=== PATIENT | female | born 1955 | race Caucasian/White ===

== ENCOUNTER → 2016-07-04 | Outpatient (CLI) | payer OTHER, MEDICARE ==
--- NOTE | 2016-07-04 09:47 | XR ---
EXAM TYPE: LUMBAR SPINE X RAY SERIES COMPARISON: NONE HISTORY: Back pain TECHNIQUE: 4 views are submitted. FINDINGS: Alignment is anatomic. The pedicles are intact. The transverse processes are intact. There is no s pondylolysis or spondylolisthesis. Postsurgical change on the right. There is a calcification overlying the right transverse process of L3 measuring 6 mm. Facet arthropathy is seen bilaterally L4-5 and L5-S1 severe degenerative disc disease at levels L2-S1 . Atherosclerotic change of the aorta noted. IMPRESSION: 1. Multilevel severe degenerative disc disease. 2. Possible right ureteral calculus correlate clinically..
== END | disposition home or self-care (01) ==
LOC: RADXRMAIN 09:10
PROVIDERS: ATTEND Family Medicine
DX: M51.36 Other intervertebral disc degeneration, lumbar region (principal); M51.37 Other intervertebral disc degeneration, lumbosacral region
CPT/HCPCS: 72110

== ENCOUNTER → 2016-10-16 | Outpatient (CLI) | payer MEDICARE, OTHER ==
--- NOTE | 2016-10-17 10:46 | MM ---
Reason for exam: screening (asymptomatic). Last mammogram was performed 4 years and 4 months ago. History: Patient is postmenopausal. Family history of breast cancer in sister at age 62. Physical Findings: A clinical breast exam by your physician is recommended on an annual basis and results should be correlated with mammographic findings. MG 3D Screening Mammo W/Cad Bilateral CC and MLO view(s) were taken. Prior study comparison: June 04, 2012, bilateral digital screening mammo w/CAD. February 19, 2011, bilateral digital screening mammo w/CAD. The breast tissue is heterogeneously dense. This may lower the sensitivity of mammography. Finding: There are typically benign calcifications in both breasts. No significant changes in finding since June 04, 2012 and February 19, 2011. ASSESSMENT: Benign, BI-RAD 2 RECOMMENDATION: Routine screening mammogram of both breasts in 1 year.
== END | disposition home or self-care (01) ==
LOC: RADMAMWWP 08:03
PROVIDERS: ATTEND Family Medicine
DX: Z12.31 Encounter for screening mammogram for malignant neoplasm of breast (principal); Z80.3 Family history of malignant neoplasm of breast
CPT/HCPCS: 77063; G0202

== ENCOUNTER 2016-12-02 15:36 | Inpatient (IN) | payer MEDICARE, OTHER ==
[2016-12-02] MEDS ORDERED: IPRATROPIUM-ALBUTEROL 3 ML NEB INHALATION STA (15:55)
[2016-12-02] MEDS ORDERED: methylPREDNISolone SOD SUCCI 125 MG/2 ML VIAL IV STA (15:55)
--- NOTE | 2016-12-02 15:59 | ED ---
General Adult HPI - General Chief complaint: Shortness of Breath Stated complaint: shortness of breat Time Seen by Provider: 12/02/16 15:38 Source: patient, EMS, RN notes reviewed Mode of arrival: EMS Limitations: no limitations - History of Present Illness Initial comments: Patient is a pleasant 61-year-old female presenting to the emergency department with difficulty in breathing. Onset of symptoms was a couple of days ago. Symptoms worsened today. Patient does have cough with occasional opaque sputum. No chest pain. Patient feels fatigued. No leg pain or leg swelling. Patient does have history of similar symptoms previously associated with COPD and pneumonia. No fevers. - Related Data Home Medications Medication Instructions Recorded Confirmed Aclidinium [place] [Tudorza 1 puff INHALATION RT-BID 08/06/14 12/02/16 Pressair] Albuterol Inhaler [Ventolin Hfa 1 - 2 puff INHALATION RT-Q6H PRN 08/06/14 Inhaler] Dextroamphetamine/Amphetamine 20 mg PO TID 08/06/14 12/02/16 [Adderall] Fesoterodine Fumarate [Toviaz] 8 mg PO DAILY 08/06/14 12/02/16 Gabapentin [Neurontin] 600 mg PO TID 08/06/14 12/02/16 Albuterol Nebulized [Ventolin 2.5 mg INHALATION RT-BID PRN 10/01/14 12/02/16 Nebulized] Budesonide [Pulmicort] 0.5 mg INHALATION RT-BID 12/02/16 12/02/16 Diazepam 1 mg PO DAILY PRN 12/02/16 12/02/16 Guaifenesin/Dextromethorphan 1 tab PO BID PRN 12/02/16 12/02/16 [Mucinex Dm ER 1,200-60 mg Tab] Lurasidone [Latuda] 40 mg PO DAILY 12/02/16 12/02/16 Montelukast [Singulair] 10 mg PO DAILY 12/02/16 12/02/16 Varenicline [Chantix] 0.5 mg PO BID 12/02/16 12/02/16 Varenicline [Chantix] 0.5 mg PO DAILY 12/02/16 12/02/16 Varenicline [Chantix] 1 mg PO BID 12/02/16 12/02/16 Allergies Allergy/AdvReac Type Severity Reaction Status Date / Time Penicillins Allergy Anaphylaxis Verified 12/02/16 15:44 Review of Systems ROS Statement: Those systems with pertinent positive or pertinent negative responses have been documented in the HPI. ROS Other: All systems not noted in ROS Statement are negative. Constitutional: Denies: fever Eyes: Denies: eye pain ENT: Denies: ear pain Respiratory: Reports: cough, dyspnea Cardiovascular: Denies: chest pain Endocrine: Reports: fatigue Gastrointestinal: Denies: abdominal pain Genitourinary: Denies: dysuria Musculoskeletal: Denies: back pain Skin: Denies: rash Neurological: Denies: weakness Past Medical History Past Medical History: COPD, Hyperlipidemia, Pneumonia Additional Past Medical History / Comment(s): Other HX: cervical arthiritis, 2 bulging discs in neck, emphysema, pneumonia 5 yrs ago History of Any Multi-Drug Resistant Organisms: None Reported Past Surgical History: Adenoidectomy, Appendectomy, Cholecystectomy, Hysterectomy, Orthopedic Surgery, Tonsillectomy, Tubal Ligation Additional Past Surgical History / Comment(s): vaginal hysterectomy 2009, lap mal 2009, colonoscopy-nromal 2010R rotator cuff repair 2008 Past Anesthesia/Blood Transfusion Reactions: No Reported Reaction Additional Past Anesthesia/Blood Transfusion Reaction / Comment(s): Pt has never had blood transfusion. Past Psychological History: Anxiety, Depression Smoking Status: Current every day smoker Past Alcohol Use History: None Reported, Occasional Past Drug Use History: Marijuana - Past Family History Father Family Medical History: Congestive Heart Failure (CHF) Additional Family Medical History / Comment(s): Father of CHF at age 42 yrs. Mother Family Medical History: No Reported History Additional Family Medical History / Comment(s): Mother is 81 yrs old and healthy General Exam Limitations: no limitations General appearance: alert Head exam: Present: atraumatic Eye exam: Present: normal appearance, PERRL ENT exam: Present: normal oropharynx Neck exam: Present: normal inspection Respiratory exam: Present: wheezes, decreased breath sounds Cardiovascular Exam: Present: regular rate, normal rhythm GI/Abdominal exam: Present: soft. Absent: tenderness Extremities exam: Present: normal inspection. Absent: pedal edema, calf tenderness Neurological exam: Present: alert Psychiatric exam: Present: normal affect, normal mood Skin exam: Present: normal color Course Vital Signs 12/02/16 12/02/16 15:38 16:00 Temperature 96.8 F L Pulse Rate 101 H Respiratory 20 26 H Rate Blood Pressure 143/80 O2 Sat by Pulse 97 Oximetry EKG Findings - EKG Comments: EKG Findings:: Normal sinus rhythm 91. LA 1:30. QRS 76. QT 372. QTC 457. Normal axis. Biatrial enlargement. Normal QRS. No acute ST change. Medical Decision Making - Medical Decision Making Patient reevaluated and somewhat improved. Patient and family updated on results and plan. Case discussed in detail with Dr. Knox, who will admit his patient. Patient states she sees Dr. Kilpatrick with pulmonary. - Lab Data Result diagrams: 12/02/16 15:45 Lab Results 12/02/16 Range/Units 15:45 WBC 10.3 (3.8-10.6) k/uL RBC 4.37 (3.80-5.40) m/uL Hgb 13.6 (11.4-16.0) gm/dL Hct 43.3 (34.0-46.0) % MCV 99.2 (80.0-100.0) fL MCH 31.2 (25.0-35.0) pg MCHC 31.5 (31.0-37.0) g/dL RDW 13.8 (11.5-15.5) % Plt Count 263 (150-450) k/uL Neutrophils % 75 % Lymphocytes % 17 % Monocytes % 3 % Eosinophils % 3 % Basophils % 1 % Neutrophils # 7.7 (1.3-7.7) k/uL Lymphocytes # 1.7 (1.0-4.8) k/uL Monocytes # 0.4 (0-1.0) k/uL Eosinophils # 0.3 (0-0.7) k/uL Basophils # 0.1 (0-0.2) k/uL - Radiology Data Radiology results: image reviewed (Chest x-ray shows hyperinflation without acute infiltrate) Disposition Clinical Impression: Acute exacerbation of chronic obstructive airways disease Disposition: ADMITTED IP TO THIS HOSP Referrals: Allen Knox MD [Primary Care Provider] - 1-2 days Decision Time: 16:55
--- NOTE | 2016-12-02 16:45 | XR ---
EXAMINATION TYPE: XR chest 2V DATE OF EXAM: 12/02/2016 COMPARISON: 10/01/2014 HISTORY: Cough TECHNIQUE: Frontal and lateral views of the chest are obtained. FINDINGS: There is pulmonary hyperinflation and flattening of the diaphragm. Heart size is normal. T here are emphysematous changes at the lung apices. Bony thorax is intact. IMPRESSION: Emphysema. No acute lung disease. No change.
[2016-12-02 16:52] LABS: Basophils # (A) 0.1 k/uL (0-0.2); Basophils % (A) 1 %; CH 31.8; CHCM 32.2; Eosinophils # (A) 0.3 k/uL (0-0.7); Eosinophils % (A) 3 %; HCT 43.3 % (34.0-46.0); HDW 2.18; HGB 13.6 gm/dL (11.4-16.0); Luc # (Auto) 0.12; Luc % (Auto) 1; Lymphocytes # (A) 1.7 k/uL (1.0-4.8); Lymphocytes % (A) 17 %; MCH 31.2 pg (25.0-35.0); MCHC 31.5 g/dL (31.0-37.0); MCV 99.2 fL (80.0-100.0); Mean Platelet Volume 7.8; Monocytes # (A) 0.4 k/uL (0-1.0); Monocytes % (A) 3 %; Neutrophils # (A) 7.7 k/uL (1.3-7.7); Neutrophils % (A) 75 %; RBC 4.37 m/uL (3.80-5.40); RDW 13.8 % (11.5-15.5); WBC 10.3 k/uL (3.8-10.6); WBC (Perox) 10.87
[2016-12-02] MEDS ORDERED: IPRATROPIUM-ALBUTEROL 3 ML NEB INHALATION PRN (16:52)
[2016-12-02 17:02] LABS: ALT 103 U/L (9-52); AST 135 U/L (14-36); Alkaline Phosphatase 111 U/L (38-126); Anion Gap 7 mmol/L; Blood Urea Nitrogen 8 mg/dL (7-17); Calcium 9.9 mg/dL (8.4-10.2); Carbon Dioxide 27 mmol/L (22-30); Chloride 100 mmol/L (98-107); Glucose 253 mg/dL (74-99); Non-African American GFR(MDRD) >60 (>60 ml/min/1.73 sqM); Sodium 134 mmol/L (137-145); Total Bilirubin 1.2 mg/dL (0.2-1.3); Total Protein 7.2 g/dL (6.3-8.2)
[2016-12-02 17:05] LABS: Partial Thromboplastin Time 23.7 sec (22.0-30.0); Prothrombin Time 10.6 sec (9.0-12.0)
[2016-12-02 17:13] LABS: Potassium 5.1 mmol/L (3.5-5.1)
[2016-12-02 17:28] LABS: Creatine Kinase MB 4.9 ng/mL (0.0-2.4); Troponin I 0.131 ng/mL (0.000-0.034)
[2016-12-02] MEDS ORDERED: HEPARIN SODIUM,PORCINE 5,000 UNIT/ML 1 ML VIAL IV PRN (17:37)
[2016-12-02] MEDS ORDERED: HEPARIN SODIUM,PORCINE 5,000 UNIT/ML 1 ML VIAL IV ONE (17:37)
[2016-12-02] MEDS ORDERED: ASPIRIN 81 MG PO STA (17:38)
[2016-12-02] MEDS ORDERED: NITROGLYCERIN SL TABS 0.4 MG TAB SUBLINGUAL PRN (17:38)
[2016-12-02] MEDS: HEPARIN SODIUM,PORCINE/D5W PMX 25,000 UNIT in DEXTROSE/WATER 1 500ML.BAG IV SCH (17:59)
[2016-12-02] MEDS: LEVOFLOXACIN 500 MG TAB PO SCH (18:02)
[2016-12-02] MEDS: NITROGLYCERIN OINT 1 INCH/GM PACKET TOPICAL SCH (18:48)
[2016-12-02] MEDS: IPRATROPIUM-ALBUTEROL 3 ML NEB INHALATION SCH (19:36)
[2016-12-02 22:56] VITALS: BMI 17.4
[2016-12-02 23:13] LABS: Creatine Kinase MB 6.3 ng/mL (0.0-2.4); Troponin I 0.248 ng/mL (0.000-0.034)
[2016-12-02] MEDS ORDERED: DIAZEPAM 2 MG TAB PO PRN (23:15)
[2016-12-02] MEDS ORDERED: guaiFENesin-DM 600/30MG 1 EACH TAB.ER.12H PO PRN (23:15)
[2016-12-02] MEDS ORDERED: NON-FORMULARY DRUG (Dextroamphetamine/Amphetamine [Adderall] 20 MG) PO SCH (23:15)
[2016-12-03] MEDS: NITROGLYCERIN OINT 1 INCH/GM PACKET TOPICAL SCH ×5 (00:24→23:07)
[2016-12-03] MEDS: methylPREDNISolone SOD SUCCI 125 MG/2 ML VIAL IV SCH ×5 (00:24→23:07)
[2016-12-03] MEDS: LURASIDONE 40 MG TAB PO SCH ×2 (00:24→20:58)
[2016-12-03] MEDS: MONTELUKAST 10 MG TAB PO SCH ×2 (00:24→20:58)
[2016-12-03] MEDS: GABAPENTIN 300 MG CAP PO SCH ×4 (00:24→20:58)
[2016-12-03 03:49] LABS: Basophils % (A) 0 %; CHCM 33.5; Eosinophils % (A) 1 %; HCT 42.5 % (34.0-46.0); HGB 13.7 gm/dL (11.4-16.0); Luc # (Auto) 0.03; Luc % (Auto) 1; Lymphocytes # (A) 0.5 k/uL (1.0-4.8); Lymphocytes % (A) 9 %; MCH 31.1 pg (25.0-35.0); MCHC 32.4 g/dL (31.0-37.0); Mean Platelet Volume 7.4; Monocytes # (A) 0.1 k/uL (0-1.0); Monocytes % (A) 2 %; Neutrophils # (A) 5.2 k/uL (1.3-7.7); Neutrophils % (A) 88 %; RBC 4.42 m/uL (3.80-5.40); RDW 13.8 % (11.5-15.5); WBC (Perox) 6.35
[2016-12-03 04:41] LABS: Cholesterol 223 mg/dL (<200)
[2016-12-03 04:51] LABS: Creatine Kinase MB 6.9 ng/mL (0.0-2.4)
[2016-12-03 04:52] LABS: Troponin I 0.211 ng/mL (0.000-0.034)
[2016-12-03 05:27] LABS: HDL Cholesterol 130 mg/dL (40-60)
[2016-12-03] MEDS: IPRATROPIUM-ALBUTEROL 3 ML NEB INHALATION SCH ×4 (07:05→20:20)
[2016-12-03] MEDS: BUDESONIDE 0.5 MG/2 ML NEBU INHALATION SCH ×2 (07:38→20:20)
--- NOTE | 2016-12-03 10:46 | P.CNPUL ---
History of Present Illness Consult date: 12/03/16 Requesting physician: Allen Knox Reason for consult: dyspnea Chief complaint: shortness of breath History of present illness: This is a 61-year-old female patient being evaluated seen and examined today on rounds. This patient came into the emergency room yesterday with shortness of breath with exertion that had been progressing over the last few days. She does have a congested cough with opaque white sputum. She denies any chest pain or leg pain or leg swelling she has had symptoms like this in the past that were associated with COPD exacerbation and pneumonia. She is afebrile. Of note the patient did quit smoking for approximately 3 years and then started smoking again approximately 3 weeks ago. Upon examination the patient's resting up in bed on 3 L of supplemental oxygen via nasal cannula. She does utilize home oxygen at night only. Chest x-ray does show emphysema, no acute lung disease, no changes. All labs and reports have been reviewed. Review of Systems 14 point review of systems was completed and is negative unless noted above in the HPI. Past Medical History Past Medical History: Asthma, COPD, Hyperlipidemia, Pneumonia Additional Past Medical History / Comment(s): Other HX: cervical arthiritis, 2 bulging discs in neck, emphysema, pneumonia 5 yrs ago History of Any Multi-Drug Resistant Organisms: None Reported Past Surgical History: Adenoidectomy, Appendectomy, Cholecystectomy, Hysterectomy, Orthopedic Surgery, Tonsillectomy, Tubal Ligation Additional Past Surgical History / Comment(s): vaginal hysterectomy 2009, lap mal 2009, colonoscopy-nromal 2009R rotator cuff repair 2008 Past Anesthesia/Blood Transfusion Reactions: No Reported Reaction Additional Past Anesthesia/Blood Transfusion Reaction / Comment(s): Pt has never had blood transfusion. Past Psychological History: Anxiety, Depression Additional Psychological History / Comment(s): Pt states she is on RX's for anxiety and depression and that they work well for her. Pt resides with her spouse. She is independent. She uses no assistive devices or home care agency. She drives a car. Smoking Status: Current every day smoker Past Alcohol Use History: None Reported, Occasional Additional Past Alcohol Use History / Comment(s): Pt states she started smoking at age 14 yrs and quit smoking in 2012 at age 56 yrs. Pt states she quit 4 years ago and started smoking again 1 month ago. Pt trying to quit with Chantix Past Drug Use History: Marijuana Additional Drug Use History / Comment(s): Pt states she occasionally smokes marijuana. - Past Family History Father Family Medical History: Congestive Heart Failure (CHF) Additional Family Medical History / Comment(s): Father of a heart attack at age 42 yrs. Mother Family Medical History: Rheumatoid Arthritis (RA), Thyroid Disorder Additional Family Medical History / Comment(s): . Medications and Allergies Home Medications Medication Instructions Recorded Confirmed Type Aclidinium [place] [Tudorza 1 puff INHALATION RT-BID 08/06/14 12/02/16 History Pressair] Albuterol Inhaler [Ventolin Hfa 1 - 2 puff INHALATION RT-Q6H PRN 08/06/14 History Inhaler] Dextroamphetamine/Amphetamine 20 mg PO TID 08/06/14 12/02/16 History [Adderall] Fesoterodine Fumarate [Toviaz] 8 mg PO DAILY 08/06/14 12/02/16 History Gabapentin [Neurontin] 600 mg PO TID 08/06/14 12/02/16 History Albuterol Nebulized [Ventolin 2.5 mg INHALATION RT-BID PRN 10/01/14 12/02/16 History Nebulized] Budesonide [Pulmicort] 0.5 mg INHALATION RT-BID 12/02/16 12/02/16 History Diazepam 1 mg PO DAILY PRN 12/02/16 12/02/16 History Guaifenesin/Dextromethorphan 1 tab PO BID PRN 12/02/16 12/02/16 History [Mucinex Dm ER 1,200-60 mg Tab] Lurasidone [Latuda] 40 mg PO DAILY 12/02/16 12/02/16 History Montelukast [Singulair] 10 mg PO DAILY 12/02/16 12/02/16 History Varenicline [Chantix] 0.5 mg PO BID 12/02/16 12/02/16 History Varenicline [Chantix] 0.5 mg PO DAILY 12/02/16 12/02/16 History Varenicline [Chantix] 1 mg PO BID 12/02/16 12/02/16 History Allergies Allergy/AdvReac Type Severity Reaction Status Date / Time Penicillins Allergy Anaphylaxis Verified 12/02/16 15:44 Physical Exam Vitals: Vital Signs Temp Pulse Pulse Resp BP BP Pulse Ox 12/03/16 08:00 96.8 F L 85 125/69 96 12/03/16 07:48 80 12/03/16 07:39 84 12/03/16 07:17 88 12/03/16 07:07 94 94 L 12/03/16 04:00 97.9 F 97 18 134/80 98 12/03/16 00:00 93 22 142/89 98 12/02/16 23:19 96 12/02/16 23:07 94 12/02/16 21:36 97.9 F 22 12/02/16 20:45 97.6 F 94 18 136/64 95 12/02/16 20:07 92 12/02/16 19:36 91 12/02/16 19:17 93 94 L 12/02/16 18:50 92 18 125/78 96 12/02/16 18:01 98.3 F 96 20 159/90 93 L 12/02/16 17:30 82 16 136/87 98 12/02/16 17:13 86 12/02/16 17:05 87 L 12/02/16 17:03 94 12/02/16 16:30 86 18 128/82 96 12/02/16 16:00 26 H 12/02/16 15:38 96.8 F L 101 H 20 143/80 97 Intake and Output 12/02/16 12/03/16 12/03/16 22:59 06:59 14:59 Intake Total 148.896 Output Total 400 Balance -400 148.896 Intake: Intake, IV Titration 148.896 Amount Heparin Sodium,Porcine/ 148.896 D5w Pmx 25,000 unit In Dextrose/Water 1 500ml. bag @ 12 UNITS/KG/HR 10. 34 mls/hr IV .Q24H [facility] Rx #:[id number] Output: Urine 400 Other: Voiding Method Bedside Commode # Voids 1 Weight 43.1 kg 43.1 kg GENERAL EXAM: Alert, active, comfortable in no apparent distress. HEAD: Normocephalic. EYES: Normal reaction of pupils, equal size. NOSE: Clear with pink turbinates. THROAT: No erythema or exudates. NECK: No masses, no JVD. CHEST: No chest wall deformity. LUNGS: Lung sounds noted to be coarse throughout and congested. She does have some expiratory wheezes scattered throughout. Bases diminished. CVS: S1 and S2 normal with no audible mumurs, regular rhythm. ABDOMEN: No hepatosplenomegaly, normal bowel sounds, no guarding or rigidity. EXTREMITIES: No edema noted, pedal pulses palpable. SKIN: No rashes CENTRAL NERVOUS SYSTEM: No focal deficits, tone is normal in all 4 extremities. Results - Laboratory Findings CBC and BMP: 12/03/16 03:36 12/02/16 15:45 PT/INR, D-dimer PT 10.6 sec (9.0-12.0) 12/02/16 15:45 INR 1.0 (<1.2) 12/02/16 15:45 Abnormal lab findings: Abnormal Labs 12/02/16 12/02/16 12/02/16 15:45 15:45 22:05 Lymphocytes # APTT Sodium 134 L Glucose 253 H AST 135 H ALT 103 H CK-MB (CK-2) 4.9 H* 6.3 H* Troponin I 0.131 H* 0.248 H* Cholesterol HDL Cholesterol 12/03/16 12/03/16 12/03/16 03:36 03:36 03:36 Lymphocytes # 0.5 L APTT Sodium Glucose AST ALT CK-MB (CK-2) 6.9 H* Troponin I 0.211 H* Cholesterol 223 H HDL Cholesterol 130 H 12/03/16 06:38 Lymphocytes # APTT 35.4 H Sodium Glucose AST ALT CK-MB (CK-2) Troponin I Cholesterol HDL Cholesterol - Diagnostic Findings Chest x-ray: report reviewed, image reviewed Assessment and Plan Plan: Assessment Acute exacerbation of COPD Tracheobronchitis Acute hypoxic respiratory failure History of asthma Nicotine dependence Elevated troponins, cardiology consult Plan Medications have been reviewed and will be continued as ordered. Continue with IV antibiotics and steroids. Continue with pulmonary hygiene, coughing and deep breathing exercises, and supportive care. Supplemental oxygen to maintain oxygen saturations of 92% or better. Continue nebulizer treatments. Echocardiogram pending. Cardiology on consult. Patient on heparin drip for elevated troponins. GI and DVT prophylaxis. We will continue to monitor labs/ results and adjust treatment as necessary. Further recommendations pending. I performed an examination of the patient and discussed their management with the nurse practitioner. I have reviewed the nurse practitioner's note and agree with the documented findings and plan of care.
[2016-12-03] MEDS: ASPIRIN 325 MG TAB PO SCH (11:52)
[2016-12-03] MEDS: ATORVASTATIN 40 MG TAB PO SCH (11:53)
[2016-12-03] MEDS: VARENICLINE 0.5 MG TAB PO SCH ×2 (11:53→20:58)
[2016-12-03] MEDS: OXYBUTYNIN XL 5 MG TAB.ER.24 PO SCH (11:53)
--- NOTE | 2016-12-03 12:47 | P.CRDCN ---
History of Present Illness Consult date: 12/03/16 Chief complaint: Shortness of breath History of present illness: This is a pleasant 61-year-old female patient with no prior cardiac history but history of chronic respiratory failure on 3 L oxygen at night at home and known COPD presented to the hospital complaining of shortness of breath. The patient was in her usual state of health when she has chronic exertional dyspnea until about 3 days ago when she started experiencing worsening in her dyspnea with associated cough productive of sputum. No fever and no chills. No chest pain or discomfort. The patient was admitted to the hospital with COPD exacerbation and was started on steroids and antibiotic. We get involved in the care of the patient for abnormal cardiac enzymes. Troponin is mildly elevated. The EKG showed sinus rhythm without any significant ST or T-wave abnormalities. The patient continues to be pain-free. Please note that the patient has very significant family history of coronary artery disease with her father. Past Medical History Past Medical History: Asthma, COPD, Hyperlipidemia, Pneumonia Additional Past Medical History / Comment(s): Other HX: cervical arthiritis, 2 bulging discs in neck, emphysema, pneumonia 5 yrs ago History of Any Multi-Drug Resistant Organisms: None Reported Past Surgical History: Adenoidectomy, Appendectomy, Cholecystectomy, Hysterectomy, Orthopedic Surgery, Tonsillectomy, Tubal Ligation Additional Past Surgical History / Comment(s): vaginal hysterectomy 2009, lap mal 2009, colonoscopy-nromal 2010R rotator cuff repair 2008 Past Anesthesia/Blood Transfusion Reactions: No Reported Reaction Additional Past Anesthesia/Blood Transfusion Reaction / Comment(s): Pt has never had blood transfusion. Past Psychological History: Anxiety, Depression Additional Psychological History / Comment(s): Pt states she is on RX's for anxiety and depression and that they work well for her. Pt resides with her spouse. She is independent. She uses no assistive devices or home care agency. She drives a car. Smoking Status: Current every day smoker Past Alcohol Use History: None Reported, Occasional Additional Past Alcohol Use History / Comment(s): Pt states she started smoking at age 14 yrs and quit smoking in 2013 at age 56 yrs. Pt states she quit 4 years ago and started smoking again 1 month ago. Pt trying to quit with Chantix Past Drug Use History: Marijuana Additional Drug Use History / Comment(s): Pt states she occasionally smokes marijuana. - Past Family History Father Family Medical History: Congestive Heart Failure (CHF) Additional Family Medical History / Comment(s): Father of a heart attack at age 42 yrs. Mother Family Medical History: Rheumatoid Arthritis (RA), Thyroid Disorder Additional Family Medical History / Comment(s): . Medications and Allergies Home Medications Medication Instructions Recorded Confirmed Type Aclidinium Independence [Tudorza 1 puff INHALATION RT-BID 08/06/14 12/02/16 History Pressair] Albuterol Inhaler [Ventolin Hfa 1 - 2 puff INHALATION RT-Q6H PRN 08/06/14 History Inhaler] Dextroamphetamine/Amphetamine 20 mg PO TID 08/06/14 12/02/16 History [Adderall] Fesoterodine Fumarate [Toviaz] 8 mg PO DAILY 08/06/14 12/02/16 History Gabapentin [Neurontin] 600 mg PO TID 08/06/14 12/02/16 History Albuterol Nebulized [Ventolin 2.5 mg INHALATION RT-BID PRN 10/01/14 12/02/16 History Nebulized] Budesonide [Pulmicort] 0.5 mg INHALATION RT-BID 12/02/16 12/02/16 History Diazepam 1 mg PO DAILY PRN 12/02/16 12/02/16 History Guaifenesin/Dextromethorphan 1 tab PO BID PRN 12/02/16 12/02/16 History [Mucinex Dm ER 1,200-60 mg Tab] Lurasidone [Latuda] 40 mg PO DAILY 12/02/16 12/02/16 History Montelukast [Singulair] 10 mg PO DAILY 12/02/16 12/02/16 History Varenicline [Chantix] 0.5 mg PO BID 12/02/16 12/02/16 History Varenicline [Chantix] 0.5 mg PO DAILY 12/02/16 12/02/16 History Varenicline [Chantix] 1 mg PO BID 12/02/16 12/02/16 History Allergies Allergy/AdvReac Type Severity Reaction Status Date / Time Penicillins Allergy Anaphylaxis Verified 12/02/16 15:44 Physical Exam Vitals: Vital Signs Temp Pulse Pulse Resp BP BP Pulse Ox 12/03/16 11:14 88 12/03/16 11:04 86 12/03/16 08:00 96.8 F L 85 125/69 96 12/03/16 07:48 80 12/03/16 07:39 84 12/03/16 07:17 88 12/03/16 07:07 94 94 L 12/03/16 04:00 97.9 F 97 18 134/80 98 12/03/16 00:00 93 22 142/89 98 12/02/16 23:19 96 12/02/16 23:07 94 12/02/16 21:36 97.9 F 22 12/02/16 20:45 97.6 F 94 18 136/64 95 12/02/16 20:07 92 12/02/16 19:36 91 12/02/16 19:17 93 94 L 12/02/16 18:50 92 18 125/78 96 12/02/16 18:01 98.3 F 96 20 159/90 93 L 12/02/16 17:30 82 16 136/87 98 12/02/16 17:13 86 12/02/16 17:05 87 L 12/02/16 17:03 94 12/02/16 16:30 86 18 128/82 96 12/02/16 16:00 26 H 12/02/16 15:38 96.8 F L 101 H 20 143/80 97 Intake and Output 12/02/16 12/03/16 12/03/16 22:59 06:59 14:59 Intake Total 148.896 Output Total 400 Balance -400 148.896 Intake: Intake, IV Titration 148.896 Amount Heparin Sodium,Porcine/ 148.896 D5w Pmx 25,000 unit In Dextrose/Water 1 500ml. bag @ 12 UNITS/KG/HR 10. 34 mls/hr IV .Q24H [facility] Rx #:[id number] Output: Urine 400 Other: Voiding Method Bedside Commode # Voids 1 Weight 43.1 kg 43.1 kg 43.1 kg Patient Weight 12/04/16 06:59 Weight 43.1 kg - Constitutional General appearance: no acute distress - Respiratory Respiratory: bilateral: CTA - Cardiovascular Rhythm: regular Heart sounds: normal: S1, S2 Results 12/03/16 03:36 12/02/16 15:45 Cardiac Enzymes 12/02/16 12/02/16 12/02/16 Range/Units 15:45 15:45 22:05 AST 135 H (14-36) U/L CK-MB (CK-2) 4.9 H* 6.3 H* (0.0-2.4) ng/mL Troponin I 0.131 H* 0.248 H* (0.000-0.034) ng/mL 12/03/16 Range/Units 03:36 AST (14-36) U/L CK-MB (CK-2) 6.9 H* (0.0-2.4) ng/mL Troponin I 0.211 H* (0.000-0.034) ng/mL Coagulation 12/02/16 12/02/16 12/03/16 Range/Units 15:45 23:54 06:38 PT 10.6 (9.0-12.0) sec APTT 23.7 24.6 35.4 H (22.0-30.0) sec Lipids 12/03/16 Range/Units 03:36 Triglycerides 69 (<150) mg/dL Cholesterol 223 H (<200) mg/dL HDL Cholesterol 130 H (40-60) mg/dL CBC 12/02/16 12/03/16 Range/Units 15:45 03:36 WBC 10.3 6.0 (3.8-10.6) k/uL RBC 4.37 4.42 (3.80-5.40) m/uL Hgb 13.6 13.7 (11.4-16.0) gm/dL Hct 43.3 42.5 (34.0-46.0) % Plt Count 263 251 (150-450) k/uL Comprehensive Metabolic Panel 12/02/16 Range/Units 15:45 Sodium 134 L (137-145) mmol/L Potassium 5.1 (3.5-5.1) mmol/L Chloride 100 (98-107) mmol/L Carbon Dioxide 27 (22-30) mmol/L BUN 8 (7-17) mg/dL Creatinine 0.70 (0.52-1.04) mg/dL Glucose 253 H (74-99) mg/dL Calcium 9.9 (8.4-10.2) mg/dL AST 135 H (14-36) U/L ALT 103 H (9-52) U/L Alkaline Phosphatase 111 (38-126) U/L Total Protein 7.2 (6.3-8.2) g/dL Albumin 4.4 (3.5-5.0) g/dL Current Medications Generic Name Dose Route Start Last Admin Trade Name Freq PRN Reason Stop Dose Admin Albuterol/Ipratropium 3 ml 12/02/16 20:00 12/03/16 11:01 Duoneb 0.5 Mg-3 Mg/3 Ml Soln INHALATION 3 ml RT-QID [facility] Administration Albuterol/Ipratropium 3 ml 12/02/16 16:52 12/02/16 23:07 Duoneb 0.5 Mg-3 Mg/3 Ml Soln INHALATION 3 ml RT-Q4H PRN Administration Shortness Of Breath Or Wheezing Aspirin 325 mg 12/03/16 09:00 12/03/16 11:52 Aspirin PO 325 mg DAILY [facility] Administration Atorvastatin Calcium 40 mg 12/03/16 09:00 12/03/16 11:53 Lipitor PO 40 mg DAILY [facility] Administration Budesonide 0.5 mg 12/03/16 08:00 12/03/16 07:38 Pulmicort INHALATION 0.5 mg RT-BID [facility] Administration Diazepam 1 mg 12/02/16 23:15 Valium PO DAILY PRN Anxiety Gabapentin 600 mg 12/02/16 23:15 12/03/16 11:52 Neurontin PO 600 mg TID [facility] Administration Guaifenesin/Dextromethorphan 1 each 12/02/16 23:15 Mucinex Dm PO BID PRN Congestion/Dyspnea Heparin Sodium (Porcine) 0 unit 12/02/16 17:37 12/03/16 00:56 Heparin IV 2,150 unit PER PROTOCOL PRN Administration Low PTT Protocol Heparin Sodium/Dextrose 25,000 500 mls @ 10.34 mls/hr 12/02/16 17:45 08:23 unit/ IV Solution IV 18 units/kg/hr .Q24H [facility] 15.51 mls/hr Protocol Titration 12 UNITS/KG/HR Levofloxacin 500 mg 12/02/16 19:00 12/02/16 18:02 Levaquin PO 12/09/16 19:01 500 mg 1900 [facility] Administration Lurasidone HCl 40 mg 12/02/16 23:15 12/03/16 00:24 Latuda PO 40 mg HS [facility] Administration Methylprednisolone Sodium Succinate 60 mg 12/03/16 00:00 12/03/16 11:53 Solu-Medrol IV 60 mg Q6HR [facility] Administration Montelukast Sodium 10 mg 12/02/16 23:15 12/03/16 00:24 Singulair PO 10 mg HS [facility] Administration Nitroglycerin 0.5 inch 12/02/16 18:00 12/03/16 11:54 Nitro-Bid Oint TOPICAL 0.5 inch Q6HR [facility] Administration Nitroglycerin 0.4 mg 12/02/16 17:38 Nitrostat SUBLINGUAL Q5M PRN Chest Pain Oxybutynin Chloride 10 mg 12/03/16 09:00 12/03/16 11:53 Ditropan Xl PO 10 mg DAILY [facility] Administration Sodium Chloride 10 ml 12/02/16 21:00 12/03/16 08:23 Saline Flush IV 10 ml BID [facility] Administration Varenicline 0.5 mg 12/03/16 09:00 12/03/16 11:53 Chantix PO 0.5 mg BID [facility] Administration Intake and Output 12/02/16 12/03/16 12/03/16 22:59 06:59 14:59 Intake Total 148.896 Output Total 400 Balance -400 148.896 Intake: Intake, IV Titration 148.896 Amount Heparin Sodium,Porcine/ 148.896 D5w Pmx 25,000 unit In Dextrose/Water 1 500ml. bag @ 12 UNITS/KG/HR 10. 34 mls/hr IV .Q24H [facility] Rx #:[id number] Output: Urine 400 Other: Voiding Method Bedside Commode # Voids 1 Weight 43.1 kg 43.1 kg 43.1 kg Patient Weight 12/04/16 06:59 Weight 43.1 kg 12/03/16 03:36 12/02/16 15:45 Assessment and Plan Plan: This is a pleasant 61-year-old female patient with known COPD and chronic respiratory failure who was admitted to the hospital was worsening dyspnea and COPD exacerbation. We get involved in her care because mildly abnormal cardiac enzymes. No ST or T -wave abnormalities. No chest pain. She has very significant family history of coronary artery disease. Severe underlying CAD need to be ruled out. The patient does not have any other etiology for increased troponin. Her oxygen saturation was within normal limits. Her kidney function is within normal limits. At this point I would continue treating the patient for COPD. I would continue the aspirin for now. Follow-up with the patient. I do feel that the patient need to have a heart catheterization in the next few days after she is feeling better indeterminable COPD.
[2016-12-03] MEDS: ADDERALL 20 MG PO SCH (18:24)
[2016-12-03] MEDS: HEPARIN SODIUM,PORCINE/D5W PMX 25,000 UNIT in DEXTROSE/WATER 1 500ML.BAG IV SCH (18:25)
[2016-12-03] MEDS: LEVOFLOXACIN 500 MG TAB PO SCH (18:25)
--- NOTE | 2016-12-03 19:04 | ECHOF ---
Referral Reason:elevated trop MEASUREMENTS -------- HEIGHT: 157.5 cm WEIGHT: 43.1 kg BP: 134/80 IVSd: 1.2 cm (0.6 - 1.1) LVIDd: 2.5 cm (3.9 - 5.3) LVPWd: 1.5 cm (0.6 - 1.1) IVSs: 1.4 cm LVIDs: 1.1 cm LVPWs: 1.6 cm Ao Diam: 3.0 cm (2.0 - 3.7) AV Cusp: 1.6 cm (1.5 - 2.6) LA Diam: 2.4 cm (2.7 - 3.8) MV EXCURSION: 13.254 mm (> 18.000) MV EF SLOPE: 90 mm/s (70 - 150) EPSS: 1.0 cm MV E Nolan: 0.69 m/s MV DecT: 190 ms MV A Nolan: 0.83 m/s MV E/A Ratio: 0.83 RAP: 5.00 mmHg RVSP: 29.49 mmHg FINDINGS -------- Sinus rhythm. This was a technically adequate study. Pt has severe COPD. Images taken from subcoastals. The left ventricular size is normal. There is mild concentric left ventricular hypertrophy. Overall left ventricular systolic function is normal with, an EF between 55 - 60 %. The right ventricle is normal in size and function. The left atrium is normal in size. The right atrium is normal in size. Aortic valve is trileaflet and is mildly thickened. The mitral valve leaflets are mildly thickened. Mild mitral annular calcification present. Mild mitral regurgitation is present. Mild tricuspid regurgitation present. The right ventricular systolic pressure, as measured by Doppler, is 29.49mmHg. Pulmonic valve appears structurally normal. The aortic root size is normal. Normal inferior vena cava with normal inspiratory collapse consistent with estimated right atrial pressure of 5 mmHg. The pericardium is normal. CONCLUSIONS -------- 1. Sinus rhythm. 2. Aortic valve is trileaflet and is mildly thickened. 3. The mitral valve leaflets are mildly thickened. 4. Mild mitral annular calcification present. 5. Mild mitral regurgitation is present. 6. Mild tricuspid regurgitation present. 7. The right ventricular systolic pressure, as measured by Doppler, is 29.49mmHg. 8. Pulmonic valve appears structurally normal. 9. The aortic root size is normal. 10. Normal inferior vena cava with normal inspiratory collapse consistent with estimated right atrial pressure of 5 mmHg. 11. The pericardium is normal. 12. This was a technically adequate study. 13. Pt has severe COPD. Images taken from subcoastals. 14. The left ventricular size is normal. 15. There is mild concentric left ventricular hypertrophy. 16. Overall left ventricular systolic function is normal with, an EF between 55 - 60 %. 17. The right ventricle is normal in size and function. 18. The left atrium is normal in size. 19. The right atrium is normal in size. CORROSION CONTROL ENGINEER: Tresa Suero RDCS
[2016-12-04] MEDS: HEPARIN SODIUM,PORCINE/D5W PMX 25,000 UNIT in DEXTROSE/WATER 1 500ML.BAG IV SCH (00:41)
[2016-12-04 04:41] LABS: Basophils % (A) 0 %; CH 31.7; Eosinophils # (A) 0.1 k/uL (0-0.7); Eosinophils % (A) 0 %; HCT 39.5 % (34.0-46.0); HDW 2.09; HGB 12.8 gm/dL (11.4-16.0); Luc # (Auto) 0.03; Luc % (Auto) 0; Lymphocytes # (A) 0.8 k/uL (1.0-4.8); Lymphocytes % (A) 6 %; MCH 31.3 pg (25.0-35.0); MCHC 32.5 g/dL (31.0-37.0); MCV 96.5 fL (80.0-100.0); Mean Platelet Volume 7.4; Monocytes # (A) 0.3 k/uL (0-1.0); Monocytes % (A) 2 %; Neutrophils # (A) 11.6 k/uL (1.3-7.7); Neutrophils % (A) 91 %; RDW 13.4 % (11.5-15.5); WBC 12.8 k/uL (3.8-10.6); WBC (Perox) 14.46
[2016-12-04] MEDS: NITROGLYCERIN OINT 1 INCH/GM PACKET TOPICAL SCH ×3 (06:17→18:39)
[2016-12-04] MEDS: methylPREDNISolone SOD SUCCI 125 MG/2 ML VIAL IV SCH ×4 (06:18→23:43)
[2016-12-04] MEDS: IPRATROPIUM-ALBUTEROL 3 ML NEB INHALATION SCH ×4 (08:21→21:24)
[2016-12-04] MEDS: BUDESONIDE 0.5 MG/2 ML NEBU INHALATION SCH ×2 (08:21→21:24)
[2016-12-04] MEDS: OXYBUTYNIN XL 5 MG TAB.ER.24 PO SCH (08:55)
[2016-12-04] MEDS: GABAPENTIN 300 MG CAP PO SCH ×3 (08:55→21:17)
[2016-12-04] MEDS: ADDERALL 20 MG PO SCH ×3 (08:55→18:38)
[2016-12-04] MEDS: ASPIRIN 325 MG TAB PO SCH (08:56)
[2016-12-04] MEDS: ATORVASTATIN 40 MG TAB PO SCH (08:56)
[2016-12-04] MEDS: VARENICLINE 0.5 MG TAB PO SCH ×2 (08:56→21:17)
--- NOTE | 2016-12-04 10:16 | HP ---
HISTORY AND PHYSICAL CHIEF COMPLAINT: This is a 61-year-old with chest pressure and shortness of breath. HISTORY OF PRESENT ILLNESS: This is a 61-year-old, white female admitted to the hospital with severe shortness of breath, cough, congestion and COPD exacerbation after failing outpatient treatment with oral steroids and antibiotics. She was found to have elevated troponin of mild nature on admission, at which time, Cardiology was then consulted to rule out myocardial infarction. She has no history of heart disease. She does have a history of nicotine addiction in the past, bipolar disorder, anxiety medications on this patient. ALLERGIES: PENICILLIN. REVIEW OF SYSTEMS: PSYCH: Negative. NEURO: Negative. VASCULAR: Negative. HEMATOLOGY: Negative. IMMUNE: Negative. INTEGUMENT: Negative. PULMONARY: As mentioned. CARDIAC: As mentioned above. PHYSICAL EXAM: Vital signs stable. Afebrile. Lungs show scattered wheeze x4, rhonchi x4. CARDIOVASCULAR: S1, S2 without any murmurs, rubs or gallops. GI: Soft, nontender. HEMATOLOGIC: Negative Homans'. VASCULAR: Normal dorsalis pedis, posterior tibial, radial pulse. OPHTHALMOLOGIC: Pupils equal, round, react to light and accommodation. NEUROLOGIC: Alert and oriented x3. ASSESSMENT: 1. Possible non non-ST elevated myocardial infarction, elevated troponins. 2. Chronic obstructive pulmonary disease exacerbation. 3. Nicotine addiction. 4. Dyslipidemia. Started the patient on high-dose atorvastatin. Await for Cardiology and Pulmonary consults. 5. D-dimer to rule out pulmonary embolism was ordered. Prognosis guarded. MMODL / IJN: [id number] /
--- NOTE | 2016-12-04 10:22 | PN ---
PROGRESS NOTE This is a white female who was admitted with a positive STEMI. Await cardiology recommendations. Started on a high-dose cholesterol pill, atorvastatin 40 mg a day. She is doing better today. CARDIOVASCULAR: S1, S2. Lungs still have wheeze x4. HEMATOLOGIC: Negative Homans' ASSESSMENT: 1. Acute non-ST elevated myocardial infarction. 2. Chronic obstructive pulmonary disease. 3. Nicotine addiction. 4. Dyslipidemia. Started on atorvastatin 40 mg a day. Await Cardiology recommendations. MMSHERIL / IJN: [id number] /
--- NOTE | 2016-12-04 11:01 | P.PN ---
Subjective 12/04/16- patient is being seen in evaluated and examined today on rounds. Patient did have an echocardiogram yesterday which did show an EF of 55-60% cardiology is on consult and is considering doing a heart catheterization once patient's COPD is more stabilized. Patient continues to have occasional shortness of breath with exertion and a congested cough with clear sputum. Patient currently resting up in bed on 2 L of supplemental oxygen via nasal cannula she does utilize 2 L of oxygen at home only during nighttime hours. Afebrile no further complaints. 12/03/16- This is a 61-year-old female patient being evaluated seen and examined today on rounds. This patient came into the emergency room yesterday with shortness of breath with exertion that had been progressing over the last few days. She does have a congested cough with opaque white sputum. She denies any chest pain or leg pain or leg swelling she has had symptoms like this in the past that were associated with COPD exacerbation and pneumonia. She is afebrile. Of note the patient did quit smoking for approximately 3 years and then started smoking again approximately 3 weeks ago. Upon examination the patient's resting up in bed on 3 L of supplemental oxygen via nasal cannula. She does utilize home oxygen at night only. Chest x-ray does show emphysema, no acute lung disease, no changes. All labs and reports have been reviewed. Objective - Vital Signs Vital signs: Vital Signs Temp 98.6 F 12/04/16 04:00 Pulse 80 12/04/16 08:40 Resp 18 12/04/16 04:00 BP 104/63 12/04/16 04:00 Pulse Ox 97 12/04/16 04:00 Intake & Output 12/03/16 12/04/16 12/04/16 18:59 06:59 18:59 Intake Total 734.105 505.619 240 Output Total 30 Balance 704.105 505.619 240 Weight 43.1 kg 41.9 kg Intake: IV 240 Heparin Sodium,Porcine/ 240 D5w Pmx 25,000 unit In Dextrose/Water 1 500ml. bag @ 12 UNITS/KG/HR 10. 34 mls/hr IV .Q24H [facility] Rx #:[id number] Intake, IV Titration 254.105 265.619 Amount Heparin Sodium,Porcine/ 254.105 265.619 D5w Pmx 25,000 unit In Dextrose/Water 1 500ml. bag @ 12 UNITS/KG/HR 10. 34 mls/hr IV .Q24H [facility] Rx #:[id number] Oral 480 240 Output: Urine 30 Other: Voiding Method Bedside Commode Bedside Commode # Voids 1 - Exam GENERAL EXAM: Alert, active, comfortable in no apparent distress. HEAD: Normocephalic. EYES: Normal reaction of pupils, equal size. NOSE: Clear with pink turbinates. THROAT: No erythema or exudates. NECK: No masses, no JVD. CHEST: No chest wall deformity. LUNGS: Lung sounds noted to be coarse throughout and congested. She does have some expiratory wheezes scattered throughout. Bases diminished. CVS: S1 and S2 normal with no audible mumurs, regular rhythm. ABDOMEN: No hepatosplenomegaly, normal bowel sounds, no guarding or rigidity. EXTREMITIES: No edema noted, pedal pulses palpable. SKIN: No rashes CENTRAL NERVOUS SYSTEM: No focal deficits, tone is normal in all 4 extremities. - Labs CBC & Chem 7: 12/04/16 04:25 12/02/16 15:45 Labs: Abnormal Lab Results - Last 24 Hours (Table) 12/03/16 12/03/16 12/04/16 Range/Units 14:30 21:51 04:25 WBC 12.8 H (3.8-10.6) k/uL Neutrophils # 11.6 H (1.3-7.7) k/uL Lymphocytes # 0.8 L (1.0-4.8) k/uL APTT 34.2 H 43.2 H (22.0-30.0) sec 12/04/16 Range/Units 04:25 WBC (3.8-10.6) k/uL Neutrophils # (1.3-7.7) k/uL Lymphocytes # (1.0-4.8) k/uL APTT 52.5 H (22.0-30.0) sec Microbiology - Last 24 Hours (Table) 12/02/16 15:45 Blood Culture - Preliminary Blood No Growth after 24 hours Assessment and Plan Plan: Assessment Acute exacerbation of COPD Tracheobronchitis Acute hypoxic respiratory failure History of asthma Nicotine dependence Elevated troponins, cardiology consult Plan Medications have been reviewed and will be continued as ordered. Continue with IV antibiotics and steroids. Continue with pulmonary hygiene, coughing and deep breathing exercises, and supportive care. Supplemental oxygen to maintain oxygen saturations of 92% or better. Continue nebulizer treatments. Echocardiogram pending. Cardiology on consult. Patient on heparin drip for elevated troponins. Initiate and encourage incentive spirometer. Increase activity as tolerated. GI and DVT prophylaxis. We will continue to monitor labs /results and adjust treatment as necessary. Further recommendations pending. I performed an examination of the patient and discussed their management with the nurse practitioner. I have reviewed the nurse practitioner's note and agree with the documented findings and plan of care.
--- NOTE | 2016-12-04 11:06 | P.PN ---
Subjective Principal diagnosis: Abnormal cardiac enzymes This is a pleasant 61-year-old female patient with no prior cardiac history but history of chronic respiratory failure on 3 L oxygen at night at home and known COPD presented to the hospital complaining of shortness of breath. The patient was in her usual state of health when she has chronic exertional dyspnea until about 3 days ago when she started experiencing worsening in her dyspnea with associated cough productive of sputum. No fever and no chills. No chest pain or discomfort. The patient was admitted to the hospital with COPD exacerbation and was started on steroids and antibiotic. We get involved in the care of the patient for abnormal cardiac enzymes. Troponin is mildly elevated. The EKG showed sinus rhythm without any significant ST or T-wave abnormalities. The patient continues to be pain-free. Please note that the patient has very significant family history of coronary artery disease with her father. The patient underwent an echocardiogram which showed normal LV function without any evidence of wall motion abnormalities consistent with ischemia. On follow-up with the patient today, she seems to be doing good and feeling better and she continues to be chest pain-free during her hospitalization. Objective - Vital Signs Vital signs: Vital Signs Temp 98.6 F 12/04/16 04:00 Pulse 80 12/04/16 08:40 Resp 18 12/04/16 04:00 BP 104/63 12/04/16 04:00 Pulse Ox 97 12/04/16 04:00 Intake & Output 12/03/16 12/04/16 12/04/16 18:59 06:59 18:59 Intake Total 734.105 505.619 240 Output Total 30 Balance 704.105 505.619 240 Weight 43.1 kg 41.9 kg Intake: IV 240 Heparin Sodium,Porcine/ 240 D5w Pmx 25,000 unit In Dextrose/Water 1 500ml. bag @ 12 UNITS/KG/HR 10. 34 mls/hr IV .Q24H [facility] Rx #:[id number] Intake, IV Titration 254.105 265.619 Amount Heparin Sodium,Porcine/ 254.105 265.619 D5w Pmx 25,000 unit In Dextrose/Water 1 500ml. bag @ 12 UNITS/KG/HR 10. 34 mls/hr IV .Q24H [facility] Rx #:[id number] Oral 480 240 Output: Urine 30 Other: Voiding Method Bedside Commode Bedside Commode # Voids 1 - Constitutional General appearance: Present: no acute distress - Labs CBC & Chem 7: 12/04/16 04:25 12/02/16 15:45 Labs: Abnormal Lab Results - Last 24 Hours (Table) 12/03/16 12/03/16 12/04/16 Range/Units 14:30 21:51 04:25 WBC 12.8 H (3.8-10.6) k/uL Neutrophils # 11.6 H (1.3-7.7) k/uL Lymphocytes # 0.8 L (1.0-4.8) k/uL APTT 34.2 H 43.2 H (22.0-30.0) sec 12/04/16 Range/Units 04:25 WBC (3.8-10.6) k/uL Neutrophils # (1.3-7.7) k/uL Lymphocytes # (1.0-4.8) k/uL APTT 52.5 H (22.0-30.0) sec Microbiology - Last 24 Hours (Table) 12/02/16 15:45 Blood Culture - Preliminary Blood No Growth after 24 hours Assessment and Plan Plan: This is a pleasant 61-year-old female patient with known COPD and chronic respiratory failure who was admitted to the hospital was worsening dyspnea and COPD exacerbation. We get involved in her care because mildly abnormal cardiac enzymes. No ST or T -wave abnormalities. No chest pain. She has very significant family history of coronary artery disease. Severe underlying CAD need to be ruled out. The patient does not have any other etiology for increased troponin. Her oxygen saturation was within normal limits. Her kidney function is within normal limits. At this point I would continue treating the patient for COPD. I would continue the aspirin for now. Continue statin. The echocardiogram was reviewed and showed normal LV function.
--- NOTE | 2016-12-04 18:00 | PN ---
PROGRESS NOTE SUBJECTIVE: A 61-year-old female, chronic respiratory failure on 3L oxygen at night with COPD presented with shortness of breath. She is slowly improving with her breathing. Echo shows normal LV function with no evidence of ischemia. CARDIOVASCULAR: S1, S2. LUNGS: Transmitted upper sounds. Decreased breath sounds. Wheezes x4. O2 97% on 2L. Blood pressure 104/63, respirations 18 to 25, pulse 80 to 85, temp 98.6. Sodium 134, potassium 5.1. White count of 12.8, hemoglobin 12.8. ASSESSMENT: 1. Chronic obstructive pulmonary disease. 2. Chronic respiratory failure. 3. Mildly abnormal cardiac enzymes of unclear etiology. Possible outpatient stress test will be needed. She will be sent home next 24 to 48 hours for treatment of her COPD. MMSHERIL / REGGIEN: [id number] /
[2016-12-04] MEDS: LEVOFLOXACIN 500 MG TAB PO SCH (19:35)
[2016-12-04] MEDS: MONTELUKAST 10 MG TAB PO SCH (20:37)
[2016-12-04] MEDS: LURASIDONE 40 MG TAB PO SCH (20:37)
[2016-12-05] MEDS: NITROGLYCERIN OINT 1 INCH/GM PACKET TOPICAL SCH ×2 (01:01→06:04)
[2016-12-05 04:31] VITALS: RESP 19
[2016-12-05] MEDS: methylPREDNISolone SOD SUCCI 125 MG/2 ML VIAL IV SCH (06:03)
[2016-12-05] MEDS: ADDERALL 20 MG PO SCH ×2 (06:47→12:29)
[2016-12-05 07:18] LABS: Basophils % (A) 0 %; CH 30.9; CHCM 31.5; Eosinophils % (A) 0 %; HCT 40.8 % (34.0-46.0); HDW 2.07; HGB 12.6 gm/dL (11.4-16.0); Luc # (Auto) 0.07; Luc % (Auto) 1; Lymphocytes # (A) 0.9 k/uL (1.0-4.8); Lymphocytes % (A) 7 %; MCH 30.5 pg (25.0-35.0); MCV 98.6 fL (80.0-100.0); Monocytes # (A) 0.2 k/uL (0-1.0); Monocytes % (A) 2 %; Neutrophils # (A) 11.1 k/uL (1.3-7.7); Neutrophils % (A) 90 %; RBC 4.14 m/uL (3.80-5.40); RDW 13.1 % (11.5-15.5); WBC 12.3 k/uL (3.8-10.6); WBC (Perox) 13.52
[2016-12-05] MEDS: BUDESONIDE 0.5 MG/2 ML NEBU INHALATION SCH (08:04)
[2016-12-05] MEDS: IPRATROPIUM-ALBUTEROL 3 ML NEB INHALATION SCH ×3 (08:05→16:30)
[2016-12-05] MEDS: VARENICLINE 0.5 MG TAB PO SCH (09:00)
[2016-12-05] MEDS: OXYBUTYNIN XL 5 MG TAB.ER.24 PO SCH (09:00)
[2016-12-05] MEDS: ASPIRIN 325 MG TAB PO SCH (09:01)
[2016-12-05] MEDS: ATORVASTATIN 40 MG TAB PO SCH (09:01)
[2016-12-05] MEDS: GABAPENTIN 300 MG CAP PO SCH (09:01)
[2016-12-05 09:05] VITALS: TEMP 98.2
--- NOTE | 2016-12-05 10:42 | P.PN ---
Subjective 12/05/16- patient has been seen examined and evaluated today. She continues to utilize 3 L of supplemental oxygen. Continues with shortness of breath with exertion on and off. Her cough and sputum production have decreased. She has increased her ambulation. She is afebrile, no overnight events. No further complaints. All labs and reports have been reviewed. 12/04/16- patient is being seen in evaluated and examined today on rounds. Patient did have an echocardiogram yesterday which did show an EF of 55-60% cardiology is on consult and is considering doing a heart catheterization once patient's COPD is more stabilized. Patient continues to have occasional shortness of breath with exertion and a congested cough with clear sputum. Patient currently resting up in bed on 2 L of supplemental oxygen via nasal cannula she does utilize 2 L of oxygen at home only during nighttime hours. Afebrile no further complaints. 12/03/16- This is a 61-year-old female patient being evaluated seen and examined today on rounds. This patient came into the emergency room yesterday with shortness of breath with exertion that had been progressing over the last few days. She does have a congested cough with opaque white sputum. She denies any chest pain or leg pain or leg swelling she has had symptoms like this in the past that were associated with COPD exacerbation and pneumonia. She is afebrile. Of note the patient did quit smoking for approximately 3 years and then started smoking again approximately 3 weeks ago. Upon examination the patient's resting up in bed on 3 L of supplemental oxygen via nasal cannula. She does utilize home oxygen at night only. Chest x-ray does show emphysema, no acute lung disease, no changes. All labs and reports have been reviewed. Objective - Vital Signs Vital signs: Vital Signs Temp 98.2 F 12/05/16 08:00 Pulse 104 H 12/05/16 08:25 Resp 19 12/05/16 04:00 BP 110/67 12/05/16 08:00 Pulse Ox 91 L 12/05/16 09:17 Intake & Output 12/04/16 12/05/16 12/05/16 18:59 06:59 18:59 Intake Total 580 600 Output Total 1250 Balance 580 -650 Weight 42.6 kg Intake: IV 100 Heparin Sodium,Porcine/ 100 D5w Pmx 25,000 unit In Dextrose/Water 1 500ml. bag @ 12 UNITS/KG/HR 10. 34 mls/hr IV .Q24H [facility] Rx #:[id number] Oral 480 600 Output: Urine 1250 Other: Voiding Method Toilet # Voids 1 - Exam GENERAL EXAM: Alert, active, comfortable in no apparent distress. HEAD: Normocephalic. EYES: Normal reaction of pupils, equal size. NOSE: Clear with pink turbinates. THROAT: No erythema or exudates. NECK: No masses, no JVD. CHEST: No chest wall deformity. LUNGS: Lung sounds noted to be slightly coarse throughout. She does have some faint expiratory wheezes. Bases diminished. CVS: S1 and S2 normal with no audible mumurs, regular rhythm. ABDOMEN: No hepatosplenomegaly, normal bowel sounds, no guarding or rigidity. EXTREMITIES: No edema noted, pedal pulses palpable. SKIN: No rashes CENTRAL NERVOUS SYSTEM: No focal deficits, tone is normal in all 4 extremities. - Labs CBC & Chem 7: 12/05/16 05:43 12/02/16 15:45 Labs: Abnormal Lab Results - Last 24 Hours (Table) 12/05/16 Range/Units 05:43 WBC 12.3 H (3.8-10.6) k/uL Neutrophils # 11.1 H (1.3-7.7) k/uL Lymphocytes # 0.9 L (1.0-4.8) k/uL Microbiology - Last 24 Hours (Table) 12/02/16 15:45 Blood Culture - Preliminary Blood No Growth after 48 hours 12/04/16 08:20 Gram Stain - Final Sputum Sputum Culture - Final Assessment and Plan Plan: Assessment Acute exacerbation of COPD Tracheobronchitis Acute hypoxic respiratory failure History of asthma Nicotine dependence Elevated troponins, cardiology consult Plan Medications have been reviewed and will be continued as ordered. Continue with antibiotics and taper down steroids. Continue with pulmonary hygiene, coughing and deep breathing exercises, and supportive care. Supplemental oxygen to maintain oxygen saturations of 92% or better. Continue nebulizer treatments. Echocardiogram pending. Cardiology on consult. Patient on heparin drip for elevated troponins. Initiate and encourage incentive spirometer. Increase activity as tolerated. GI and DVT prophylaxis. We will continue to monitor labs /results and adjust treatment as necessary. Further recommendations pending. I performed an examination of the patient and discussed their management with the nurse practitioner. I have reviewed the nurse practitioner's note and agree with the documented findings and plan of care.
--- NOTE | 2016-12-05 10:47 | P.PN ---
Subjective Principal diagnosis: Abnormal cardiac enzymes This is a pleasant 61-year-old female patient with no prior cardiac history but history of chronic respiratory failure on 3 L oxygen at night at home and known COPD presented to the hospital complaining of shortness of breath. The patient was in her usual state of health when she has chronic exertional dyspnea until about 3 days ago when she started experiencing worsening in her dyspnea with associated cough productive of sputum. No fever and no chills. No chest pain or discomfort. The patient was admitted to the hospital with COPD exacerbation and was started on steroids and antibiotic. We get involved in the care of the patient for abnormal cardiac enzymes. Troponin is mildly elevated. The EKG showed sinus rhythm without any significant ST or T-wave abnormalities. The patient continues to be pain-free. Please note that the patient has very significant family history of coronary artery disease with her father. The patient underwent an echocardiogram which showed normal LV function without any evidence of wall motion abnormalities consistent with ischemia. On follow-up with the patient today, she seems to be doing good and feeling better and she continues to be chest pain-free during her hospitalization. Objective - Vital Signs Vital signs: Vital Signs Temp 98.2 F 12/05/16 08:00 Pulse 104 H 12/05/16 08:25 Resp 19 12/05/16 04:00 BP 110/67 12/05/16 08:00 Pulse Ox 91 L 12/05/16 09:17 Intake & Output 12/04/16 12/05/16 12/05/16 18:59 06:59 18:59 Intake Total 580 600 Output Total 1250 Balance 580 -650 Weight 42.6 kg Intake: IV 100 Heparin Sodium,Porcine/ 100 D5w Pmx 25,000 unit In Dextrose/Water 1 500ml. bag @ 12 UNITS/KG/HR 10. 34 mls/hr IV .Q24H [facility] Rx #:[id number] Oral 480 600 Output: Urine 1250 Other: Voiding Method Toilet # Voids 1 - Constitutional General appearance: Present: no acute distress - Respiratory Respiratory: bilateral: CTA - Cardiovascular Rhythm: regular Heart sounds: normal: S1, S2 - Labs CBC & Chem 7: 12/05/16 05:43 12/02/16 15:45 Labs: Abnormal Lab Results - Last 24 Hours (Table) 12/05/16 Range/Units 05:43 WBC 12.3 H (3.8-10.6) k/uL Neutrophils # 11.1 H (1.3-7.7) k/uL Lymphocytes # 0.9 L (1.0-4.8) k/uL Microbiology - Last 24 Hours (Table) 12/02/16 15:45 Blood Culture - Preliminary Blood No Growth after 48 hours 12/04/16 08:20 Gram Stain - Final Sputum Sputum Culture - Final Assessment and Plan Plan: This is a pleasant 61-year-old female patient with known COPD and chronic respiratory failure who was admitted to the hospital was worsening dyspnea and COPD exacerbation. We get involved in her care because mildly abnormal cardiac enzymes. No ST or T -wave abnormalities. No chest pain. She has very significant family history of coronary artery disease. Severe underlying CAD need to be ruled out. The patient does not have any other etiology for increased troponin. Her oxygen saturation was within normal limits. Her kidney function is within normal limits. At this point I would continue treating the patient for COPD. I would continue the aspirin for now. Continue statin. The echocardiogram was reviewed and showed normal LV function. From the cardiac standpoint of view, the patient can be discharged home.
[2016-12-05 14:38] VITALS: BP 120/68
[2016-12-05 16:33] VITALS: PULSE 100
[2016-12-05] MEDS ORDERED: methylPREDNISolone SOD SUCCI 40 MG/ML 1 ML VIAL IV SCH (21:00)
== END 2016-12-05 17:14 | disposition home or self-care (01) | DRG 190 ==
LOC: EC 15:36 → 6SEL 16:52
PROVIDERS: ADMIT Family Medicine; ATTEND Family Medicine
DX: J44.1 Chronic obstructive pulmonary disease with (acute) exacerbation (principal); J96.21 Acute and chronic respiratory failure with hypoxia; E78.5 Hyperlipidemia, unspecified; F12.90 Cannabis use, unspecified, uncomplicated; F17.200 Nicotine dependence, unspecified, uncomplicated; F32.9 Major depressive disorder, single episode, unspecified; F41.9 Anxiety disorder, unspecified; I25.10 Atherosclerotic heart disease of native coronary artery without angina pectoris; R74.8 Abnormal levels of other serum enzymes; M47.9 Spondylosis, unspecified; M50.20 Other cervical disc displacement, unspecified cervical region; Z79.899 Other long term (current) drug therapy; Z88.0 Allergy status to penicillin; Z82.49 Family history of ischemic heart disease and other diseases of the circulatory system
CPT/HCPCS: 36415; 71020; 80053; 80061; 82550; 82553; 84484; 85025; 85610; 85730; 87040; 87070; 87205; 93005; 93306; 94640; 94760; 96365; 96366; 96374; 96376; 99285

== ENCOUNTER 2017-06-25 09:27 | Day surgery (SDC) | payer MEDICARE, OTHER ==
[2017-06-21 10:41] VITALS: BMI 20.1
[2017-06-25 09:53] VITALS: RESP 16; TEMP 98
[2017-06-25] MEDS: LACTATED RINGERS 1,000 ML IV SCH ×2 (10:06→10:10)
[2017-06-25] MEDS ORDERED: MIDAZOLAM 2 MG/2 ML VIAL ONE (10:17)
[2017-06-25] MEDS ORDERED: PROPOFOL 10 MG/ML 20 ML VIAL IV ONE (10:17)
[2017-06-25] MEDS ORDERED: LIDOCAINE 1% INJ 10MG/ML (20 ML MDV) ONE (10:17)
--- NOTE | 2017-06-25 10:21 | P.GSHP ---
History of Present Illness H&P Date: 06/25/17 Chief Complaint: Screening colonoscopy This is a 61-year-old female for from Dr. Allen Duval. Patient presents today for screening colonoscopy. Her last colonoscopy was over 9 years ago. Past Medical History Past Medical History: Asthma, COPD, Osteoarthritis (OA) Additional Past Medical History / Comment(s): Other HX: cervical arthiritis, 2 bulging discs in neck, emphysema, HX OF SHINGLES, TAKES NEURONTIN FOR SHINGLES PAIN, BLADDER INCONTINENCE, History of Any Multi-Drug Resistant Organisms: None Reported Past Surgical History: Adenoidectomy, Appendectomy, Cholecystectomy, Hysterectomy, Orthopedic Surgery, Tonsillectomy, Tubal Ligation Additional Past Surgical History / Comment(s): RT rotator cuff repair 2008 Past Anesthesia/Blood Transfusion Reactions: No Reported Reaction Additional Past Anesthesia/Blood Transfusion Reaction / Comment(s): Pt has never had blood transfusion. Smoking Status: Former smoker - Past Family History Father Family Medical History: Congestive Heart Failure (CHF) Additional Family Medical History / Comment(s): Father of a heart attack at age 42 yrs. Mother Family Medical History: Rheumatoid Arthritis (RA), Thyroid Disorder Additional Family Medical History / Comment(s): . Medications and Allergies Home Medications Medication Instructions Recorded Confirmed Type Aclidinium Daphne [Tudorza 1 puff INHALATION RT-BID 08/06/14 06/25/17 History Pressair] Albuterol Inhaler [Ventolin Hfa 1 - 2 puff INHALATION RT-Q6H PRN 08/06/14 History Inhaler] Dextroamphetamine/Amphetamine 20 mg PO TID 08/06/14 06/25/17 History [Adderall] Fesoterodine Fumarate [Toviaz] 8 mg PO DAILY 08/06/14 06/25/17 History Gabapentin [Neurontin] 600 mg PO TID 08/06/14 06/25/17 History Albuterol Nebulized [Ventolin 2.5 mg INHALATION RT-BID PRN 10/01/14 06/25/17 History Nebulized] Budesonide [Pulmicort] 0.5 mg INHALATION RT-BID 12/02/16 06/25/17 History Diazepam 1 mg PO DAILY PRN 12/02/16 06/25/17 History Guaifenesin/Dextromethorphan 1 tab PO BID PRN 12/02/16 06/25/17 History [Mucinex Dm ER 1,200-60 mg Tab] Lurasidone [Latuda] 40 mg PO HS 12/02/16 06/25/17 History Montelukast [Singulair] 10 mg PO DAILY 12/02/16 06/25/17 History Allergies Allergy/AdvReac Type Severity Reaction Status Date / Time Penicillins Allergy Anaphylaxis Verified 06/25/17 09:41 Surgical - Exam Vital Signs Temp Pulse Resp BP Pulse Ox 98.0 F 86 16 113/66 94 L 06/25/17 09:51 06/25/17 09:51 06/25/17 09:51 06/25/17 09:51 06/25/17 09:51 - General well developed, no distress - Eyes PERRL - ENT normal pinna - Neck no masses - Respiratory normal expansion - Cardiovascular Rhythm: regular - Abdomen Abdomen: soft, non tender Assessment and Plan Assessment: We'll perform screening colonoscopy.
--- NOTE | 2017-06-25 10:48 | P.OP ---
Date of Procedure: 06/25/17 Preoperative Diagnosis: Screening colonoscopy Postoperative Diagnosis: Mild diverticulosis Transverse colon polyp Procedure(s) Performed: Colonoscopy Anesthesia: MAC Surgeon: Vinicio Arzola Pathology: other (Transverse colon polyp) Condition: stable Disposition: PACU Description of Procedure: The patient's placed on the endoscopy table in the lateral position. She received IV sedation. Digital rectal exam was performed which revealed no abnormalities. The flexible colonoscope was then placed patient anus passed throughout the entire colon. The ileocecal valve was visualized. The cecum and ascending colon appeared normal. The transverse colon there was a small sessile polyp and this was removed the forcep. The scope was then brought back in the descending and sigmoid colon is mild diverticular changes. Scope was then brought back the rectum this appeared normal. Scope was withdrawn for patient.
[2017-06-25 11:10] VITALS: BP 149/83; PULSE 53
== END 2017-06-25 12:12 | disposition home or self-care (01) ==
LOC: ORWHC2ENDO 09:27
PROVIDERS: ATTEND Surgery
DX: Z12.11 Encounter for screening for malignant neoplasm of colon (principal); D12.3 Benign neoplasm of transverse colon; K57.30 Diverticulosis of large intestine without perforation or abscess without bleeding; E78.5 Hyperlipidemia, unspecified; M19.90 Unspecified osteoarthritis, unspecified site; J43.9 Emphysema, unspecified; Z90.49 Acquired absence of other specified parts of digestive tract; Z90.710 Acquired absence of both cervix and uterus; Z98.51 Tubal ligation status; Z87.891 Personal history of nicotine dependence; Z79.899 Other long term (current) drug therapy; Z88.0 Allergy status to penicillin; Z86.19 Personal history of other infectious and parasitic diseases
CPT/HCPCS: 88305; 45380; J2250; J2001; J2704

== ENCOUNTER → 2018-06-17 | Outpatient (CLI) | payer MEDICARE, OTHER ==
--- NOTE | 2018-06-17 08:52 | CT ---
EXAMINATION TYPE: CT cervical spine w con DATE OF EXAM: 06/17/2018 COMPARISON: None HISTORY: Pain down both arms and CHAMBERS CT DLP: 329.6 mGycm Automated exposure control for dose reduction was used. TECHNIQUE/CONTRAST: Performed with IV Contrast, patient injected with 100 mL of Isovue 300. Standard unenhanced CT of the cervical spine was performed per departmental protocol. FINDINGS: There is grade 1 anterolisthesis of C4 on C5, C6 on C7 and slight retrolisthesis of C5 on C6. Vertebr al body heights of the cervical spine are maintained. Multilevel facet arthropathy and uncovertebral hypertrophy are seen. Small posterior disc osteophyte complexes are present at C4-C5 and C5-C6. Inter vertebral disc space narrowing is present at C5-C6. There is degenerative narrowing of the atlantoden nemesio interval. Prevertebral soft tissues remain unremarkable. Bullous emphysematous changes are seen of the lung apices. No acute fracture or dislocation of the ce rvical spine. C2-C3: Uncovertebral hypertrophy and facet arthropathy creates mild right neural foraminal narrowing. No spinal canal stenosis. No significant disc disease. C3-C4: Facet arthropathy and uncovertebral hypertrophy creates mild bilateral neural foraminal narrow ing. There is a small central disc herniation without spinal canal stenosis. C4-C5: There is disc uncovering from the anterolisthesis, facet arthropathy and uncovertebral hypertr ophy creating mild bilateral neural foraminal narrowing without spinal canal stenosis. C5-C6: There is a broad-based disc bulge and retrolisthesis as well as uncovertebral hypertrophy and facet arthropathy creating moderate right and mild left neural foraminal narrowing and mild spinal ca nal stenosis. C6-C7: There is a very small central disc herniation superimposed upon a broad-based disc bulge with grade 1 anterolisthesis and disc uncovering also appreciated at this level. No significant neural for aminal narrowing nor spinal canal stenosis. C7-T1: No significant disc disease, spinal canal stenosis nor neural foraminal narrowing. No abnormal postcontrast enhancement in the cervical spine. IMPRESSION: 1. SMALL CENTRAL DISC HERNIATIONS AT C3-C4 AND C6-C7 WITHOUT SPINAL CANAL STENOSIS. 2. 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 3. MULTILEVEL MALALIGNMENT WITH GRADE 1 ANTEROLISTHESIS OF C4 ON C5, C6 ON C7, AND SLIGHT RETROLISTHE SIS OF C5 ON C6. FINDINGS ARE LIKELY ON A DEGENERATIVE BASIS. 4. SEVERE BULLOUS EMPHYSEMATOUS CHANGES OF THE LUNG APICES.
== END | disposition home or self-care (01) ==
LOC: RADCTMAIN 07:05
PROVIDERS: ATTEND Family Medicine
DX: M48.02 Spinal stenosis, cervical region (principal); M50.21 Other cervical disc displacement, high cervical region; M50.322 Other cervical disc degeneration at C5-C6 level; M43.12 Spondylolisthesis, cervical region
CPT/HCPCS: 72126; Q9967

== ENCOUNTER 2018-08-20 08:54 | Inpatient (IN) | payer MEDICARE, OTHER ==
[2018-08-20] MEDS ORDERED: methylPREDNISolone SOD SUCCI 125 MG/2 ML VIAL IV STA (09:19)
[2018-08-20] MEDS ORDERED: SODIUM CHLORIDE 0.9% 1,000 ML IV STA (09:19)
[2018-08-20] MEDS ORDERED: IPRATROPIUM-ALBUTEROL 3 ML NEB INHALATION STA ×3 (09:19→13:02)
[2018-08-20 09:50] LABS: Basophils # (A) 0.1 k/uL (0-0.2); Basophils % (A) 1 %; Eosinophils # (A) 0.3 k/uL (0-0.7); Eosinophils % (A) 4 %; HCT 42.4 % (34.0-46.0); HGB 13.7 gm/dL (11.4-16.0); Lymphocytes # (A) 2.6 k/uL (1.0-4.8); Lymphocytes % (A) 38 %; MCH 29.4 pg (25.0-35.0); MCHC 32.3 g/dL (31.0-37.0); Mean Platelet Volume 6.4; Monocytes # (A) 0.2 k/uL (0-1.0); Monocytes % (A) 3 %; Neutrophils # (A) 3.6 k/uL (1.3-7.7); Neutrophils % (A) 53 %; Platelet Count 325 k/uL (150-450); RBC 4.66 m/uL (3.80-5.40); RDW 12.9 % (11.5-15.5); WBC 6.9 k/uL (3.8-10.6)
--- NOTE | 2018-08-20 09:56 | ED ---
SOB HPI <Sterling Tesfaye - Last Filed: 08/20/18 10:37> - General Source: patient, EMS, RN notes reviewed, old records reviewed Mode of arrival: EMS Limitations: no limitations <Yin Lemonsily - Last Filed: 08/20/18 10:52> - General Chief Complaint: Shortness of Breath Stated Complaint: KENNEDY Time Seen by Provider: 08/20/18 08:57 - History of Present Illness Initial Comments: Patient is a 62-year-old female presents emergency department today for evaluation complaints of difficulty in breathing and cough for the past 3 days. Patient believes she is having a COPD exacerbation and was calling her primary care doctor today for oral steroid prescription. She presented difficulty breathing became more severe. She called EMS this morning was given breathing treatments and states her symptoms have improved after this breathing treatment. She is maintained on nebulizers at home.. Patient states that she's had a slightly productive cough. Denies any specific fevers or chills. She denies any stationary chest pain at this time. (Alva Lemons) - Related Data Home Medications Medication Instructions Recorded Confirmed Aclidinium Dodge [Tudorza 1 puff INHALATION RT-BID 08/06/14 08/20/18 Pressair] Albuterol Inhaler [Ventolin Hfa 1 - 2 puff INHALATION RT-Q6H PRN 08/06/14 08/20/18 Inhaler] Dextroamphetamine/Amphetamine 20 mg PO TID 08/06/14 08/20/18 [Adderall] Fesoterodine Fumarate [Toviaz] 8 mg PO DAILY 08/06/14 08/20/18 Gabapentin [Neurontin] 600 mg PO TID 08/06/14 08/20/18 Albuterol Nebulized [Ventolin 2.5 mg INHALATION RT-BID PRN 10/01/14 08/20/18 Nebulized] Budesonide [Pulmicort] 0.5 mg INHALATION RT-BID 12/02/16 08/20/18 Diazepam 1 mg PO DAILY PRN 12/02/16 08/20/18 Guaifenesin/Dextromethorphan 1 tab PO BID PRN 12/02/16 08/20/18 [Mucinex Dm ER 1,200-60 mg Tab] Lurasidone [Latuda] 40 mg PO HS 12/02/16 08/20/18 Montelukast [Singulair] 10 mg PO HS 12/02/16 08/20/18 Previous Rx's Medication Instructions Recorded Ipratropium-Albuterol Nebulize 3 ml INHALATION QID #30 neb 08/20/18 [Duoneb 0.5 mg-3 mg/3 ml Soln] Levofloxacin [Levaquin] 750 mg PO DAILY #5 tab 08/20/18 predniSONE 50 mg PO DAILY #5 tablet 08/20/18 Allergies Allergy/AdvReac Type Severity Reaction Status Date / Time Penicillins Allergy Anaphylaxis Verified 08/20/18 09:36 Review of Systems ROS Other: All systems not noted in ROS Statement are negative. <Sterling Tesfaye - Last Filed: 08/20/18 10:37> ROS Other: All systems not noted in ROS Statement are negative. <Alva Lemons - Last Filed: 08/20/18 10:52> ROS Statement: Those systems with pertinent positive or pertinent negative responses have been documented in the HPI. Past Medical History Past Medical History: Asthma, COPD, Osteoarthritis (OA) Additional Past Medical History / Comment(s): Other HX: cervical arthiritis, 2 bulging discs in neck, emphysema, HX OF SHINGLES, TAKES NEURONTIN FOR SHINGLES PAIN, BLADDER INCONTINENCE, History of Any Multi-Drug Resistant Organisms: None Reported Past Surgical History: Adenoidectomy, Appendectomy, Cholecystectomy, Hysterectomy, Orthopedic Surgery, Tonsillectomy, Tubal Ligation Additional Past Surgical History / Comment(s): RT rotator cuff repair 2009 Past Anesthesia/Blood Transfusion Reactions: No Reported Reaction Additional Past Anesthesia/Blood Transfusion Reaction / Comment(s): Pt has never had blood transfusion. Past Psychological History: ADD/ADHD, Anxiety, Depression Smoking Status: Former smoker Past Alcohol Use History: Occasional Past Drug Use History: Marijuana - Past Family History Father Family Medical History: Congestive Heart Failure (CHF) Additional Family Medical History / Comment(s): Father of a heart attack at age 42 yrs. Mother Family Medical History: Rheumatoid Arthritis (RA), Thyroid Disorder Additional Family Medical History / Comment(s): . <Alva Lemons - Last Filed: 08/20/18 10:52> General Exam Limitations: no limitations <Alva Lemons - Last Filed: 08/20/18 10:52> - General Exam Comments Initial Comments: Pleasant 62-year-old female. Alert and oriented 3. No distress. General: Well appearing, well nourished, in no distress. Oriented x 3, normal mood and affect . Ambulating without difficulty. Skin: Good turgor, no rash, unusual bruising or prominent lesions Hair: Normal texture and distribution. HEENT: Head: Normocephalic, atraumatic, no visible or palpable masses, depressions, or scaring. Eyes: Visual acuity intact, conjunctiva clear, sclera non-icteric, EOM intact, PERRL. Ears: EACs clear, TMs translucent & cone of light visualized. hearing intact. Nose: No external lesions, mucosa non-inflamed, septum and turbinates normal Mouth: Mucous membranes moist, no mucosal lesions. Teeth/Gums: No obvious caries or periodontal disease. No gingival inflammation or significant resorption. Pharynx: Mucosa non-inflamed, no tonsillar hypertrophy or exudate Neck: Supple, without lesions, bruits, or adenopathy, thyroid non-enlarged and non-tender Heart: No cardiomegaly or thrills; regular rate and rhythm, no murmur or gallop Lungs: Slight wheezing bilaterally. Moving air through all lung [place]. Abdomen: Bowel sounds normal, no tenderness, organomegaly, masses, or hernia Back: Spine normal without deformity or tenderness, no CVA tenderness Extremities: No amputations or deformities, cyanosis, edema or varicosities, peripheral pulses intact Musculoskeletal: Normal gait and station. No misalignment, asymmetry, crepitation, defects, tenderness, masses, effusions, decreased range of motion, instability, atrophy or abnormal strength or tone in the head, neck, spine, ribs, pelvis or extremities. Neurologic: CN 2-12 normal. Sensation to pain, touch, and proprioception normal. DTRs normal in upper and lower extremities. No pathologic reflexes. Psychiatric: Oriented X3, intact recent and remote memory, judgment and insight, normal mood and affect. (Alva Lemons) Course Vital Signs 08/20/18 08/20/18 08/20/18 09:06 09:36 09:47 Temperature 97.9 F Pulse Rate 86 80 80 Respiratory 20 Rate Blood Pressure 109/82 O2 Sat by Pulse 98 Oximetry Medical Decision Making - Lab Data Result diagrams: 08/20/18 09:37 08/20/18 09:37 <Sterling Tesfaye - Last Filed: 08/20/18 10:37> - Lab Data Result diagrams: 08/20/18 09:37 08/20/18 09:37 - Radiology Data Radiology results: report reviewed <Alva Lemons - Last Filed: 08/20/18 10:52> - Medical Decision Making Patient reevaluated and reexamined by myself, Dr. Tesfaye. Patient resting comf ortably in bed. I do agree with PA findings. This includes diagnostic interpretation and treatment plan. Patient and family are updated. Patient is advised to consider admission for further treatments as well as treatment for pneumonia. Patient refuses this. Patient does demonstrate medical decision making. Patient is agreeable to close follow-up and to return if symptoms worsen. Patient states she does have nebulizers and oxygen at home. is present. (Sterling Tesfaye) Patient 8-year-old female. She presents returns today with difficulty breathing and increased cough for the past few days. Patient's chest x-ray shows evidence of COPD changes with a right-sided pneumonia. Patient's labwork was reviewed. White blood cell count is normal. She does have elevated transaminases which are increased from past labs. Troponin was 0.034. EKG shows no significant changes. Patient at this time will be started on Levaquin for possible pneumonia she does have an ALLERGY to penicillins. Patient will be discharged at this time with steroids, clinic and refills of her nebulizer treatments at home. Discussed that she does have very close follow-up with her primary care doctor. She was offered admission and stated she refused this. (Alva Lemons) - Lab Data Lab Results 08/20/18 08/20/18 08/20/18 Range/Units 09:37 09:37 09:37 WBC 6.9 (3.8-10.6) k/uL RBC 4.66 (3.80-5.40) m/uL Hgb 13.7 (11.4-16.0) gm/dL Hct 42.4 (34.0-46.0) % MCV 91.0 (80.0-100.0) fL MCH 29.4 (25.0-35.0) pg MCHC 32.3 (31.0-37.0) g/dL RDW 12.9 (11.5-15.5) % Plt Count 325 (150-450) k/uL Neutrophils % 53 % Lymphocytes % 38 % Monocytes % 3 % Eosinophils % 4 % Basophils % 1 % Neutrophils # 3.6 (1.3-7.7) k/uL Lymphocytes # 2.6 (1.0-4.8) k/uL Monocytes # 0.2 (0-1.0) k/uL Eosinophils # 0.3 (0-0.7) k/uL Basophils # 0.1 (0-0.2) k/uL PT 10.8 (9.0-12.0) sec INR 1.0 (<1.2) APTT 25.0 (22.0-30.0) sec Sodium 139 (137-145) mmol/L Potassium 4.3 (3.5-5.1) mmol/L Chloride 108 H (98-107) mmol/L Carbon Dioxide 25 (22-30) mmol/L Anion Gap 6 mmol/L BUN 13 (7-17) mg/dL Creatinine 0.86 (0.52-1.04) mg/dL Est GFR (CKD-EPI)AfAm 86 (>60 ml/min/1.73 sqM) Est GFR (CKD-EPI)NonAf 74 (>60 ml/min/1.73 sqM) Glucose 184 H (74-99) mg/dL Calcium 10.0 (8.4-10.2) mg/dL Total Bilirubin 0.6 (0.2-1.3) mg/dL AST 210 H (14-36) U/L ALT 185 H (9-52) U/L Alkaline Phosphatase 91 (38-126) U/L Troponin I (0.000-0.034) ng/mL Total Protein 6.7 (6.3-8.2) g/dL Albumin 4.2 (3.5-5.0) g/dL 08/20/18 Range/Units 09:37 WBC (3.8-10.6) k/uL RBC (3.80-5.40) m/uL Hgb (11.4-16.0) gm/dL Hct (34.0-46.0) % MCV (80.0-100.0) fL MCH (25.0-35.0) pg MCHC (31.0-37.0) g/dL RDW (11.5-15.5) % Plt Count (150-450) k/uL Neutrophils % % Lymphocytes % % Monocytes % % Eosinophils % % Basophils % % Neutrophils # (1.3-7.7) k/uL Lymphocytes # (1.0-4.8) k/uL Monocytes # (0-1.0) k/uL Eosinophils # (0-0.7) k/uL Basophils # (0-0.2) k/uL PT (9.0-12.0) sec INR (<1.2) APTT (22.0-30.0) sec Sodium (137-145) mmol/L Potassium (3.5-5.1) mmol/L Chloride (98-107) mmol/L Carbon Dioxide (22-30) mmol/L Anion Gap mmol/L BUN (7-17) mg/dL Creatinine (0.52-1.04) mg/dL Est GFR (CKD-EPI)AfAm (>60 ml/min/1.73 sqM) Est GFR (CKD-EPI)NonAf (>60 ml/min/1.73 sqM) Glucose (74-99) mg/dL Calcium (8.4-10.2) mg/dL Total Bilirubin (0.2-1.3) mg/dL AST (14-36) U/L ALT (9-52) U/L Alkaline Phosphatase (38-126) U/L Troponin I 0.033 (0.000-0.034) ng/mL Total Protein (6.3-8.2) g/dL Albumin (3.5-5.0) g/dL 08/20/18 09:55 EKG performed at 932 shows sinus rhythm interpreted infarct determined. Abnormal EKG. Ventricularly of 80 beats were minute. Was 140 ms per dressed ration 82 ms. QT QTc is 392/452 ms. No evidence of ST elevation. (Alva Lemons) - Radiology Data Chest x-ray shows diffuse COPD with right lower lobe infiltrate. Read by Dr. Hancock. (Alva Lemons) Disposition <Sterling Tesfaye - Last Filed: 08/20/18 10:37> Is patient prescribed a controlled substance at d/c from ED?: No Time of Disposition: 10:49 <Alva Lemons - Last Filed: 08/20/18 10:52> Clinical Impression: Pneumonia, COPD exacerbation, Elevated transaminase level Disposition: HOME SELF-CARE Condition: Good Instructions (If sedation given, give patient instructions): Community Acquired Pneumonia (ED) Additional Instructions: Patient advised of close follow-up with primary care doctor. Patient should take medications as prescribed. If the difficulty breathing cough anything worsens please return for evaluation and possible admission. Patient should use your inhalers and breathing treatments as prescribed. Prescriptions: Ipratropium-Albuterol Nebulize [Duoneb 0.5 mg-3 mg/3 ml Soln] 3 ml INHALATION QID #30 neb Levofloxacin [Levaquin] 750 mg PO DAILY #5 tab predniSONE 50 mg PO DAILY #5 tablet Referrals: Allen Knox MD [Primary Care Provider] - 1-2 days Saleem Lynn MD [STAFF PHYSICIAN] - 1-2 days
[2018-08-20 09:58] LABS: Albumin 4.2 g/dL (3.5-5.0); Potassium 4.3 mmol/L (3.5-5.1); Total Bilirubin 0.6 mg/dL (0.2-1.3); Total Protein 6.7 g/dL (6.3-8.2)
[2018-08-20 10:05] LABS: Prothrombin Time 10.8 sec (9.0-12.0)
--- NOTE | 2018-08-20 10:20 | XR ---
EXAMINATION TYPE: XR chest 2V DATE OF EXAM: 08/20/2018 COMPARISON: 03/27/2016 TECHNIQUE: PA and lateral views submitted. HISTORY: Difficulty breathing FINDINGS: Diffuse emphysematous changes are seen with right-sided consolidation. No pneumothorax. Heart size st able. Atherosclerotic change aorta. Diffuse osteopenia. IMPRESSION: 1. Diffuse COPD with right lower lobe infiltrate.
[2018-08-20] MEDS ORDERED: LEVOFLOXACIN 750MG-D5W PMX 750 MG in DEXTROSE/WATER 1 150ML.BAG IVPB STA ×2 (10:33→13:02)
[2018-08-20] MEDS ORDERED: PNEUMONIA PROTOCOL UTILIZED 1 EACH MISC PO PRN (13:02)
--- NOTE | 2018-08-20 13:02 | ED ---
Medical Decision Making - Lab Data Result diagrams: 08/20/18 09:37 08/20/18 09:37 <Alva Lemons - Last Filed: 08/20/18 13:00> - Lab Data Result diagrams: 08/20/18 09:37 08/20/18 09:37 <Sterling Tesfaye - Last Filed: 08/20/18 13:03> - Medical Decision Making Patient was reevaluated this time, after walking to the bathroom she does have significant dyspnea, wheezing noted, using accessory muscles for breathing. I did discuss the Patient that I would like to admit her for increased work of breathing, CVAs exacerbation pneumonia. Patient states that this time she is agreeable to admission due to declining present for status post stated in the ED. She did receive IV Levaquin at this time, we'll admit the Patient to Dr. Selby. Discussed case with Dr. Tesfaye. (Alva Lemons) Patient was earlier seen by myself, Dr. Tesfaye. Patient was recommended admission however refuses. Patient is now agreeable for admission. Case was discussed in detail with Dr. Knox, who will admit his patient and does request consult with Dr. Kilpatrick. (Sterling Tesfaye) - Lab Data Lab Results 08/20/18 08/20/18 08/20/18 Range/Units 09:37 09:37 09:37 WBC 6.9 (3.8-10.6) k/uL RBC 4.66 (3.80-5.40) m/uL Hgb 13.7 (11.4-16.0) gm/dL Hct 42.4 (34.0-46.0) % MCV 91.0 (80.0-100.0) fL MCH 29.4 (25.0-35.0) pg MCHC 32.3 (31.0-37.0) g/dL RDW 12.9 (11.5-15.5) % Plt Count 325 (150-450) k/uL Neutrophils % 53 % Lymphocytes % 38 % Monocytes % 3 % Eosinophils % 4 % Basophils % 1 % Neutrophils # 3.6 (1.3-7.7) k/uL Lymphocytes # 2.6 (1.0-4.8) k/uL Monocytes # 0.2 (0-1.0) k/uL Eosinophils # 0.3 (0-0.7) k/uL Basophils # 0.1 (0-0.2) k/uL PT 10.8 (9.0-12.0) sec INR 1.0 (<1.2) APTT 25.0 (22.0-30.0) sec Sodium 139 (137-145) mmol/L Potassium 4.3 (3.5-5.1) mmol/L Chloride 108 H (98-107) mmol/L Carbon Dioxide 25 (22-30) mmol/L Anion Gap 6 mmol/L BUN 13 (7-17) mg/dL Creatinine 0.86 (0.52-1.04) mg/dL Est GFR (CKD-EPI)AfAm 86 (>60 ml/min/1.73 sqM) Est GFR (CKD-EPI)NonAf 74 (>60 ml/min/1.73 sqM) Glucose 184 H (74-99) mg/dL Calcium 10.0 (8.4-10.2) mg/dL Total Bilirubin 0.6 (0.2-1.3) mg/dL AST 210 H (14-36) U/L ALT 185 H (9-52) U/L Alkaline Phosphatase 91 (38-126) U/L Troponin I (0.000-0.034) ng/mL Total Protein 6.7 (6.3-8.2) g/dL Albumin 4.2 (3.5-5.0) g/dL 08/20/18 Range/Units 09:37 WBC (3.8-10.6) k/uL RBC (3.80-5.40) m/uL Hgb (11.4-16.0) gm/dL Hct (34.0-46.0) % MCV (80.0-100.0) fL MCH (25.0-35.0) pg MCHC (31.0-37.0) g/dL RDW (11.5-15.5) % Plt Count (150-450) k/uL Neutrophils % % Lymphocytes % % Monocytes % % Eosinophils % % Basophils % % Neutrophils # (1.3-7.7) k/uL Lymphocytes # (1.0-4.8) k/uL Monocytes # (0-1.0) k/uL Eosinophils # (0-0.7) k/uL Basophils # (0-0.2) k/uL PT (9.0-12.0) sec INR (<1.2) APTT (22.0-30.0) sec Sodium (137-145) mmol/L Potassium (3.5-5.1) mmol/L Chloride (98-107) mmol/L Carbon Dioxide (22-30) mmol/L Anion Gap mmol/L BUN (7-17) mg/dL Creatinine (0.52-1.04) mg/dL Est GFR (CKD-EPI)AfAm (>60 ml/min/1.73 sqM) Est GFR (CKD-EPI)NonAf (>60 ml/min/1.73 sqM) Glucose (74-99) mg/dL Calcium (8.4-10.2) mg/dL Total Bilirubin (0.2-1.3) mg/dL AST (14-36) U/L ALT (9-52) U/L Alkaline Phosphatase (38-126) U/L Troponin I 0.033 (0.000-0.034) ng/mL Total Protein (6.3-8.2) g/dL Albumin (3.5-5.0) g/dL Disposition Time of Disposition: 13:01 <Alva Lemons - Last Filed: 08/20/18 13:00> <Sterling Tesfaye - Last Filed: 08/20/18 13:03> Clinical Impression: Pneumonia, COPD exacerbation, Elevated transaminase level Disposition: ADMITTED IP TO THIS [facility] Condition: Good Instructions (If sedation given, give patient instructions): Community Acquired Pneumonia (ED) Additional Instructions: Patient advised of close follow-up with primary care doctor. Patient should take medications as prescribed. If the difficulty breathing cough anything worsens please return for evaluation and possible admission. Patient should use your inhalers and breathing treatments as prescribed. Prescriptions: Ipratropium-Albuterol Nebulize [Duoneb 0.5 mg-3 mg/3 ml Soln] 3 ml INHALATION QID #30 neb Levofloxacin [Levaquin] 750 mg PO DAILY #5 tab predniSONE 50 mg PO DAILY #5 tablet Referrals: Allen Knox MD [Primary Care Provider] - 1-2 days Saleem Lynn MD [STAFF PHYSICIAN] - 1-2 days
[2018-08-20] MEDS ORDERED: LORazepam 2 MG/ML INJ IV STA (14:49)
[2018-08-20] MEDS: IPRATROPIUM-ALBUTEROL 3 ML NEB INHALATION PRN ×4 (14:55→23:38)
[2018-08-20] MEDS ORDERED: DIAZEPAM 2 MG TAB PO PRN (16:03)
[2018-08-20] MEDS ORDERED: guaiFENesin-DM 600/30MG 1 EACH TAB.ER.12H PO PRN (16:03)
[2018-08-20] MEDS ORDERED: ALBUTEROL NEBULIZED 2.5 MG/3 ML INHALATION PRN (16:03)
[2018-08-20] MEDS: SODIUM CHLORIDE 0.9% 1,000 ML IV SCH (16:54)
[2018-08-20] MEDS: NON-FORMULARY DRUG (Dextroamphetamine/Amphetamine [Adderall] 20 MG) PO SCH (16:54)
[2018-08-20] MEDS: methylPREDNISolone SOD SUCCI 125 MG/2 ML VIAL IV SCH (17:00)
[2018-08-20 18:25] LABS: Glucose,Whole Blood 217 mg/dL (75-99)
[2018-08-20] MEDS: LORazepam 2 MG/ML INJ IV PRN (18:37)
[2018-08-20 19:27] LABS: Glucose,Whole Blood 232 mg/dL (75-99)
[2018-08-20] MEDS: PROPOFOL 1,000 MG in EMPTY BAG 1 BAG IV SCH (19:30)
[2018-08-20 19:54] LABS: ABG Base Excess -10.4 mmol/L; ABG HCO3 19 mmol/L (21-25); ABG Oxygen Saturation 98.8 % (94-97); ABG PCO2 54 mmHg (35-45); ABG PO2 >400 mmHg (83-108); ABG TCO2 20 mmol/L (19-24); Allen Test Performed? Yes
[2018-08-20 19:57] LABS: ABG PH 7.15 (7.35-7.45)
[2018-08-20] MEDS ORDERED: NALOXONE 0.4 MG/ML 1 ML VIAL IV PRN (20:35)
--- NOTE | 2018-08-20 20:47 | XR ---
EXAMINATION: XR chest 1V portable DATE AND TIME: 08/20/2018 8:31 PM CLINICAL INDICATION: PHH; Tube placement TECHNIQUE: Departmental protocol COMPARISON: 08/20/2018 at 10:16 AM FINDINGS: Since prior study the patient has been intubated, with the ET tube tip superimposed over the mid trac hea at the caudal level of the clavicular heads. NG tube is in place, with NG tube port superimposed over the distal most thoracic esophagus, and the NG tube may be better placed if advanced 7 cm distally. The overall lung inflation pattern is similar to the study earlier today, with evidence of interstiti al phase pulmonary edema. IMPRESSION: Post ET tube and NG tube placement
[2018-08-20] MEDS: IPRATROPIUM 0.5 MG/2.5 ML NEBU INHALATION SCH (21:00)
[2018-08-20] MEDS: BUDESONIDE 0.5 MG/2 ML NEBU INHALATION SCH (21:01)
[2018-08-20] MEDS: INSULIN ASPART (NovoLOG) 100 UNIT/ML VIAL SQ SCH (22:09)
[2018-08-20] MEDS: MONTELUKAST 10 MG TAB PO SCH (22:11)
[2018-08-20] MEDS: CHLORHEXIDINE GLUCONATE 15 ML CUP MUCOUS MEM SCH (22:11)
[2018-08-20] MEDS: HEPARIN SODIUM,PORCINE 5,000 UNIT/ML 1 ML VIAL SQ SCH (22:11)
[2018-08-20] MEDS: GABAPENTIN 300 MG CAP PO SCH (22:11)
[2018-08-20 22:18] LABS: Glucose,Whole Blood 256 mg/dL (75-99)
[2018-08-20] MEDS: LURASIDONE 40 MG TAB PO SCH (22:49)
[2018-08-20 23:01] LABS: Appearance,Urine Cloudy (Clear); Bacteria,Urine Occasional /hpf; Bilirubin,Urine Negative (Negative); Blood,Urine Moderate (Negative); Color,Urine Yellow; Glucose,Urine (UA) 1+ (Negative); Hyaline Casts,Urine 162 /lpf (0-2); Ketones,Urine Negative (Negative); Leukocyte Esterase,Urine Trace (Negative); Mucus,Urine Moderate /hpf; Nitrite,Urine Negative (Negative); PH, Urine 5.5 (5.0-8.0); Protein,Urine 2+ (Negative); RBC,Urine 162 /hpf (0-5); Specific Gravity,Urine 1.023 (1.001-1.035); Squamous Epithelial Cell,Urine 7 /hpf (0-4); Urobilinogen,Urine <2.0 mg/dL (<2.0)
[2018-08-20 23:56] LABS: Glucose,Whole Blood 169 mg/dL (75-99)
[2018-08-21] MEDS: PROPOFOL 1,000 MG in EMPTY BAG 1 BAG IV SCH ×4 (00:35→23:50)
[2018-08-21] MEDS: SODIUM CHLORIDE 0.9% 1,000 ML IV SCH ×3 (00:40→20:44)
[2018-08-21] MEDS: methylPREDNISolone SOD SUCCI 125 MG/2 ML VIAL IV SCH ×4 (00:45→18:07)
[2018-08-21] MEDS: INSULIN ASPART (NovoLOG) 100 UNIT/ML VIAL SQ SCH ×5 (00:52→23:38)
[2018-08-21 01:19] LABS: Glucose,Whole Blood 150 mg/dL (75-99)
[2018-08-21] MEDS: NON-FORMULARY DRUG (Dextroamphetamine/Amphetamine [Adderall] 20 MG) PO SCH ×3 (03:36→16:04)
[2018-08-21 05:05] LABS: Basophils % (A) 0 %; Eosinophils # (A) 0.1 k/uL (0-0.7); Eosinophils % (A) 1 %; HCT 44.2 % (34.0-46.0); HGB 13.7 gm/dL (11.4-16.0); Lymphocytes # (A) 1.2 k/uL (1.0-4.8); Lymphocytes % (A) 10 %; MCV 93.7 fL (80.0-100.0); Mean Platelet Volume 7.2; Monocytes # (A) 0.5 k/uL (0-1.0); Monocytes % (A) 4 %; Neutrophils # (A) 10.7 k/uL (1.3-7.7); Neutrophils % (A) 85 %; Platelet Count 337 k/uL (150-450); RBC 4.72 m/uL (3.80-5.40); WBC 12.6 k/uL (3.8-10.6)
[2018-08-21 05:13] LABS: ABG Base Excess -5.2 mmol/L; ABG HCO3 21 mmol/L (21-25); ABG Oxygen Saturation 95.1 % (94-97); ABG PCO2 39 mmHg (35-45); ABG PH 7.34 (7.35-7.45); ABG PO2 82 mmHg (83-108); ABG TCO2 22 mmol/L (19-24); Allen Test Performed? Yes
[2018-08-21 05:43] LABS: African American GFR (CKD) >90 (>60 ml/min/1.73 sqM); Anion Gap 7 mmol/L; Blood Urea Nitrogen 20 mg/dL (7-17); Calcium 9.8 mg/dL (8.4-10.2); Carbon Dioxide 19 mmol/L (22-30); Chloride 113 mmol/L (98-107); Glucose 114 mg/dL (74-99); Magnesium 1.9 mg/dL (1.6-2.3); Phosphorus 3.6 mg/dL (2.5-4.5); Potassium 5.2 mmol/L (3.5-5.1); Sodium 139 mmol/L (137-145)
[2018-08-21] MEDS: MAGNESIUM SULFATE-D5W PMX 1 GM in DEXTROSE/WATER 1 100ML.BAG IVPB SCH ×2 (06:09→08:10)
[2018-08-21] MEDS: IPRATROPIUM 0.5 MG/2.5 ML NEBU INHALATION SCH ×4 (06:59→19:14)
[2018-08-21] MEDS: IPRATROPIUM-ALBUTEROL 3 ML NEB INHALATION PRN ×4 (06:59→19:14)
[2018-08-21] MEDS: BUDESONIDE 0.5 MG/2 ML NEBU INHALATION SCH ×2 (06:59→19:14)
[2018-08-21] MEDS: PANTOPRAZOLE 40 MG/10 ML VIAL IV SCH (08:10)
[2018-08-21] MEDS: GABAPENTIN 300 MG CAP PO SCH ×3 (08:13→20:44)
[2018-08-21] MEDS: TROSPIUM CHLORIDE 20 MG TABLET PO SCH ×2 (08:14→20:43)
[2018-08-21] MEDS: HEPARIN SODIUM,PORCINE 5,000 UNIT/ML 1 ML VIAL SQ SCH ×2 (08:14→20:43)
[2018-08-21 08:26] LABS: Glucose,Whole Blood 134 mg/dL (75-99)
[2018-08-21] MEDS: CHLORHEXIDINE GLUCONATE 15 ML CUP MUCOUS MEM SCH ×2 (08:30→20:43)
--- NOTE | 2018-08-21 08:51 | XR ---
EXAMINATION TYPE: XR chest 1V portable DATE OF EXAM: 08/21/2018 COMPARISON: Prior chest x-ray 08/20/2018 HISTORY: Intubated TECHNIQUE: Single frontal view of the chest is obtained. FINDINGS: Endotracheal tube, orogastric tube are overlying appropriate positions, distal tip of the gastric tube is not included on the exam. Prominent lung lines are compatible with COPD. There are ov erlying cardiac leads and artifacts. No evident pneumothorax or pleural effusion. Heart size is stabl e. Aorta is dense. Blunting the costophrenic angles is likely due to hyperinflation. There is patchy basilar density similar to prior exam, patient is rotated. Interstitium remains mildly prominent. IMPRESSION: Findings are similar to prior. Correlate for basilar pneumonia versus atelectasis or cherry ma.
[2018-08-21 12:19] LABS: Glucose,Whole Blood 143 mg/dL (75-99)
--- NOTE | 2018-08-21 14:55 | P.CRDCN ---
History of Present Illness Consult date: 08/21/18 History of present illness: This is a 62-year-old female with history of chronic COPD was in this hospital in November 2016 with exacerbation of COPD. At the time, Her cardiac enzymes were abnormal. Her echocardiogram however showed normal LV function. She was treated with medical therapy at the time. She is readmitted now to the hospital with increasing shortness of breath which did not improve with outpatient therapy. Patient was in respiratory failure on admission and intubated at this time. We're asked to see the patient because of abnormal troponin values consistent with non-ST elevation PR. Her EKG showed nonspecific T-wave changes. At this point patient is being treated for exacerbation of COPD and bronchitis. Her abnormal enzymes could be secondary to oxygen supply and demand mismatch. Underlying ischemic heart disease cannot be excluded. We will get an echocardiogram to assess LV function. Patient may need a cardiac catheterization for definitive diagnosis, especially if the echo Cardigan shows any segmental wall motion defects. Meanwhile, I'll continue current medical therapy. Review of Systems Not obtained Past Medical History Past Medical History: Asthma, COPD, Osteoarthritis (OA) Additional Past Medical History / Comment(s): Other HX: cervical arthiritis, 2 bulging discs in neck, emphysema, HX OF SHINGLES, TAKES NEURONTIN FOR SHINGLES PAIN, BLADDER INCONTINENCE, History of Any Multi-Drug Resistant Organisms: None Reported Past Surgical History: Adenoidectomy, Appendectomy, Cholecystectomy, Hysterectomy, Orthopedic Surgery, Tonsillectomy, Tubal Ligation Additional Past Surgical History / Comment(s): RT rotator cuff repair 2008 Past Anesthesia/Blood Transfusion Reactions: No Reported Reaction Additional Past Anesthesia/Blood Transfusion Reaction / Comment(s): Pt has never had blood transfusion. Past Psychological History: ADD/ADHD, Anxiety, Depression Additional Psychological History / Comment(s): Pt states she is on RX's for anxiety and depression and that they work well for her. Pt resides with her spouse. She is independent. She uses no assistive devices or home care agency. She drives a car. Smoking Status: Former smoker Past Alcohol Use History: Occasional Additional Past Alcohol Use History / Comment(s): Pt states she started smoking at age 14 yrs and quit smoking in 2012 at age 56 yrs. STARTED AGAIN 2017 FOR ONE MONTH, 1PPD, NONE SINCE 01/2018 Past Drug Use History: Marijuana Additional Drug Use History / Comment(s): INSTRUCTED TO HOLD 24HRS PRIOR TO PROCEDURE - Past Family History Father Family Medical History: Congestive Heart Failure (CHF) Additional Family Medical History / Comment(s): Father of a heart attack at age 42 yrs. Mother Family Medical History: Rheumatoid Arthritis (RA), Thyroid Disorder Additional Family Medical History / Comment(s): . Medications and Allergies Home Medications Medication Instructions Recorded Confirmed Type Aclidinium [place] [Tudorza 1 puff INHALATION RT-BID 08/06/14 08/20/18 History Pressair] Albuterol Inhaler [Ventolin Hfa 1 - 2 puff INHALATION RT-Q6H PRN 08/06/14 08/20/18 History Inhaler] Dextroamphetamine/Amphetamine 20 mg PO TID 08/06/14 08/20/18 History [Adderall] Fesoterodine Fumarate [Toviaz] 8 mg PO DAILY 08/06/14 08/20/18 History Gabapentin [Neurontin] 600 mg PO TID 08/06/14 08/20/18 History Albuterol Nebulized [Ventolin 2.5 mg INHALATION RT-BID PRN 10/01/14 08/20/18 History Nebulized] Budesonide [Pulmicort] 0.5 mg INHALATION RT-BID 12/02/16 08/20/18 History Diazepam 1 mg PO DAILY PRN 12/02/16 08/20/18 History Guaifenesin/Dextromethorphan 1 tab PO BID PRN 12/02/16 08/20/18 History [Mucinex Dm ER 1,200-60 mg Tab] Lurasidone [Latuda] 40 mg PO HS 12/02/16 08/20/18 History Montelukast [Singulair] 10 mg PO HS 12/02/16 08/20/18 History Ipratropium-Albuterol Nebulize 3 ml INHALATION QID #30 neb 08/20/18 Rx [Duoneb 0.5 mg-3 mg/3 ml Soln] Levofloxacin [Levaquin] 750 mg PO DAILY #5 tab 08/20/18 Rx predniSONE 50 mg PO DAILY #5 tablet 08/20/18 Rx Allergies Allergy/AdvReac Type Severity Reaction Status Date / Time Penicillins Allergy Anaphylaxis Verified 08/20/18 09:36 Physical Exam Vitals: Vital Signs Temp Pulse Pulse Resp BP BP Pulse Ox 08/21/18 14:00 92 26 H 93/76 94 L 08/21/18 13:30 93 30 H 105/85 93 L 08/21/18 13:00 92 30 H 105/79 94 L 08/21/18 12:30 91 29 H 99/76 95 08/21/18 12:00 98.5 F 90 17 101/82 99 08/21/18 11:30 88 16 90/69 99 08/21/18 11:20 89 08/21/18 11:00 90 26 H 90/69 96 08/21/18 10:30 91 25 H 96/78 95 08/21/18 10:00 88 27 H 93/77 96 08/21/18 09:30 85 32 H 94/79 94 L 08/21/18 09:00 87 29 H 101/79 94 L 08/21/18 08:30 89 29 H 91/73 94 L 08/21/18 08:00 98.3 F 86 16 92/72 99 08/21/18 07:30 86 16 99/82 98 08/21/18 07:20 87 08/21/18 07:03 88 08/21/18 07:00 89 26 H 105/83 95 08/21/18 06:30 87 21 104/85 95 08/21/18 06:00 90 22 106/85 97 08/21/18 05:30 89 23 104/82 96 08/21/18 05:00 90 25 H 102/85 96 08/21/18 04:30 89 20 109/85 96 08/21/18 04:00 97.5 F L 90 22 98/77 96 08/21/18 03:49 20 08/21/18 03:30 90 20 98/79 97 08/21/18 03:00 90 23 100/78 97 08/21/18 02:30 90 22 102/81 97 08/21/18 02:00 91 24 99/81 97 08/21/18 01:30 91 22 100/80 96 08/21/18 01:00 92 20 90/69 96 08/21/18 00:30 94 19 99/78 95 08/21/18 00:21 95 22 99/78 95 08/21/18 00:00 98.3 F 93 16 98/75 99 08/20/18 23:55 96 08/20/18 23:45 94 08/20/18 23:30 95 22 104/84 97 08/20/18 23:00 95 24 122/94 98 08/20/18 22:30 99 21 108/87 99 08/20/18 22:00 98 23 97 08/20/18 21:30 101 H 22 120/97 96 08/20/18 21:02 109 H 08/20/18 21:00 110 H 21 111/96 96 08/20/18 20:30 107 H 20 125/104 93 L 08/20/18 20:00 104 H 18 124/94 98 08/20/18 19:30 98.4 F 105 H 14 99 08/20/18 18:38 134 H 08/20/18 18:31 134 H 08/20/18 17:07 96 18 103/69 95 08/20/18 16:32 98.9 F 127 H 19 146/90 97 08/20/18 15:30 20 99/68 100 08/20/18 15:09 94 08/20/18 15:00 21 98/82 100 08/20/18 14:55 90 Intake and Output 08/20/18 08/21/18 08/21/18 22:59 06:59 14:59 Intake Total 205.443 962.37 950 Output Total 105 320 710 Balance 100.443 642.37 240 Intake: IV 200 900 700 Sodium Chloride 0.9% 1, 200 900 700 000 ml @ 100 mls/hr IV . Q10H OSBALDO Rx#:[id number] Intake, IV Titration 5.443 62.37 200 Amount Magnesium Sulfate-D5w Pmx 100 1 gm In Dextrose/Water 1 100ml.bag @ 100 mls/hr IVPB Q1H OSBALDO Rx#: [id number] Propofol 1,000 mg In 5.443 62.37 100 Empty Bag 1 bag @ Titrate IV .Q0M OSBALDO Rx#: [id number] Other 50 Output: Gastric Drainage 400 Urine 105 320 310 Other: Voiding Method Indwelling Catheter Indwelling Catheter Indwelling Catheter Weight 51.1 kg GENERAL EXAM: Patient is intubated HEENT: Normocephalic. Normal reaction of pupils, equal size, normal range of extraocular motion. No erythema or exudates in the throat. NECK: No masses, no nuchal rigidity. CHEST: No chest wall deformity. LUNGS: Diminished air exchange HEART: S1 and S2 normal. Distant heart sounds ABDOMEN: No hepatosplenomegaly, normal bowel sounds, no guarding or rigidity. SKIN: No rashes CENTRAL NERVOUS SYSTEM: No focal deficits. EXTREMITIES: No cyanosis, clubbing or edema. Results 08/21/18 04:25 08/21/18 04:25 Cardiac Enzymes 08/20/18 08/21/18 Range/Units 18:40 04:25 Troponin I 0.463 H* 0.832 H* (0.000-0.034) ng/mL CBC 08/21/18 Range/Units 04:25 WBC 12.6 H (3.8-10.6) k/uL RBC 4.72 (3.80-5.40) m/uL Hgb 13.7 (11.4-16.0) gm/dL Hct 44.2 (34.0-46.0) % Plt Count 337 (150-450) k/uL Comprehensive Metabolic Panel 08/21/18 Range/Units 04:25 Sodium 139 (137-145) mmol/L Potassium 5.2 H (3.5-5.1) mmol/L Chloride 113 H (98-107) mmol/L Carbon Dioxide 19 L (22-30) mmol/L BUN 20 H (7-17) mg/dL Creatinine 0.76 (0.52-1.04) mg/dL Glucose 114 H (74-99) mg/dL Calcium 9.8 (8.4-10.2) mg/dL Current Medications Generic Name Dose Route Start Last Admin Trade Name Freq PRN Reason Stop Dose Admin Albuterol Sulfate 2.5 mg 08/20/18 16:03 Ventolin Nebulized INHALATION RT-BID PRN Dyspnea Albuterol/Ipratropium 3 ml 08/20/18 13:02 08/21/18 11:18 Duoneb 0.5 Mg-3 Mg/3 Ml Soln INHALATION 3 ml RT-Q4H PRN Administration shortness of breath Budesonide 0.5 mg 08/20/18 20:00 08/21/18 06:59 Pulmicort INHALATION 0.5 mg RT-BID OSBALDO Administration Chlorhexidine Gluconate 15 ml 08/20/18 21:00 08/21/18 08:30 Peridex MUCOUS MEM 15 ml BID OSBALDO Administration Diazepam 1 mg 08/20/18 16:03 08/20/18 17:00 Valium PO 1 mg DAILY PRN Administration Anxiety Gabapentin 600 mg 08/20/18 22:00 08/21/18 08:13 Neurontin PO 600 mg TID OSBALDO Administration Guaifenesin/Dextromethorphan 1 each 08/20/18 16:03 Mucinex Dm PO BID PRN Congestion/Dyspnea Heparin Sodium (Porcine) 3,000 unit 08/20/18 21:00 08/21/18 08:14 Heparin SQ 3,000 unit Q12HR OSBALDO Administration Sodium Chloride 1,000 mls @ 100 mls/hr 08/20/18 13:15 08/21/18 10:07 Saline 0.9% IV 100 mls/hr .Q10H OSBALDO Administration Propofol 1,000 mg/ IV Solution 100 mls @ 0 mls/hr 08/20/18 20:15 08/21/18 08:09 IV 50 mcg/kg/min .Q0M OSBALDO 13.608 mls/hr Administration Protocol Titrate Insulin Aspart 0 unit 08/20/18 21:00 08/21/18 12:36 Novolog SQ 1 unit Q6HR OSBALDO Administration Protocol Ipratropium [place] 0.5 mg 08/20/18 20:00 08/21/18 11:19 Atrovent Nebulized INHALATION Not Given RT-QID OSBALDO Lorazepam 1 mg 08/20/18 16:03 08/20/18 18:37 Ativan IV 1 mg Q6HR PRN Administration Anxiety Lurasidone HCl 40 mg 08/20/18 21:00 08/20/18 22:49 Latuda PO 40 mg HS OSBALDO Administration Methylprednisolone Sodium Succinate 60 mg 08/20/18 18:00 08/21/18 12:37 Solu-Medrol IV 60 mg Q6HR OSBALDO Administration Miscellaneous Information 1 each 08/20/18 13:02 Pneumonia Protocol Utilized PO ONCE PRN Per Protocol Montelukast Sodium 10 mg 08/20/18 21:00 08/20/18 22:11 Singulair PO 10 mg HS OSBALDO Administration Naloxone HCl 0.2 mg 08/20/18 20:35 Narcan IV Q2M PRN Opioid Reversal Non-Formulary Medication 20 mg 08/20/18 17:30 08/21/18 12:38 Dextroamphetamine/Amphetamine [Adderall] PO Not Given AC-TID OSBALDO Pantoprazole Sodium 40 mg 08/21/18 09:00 08/21/18 08:10 Protonix IV 40 mg DAILY OSBALDO Administration Trospium 20 mg 08/21/18 09:00 08/21/18 08:14 [place] PO 20 mg BID OSBALDO Administration Intake and Output 08/20/18 08/21/18 08/21/18 22:59 06:59 14:59 Intake Total 205.443 962.37 950 Output Total 105 320 710 Balance 100.443 642.37 240 Intake: IV 200 900 700 Sodium Chloride 0.9% 1, 200 900 700 000 ml @ 100 mls/hr IV . Q10H OSBALDO Rx#:[id number] Intake, IV Titration 5.443 62.37 200 Amount Magnesium Sulfate-D5w Pmx 100 1 gm In Dextrose/Water 1 100ml.bag @ 100 mls/hr IVPB Q1H OSBALDO Rx#: [id number] Propofol 1,000 mg In 5.443 62.37 100 Empty Bag 1 bag @ Titrate IV .Q0M OSBALDO Rx#: [id number] Other 50 Output: Gastric Drainage 400 Urine 105 320 310 Other: Voiding Method Indwelling Catheter Indwelling Catheter Indwelling Catheter Weight 51.1 kg 08/21/18 04:25 08/21/18 04:25 EKG Interpretations (text) Showed a sinus rhythm with poor R-wave progression of the anterior leads Assessment and Plan (1) Elevated troponin Current Visit: Yes Status: Acute Code(s): R74.8 - ABNORMAL LEVELS OF OTHER SERUM ENZYMES SNOMED Code(s): 172744185 (2) COPD exacerbation Current Visit: Yes Status: Acute Code(s): J44.1 - CHRONIC OBSTRUCTIVE PULMONARY DISEASE W (ACUTE) EXACERBATION SNOMED Code(s): 619154717 (3) Pneumonia Current Visit: Yes Status: Acute Code(s): J18.9 - PNEUMONIA, UNSPECIFIED ORGANISM SNOMED Code(s): 905459952 (4) Respiratory failure Current Visit: No Status: Acute Code(s): J96.90 - RESPIRATORY FAILURE, UNSP, UNSP W HYPOXIA OR HYPERCAPNIA SNOMED Code(s): 140541640 Plan: Patient is currently being treated for exacerbation of COPD and respiratory failure. Troponins are elevated which is consistent with non-ST elevation PR which could be secondary to oxygen demand supply mismatch. Underlying ischemic heart disease and is to be ruled out. Echo is being done. Patient may need a cardiac catheterization for definitive diagnosis. Will meanwhile we'll continue with aspirin and probably small dose of beta batool.
[2018-08-21 18:06] LABS: Glucose,Whole Blood 121 mg/dL (75-99)
[2018-08-21] MEDS: LEVOFLOXACIN 500MG-D5W PMX 500 MG in DEXTROSE/WATER 1 100ML.BAG IVPB SCH (18:50)
[2018-08-21] MEDS: LURASIDONE 40 MG TAB PO SCH (20:43)
[2018-08-21] MEDS: MONTELUKAST 10 MG TAB PO SCH (20:43)
[2018-08-21] MEDS: ASPIRIN 81 MG PO SCH (20:44)
[2018-08-21 23:53] LABS: Glucose,Whole Blood 122 mg/dL (75-99)
[2018-08-22] MEDS: methylPREDNISolone SOD SUCCI 125 MG/2 ML VIAL IV SCH ×5 (00:08→23:56)
[2018-08-22] MEDS: PROPOFOL 1,000 MG in EMPTY BAG 1 BAG IV SCH ×2 (03:55→22:21)
[2018-08-22 04:42] LABS: Basophils % (A) 0 %; Eosinophils # (A) 0.1 k/uL (0-0.7); Eosinophils % (A) 1 %; HCT 40.4 % (34.0-46.0); HGB 12.9 gm/dL (11.4-16.0); Lymphocytes # (A) 0.9 k/uL (1.0-4.8); Lymphocytes % (A) 5 %; MCH 29.3 pg (25.0-35.0); MCV 91.5 fL (80.0-100.0); Mean Platelet Volume 7.3; Monocytes # (A) 0.4 k/uL (0-1.0); Monocytes % (A) 2 %; Neutrophils # (A) 14.3 k/uL (1.3-7.7); Neutrophils % (A) 91 %; Platelet Count 279 k/uL (150-450); RBC 4.42 m/uL (3.80-5.40); RDW 13.2 % (11.5-15.5); WBC 15.6 k/uL (3.8-10.6)
[2018-08-22 04:56] LABS: African American GFR (CKD) >90 (>60 ml/min/1.73 sqM); Anion Gap 5 mmol/L; Blood Urea Nitrogen 19 mg/dL (7-17); Calcium 9.4 mg/dL (8.4-10.2); Carbon Dioxide 25 mmol/L (22-30); Chloride 108 mmol/L (98-107); Glucose 146 mg/dL (74-99); Magnesium 2.1 mg/dL (1.6-2.3); Phosphorus 3.1 mg/dL (2.5-4.5); Potassium 4.9 mmol/L (3.5-5.1); Sodium 138 mmol/L (137-145)
[2018-08-22] MEDS: INSULIN ASPART (NovoLOG) 100 UNIT/ML VIAL SQ SCH ×4 (05:32→23:54)
[2018-08-22 05:34] LABS: Glucose,Whole Blood 121 mg/dL (75-99)
[2018-08-22] MEDS: SODIUM CHLORIDE 0.9% 1,000 ML IV SCH ×2 (06:33→21:38)
[2018-08-22] MEDS: NON-FORMULARY DRUG (Dextroamphetamine/Amphetamine [Adderall] 20 MG) PO SCH ×3 (06:34→20:20)
[2018-08-22] MEDS: IPRATROPIUM-ALBUTEROL 3 ML NEB INHALATION PRN ×5 (07:14→23:26)
[2018-08-22] MEDS: IPRATROPIUM 0.5 MG/2.5 ML NEBU INHALATION SCH ×4 (07:14→19:36)
[2018-08-22] MEDS: BUDESONIDE 0.5 MG/2 ML NEBU INHALATION SCH ×2 (07:15→19:36)
[2018-08-22] MEDS: HEPARIN SODIUM,PORCINE 5,000 UNIT/ML 1 ML VIAL SQ SCH ×2 (08:28→21:48)
[2018-08-22] MEDS: PANTOPRAZOLE 40 MG/10 ML VIAL IV SCH (08:29)
[2018-08-22] MEDS: TROSPIUM CHLORIDE 20 MG TABLET PO SCH ×2 (08:29→21:14)
[2018-08-22] MEDS: GABAPENTIN 300 MG CAP PO SCH ×3 (08:30→21:13)
[2018-08-22] MEDS: CHLORHEXIDINE GLUCONATE 15 ML CUP MUCOUS MEM SCH ×3 (08:30→20:38)
--- NOTE | 2018-08-22 08:37 | P.CNPUL ---
History of Present Illness Consult date: 08/20/18 (Late entry note) Reason for consult: dyspnea, cough, COPD, hypoxemia, pneumonia Chief complaint: Respiratory failure History of present illness: Patient was admitted into the hospital with acute COPD exacerbation, presents emergency department today for evaluation complaints of difficulty in breathing and cough for the past 3 days. Patient believes she is having a COPD exacerbation and was calling her primary care doctor today for oral steroid prescription. She presented difficulty breathing became more severe. She called EMS this morning was given breathing treatments and states her symptoms have improved after this breathing treatment. She is maintained on nebulizers at home.. Patient states that she's had a slightly productive cough. Denies any specific fevers or chills. She denies any stationary chest pain at this time. In the emergency department patient having worsening of shortness of breath and wheezing and using necessary muscles consult was requested due to severe respiratory distress and altered mental status patient was intubated postintubation ABG revealed evidence of hypercapnia and respiratory acidosis with stable oxygenation some metabolic acidosis was noted likely related to poor perfusion, patient was seen evaluated examined in the ICU post-intubation Review of Systems ROS unobtainable: due to endotracheal tube Past Medical History Past Medical History: Asthma, COPD, Osteoarthritis (OA) Additional Past Medical History / Comment(s): Other HX: cervical arthiritis, 2 bulging discs in neck, emphysema, HX OF SHINGLES, TAKES NEURONTIN FOR SHINGLES PAIN, BLADDER INCONTINENCE, History of Any Multi-Drug Resistant Organisms: None Reported Past Surgical History: Adenoidectomy, Appendectomy, Cholecystectomy, Hysterectom y, Orthopedic Surgery, Tonsillectomy, Tubal Ligation Additional Past Surgical History / Comment(s): RT rotator cuff repair 2008 Past Anesthesia/Blood Transfusion Reactions: No Reported Reaction Additional Past Anesthesia/Blood Transfusion Reaction / Comment(s): Pt has never had blood transfusion. Past Psychological History: ADD/ADHD, Anxiety, Depression Additional Psychological History / Comment(s): Pt states she is on RX's for anxiety and depression and that they work well for her. Pt resides with her spouse. She is independent. She uses no assistive devices or home care agency. She drives a car. Smoking Status: Former smoker Past Alcohol Use History: Occasional Additional Past Alcohol Use History / Comment(s): Pt states she started smoking at age 14 yrs and quit smoking in 2012 at age 56 yrs. STARTED AGAIN 2017 FOR ONE MONTH, 1PPD, NONE SINCE 01/2018 Past Drug Use History: Marijuana Additional Drug Use History / Comment(s): INSTRUCTED TO HOLD 24HRS PRIOR TO PROCEDURE - Past Family History Father Family Medical History: Congestive Heart Failure (CHF) Additional Family Medical History / Comment(s): Father of a heart attack at age 42 yrs. Mother Family Medical History: Rheumatoid Arthritis (RA), Thyroid Disorder Additional Family Medical History / Comment(s): . Medications and Allergies Home Medications Medication Instructions Recorded Confirmed Type Aclidinium [place] [Tudorza 1 puff INHALATION RT-BID 08/06/14 08/20/18 History Pressair] Albuterol Inhaler [Ventolin Hfa 1 - 2 puff INHALATION RT-Q6H PRN 08/06/14 08/20/18 History Inhaler] Dextroamphetamine/Amphetamine 20 mg PO TID 08/06/14 08/20/18 History [Adderall] Fesoterodine Fumarate [Toviaz] 8 mg PO DAILY 08/06/14 08/20/18 History Gabapentin [Neurontin] 600 mg PO TID 08/06/14 08/20/18 History Albuterol Nebulized [Ventolin 2.5 mg INHALATION RT-BID PRN 10/01/14 08/20/18 History Nebulized] Budesonide [Pulmicort] 0.5 mg INHALATION RT-BID 12/02/16 08/20/18 History Diazepam 1 mg PO DAILY PRN 12/02/16 08/20/18 History Guaifenesin/Dextromethorphan 1 tab PO BID PRN 12/02/16 08/20/18 History [Mucinex Dm ER 1,200-60 mg Tab] Lurasidone [Latuda] 40 mg PO HS 12/02/16 08/20/18 History Montelukast [Singulair] 10 mg PO HS 12/02/16 08/20/18 History Ipratropium-Albuterol Nebulize 3 ml INHALATION QID #30 neb 08/20/18 Rx [Duoneb 0.5 mg-3 mg/3 ml Soln] Levofloxacin [Levaquin] 750 mg PO DAILY #5 tab 08/20/18 Rx predniSONE 50 mg PO DAILY #5 tablet 08/20/18 Rx Allergies Allergy/AdvReac Type Severity Reaction Status Date / Time Penicillins Allergy Anaphylaxis Verified 08/20/18 09:36 Physical Exam Vitals: Vital Signs Temp Pulse Pulse Resp BP BP Pulse Ox 08/20/18 18:38 134 H 08/20/18 18:31 134 H 08/20/18 17:07 96 18 103/69 95 08/20/18 16:32 98.9 F 127 H 19 146/90 97 08/20/18 15:30 20 99/68 100 08/20/18 15:09 94 08/20/18 15:00 21 98/82 100 08/20/18 14:55 90 08/20/18 14:30 19 116/90 100 08/20/18 14:00 91 97/74 99 08/20/18 13:30 85 20 103/84 99 08/20/18 13:15 82 08/20/18 13:06 89 08/20/18 13:00 84 101/74 97 08/20/18 12:30 81 111/85 96 08/20/18 12:00 93/73 08/20/18 11:30 80 97/74 97 08/20/18 11:00 78 94/79 98 08/20/18 10:30 80 91/73 100 08/20/18 10:00 80 94/76 98 08/20/18 09:47 80 08/20/18 09:36 80 08/20/18 09:30 109/82 98 08/20/18 09:06 97.9 F 86 20 109/82 98 Intake and Output 08/20/18 08/20/18 08/20/18 06:59 14:59 22:59 Other: Voiding Method Bedside Commode Weight 45.359 kg - Constitutional General appearance: average body habitus, disheveled, mild distress, thin - EENT Eyes: PERRLA, poor dentition ENT: normal oropharynx Ears: bilateral: normal - Neck Carotids: bilateral: upstroke normal, bruit absent Thyroid: bilateral: normal size - Respiratory Respiratory: bilateral: diminished, wheezing (Bilateral expiratory) - Cardiovascular Rhythm: regular Heart sounds: normal: S1, S2 - Gastrointestinal General gastrointestinal: decreased bowel sounds, scaphoid, soft - Integumentary Integumentary: decreased turgor - Neurologic Neurologic: CNII-XII intact - Musculoskeletal Musculoskeletal: gait normal, generalized weakness, strength equal bilaterally - Psychiatric Psychiatric: A&O x's 3, appropriate affect, intact judgment & insight Results - Laboratory Findings CBC and BMP: 08/22/18 04:18 08/22/18 04:18 PT/INR, D-dimer PT 10.8 sec (9.0-12.0) 08/20/18 09:37 INR 1.0 (<1.2) 08/20/18 09:37 Abnormal lab findings: Abnormal Labs 08/20/18 08/20/18 08/20/18 09:37 18:23 18:40 Chloride 108 H Glucose 184 H POC Glucose (mg/dL) 217 H AST 210 H ALT 185 H Troponin I 0.463 H* 08/20/18 19:15 Chloride Glucose POC Glucose (mg/dL) 232 H AST ALT Troponin I - Diagnostic Findings Chest x-ray: report reviewed, image reviewed (COPD-like changes with likely right lower lobe pneumonia) Assessment and Plan Assessment: Right lower lobe pneumonia Acute hypoxic and hypercapnic respiratory failure Status post respiratory arrest and intubation COPD severe category with acute exacerbation Elevated troponin Plan: Ventilator support adjustment of ventilator as needed Propofol for sedation Broad-spectrum antibiotic Breathing treatments IV steroids DVT and peptic ulcers disease prophylaxis Further recommendations pending plan of care as per clinical response of the patient Consult cardiology for elevated troponin Time with Patient: Greater than 30
[2018-08-22 08:41] LABS: ABG Base Excess 2.2 mmol/L; ABG HCO3 26 mmol/L (21-25); ABG Oxygen Saturation 98.6 % (94-97); ABG PCO2 38 mmHg (35-45); ABG PH 7.44 (7.35-7.45); ABG PO2 171 mmHg (83-108); ABG TCO2 27 mmol/L (19-24); Allen Test Performed? Yes
--- NOTE | 2018-08-22 08:42 | P.PN ---
Subjective Progress Note Date: 08/21/18 Principal diagnosis: Acute hypoxic and hypercapnic respiratory failure, elevated troponin, bilateral pneumonia, COPD severe category, non-ST segment elevated MD due to demand and rosales pply mismatch 08/21/2018, patient seen and evaluated examined during the rounds she is on the 50 mics of propofol to feed his not initiated yet, patient is afebrile labs reviewed radiographic studies reviewed urine from yesterday reviewed and will titrate the propofol down x-ray showing bilateral pneumonia white cell count is up compared to yesterday arterial blood gas fairly normal, mild hyperkalemia is noted, 2 minute troponin continue to go up recommendation from cardiovascular services noted critical care time spent 35 minutes Patient was admitted into the hospital with acute COPD exacerbation, presents emergency department today for evaluation complaints of difficulty in breathing and cough for the past 3 days. Patient believes she is having a COPD exacer bation and was calling her primary care doctor today for oral steroid prescription. She presented difficulty breathing became more severe. She called EMS this morning was given breathing treatments and states her symptoms have improved after this breathing treatment. She is maintained on nebulizers at home.. Patient states that she's had a slightly productive cough. Denies any specific fevers or chills. She denies any stationary chest pain at this time. In the emergency department patient having worsening of shortness of breath and wheezing and using necessary muscles consult was requested due to severe respiratory distress and altered mental status patient was intubated postintubation ABG revealed evidence of hypercapnia and respiratory acidosis with stable oxygenation some metabolic acidosis was noted likely related to poor perfusion, patient was seen evaluated examined in the ICU post-intubation Objective - Vital Signs Vital signs: Vital Signs Temp 98.5 F 08/21/18 16:00 Pulse 87 08/21/18 16:18 Resp 23 08/21/18 16:18 BP 93/69 08/21/18 16:00 Pulse Ox 94 L 08/21/18 16:00 Intake & Output 08/20/18 08/21/18 08/21/18 18:59 06:59 18:59 Intake Total 8633.706 3821 Output Total 425 790 Balance 742.813 460 Weight 45.359 kg 51.1 kg Intake: IV 1100 900 Sodium Chloride 0.9% 1, 1100 900 000 ml @ 100 mls/hr IV . Q10H [facility] Rx#:[id number] Intake, IV Titration 81 300 Amount Magnesium Sulfate-D5w Pmx 100 1 gm In Dextrose/Water 1 100ml.bag @ 100 mls/hr IVPB Q1H [facility] Rx#: [id number] Propofol 1,000 mg In 67.813 200 Empty Bag 1 bag @ Titrate IV .Q0M [facility] Rx#: [id number] Other 50 Output: Gastric Drainage 400 Urine 425 390 Other: Voiding Method Bedside Commode Indwelling Catheter Indwelling Catheter - Exam - Constitutional General appearance: average body habitus, disheveled, mild distress, thin, intubated on vent - EENT Eyes: PERRLA, poor dentition ENT: normal oropharynx Ears: bilateral: normal - Neck Carotids: bilateral: upstroke normal, bruit absent Thyroid: bilateral: normal size - Respiratory Respiratory: bilateral: diminished, wheezing (Bilateral expiratory) - Cardiovascular Rhythm: regular Heart sounds: normal: S1, S2 - Gastrointestinal General gastrointestinal: decreased bowel sounds, scaphoid, soft - Integumentary Integumentary: decreased turgor - Neurologic Neurologic: CNII-XII intact - Musculoskeletal Musculoskeletal: gait normal, generalized weakness, strength equal bilaterally - Psychiatric Psychiatric: A&O x's 3, appropriate affect, intact judgment & insight - Labs CBC & Chem 7: 08/22/18 04:18 08/22/18 04:18 Labs: Abnormal Lab Results - Last 24 Hours (Table) 08/20/18 08/20/18 08/20/18 Range/Units 18:23 18:40 19:15 WBC (3.8-10.6) k/uL Neutrophils # (1.3-7.7) k/uL ABG pH (7.35-7.45) ABG pCO2 (35-45) mmHg ABG pO2 (83-108) mmHg ABG HCO3 (21-25) mmol/L ABG O2 Saturation (94-97) % Potassium (3.5-5.1) mmol/L Chloride (98-107) mmol/L Carbon Dioxide (22-30) mmol/L BUN (7-17) mg/dL Glucose (74-99) mg/dL POC Glucose (mg/dL) 217 H 232 H (75-99) mg/dL Troponin I 0.463 H* (0.000-0.034) ng/mL Urine Appearance (Clear) Urine Protein (Negative) Urine Glucose (UA) (Negative) Urine Blood (Negative) Ur Leukocyte Esterase (Negative) Urine RBC (0-5) /hpf Urine WBC (0-5) /hpf Ur Squamous Epith Cells (0-4) /hpf Urine Bacteria (None) /hpf Hyaline Casts (0-2) /lpf Urine Mucus (None) /hpf 08/20/18 08/20/18 08/20/18 Range/Units 19:51 22:04 22:40 WBC (3.8-10.6) k/uL Neutrophils # (1.3-7.7) k/uL ABG pH 7.15 L* (7.35-7.45) ABG pCO2 54 H (35-45) mmHg ABG pO2 >400 H (83-108) mmHg ABG HCO3 19 L (21-25) mmol/L ABG O2 Saturation 98.8 H (94-97) % Potassium (3.5-5.1) mmol/L Chloride (98-107) mmol/L Carbon Dioxide (22-30) mmol/L BUN (7-17) mg/dL Glucose (74-99) mg/dL POC Glucose (mg/dL) 256 H (75-99) mg/dL Troponin I (0.000-0.034) ng/mL Urine Appearance Cloudy H (Clear) Urine Protein 2+ H (Negative) Urine Glucose (UA) 1+ H (Negative) Urine Blood Moderate H (Negative) Ur Leukocyte Esterase Trace H (Negative) Urine RBC 162 H (0-5) /hpf Urine WBC 20 H (0-5) /hpf Ur Squamous Epith Cells 7 H (0-4) /hpf Urine Bacteria Occasional H (None) /hpf Hyaline Casts 162 H (0-2) /lpf Urine Mucus Moderate H (None) /hpf 08/20/18 08/21/18 08/21/18 Range/Units 23:53 00:44 04:25 WBC 12.6 H (3.8-10.6) k/uL Neutrophils # 10.7 H (1.3-7.7) k/uL ABG pH (7.35-7.45) ABG pCO2 (35-45) mmHg ABG pO2 (83-108) mmHg ABG HCO3 (21-25) mmol/L ABG O2 Saturation (94-97) % Potassium (3.5-5.1) mmol/L Chloride (98-107) mmol/L Carbon Dioxide (22-30) mmol/L BUN (7-17) mg/dL Glucose (74-99) mg/dL POC Glucose (mg/dL) 169 H 150 H (75-99) mg/dL Troponin I (0.000-0.034) ng/mL Urine Appearance (Clear) Urine Protein (Negative) Urine Glucose (UA) (Negative) Urine Blood (Negative) Ur Leukocyte Esterase (Negative) Urine RBC (0-5) /hpf Urine WBC (0-5) /hpf Ur Squamous Epith Cells (0-4) /hpf Urine Bacteria (None) /hpf Hyaline Casts (0-2) /lpf Urine Mucus (None) /hpf 08/21/18 08/21/18 08/21/18 Range/Units 04:25 04:25 05:10 WBC (3.8-10.6) k/uL Neutrophils # (1.3-7.7) k/uL ABG pH 7.34 L (7.35-7.45) ABG pCO2 (35-45) mmHg ABG pO2 82 L (83-108) mmHg ABG HCO3 (21-25) mmol/L ABG O2 Saturation (94-97) % Potassium 5.2 H (3.5-5.1) mmol/L Chloride 113 H (98-107) mmol/L Carbon Dioxide 19 L (22-30) mmol/L BUN 20 H (7-17) mg/dL Glucose 114 H (74-99) mg/dL POC Glucose (mg/dL) (75-99) mg/dL Troponin I 0.832 H* (0.000-0.034) ng/mL Urine Appearance (Clear) Urine Protein (Negative) Urine Glucose (UA) (Negative) Urine Blood (Negative) Ur Leukocyte Esterase (Negative) Urine RBC (0-5) /hpf Urine WBC (0-5) /hpf Ur Squamous Epith Cells (0-4) /hpf Urine Bacteria (None) /hpf Hyaline Casts (0-2) /lpf Urine Mucus (None) /hpf 08/21/18 08/21/18 Range/Units 08:23 11:52 WBC (3.8-10.6) k/uL Neutrophils # (1.3-7.7) k/uL ABG pH (7.35-7.45) ABG pCO2 (35-45) mmHg ABG pO2 (83-108) mmHg ABG HCO3 (21-25) mmol/L ABG O2 Saturation (94-97) % Potassium (3.5-5.1) mmol/L Chloride (98-107) mmol/L Carbon Dioxide (22-30) mmol/L BUN (7-17) mg/dL Glucose (74-99) mg/dL POC Glucose (mg/dL) 134 H 143 H (75-99) mg/dL Troponin I (0.000-0.034) ng/mL Urine Appearance (Clear) Urine Protein (Negative) Urine Glucose (UA) (Negative) Urine Blood (Negative) Ur Leukocyte Esterase (Negative) Urine RBC (0-5) /hpf Urine WBC (0-5) /hpf Ur Squamous Epith Cells (0-4) /hpf Urine Bacteria (None) /hpf Hyaline Casts (0-2) /lpf Urine Mucus (None) /hpf Microbiology - Last 24 Hours (Table) 08/20/18 13:00 Blood Culture - Preliminary Blood No Growth after 24 hours 08/20/18 22:40 Urine Culture - Preliminary Urine,Voided Assessment and Plan Assessment: Right lower lobe pneumonia Acute hypoxic and hypercapnic respiratory failure Status post respiratory arrest and intubation COPD severe category with acute exacerbation Elevated troponin Plan: Ventilator support adjustment of ventilator as needed Propofol for sedation We will initiate weaning with CPAP and pressure support and the Cipro fall starting tomorrow morning Broad-spectrum antibiotic Breathing treatments IV steroids DVT and peptic ulcers disease prophylaxis Further recommendations pending plan of care as per clinical response of the patient Consult cardiology for elevated troponin Time with Patient: Greater than 30 (Critical care time 35 minutes)
--- NOTE | 2018-08-22 08:48 | P.PN ---
Subjective Progress Note Date: 08/22/18 (Critical ca critical care time spent 35 minutes) Principal diagnosis: Acute hypoxic and hypercapnic respiratory failure, elevated troponin, bilateral pneumonia, COPD severe category, non-ST segment elevated SD due to demand and supply mismatch, leukocytosis 08/22/2018, patient seen eval reexamined during the rounds she is the more awake propofol is being tapered down to 30 mics plan is to DC the propofol and put on CPAP and pressure support instructions were given patient is nothing by mouth currently chest x-ray reviewed, significant improvement in infiltrate are noted T-tube in stable condition finding on chest x-ray is hyperinflated lung consistent with severe COPD, critical care time 35 minutes 08/21/2018, patient seen and evaluated examined during the rounds she is on the 50 mics of propofol to feed his not initiated yet, patient is afebrile labs reviewed radiographic studies reviewed urine from yesterday reviewed and will titrate the propofol down x-ray showing bilateral pneumonia white cell count is up compared to yesterday arterial blood gas fairly normal, mild hyperkalemia is noted, 2 minute troponin continue to go up recommendation from cardiovascular services noted critical care time spent 35 minutes Patient was admitted into the hospital with acute COPD exacerbation, presents emergency department today for evaluation complaints of difficulty in breathing and cough for the past 3 days. Patient believes she is having a COPD exacerbation and was calling her primary care doctor today for oral steroid prescription. She presented difficulty breathing became more severe. She called EMS this morning was given breathing treatments and states her symptoms have improved after this breathing treatment. She is maintained on nebulizers at home.. Patient states that she's had a slightly productive cough. Denies any specific fevers or chills. She denies any stationary chest pain at this time. In the emergency department patient having worsening of shortness of breath and wheezing and using necessary muscles consult was requested due to severe respiratory distress and altered mental status patient was intubated postintubation ABG revealed evidence of hypercapnia and respiratory acidosis with stable oxygenation some metabolic acidosis was noted likely related to poor perfusion, patient was seen evaluated examined in the ICU post-intubation Objective - Vital Signs Vital signs: Vital Signs Temp 97.3 F L 08/22/18 04:00 Pulse 87 08/22/18 07:30 Resp 23 08/22/18 07:00 BP 122/93 08/22/18 07:00 Pulse Ox 95 08/22/18 07:00 Intake & Output 08/21/18 08/22/18 08/22/18 18:59 06:59 18:59 Intake Total 1690 1289.576 216.114 Output Total 925 945 63 Balance 765 344.576 153.114 Weight 50.2 kg Intake: IV 1200 1100 200 Sodium Chloride 0.9% 1, 1200 1100 200 000 ml @ 100 mls/hr IV . Q10H [facility] Rx#:[id number] Intake, IV Titration 400 189.576 16.114 Amount Levofloxacin 500Mg-D5w 100 Pmx 500 mg In Dextrose/ Water 1 100ml.bag @ 100 mls/hr IVPB Q24H [facility] Rx#: [id number] Magnesium Sulfate-D5w Pmx 100 1 gm In Dextrose/Water 1 100ml.bag @ 100 mls/hr IVPB Q1H [facility] Rx#: [id number] Propofol 1,000 mg In 200 189.576 16.114 Empty Bag 1 bag @ Titrate IV .Q0M [facility] Rx#: [id number] Other 90 Output: Gastric Drainage 400 500 Urine 525 445 63 Other: Voiding Method Indwelling Catheter Indwelling Catheter Indwelling Catheter - Exam - Constitutional General appearance: average body habitus, disheveled, mild distress, thin, intubated on vent - EENT Eyes: PERRLA, poor dentition ENT: normal oropharynx Ears: bilateral: normal - Neck Carotids: bilateral: upstroke normal, bruit absent Thyroid: bilateral: normal size - Respiratory Respiratory: bilateral: diminished, wheezing (Bilateral expiratory) - Cardiovascular Rhythm: regular Heart sounds: normal: S1, S2 - Gastrointestinal General gastrointestinal: decreased bowel sounds, scaphoid, soft - Integumentary Integumentary: decreased turgor - Neurologic Neurologic: CNII-XII intact - Musculoskeletal Musculoskeletal: gait normal, generalized weakness, strength equal bilaterally - Psychiatric Psychiatric: A&O x's 3, appropriate affect, intact judgment & insight - Labs CBC & Chem 7: 08/22/18 04:18 08/22/18 04:18 Labs: Abnormal Lab Results - Last 24 Hours (Table) 08/21/18 08/21/18 08/21/18 Range/Units 11:52 18:02 23:37 WBC (3.8-10.6) k/uL Neutrophils # (1.3-7.7) k/uL Lymphocytes # (1.0-4.8) k/uL Chloride (98-107) mmol/L BUN (7-17) mg/dL Glucose (74-99) mg/dL POC Glucose (mg/dL) 143 H 121 H 122 H (75-99) mg/dL 08/22/18 08/22/18 08/22/18 Range/Units 04:18 04:18 05:30 WBC 15.6 H (3.8-10.6) k/uL Neutrophils # 14.3 H (1.3-7.7) k/uL Lymphocytes # 0.9 L (1.0-4.8) k/uL Chloride 108 H (98-107) mmol/L BUN 19 H (7-17) mg/dL Glucose 146 H (74-99) mg/dL POC Glucose (mg/dL) 121 H (75-99) mg/dL Microbiology - Last 24 Hours (Table) 08/21/18 21:00 Gram Stain - Preliminary Sputum Sputum Culture - Preliminary 08/20/18 13:00 Blood Culture - Preliminary Blood No Growth after 24 hours 08/20/18 22:40 Urine Culture - Preliminary Urine,Voided Assessment and Plan Assessment: Right lower lobe pneumonia, improvement in noted on infiltrate Acute hypoxic and hypercapnic respiratory failure Status post respiratory arrest and intubation COPD severe category with acute exacerbation Elevated troponin due to demand supply mismatch non-elevated segment SD Plan: Ventilator support adjustment of ventilator as needed Propofol for sedation We will initiate weaning with CPAP and pressure support Broad-spectrum antibiotic Breathing treatments IV steroids DVT and peptic ulcers disease prophylaxis Further recommendations pending plan of care as per clinical response of the patient Consult cardiology for elevated troponin suspected to be demand supply mismatch non-ST segment elevated SD Leukocytosis likely related to steroids Time with Patient: Greater than 30
[2018-08-22] MEDS: LORazepam 2 MG/ML INJ IV PRN ×2 (09:04→18:23)
--- NOTE | 2018-08-22 09:12 | XR ---
EXAMINATION TYPE: XR chest 1V portable DATE OF EXAM: 08/22/2018 Comparison: 08/21/2018 Clinical History: 62-year-old female Tube placement Findings: ET tube is in place, tip at the level of the medial clavicular heads. NG tube courses below the diaph ragm. Heart upper limits of normal in size. Hyperinflation with relative upper lung lucencies. Possib le trace effusions blunting the costophrenic angles versus pleural parenchymal scarring. Aeration imp roved in the lower lungs. Impression: COPD with improved aeration in the lower lungs. Blunted costophrenic angles could reflect pleural sca rring or trace effusions.
[2018-08-22 11:22] LABS: Glucose,Whole Blood 123 mg/dL (75-99)
--- NOTE | 2018-08-22 11:25 | P.PN ---
Subjective Progress Note Date: 08/22/18 This is a 62-year-old female was admitted to the hospital with respiratory failure secondary to COPD exacerbation and possible pneumonia. We are consulted because of abnormal troponin values which are consistent with non-ST elevation [place]. This could be secondary to supply demand mismatch. Underlying ischemic heart disease cannot be completely excluded. Patient is still intubated but symptoms are being made to wean her off the respirator. Would waiting for the echocardiogram. Chest x-ray doesn't show any significant CHF. Continue current medical therapy. If echo Cardigan shows any segmental wall motion defects, patient may need are catheterization for definitive diagnosis Objective - Vital Signs Vital signs: Vital Signs Temp 98.4 F 08/22/18 08:00 Pulse 108 H 08/22/18 11:21 Resp 25 H 08/22/18 11:00 BP 125/86 08/22/18 11:00 Pulse Ox 93 L 08/22/18 11:00 Intake & Output 08/21/18 08/22/18 08/22/18 18:59 06:59 18:59 Intake Total 1690 1289.576 516.114 Output Total 925 945 153 Balance 765 344.576 363.114 Weight 50.2 kg Intake: IV 1200 1100 500 Sodium Chloride 0.9% 1, 1200 1100 500 000 ml @ 100 mls/hr IV . Q10H [facility] Rx#:[id number] Intake, IV Titration 400 189.576 16.114 Amount Levofloxacin 500Mg-D5w 100 Pmx 500 mg In Dextrose/ Water 1 100ml.bag @ 100 mls/hr IVPB Q24H [facility] Rx#: [id number] Magnesium Sulfate-D5w Pmx 100 1 gm In Dextrose/Water 1 100ml.bag @ 100 mls/hr IVPB Q1H [facility] Rx#: [id number] Propofol 1,000 mg In 200 189.576 16.114 Empty Bag 1 bag @ Titrate IV .Q0M [facility] Rx#: [id number] Other 90 Output: Gastric Drainage 400 500 Urine 525 445 153 Other: Voiding Method Indwelling Catheter Indwelling Catheter Indwelling Catheter - Exam GENERAL EXAM: Patient is intubated. She is off sedation and seemed to be waking up HEENT: Normocephalic. Normal reaction of pupils, equal size, normal range of extraocular motion. No erythema or exudates in the throat. NECK: No masses, no nuchal rigidity. CHEST: No chest wall deformity. LUNGS: Diminished air exchange HEART: S1 and S2 normal with no audible mumurs ABDOMEN: No hepatosplenomegaly, normal bowel sounds, no guarding or rigidity. SKIN: No rashes CENTRAL NERVOUS SYSTEM: No focal deficits. EXTREMITIES: No cyanosis, clubbing or edema. - Labs CBC & Chem 7: 08/22/18 04:18 08/22/18 04:18 Labs: Abnormal Lab Results - Last 24 Hours (Table) 08/21/18 08/21/18 08/21/18 Range/Units 11:52 18:02 23:37 WBC (3.8-10.6) k/uL Neutrophils # (1.3-7.7) k/uL Lymphocytes # (1.0-4.8) k/uL ABG pO2 (83-108) mmHg ABG HCO3 (21-25) mmol/L ABG Total CO2 (19-24) mmol/L ABG O2 Saturation (94-97) % Chloride (98-107) mmol/L BUN (7-17) mg/dL Glucose (74-99) mg/dL POC Glucose (mg/dL) 143 H 121 H 122 H (75-99) mg/dL 08/22/18 08/22/18 08/22/18 Range/Units 04:18 04:18 05:30 WBC 15.6 H (3.8-10.6) k/uL Neutrophils # 14.3 H (1.3-7.7) k/uL Lymphocytes # 0.9 L (1.0-4.8) k/uL ABG pO2 (83-108) mmHg ABG HCO3 (21-25) mmol/L ABG Total CO2 (19-24) mmol/L ABG O2 Saturation (94-97) % Chloride 108 H (98-107) mmol/L BUN 19 H (7-17) mg/dL Glucose 146 H (74-99) mg/dL POC Glucose (mg/dL) 121 H (75-99) mg/dL 08/22/18 08/22/18 Range/Units 08:39 11:19 WBC (3.8-10.6) k/uL Neutrophils # (1.3-7.7) k/uL Lymphocytes # (1.0-4.8) k/uL ABG pO2 171 H (83-108) mmHg ABG HCO3 26 H (21-25) mmol/L ABG Total CO2 27 H (19-24) mmol/L ABG O2 Saturation 98.6 H (94-97) % Chloride (98-107) mmol/L BUN (7-17) mg/dL Glucose (74-99) mg/dL POC Glucose (mg/dL) 123 H (75-99) mg/dL Microbiology - Last 24 Hours (Table) 08/20/18 22:40 Urine Culture - Final Urine,Voided 08/21/18 21:00 Gram Stain - Preliminary Sputum Sputum Culture - Preliminary 08/20/18 13:00 Blood Culture - Preliminary Blood No Growth after 24 hours Assessment and Plan (1) Elevated troponin Current Visit: Yes Status: Acute Code(s): R74.8 - ABNORMAL LEVELS OF OTHER SERUM ENZYMES SNOMED Code(s): 061457096 (2) COPD exacerbation Current Visit: Yes Status: Acute Code(s): J44.1 - CHRONIC OBSTRUCTIVE PULMONARY DISEASE W (ACUTE) EXACERBATION SNOMED Code(s): 898584021 (3) Pneumonia Current Visit: Yes Status: Acute Code(s): J18.9 - PNEUMONIA, UNSPECIFIED ORGANISM SNOMED Code(s): 185771679 (4) Respiratory failure Current Visit: No Status: Acute Code(s): J96.90 - RESPIRATORY FAILURE, UNSP, UNSP W HYPOXIA OR HYPERCAPNIA SNOMED Code(s): 172795909 Plan: We'll continue current medical therapy. Get an echocardiogram to assess any segmental wall motion defects and LV function. Further recommendation. Upon the clinical course
--- NOTE | 2018-08-22 13:13 | CDI ---
Documentation Clarification Form Date: 08/22/2018 12:59:26 PM From: Candida TapiaJiménezCOLTON kilpatrick, CCDS Admit Date: 08/21/2018 5:46:00 AM Patient Name: Nahomy Wei Visit Number: [id number] Discharge Date: ATTENTION: The Clinical Documentation Specialists (CDI) and [facility] Coding Staff appreciate your assistance in clarifying documentation. Please respond to the clarification below the line at the bottom and electronically sign. The CDI & [facility] Coding staff will review the response and follow-up if needed. Please note: Queries are made part of the Legal Health Record. If you have any questions, please contact the author of this message via ITS. Dr. Franky Dash: Per the cardiology consult & subsequent progress notes: "We are consulted because of abnormal troponin values which are consistent with non-ST elevation [place]. This could be secondary to supply demand mismatch. Underlying ischemic heart disease cannot be completely excluded." Patient History/Risk Factors: Asthma, COPD, OA, History of shingles, takes nerontin for pain, Bladder incontinence, ADD/ADHD, Anxiety, Depression. Former smoker. Clinical Indicators: Presented to the ER with KENNEDY & cough x3 days. No chest pain. Diagnosed with acute exacerbation COPD & acute respiratory failure requiring intubation. Troponin: (0.033), 0.463^^, 0.832^^ EKG Results: R 80 nsr, anterior infarct, age undetermined. Treatment: Intubated in ER, INH Albuterol, IV Solumedrol, IV fluid bolus, IV Levaquin. In order to capture the severity of condition and necessary documentation specificity, please clarify: Type of Infarction: STEMI NSTEMI Type II Other type of myocardial infarction, please specify Unable to determine Other Condition, please specify Site of myocardial injury, if present & if known: Other, please specify Unable to determine (Last Revision: December 2016) Pt had non STEMI MTDD
--- NOTE | 2018-08-22 13:19 | ECHOF ---
Referral Reason:Chest pain and cardiomyopathy MEASUREMENTS -------- HEIGHT: 157.5 cm WEIGHT: 49.9 kg BP: 114/102 RVIDd: 2.0 cm (< 3.3) IVSd: 1.1 cm (0.6 - 1.1) LVIDd: 3.1 cm (3.9 - 5.3) LVPWd: 1.3 cm (0.6 - 1.1) IVSs: 1.3 cm LVIDs: 3.0 cm LVPWs: 0.8 cm Ao Diam: 2.8 cm (2.0 - 3.7) AV Cusp: 0.9 cm (1.5 - 2.6) EPSS: 3.4 cm MV E Nolan: 0.85 m/s MV DecT: 100 ms MV A Nolan: 0.71 m/s MV E/A Ratio: 1.20 AR PHT: 323 ms RAP: 5.00 mmHg RVSP: 40.13 mmHg %FS: 14.96 % EDV(Teich): 145.41 ml EF(Teich): 31.36 % ESV(Teich): 99.81 ml IVSd: 0.84 cm (0.6 - 1.1) IVSs: 0.86 cm LVIDd: 5.47 cm (3.9 - 5.3) LVIDs: 4.65 cm LVPWd: 0.96 cm (0.6 - 1.1) LVPWs: 1.31 cm MV EF SLOPE: 147.71 mm/s (70 - 150) MV EXCURSION: 1.15 cm (> 18.000) SV(Teich): 45.60 ml FINDINGS -------- Sinus rhythm. This was a technically difficult study with suboptimal apical views. COPD, pt unable to move The left ventricular size is normal. There is borderline concentric left ventricular hypertrophy. Overall left ventricular systolic function is severely impaired with, an EF between 20 - 25 %. Richard asuba. The right ventricle is normal in size. Left atrium is mildly dilated by volume. The right atrium was not well visualized. Interatrial and interventricular septum intact. The aortic valve is trileaflet, and appears structurally normal. No aortic stenosis or regurgitation. The mitral valve is normal. Mild tricuspid regurgitation present. There is mild pulmonary hypertension. The right ventricular systolic pressure, as measured by Doppler, is 40.13mmHg. The pulmonic valve was not well visualized. There is no pulmonic regurgitation present. The aortic root size is normal. Not visualized There is no pericardial effusion. CONCLUSIONS -------- 1. Sinus rhythm. 2. This was a technically difficult study with suboptimal apical views. 3. The left ventricular size is normal. 4. There is borderline concentric left ventricular hypertrophy. 5. Overall left ventricular systolic function is severely impaired with, an EF between 20 - 25 %. 6. [place]. 7. Left atrium is mildly dilated by volume. 8. The right atrium was not well visualized. 9. Interatrial and interventricular septum intact. 10. The aortic valve is trileaflet, and appears structurally normal. No aortic stenosis or regurgitat ion. 11. The mitral valve is normal. 12. Mild tricuspid regurgitation present. 13. There is mild pulmonary hypertension. 14. There is no pulmonic regurgitation present. 15. The aortic root size is normal. 16. There is no pericardial effusion. MEDICAL DOSIMETRIST: Jazmyn Carlisle JAYDEN
[2018-08-22] MEDS ORDERED: HYDROcodone/APAP 5-325MG 1 EACH TAB PO PRN (17:42)
[2018-08-22] MEDS ORDERED: FUROSEMIDE 10 MG/ML 2 ML VIAL IV ONE (18:02)
[2018-08-22 18:05] LABS: ABG Base Excess -3.9 mmol/L; ABG HCO3 22 mmol/L (21-25); ABG Oxygen Saturation 90.8 % (94-97); ABG PCO2 43 mmHg (35-45); ABG PH 7.32 (7.35-7.45); ABG PO2 70 mmHg (83-108); ABG TCO2 23 mmol/L (19-24); Allen Test Performed? Yes
[2018-08-22] MEDS: LEVOFLOXACIN 500MG-D5W PMX 500 MG in DEXTROSE/WATER 1 100ML.BAG IVPB SCH (18:38)
[2018-08-22 18:55] LABS: Glucose,Whole Blood 243 mg/dL (75-99)
[2018-08-22] MEDS ORDERED: HALOPERIDOL LACTATE 5 MG/ML 1 ML VIAL IVP PRN (18:55)
[2018-08-22] MEDS: SPIRONOLACTONE 25 MG TAB PO SCH (20:19)
[2018-08-22] MEDS: CARVEDILOL 3.125 MG TAB PO SCH (20:20)
[2018-08-22] MEDS: LISINOPRIL 2.5 MG TAB PO SCH (21:12)
[2018-08-22] MEDS: ASPIRIN 81 MG PO SCH (21:12)
[2018-08-22] MEDS: MONTELUKAST 10 MG TAB PO SCH (21:13)
[2018-08-22] MEDS: LURASIDONE 40 MG TAB PO SCH (21:13)
[2018-08-22] MEDS: METOPROLOL TARTRATE 5 MG/5 ML VIAL IVP SCH (21:39)
[2018-08-22] MEDS: FUROSEMIDE 10 MG/ML 2 ML VIAL IV SCH (21:45)
[2018-08-22 23:14] LABS: ABG Base Excess -0.9 mmol/L; ABG HCO3 27 mmol/L (21-25); ABG Oxygen Saturation 98.8 % (94-97); ABG PO2 >400 mmHg (83-108); ABG TCO2 30 mmol/L (19-24); Allen Test Performed? Yes
--- NOTE | 2018-08-22 23:20 | XR ---
EXAM: XR Chest, 1 View CLINICAL HISTORY: ITS.REASON XR Reason: Intubated TECHNIQUE: Frontal view of the chest. COMPARISON: Chest radiograph 08/22/2018. FINDINGS: Lungs: Reticular opacities in the lungs appear unchanged. Hyperinflated lungs. Pleural space: Questionable trace pleural effusions. No pneumothorax. Heart: Size is at the upper limits of normal. Mediastinum: Unremarkable. Bones/joints: Unremarkable. Tubes, lines and devices: No interval change in position of endotracheal tube or enteric tube. IMPRESSION: 1. No significant interval change in cardiopulmonary findings compared to the prior examination. 2. Stable position of medical support apparatus.
[2018-08-22 23:59] LABS: Glucose,Whole Blood 149 mg/dL (75-99)
[2018-08-23] MEDS: IPRATROPIUM-ALBUTEROL 3 ML NEB INHALATION PRN ×6 (03:00→23:01)
[2018-08-23 05:07] LABS: ABG Base Excess 3.6 mmol/L; ABG HCO3 29 mmol/L (21-25); ABG Oxygen Saturation 96.6 % (94-97); ABG PCO2 48 mmHg (35-45); ABG PH 7.39 (7.35-7.45); ABG PO2 96 mmHg (83-108); ABG TCO2 30 mmol/L (19-24); Allen Test Performed? Yes
[2018-08-23 05:21] LABS: Basophils % (A) 0 %; Eosinophils # (A) 0.1 k/uL (0-0.7); Eosinophils % (A) 1 %; HCT 39.6 % (34.0-46.0); HGB 12.5 gm/dL (11.4-16.0); Hypochromasia Slight; Lymphocytes # (A) 0.9 k/uL (1.0-4.8); Lymphocytes % (A) 9 %; MCH 29.6 pg (25.0-35.0); MCHC 31.6 g/dL (31.0-37.0); MCV 93.6 fL (80.0-100.0); Mean Platelet Volume 8.7; Monocytes # (A) 0.6 k/uL (0-1.0); Monocytes % (A) 5 %; Neutrophils # (A) 8.9 k/uL (1.3-7.7); Neutrophils % (A) 84 %; Platelet Count 173 k/uL (150-450); RBC 4.23 m/uL (3.80-5.40); RDW 14.9 % (11.5-15.5); WBC 10.6 k/uL (3.8-10.6)
[2018-08-23] MEDS: PROPOFOL 1,000 MG in EMPTY BAG 1 BAG IV SCH (05:50)
[2018-08-23] MEDS: methylPREDNISolone SOD SUCCI 125 MG/2 ML VIAL IV SCH ×3 (05:50→17:45)
[2018-08-23 05:54] LABS: Glucose,Whole Blood 88 mg/dL (75-99)
[2018-08-23] MEDS: INSULIN ASPART (NovoLOG) 100 UNIT/ML VIAL SQ SCH ×3 (05:55→17:57)
[2018-08-23] MEDS: SODIUM CHLORIDE 0.9% 1,000 ML IV SCH ×2 (05:55→11:45)
[2018-08-23 06:16] LABS: African American GFR (CKD) >90 (>60 ml/min/1.73 sqM); Anion Gap 4 mmol/L; Blood Urea Nitrogen 30 mg/dL (7-17); Calcium 8.9 mg/dL (8.4-10.2); Carbon Dioxide 31 mmol/L (22-30); Chloride 109 mmol/L (98-107); Glucose 112 mg/dL (74-99); Potassium 4.2 mmol/L (3.5-5.1); Sodium 144 mmol/L (137-145)
--- NOTE | 2018-08-23 06:27 | XR ---
EXAMINATION TYPE: XR chest 1V portable DATE OF EXAM: 08/23/2018 HISTORY: Tube placement. REFERENCE: Previous study dated 08/22/2018. FINDINGS: Lesions ET tube and NG tube remain in place, unchanged in appearance. The lungs are overinflated. There is blunting of both CP angles likely on the basis of overinflation. The heart is not enlarged. IMPRESSION: COPD.
[2018-08-23] MEDS: IPRATROPIUM 0.5 MG/2.5 ML NEBU INHALATION SCH ×4 (07:06→19:03)
[2018-08-23] MEDS: BUDESONIDE 0.5 MG/2 ML NEBU INHALATION SCH ×2 (07:06→19:03)
[2018-08-23] MEDS: NON-FORMULARY DRUG (Dextroamphetamine/Amphetamine [Adderall] 20 MG) PO SCH ×3 (08:47→17:46)
[2018-08-23] MEDS: FUROSEMIDE 10 MG/ML 2 ML VIAL IV SCH ×2 (08:49→20:54)
[2018-08-23] MEDS: CARVEDILOL 3.125 MG TAB PO SCH ×2 (08:49→17:45)
[2018-08-23] MEDS: METOPROLOL TARTRATE 5 MG/5 ML VIAL IVP SCH (08:49)
[2018-08-23] MEDS: HEPARIN SODIUM,PORCINE 5,000 UNIT/ML 1 ML VIAL SQ SCH ×2 (08:49→20:54)
[2018-08-23] MEDS: GABAPENTIN 300 MG CAP PO SCH ×3 (08:49→21:01)
[2018-08-23] MEDS: CHLORHEXIDINE GLUCONATE 15 ML CUP MUCOUS MEM SCH ×2 (08:49→20:54)
[2018-08-23] MEDS: PANTOPRAZOLE 40 MG/10 ML VIAL IV SCH (08:50)
[2018-08-23] MEDS: SPIRONOLACTONE 25 MG TAB PO SCH (08:50)
[2018-08-23] MEDS: TROSPIUM CHLORIDE 20 MG TABLET PO SCH ×2 (08:51→21:01)
--- NOTE | 2018-08-23 10:12 | P.PN ---
Subjective Progress Note Date: 08/23/18 Principal diagnosis: Acute hypoxic and hypercapnic respiratory failure, elevated troponin, bilateral pneumonia, COPD severe category, non-ST segment elevated UT due to demand and rosales pply mismatch, leukocytosis, acute systolic heart failure 08/23/2018, patient seen eval reexamined during the rounds events from yesterday noted, patient posted with extubation did not do well after 10-12 hours of off of respirator require ventilatory support again she was extremely restless and agitated and tachypneic tachycardic not having a good air exchange was placed back on ventilator propofol is currently on 30 mics, she is on 16 of assist- control breathing about 20 tidal volume is 450, +5 PEEP, oxygen is 40% arterial blood gas from today's reviewed improvement in blood gases are noted with improvement in respiratory acidosis and metabolic acidosis, chest x-ray from today reviewed the infiltrate that was seen previously have resolved more appearance of the COPD, labs from today reviewed patient is up to 4.2 BUN/creatinine 30 and 0.7, care plan discussed with the staff at length will start the tube feed patient will be kept on respirator for another 48-72 hours, echocardiogram results revealed ejection fraction is about 20%, critical care time spent 35 minutes 08/22/2018, patient seen eval reexamined during the rounds she is the more awake propofol is being tapered down to 30 mics plan is to DC the propofol and put on CPAP and pressure support instructions were given patient is nothing by mouth currently chest x-ray reviewed, significant improvement in infiltrate are noted T-tube in stable condition finding on chest x-ray is hyperinflated lung consistent with severe COPD, critical care time 35 minutes 08/21/2018, patient seen and evaluated examined during the rounds she is on the 50 mics of propofol to feed his not initiated yet, patient is afebrile labs reviewed radiographic studies reviewed urine from yesterday reviewed and will titrate the propofol down x-ray showing bilateral pneumonia white cell count is up compared to yesterday arterial blood gas fairly normal, mild hyperkalemia is noted, 2 minute troponin continue to go up recommendation from cardiovascular services noted critical care time spent 35 minutes Patient was admitted into the hospital with acute COPD exacerbation, presents emergency department today for evaluation complaints of difficulty in breathing and cough for the past 3 days. Patient believes she is having a COPD exacerbation and was calling her primary care doctor today for oral steroid prescription. She presented difficulty breathing became more severe. She called EMS this morning was given breathing treatments and states her symptoms have improved after this breathing treatment. She is maintained on nebulizers at home.. Patient states that she's had a slightly productive cough. Denies any specific fevers or chills. She denies any stationary chest pain at this time. In the emergency department patient having worsening of shortness of breath and wheezing and using necessary muscles consult was requested due to severe respiratory distress and altered mental status patient was intubated postintubation ABG revealed evidence of hypercapnia and respiratory acidosis with stable oxygenation some metabolic acidosis was noted likely related to poor perfusion, patient was seen evaluated examined in the ICU post-intubation Objective - Vital Signs Vital signs: Vital Signs Temp 98.4 F 08/23/18 04:00 Pulse 90 08/23/18 08:00 Resp 25 H 08/23/18 08:00 BP 111/88 08/23/18 08:00 Pulse Ox 98 08/23/18 08:00 Intake & Output 08/22/18 08/23/18 08/23/18 18:59 06:59 18:59 Intake Total 1013.315 9534.629 300 Output Total 417 1410 440 Balance 899.114 -127.371 -140 Weight 48.3 kg Intake: IV 1200 1200 300 Sodium Chloride 0.9% 1, 1200 1200 300 000 ml @ 100 mls/hr IV . Q10H OS[facility] Rx#:[id number] Intake, IV Titration 116.114 82.629 Amount Levofloxacin 500Mg-D5w 100 Pmx 500 mg In Dextrose/ Water 1 100ml.bag @ 100 mls/hr IVPB Q24H OSBALDO Rx#: [id number] Propofol 1,000 mg In 16.114 82.629 Empty Bag 1 bag @ Titrate IV .Q0M OSBALDO Rx#: [id number] Output: Urine 417 1410 440 Other: Voiding Method Indwelling Catheter Indwelling Catheter - Exam - Constitutional General appearance: average body habitus, disheveled, mild distress, thin, intubated on vent - EENT Eyes: PERRLA, poor dentition ENT: normal oropharynx Ears: bilateral: normal - Neck Carotids: bilateral: upstroke normal, bruit absent Thyroid: bilateral: normal size - Respiratory Respiratory: bilateral: diminished, wheezing (Bilateral expiratory) - Cardiovascular Rhythm: regular Heart sounds: normal: S1, S2 - Gastrointestinal General gastrointestinal: decreased bowel sounds, scaphoid, soft - Integumentary Integumentary: decreased turgor - Neurologic Neurologic: Sedated with propofol - Musculoskeletal Musculoskeletal: Sedated with propofol - Psychiatric Psychiatric: Sedated with propofol - Labs CBC & Chem 7: 08/23/18 04:52 08/23/18 05:49 Labs: Abnormal Lab Results - Last 24 Hours (Table) 08/22/18 08/22/18 08/22/18 Range/Units 11:19 18:04 18:49 Neutrophils # (1.3-7.7) k/uL Lymphocytes # (1.0-4.8) k/uL ABG pH 7.32 L (7.35-7.45) ABG pCO2 (35-45) mmHg ABG pO2 70 L (83-108) mmHg ABG HCO3 (21-25) mmol/L ABG Total CO2 (19-24) mmol/L ABG O2 Saturation 90.8 L (94-97) % Chloride (98-107) mmol/L Carbon Dioxide (22-30) mmol/L BUN (7-17) mg/dL Glucose (74-99) mg/dL POC Glucose (mg/dL) 123 H 243 H (75-99) mg/dL 08/22/18 08/22/18 08/23/18 Range/Units 23:02 23:45 04:52 Neutrophils # 8.9 H (1.3-7.7) k/uL Lymphocytes # 0.9 L (1.0-4.8) k/uL ABG pH 7.19 L* (7.35-7.45) ABG pCO2 71 H* (35-45) mmHg ABG pO2 >400 H (83-108) mmHg ABG HCO3 27 H (21-25) mmol/L ABG Total CO2 30 H (19-24) mmol/L ABG O2 Saturation 98.8 H (94-97) % Chloride (98-107) mmol/L Carbon Dioxide (22-30) mmol/L BUN (7-17) mg/dL Glucose (74-99) mg/dL POC Glucose (mg/dL) 149 H (75-99) mg/dL 08/23/18 08/23/18 Range/Units 05:01 05:49 Neutrophils # (1.3-7.7) k/uL Lymphocytes # (1.0-4.8) k/uL ABG pH (7.35-7.45) ABG pCO2 48 H (35-45) mmHg ABG pO2 (83-108) mmHg ABG HCO3 29 H (21-25) mmol/L ABG Total CO2 30 H (19-24) mmol/L ABG O2 Saturation (94-97) % Chloride 109 H (98-107) mmol/L Carbon Dioxide 31 H (22-30) mmol/L BUN 30 H (7-17) mg/dL Glucose 112 H (74-99) mg/dL POC Glucose (mg/dL) (75-99) mg/dL Microbiology - Last 24 Hours (Table) 08/20/18 13:00 Blood Culture - Preliminary Blood No Growth after 48 hours 08/20/18 22:40 Urine Culture - Final Urine,Voided 08/21/18 21:00 Gram Stain - Preliminary Sputum Sputum Culture - Preliminary Assessment and Plan Assessment: End-stage COPD Acute systolic heart failure Right lower lobe pneumonia, improvement in noted on infiltrate Acute hypoxic and hypercapnic respiratory failure Status post respiratory arrest and intubation Demand supply mismatch non-ST segment elevated UT COPD severe category with acute exacerbation Elevated troponin due to above Plan: Ventilator support adjustment of ventilator as needed Propofol for sedation was titrated down to 10-15 mics Hold for weaning for another 48-72 hours Broad-spectrum antibiotic Breathing treatments IV steroids DVT and peptic ulcers disease prophylaxis Echocardiogram results reviewed Further recommendations pending plan of care as per clinical response of the patient Consult cardiology for elevated troponin suspected to be demand supply mismatch non-ST segment elevated UT Leukocytosis likely related to steroids
[2018-08-23 12:22] LABS: Glucose,Whole Blood 101 mg/dL (75-99)
--- NOTE | 2018-08-23 16:58 | P.PN ---
Subjective Progress Note Date: 08/23/18 This is a 62-year-old female was admitted to the hospital with respiratory failure secondary to COPD exacerbation and possible pneumonia. We are consulted because of abnormal troponin values which are consistent with non-ST elevation [place]. This could be secondary to supply demand mismatch. Underlying ischemic heart disease cannot be completely excluded. Patient is still intubated but symptoms are being made to wean her off the respirator. Would waiting for the echocardiogram. Chest x-ray doesn't show any significant CHF. Continue current medical therapy. If echo Cardigan shows any segmental wall motion defects, patient may need are catheterization for definitive diagnosis. 08/23/2018: This 62-year-old female is admitted to the hospital with respiratory failure requiring intubation and respiratory support. Patient was extubated briefly but needed to be reintubated because of respiratory failure. Patient is related. 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 Underlying ischemic heart disease cannot be excluded. Discussed findings with the patient's . May consider cardiac catheterization for definitive diagnosis. Meanwhile we'll continue current medical therapy with Coreg, lisinopril, Lasix and Aldactone Objective - Vital Signs Vital signs: Vital Signs Temp 98.6 F 08/23/18 16:00 Pulse 85 08/23/18 16:00 Resp 16 08/23/18 16:00 BP 108/85 08/23/18 16:00 Pulse Ox 98 08/23/18 16:00 Intake & Output 08/22/18 08/23/18 08/23/18 18:59 06:59 18:59 Intake Total 6109.535 3370.629 500 Output Total 417 1410 890 Balance 899.114 -127.371 -390 Weight 48.3 kg 48.3 kg Intake: IV 1200 1200 500 Sodium Chloride 0.9% 1, 1200 1200 500 000 ml @ 100 mls/hr IV . Q10H [facility] Rx#:[id number] Intake, IV Titration 116.114 82.629 Amount Levofloxacin 500Mg-D5w 100 Pmx 500 mg In Dextrose/ Water 1 100ml.bag @ 100 mls/hr IVPB Q24H [facility] Rx#: [id number] Propofol 1,000 mg In 16.114 82.629 Empty Bag 1 bag @ Titrate IV .Q0M OSBALDO Rx#: [id number] Output: Urine 417 1410 890 Other: Voiding Method Indwelling Catheter Indwelling Catheter Indwelling Catheter - Exam GENERAL EXAM: Patient is intubated and sedated HEENT: Normocephalic. Normal reaction of pupils, equal size, normal range of extraocular motion. No erythema or exudates in the throat. NECK: No masses, no nuchal rigidity. CHEST: No chest wall deformity. LUNGS: Diminished air exchange HEART: S1 and S2 normal with no audible mumurs ABDOMEN: No hepatosplenomegaly, normal bowel sounds, no guarding or rigidity. SKIN: No rashes CENTRAL NERVOUS SYSTEM: No focal deficits. EXTREMITIES: No cyanosis, clubbing or edema. - Labs CBC & Chem 7: 08/23/18 04:52 08/23/18 05:49 Labs: Abnormal Lab Results - Last 24 Hours (Table) 08/22/18 08/22/18 08/22/18 Range/Units 18:04 18:49 23:02 Neutrophils # (1.3-7.7) k/uL Lymphocytes # (1.0-4.8) k/uL ABG pH 7.32 L 7.19 L* (7.35-7.45) ABG pCO2 71 H* (35-45) mmHg ABG pO2 70 L >400 H (83-108) mmHg ABG HCO3 27 H (21-25) mmol/L ABG Total CO2 30 H (19-24) mmol/L ABG O2 Saturation 90.8 L 98.8 H (94-97) % Chloride (98-107) mmol/L Carbon Dioxide (22-30) mmol/L BUN (7-17) mg/dL Glucose (74-99) mg/dL POC Glucose (mg/dL) 243 H (75-99) mg/dL 08/22/18 08/23/18 08/23/18 Range/Units 23:45 04:52 05:01 Neutrophils # 8.9 H (1.3-7.7) k/uL Lymphocytes # 0.9 L (1.0-4.8) k/uL ABG pH (7.35-7.45) ABG pCO2 48 H (35-45) mmHg ABG pO2 (83-108) mmHg ABG HCO3 29 H (21-25) mmol/L ABG Total CO2 30 H (19-24) mmol/L ABG O2 Saturation (94-97) % Chloride (98-107) mmol/L Carbon Dioxide (22-30) mmol/L BUN (7-17) mg/dL Glucose (74-99) mg/dL POC Glucose (mg/dL) 149 H (75-99) mg/dL 08/23/18 08/23/18 Range/Units 05:49 12:08 Neutrophils # (1.3-7.7) k/uL Lymphocytes # (1.0-4.8) k/uL ABG pH (7.35-7.45) ABG pCO2 (35-45) mmHg ABG pO2 (83-108) mmHg ABG HCO3 (21-25) mmol/L ABG Total CO2 (19-24) mmol/L ABG O2 Saturation (94-97) % Chloride 109 H (98-107) mmol/L Carbon Dioxide 31 H (22-30) mmol/L BUN 30 H (7-17) mg/dL Glucose 112 H (74-99) mg/dL POC Glucose (mg/dL) 101 H (75-99) mg/dL Microbiology - Last 24 Hours (Table) 08/20/18 13:00 Blood Culture - Preliminary Blood No Growth after 72 hours 08/21/18 21:00 Gram Stain - Preliminary Sputum Sputum Culture - Preliminary Assessment and Plan (1) Elevated troponin Current Visit: Yes Status: Acute Code(s): R74.8 - ABNORMAL LEVELS OF OTHER SERUM ENZYMES SNOMED Code(s): 145549823 (2) COPD exacerbation Current Visit: Yes Status: Acute Code(s): J44.1 - CHRONIC OBSTRUCTIVE PULMONARY DISEASE W (ACUTE) EXACERBATION SNOMED Code(s): 260347133 (3) Pneumonia Current Visit: Yes Status: Acute Code(s): J18.9 - PNEUMONIA, UNSPECIFIED ORGANISM SNOMED Code(s): 064131748 (4) Respiratory failure Current Visit: No Status: Acute Code(s): J96.90 - RESPIRATORY FAILURE, UNSP, UNSP W HYPOXIA OR HYPERCAPNIA SNOMED Code(s): 863709410 Plan: Continue current medical therapy. Discussed with regarding cardiac myopathy and possible stress-induced cardiac myopathy. May also suggested that patient may need a cath for definitive diagnosis to rule out underlying ischemic heart disease
[2018-08-23] MEDS: LEVOFLOXACIN 500MG-D5W PMX 500 MG in DEXTROSE/WATER 1 100ML.BAG IVPB SCH (17:53)
[2018-08-23 18:01] LABS: Glucose,Whole Blood 110 mg/dL (75-99)
[2018-08-23] MEDS: ASPIRIN 81 MG PO SCH (20:54)
[2018-08-23] MEDS: LISINOPRIL 2.5 MG TAB PO SCH (20:55)
[2018-08-23] MEDS: MONTELUKAST 10 MG TAB PO SCH (20:56)
[2018-08-23] MEDS: LURASIDONE 40 MG TAB PO SCH (21:01)
[2018-08-23 23:58] LABS: Glucose,Whole Blood 129 mg/dL (75-99)
[2018-08-24] MEDS: methylPREDNISolone SOD SUCCI 125 MG/2 ML VIAL IV SCH ×4 (00:22→17:15)
[2018-08-24] MEDS: INSULIN ASPART (NovoLOG) 100 UNIT/ML VIAL SQ SCH ×4 (00:22→17:32)
[2018-08-24] MEDS: IPRATROPIUM-ALBUTEROL 3 ML NEB INHALATION PRN ×5 (03:02→19:05)
[2018-08-24 05:08] LABS: ABG Base Excess 7.2 mmol/L; ABG HCO3 32 mmol/L (21-25); ABG Oxygen Saturation 97.9 % (94-97); ABG PCO2 48 mmHg (35-45); ABG PH 7.43 (7.35-7.45); ABG PO2 121 mmHg (83-108); ABG TCO2 33 mmol/L (19-24); Allen Test Performed? Yes
[2018-08-24 06:14] LABS: Glucose,Whole Blood 145 mg/dL (75-99)
--- NOTE | 2018-08-24 06:14 | XR ---
EXAMINATION TYPE: XR chest 1V portable DATE OF EXAM: 08/24/2018 HISTORY: Tube placement. REFERENCE: Previous study dated 08/23/2018. FINDINGS: The patient's ET tube and NG tube remain in place, unchanged in appearance. The lungs are overinflated but clear. Pleural space are clear. Heart size upper limits of normal. IMPRESSION: COPD.
[2018-08-24] MEDS: PROPOFOL 1,000 MG in EMPTY BAG 1 BAG IV SCH ×3 (06:50→21:19)
[2018-08-24] MEDS: BUDESONIDE 0.5 MG/2 ML NEBU INHALATION SCH ×2 (07:03→19:05)
[2018-08-24] MEDS: IPRATROPIUM 0.5 MG/2.5 ML NEBU INHALATION SCH ×4 (07:05→19:05)
[2018-08-24] MEDS: NON-FORMULARY DRUG (Dextroamphetamine/Amphetamine [Adderall] 20 MG) PO SCH ×3 (08:00→17:13)
[2018-08-24 08:08] LABS: Magnesium 2.1 mg/dL (1.6-2.3); Phosphorus 3.2 mg/dL (2.5-4.5)
[2018-08-24] MEDS: FUROSEMIDE 10 MG/ML 2 ML VIAL IV SCH ×2 (08:54→21:06)
[2018-08-24] MEDS: TROSPIUM CHLORIDE 20 MG TABLET PO SCH ×2 (08:54→21:06)
[2018-08-24] MEDS: HEPARIN SODIUM,PORCINE 5,000 UNIT/ML 1 ML VIAL SQ SCH ×2 (08:54→21:07)
[2018-08-24] MEDS: SODIUM CHLORIDE 0.9% 1,000 ML IV SCH ×3 (08:54→17:15)
[2018-08-24] MEDS: PANTOPRAZOLE 40 MG/10 ML VIAL IV SCH (08:54)
[2018-08-24] MEDS: GABAPENTIN 300 MG CAP PO SCH ×3 (08:54→21:06)
[2018-08-24] MEDS: CHLORHEXIDINE GLUCONATE 15 ML CUP MUCOUS MEM SCH ×2 (08:54→21:06)
[2018-08-24] MEDS: CARVEDILOL 3.125 MG TAB PO SCH ×2 (08:55→18:39)
[2018-08-24] MEDS: SPIRONOLACTONE 25 MG TAB PO SCH (08:55)
[2018-08-24 10:36] LABS: HCT 37.1 % (34.0-46.0); HGB 11.7 gm/dL (11.4-16.0); MCHC 31.4 g/dL (31.0-37.0); MCV 92.4 fL (80.0-100.0); Mean Platelet Volume 8.5; Platelet Count 185 k/uL (150-450); RBC 4.02 m/uL (3.80-5.40); RDW 14.6 % (11.5-15.5)
[2018-08-24 10:45] LABS: ALT 427 U/L (9-52); AST 126 U/L (14-36); African American GFR (CKD) >90 (>60 ml/min/1.73 sqM); Albumin 3.1 g/dL (3.5-5.0); Alkaline Phosphatase 71 U/L (38-126); Anion Gap 3 mmol/L; Blood Urea Nitrogen 40 mg/dL (7-17); Calcium 8.9 mg/dL (8.4-10.2); Carbon Dioxide 31 mmol/L (22-30); Chloride 111 mmol/L (98-107); Glucose 145 mg/dL (74-99); Potassium 4.3 mmol/L (3.5-5.1); Sodium 145 mmol/L (137-145); Total Bilirubin 0.3 mg/dL (0.2-1.3); Total Protein 5.3 g/dL (6.3-8.2)
[2018-08-24] MEDS ORDERED: DIGOXIN 125 MCG TAB PO ONE ×2 (11:30→18:00)
[2018-08-24 12:09] LABS: Glucose,Whole Blood 133 mg/dL (75-99)
--- NOTE | 2018-08-24 12:14 | P.PN ---
Subjective Progress Note Date: 08/24/18 This is a 62-year-old female was admitted to the hospital with respiratory failure secondary to COPD exacerbation and possible pneumonia. We are consulted because of abnormal troponin values which are consistent with non-ST elevation [place]. This could be secondary to supply demand mismatch. Underlying ischemic heart disease cannot be completely excluded. Patient is still intubated but symptoms are being made to wean her off the respirator. Would waiting for the echocardiogram. Chest x-ray doesn't show any significant CHF. Continue current medical therapy. If echo Cardigan shows any segmental wall motion defects, patient may need are catheterization for definitive diagnosis. 08/23/2018: This 62-year-old female is admitted to the hospital with respiratory failure requiring intubation and respiratory support. Patient was extubated briefly but needed to be reintubated because of respiratory failure. Patient is related. 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 Underlying ischemic heart disease cannot be excluded. Discussed findings with the patient's . May consider cardiac catheterization for definitive diagnosis. Meanwhile we'll continue current medical therapy with Coreg, lisinopril, Lasix and Aldactone . 08/24/2018: Patient is still intubated and sedated. Running low blood pressu res. Heart rate is in 100s. I'm going to start her on Lanoxin 0.125 mg 2 today followed by 0.125 mg once daily from tomorrow. We'll repeat the echo Cardigan Saturday. Continue the rest of the medication. We'll discuss with Dr. Kilpatrick. May proceed with cardiac catheterization next week. Spoke with already Objective - Vital Signs Vital signs: Vital Signs Temp 98.1 F 08/24/18 08:00 Pulse 64 08/24/18 11:41 Resp 16 08/24/18 11:00 BP 76/56 08/24/18 11:00 Pulse Ox 100 08/24/18 11:00 Intake & Output 08/23/18 08/24/18 08/24/18 18:59 06:59 18:59 Intake Total 1280 1620 487.241 Output Total 1225 1675 895 Balance 55 -55 -407.759 Weight 48.3 kg 49.1 kg Intake: IV 1200 1200 400 Sodium Chloride 0.9% 1, 1200 1200 400 000 ml @ 100 mls/hr IV . Q10H [facility] Rx#:[id number] Intake, IV Titration 100 27.241 Amount Propofol 1,000 mg In 100 27.241 Empty Bag 1 bag @ Titrate IV .Q0M [facility] Rx#: [id number] Tube Feeding 50 230 60 Other 30 90 Output: Urine 1225 1675 895 Other: Voiding Method Indwelling Catheter Indwelling Catheter Indwelling Catheter - Exam GENERAL EXAM: Patient is intubated and sedated HEENT: Normocephalic. Normal reaction of pupils, equal size, normal range of extraocular motion. No erythema or exudates in the throat. NECK: No masses, no nuchal rigidity. CHEST: No chest wall deformity. LUNGS: Diminished air exchange HEART: S1 and S2 normal with no audible mumurs ABDOMEN: No hepatosplenomegaly, normal bowel sounds, no guarding or rigidity. SKIN: No rashes CENTRAL NERVOUS SYSTEM: No focal deficits. EXTREMITIES: No cyanosis, clubbing or edema. - Labs CBC & Chem 7: 08/24/18 07:34 08/24/18 07:34 Labs: Abnormal Lab Results - Last 24 Hours (Table) 08/23/18 08/23/18 08/23/18 Range/Units 12:08 17:57 23:56 ABG pCO2 (35-45) mmHg ABG pO2 (83-108) mmHg ABG HCO3 (21-25) mmol/L ABG Total CO2 (19-24) mmol/L ABG O2 Saturation (94-97) % Chloride (98-107) mmol/L Carbon Dioxide (22-30) mmol/L BUN (7-17) mg/dL Glucose (74-99) mg/dL POC Glucose (mg/dL) 101 H 110 H 129 H (75-99) mg/dL AST (14-36) U/L ALT (9-52) U/L Total Protein (6.3-8.2) g/dL Albumin (3.5-5.0) g/dL 08/24/18 08/24/18 08/24/18 Range/Units 05:02 06:10 07:34 ABG pCO2 48 H (35-45) mmHg ABG pO2 121 H (83-108) mmHg ABG HCO3 32 H (21-25) mmol/L ABG Total CO2 33 H (19-24) mmol/L ABG O2 Saturation 97.9 H (94-97) % Chloride 111 H (98-107) mmol/L Carbon Dioxide 31 H (22-30) mmol/L BUN 40 H (7-17) mg/dL Glucose 145 H (74-99) mg/dL POC Glucose (mg/dL) 145 H (75-99) mg/dL AST 126 H (14-36) U/L ALT 427 H (9-52) U/L Total Protein 5.3 L (6.3-8.2) g/dL Albumin 3.1 L (3.5-5.0) g/dL 08/24/18 Range/Units 11:55 ABG pCO2 (35-45) mmHg ABG pO2 (83-108) mmHg ABG HCO3 (21-25) mmol/L ABG Total CO2 (19-24) mmol/L ABG O2 Saturation (94-97) % Chloride (98-107) mmol/L Carbon Dioxide (22-30) mmol/L BUN (7-17) mg/dL Glucose (74-99) mg/dL POC Glucose (mg/dL) 133 H (75-99) mg/dL AST (14-36) U/L ALT (9-52) U/L Total Protein (6.3-8.2) g/dL Albumin (3.5-5.0) g/dL Microbiology - Last 24 Hours (Table) 08/21/18 21:00 Gram Stain - Final Sputum Sputum Culture - Final 08/20/18 13:00 Blood Culture - Preliminary Blood No Growth after 72 hours Assessment and Plan (1) Elevated troponin Current Visit: Yes Status: Acute Code(s): R74.8 - ABNORMAL LEVELS OF OTHER SERUM ENZYMES SNOMED Code(s): 194347755 (2) COPD exacerbation Current Visit: Yes Status: Acute Code(s): J44.1 - CHRONIC OBSTRUCTIVE PULMONARY DISEASE W (ACUTE) EXACERBATION SNOMED Code(s): 726245466 (3) Pneumonia Current Visit: Yes Status: Acute Code(s): J18.9 - PNEUMONIA, UNSPECIFIED ORG ANISM SNOMED Code(s): 248838188 (4) Respiratory failure Current Visit: No Status: Acute Code(s): J96.90 - RESPIRATORY FAILURE, UNSP, UNSP W HYPOXIA OR HYPERCAPNIA SNOMED Code(s): 375167498 Plan: Continue current medical therapy. Add Lanoxin. Get an echocardiogram tomorrow. Possible cardiac catheterization next week
--- NOTE | 2018-08-24 15:55 | P.PN ---
Subjective Progress Note Date: 08/24/18 (Radical care time 35 minutes) Principal diagnosis: Acute hypoxic and hypercapnic respiratory failure, elevated troponin, bilateral pneumonia, COPD severe category, non-ST segment elevated NH due to demand and supply mismatch, leukocytosis, acute systolic heart failure 08/24/2018, patient seen eval reexamined during the rounds, she is slightly awake but she is on propofol drip about 15 mics, she is comfortable she is breathing comfortably her ventilator setting has been stable radiographic studies and ABG have been reviewed labs reviewed patient is on tube feed tolerating very well, he is on assist control rate of 16 reading about 20 tidal volume of 500+5 of PEEP, arterial blood gases reviewed and they're stable chest x-ray reviewed there is stable, patient is gently being diuresed for the congestive heart failure and fluid overload 08/23/2018, patient seen eval reexamined during the rounds events from yesterday noted, patient posted with extubation did not do well after 10-12 hours of off of respirator require ventilatory support again she was extremely restless and agitated and tachypneic tachycardic not having a good air exchange was placed back on ventilator propofol is currently on 30 mics, she is on 16 of assist- control breathing about 20 tidal volume is 450, +5 PEEP, oxygen is 40% arterial blood gas from today's reviewed improvement in blood gases are noted with improvement in respiratory acidosis and metabolic acidosis, chest x-ray from today reviewed the infiltrate that was seen previously have resolved more appearance of the COPD, labs from today reviewed patient is up to 4.2 BUN/creatinine 30 and 0.7, care plan discussed with the staff at length will start the tube feed patient will be kept on respirator for another 48-72 hours, echocardiogram results revealed ejection fraction is about 20%, critical care time spent 35 minutes 08/22/2018, patient seen eval reexamined during the rounds she is the more awake propofol is being tapered down to 30 mics plan is to DC the propofol and put on CPAP and pressure support instructions were given patient is nothing by mouth currently chest x-ray reviewed, significant improvement in infiltrate are noted T-tube in stable condition finding on chest x-ray is hyperinflated lung consistent with severe COPD, critical care time 35 minutes 08/21/2018, patient seen and evaluated examined during the rounds she is on the 50 mics of propofol to feed his not initiated yet, patient is afebrile labs reviewed radiographic studies reviewed urine from yesterday reviewed and will titrate the propofol down x-ray showing bilateral pneumonia white cell count is up compared to yesterday arterial blood gas fairly normal, mild hyperkalemia is noted, 2 minute troponin continue to go up recommendation from cardiovascular services noted critical care time spent 35 minutes Patient was admitted into the hospital with acute COPD exacerbation, presents emergency department today for evaluation complaints of difficulty in breathing and cough for the past 3 days. Patient believes she is having a COPD exacerbation and was calling her primary care doctor today for oral steroid p rescription. She presented difficulty breathing became more severe. She called EMS this morning was given breathing treatments and states her symptoms have improved after this breathing treatment. She is maintained on nebulizers at home.. Patient states that she's had a slightly productive cough. Denies any specific fevers or chills. She denies any stationary chest pain at this time. In the emergency department patient having worsening of shortness of breath and wheezing and using necessary muscles consult was requested due to severe respiratory distress and altered mental status patient was intubated postintubation ABG revealed evidence of hypercapnia and respiratory acidosis with stable oxygenation some metabolic acidosis was noted likely related to poor perfusion, patient was seen evaluated examined in the ICU post-intubation Objective - Vital Signs Vital signs: Vital Signs Temp 98.9 F 08/24/18 12:00 Pulse 68 08/24/18 15:50 Resp 20 08/24/18 14:00 BP 87/64 08/24/18 14:00 Pulse Ox 98 08/24/18 14:00 Intake & Output 08/23/18 08/24/18 08/24/18 18:59 06:59 18:59 Intake Total 1280 1620 555.706 Output Total 1225 1675 895 Balance 55 -55 -339.294 Weight 48.3 kg 49.1 kg Intake: IV 1200 1200 400 Sodium Chloride 0.9% 1, 1200 1200 400 000 ml @ 100 mls/hr IV . Q10H [facility] Rx#:[id number] Intake, IV Titration 100 95.706 Amount Propofol 1,000 mg In 100 95.706 Empty Bag 1 bag @ Titrate IV .Q0M [facility] Rx#: [id number] Tube Feeding 50 230 60 Other 30 90 Output: Urine 1225 1675 895 Other: Voiding Method Indwelling Catheter Indwelling Catheter Indwelling Catheter - Exam - Constitutional General appearance: average body habitus, disheveled, mild distress, thin, intubated on vent - EENT Eyes: PERRLA, poor dentition ENT: normal oropharynx Ears: bilateral: normal - Neck Carotids: bilateral: upstroke normal, bruit absent Thyroid: bilateral: normal size - Respiratory Respiratory: bilateral: diminished, wheezing (Bilateral expiratory) - Cardiovascular Rhythm: regular Heart sounds: normal: S1, S2 - Gastrointestinal General gastrointestinal: decreased bowel sounds, scaphoid, soft - Integumentary Integumentary: decreased turgor - Neurologic Neurologic: Sedated with propofol - Musculoskeletal Musculoskeletal: Sedated with propofol - Psychiatric Psychiatric: Sedated with propofol - Labs CBC & Chem 7: 08/24/18 07:34 08/24/18 07:34 Labs: Abnormal Lab Results - Last 24 Hours (Table) 08/23/18 08/23/18 08/24/18 Range/Units 17:57 23:56 05:02 ABG pCO2 48 H (35-45) mmHg ABG pO2 121 H (83-108) mmHg ABG HCO3 32 H (21-25) mmol/L ABG Total CO2 33 H (19-24) mmol/L ABG O2 Saturation 97.9 H (94-97) % Chloride (98-107) mmol/L Carbon Dioxide (22-30) mmol/L BUN (7-17) mg/dL Glucose (74-99) mg/dL POC Glucose (mg/dL) 110 H 129 H (75-99) mg/dL AST (14-36) U/L ALT (9-52) U/L Total Protein (6.3-8.2) g/dL Albumin (3.5-5.0) g/dL 08/24/18 08/24/18 08/24/18 Range/Units 06:10 07:34 11:55 ABG pCO2 (35-45) mmHg ABG pO2 (83-108) mmHg ABG HCO3 (21-25) mmol/L ABG Total CO2 (19-24) mmol/L ABG O2 Saturation (94-97) % Chloride 111 H (98-107) mmol/L Carbon Dioxide 31 H (22-30) mmol/L BUN 40 H (7-17) mg/dL Glucose 145 H (74-99) mg/dL POC Glucose (mg/dL) 145 H 133 H (75-99) mg/dL AST 126 H (14-36) U/L ALT 427 H (9-52) U/L Total Protein 5.3 L (6.3-8.2) g/dL Albumin 3.1 L (3.5-5.0) g/dL Microbiology - Last 24 Hours (Table) 08/21/18 21:00 Gram Stain - Final Sputum Sputum Culture - Final 08/20/18 13:00 Blood Culture - Preliminary Blood No Growth after 72 hours Assessment and Plan Assessment: Acute on chronic hypoxic and hypercapnic respiratory failure End-stage COPD Acute systolic heart failure Right lower lobe pneumonia, improvement in noted on infiltrate Acute hypoxic and hypercapnic respiratory failure Status post respiratory arrest and intubation Demand supply mismatch non-ST segment elevated NH COPD severe category with acute exacerbation Elevated troponin due to above Plan: Ventilator support adjustment of ventilator as needed Propofol for sedation was titrated down as tolerated Hold for weaning for another 48 hours Broad-spectrum antibiotic Breathing treatments IV steroids DVT and peptic ulcers disease prophylaxis Echocardiogram results reviewed Further recommendations pending plan of care as per clinical response of the patient Consult cardiology for elevated troponin suspected to be demand supply mismatch non-ST segment elevated NH Leukocytosis likely related to steroids, have normalized now
[2018-08-24] MEDS: LEVOFLOXACIN 500MG-D5W PMX 500 MG in DEXTROSE/WATER 1 100ML.BAG IVPB SCH (17:15)
[2018-08-24 17:24] LABS: Glucose,Whole Blood 132 mg/dL (75-99)
[2018-08-24] MEDS: LISINOPRIL 2.5 MG TAB PO SCH (21:06)
[2018-08-24] MEDS: ASPIRIN 81 MG PO SCH (21:06)
[2018-08-24] MEDS: LURASIDONE 40 MG TAB PO SCH (21:06)
[2018-08-24] MEDS: MONTELUKAST 10 MG TAB PO SCH (21:06)
[2018-08-25 00:06] LABS: Glucose,Whole Blood 140 mg/dL (75-99)
[2018-08-25] MEDS: methylPREDNISolone SOD SUCCI 125 MG/2 ML VIAL IV SCH ×4 (00:06→17:17)
[2018-08-25] MEDS: INSULIN ASPART (NovoLOG) 100 UNIT/ML VIAL SQ SCH ×4 (00:07→17:59)
[2018-08-25 04:35] LABS: ABG HCO3 34 mmol/L (21-25); ABG Oxygen Saturation 97.8 % (94-97); ABG PCO2 51 mmHg (35-45); ABG PH 7.44 (7.35-7.45); ABG PO2 110 mmHg (83-108); ABG TCO2 36 mmol/L (19-24); Allen Test Performed? Yes
[2018-08-25 04:46] LABS: HCT 36.9 % (34.0-46.0); HGB 11.9 gm/dL (11.4-16.0); MCH 29.7 pg (25.0-35.0); MCHC 32.2 g/dL (31.0-37.0); MCV 92.2 fL (80.0-100.0); Mean Platelet Volume 8.6; Platelet Count 198 k/uL (150-450); RDW 14.2 % (11.5-15.5); WBC 7.5 k/uL (3.8-10.6)
[2018-08-25 05:08] LABS: African American GFR (CKD) >90 (>60 ml/min/1.73 sqM); Anion Gap 6 mmol/L; Blood Urea Nitrogen 39 mg/dL (7-17); Calcium 9.1 mg/dL (8.4-10.2); Carbon Dioxide 29 mmol/L (22-30); Chloride 108 mmol/L (98-107); Glucose 124 mg/dL (74-99); Potassium 3.7 mmol/L (3.5-5.1); Sodium 143 mmol/L (137-145)
[2018-08-25] MEDS: PROPOFOL 1,000 MG in EMPTY BAG 1 BAG IV SCH ×4 (06:02→22:10)
[2018-08-25] MEDS ORDERED: Potassium Replacement Protocol 1 EACH MISC MISCELLANE PRN (06:06)
[2018-08-25] MEDS: IPRATROPIUM 0.5 MG/2.5 ML NEBU INHALATION SCH ×4 (07:01→18:47)
[2018-08-25] MEDS: BUDESONIDE 0.5 MG/2 ML NEBU INHALATION SCH ×2 (07:01→18:47)
[2018-08-25 07:25] LABS: Glucose,Whole Blood 144 mg/dL (75-99)
[2018-08-25] MEDS ORDERED: POTASSIUM BICARBONATE/CIT AC 20 MEQ TABLET.EFF NG-TUBE SCH (08:00)
--- NOTE | 2018-08-25 08:37 | XR ---
EXAMINATION TYPE: XR chest 1V portable DATE OF EXAM: 08/25/2018 COMPARISON: x-ray 08/24/2018 HISTORY: Intubated TECHNIQUE: Single frontal view of the chest is obtained. FINDINGS: Endotracheal tube, oral gastric tube are overlying appropriate positions. Prominent lung v olumes suggest underlying COPD. Cardiomediastinal silhouette, pulmonary vascularity and tiburcio are stab le. No evident airspace disease, pneumothorax, or pleural effusion. IMPRESSION: Emphysema
[2018-08-25] MEDS ORDERED: SODIUM CHLORIDE 0.9% 1,000 ML in EMPTY BAG 1 BAG IV ONE (09:03)
[2018-08-25] MEDS ORDERED: ATORVASTATIN 80 MG TAB PO STA (09:03)
[2018-08-25] MEDS ORDERED: NITROGLYCERIN SL TABS 0.4 MG TAB SUBLINGUAL PRN (09:03)
--- NOTE | 2018-08-25 09:03 | P.PN ---
Subjective Progress Note Date: 08/25/18 This is a 62-year-old female was admitted to the hospital with respiratory failure secondary to COPD exacerbation and possible pneumonia. We are consulted because of abnormal troponin values which are consistent with non-ST elevation DC. This could be secondary to supply demand mismatch. Underlying ischemic heart disease cannot be completely excluded. Patient is still intubated but symptoms are being made to wean her off the respirator. Would waiting for the echocardiogram. Chest x-ray doesn't show any significant CHF. Continue current medical therapy. If echo Cardigan shows any segmental wall motion defects, patient may need are catheterization for definitive diagnosis. 08/23/2018: This 62-year-old female is admitted to the hospital with respiratory failure requiring intubation and respiratory support. Patient was extubated briefly but needed to be reintubated because of respiratory failure. Patient is related. 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 Underlying ischemic heart disease cannot be excluded. Discussed findings with the patient's . May consider cardiac catheterization for definitive diagnosis. Meanwhile we'll continue current medical therapy with Coreg, lisinopril, Lasix and Aldactone . 08/24/2018: Patient is still intubated and sedated. Running low blood pressu res. Heart rate is in 100s. I'm going to start her on Lanoxin 0.125 mg 2 today followed by 0.125 mg once daily from tomorrow. We'll repeat the echo Cardigan Saturday. Continue the rest of the medication. We'll discuss with Dr. Kilpatrick. May proceed with cardiac catheterization next week. Spoke with already 08/25/2018: This is 62-year-old female with history of severe COPD, was admitted with respiratory failure requiring intubation and mechanical support. Patient is still intubated. Her echo Cardigan showed severely impaired LV function, consistent with stress. Initial cardiac myopathy. Patient has been in sinus rhythm. Chest x-ray did not show any evidence of CHF. However because of abnormal enzymes and significant risk factors, a cardiac catheterization is recommended for further evaluation. I spoke to Dr. Peck and the procedure is being scheduled for tomorrow. We'll also communicate with Dr. Kilpatrick and may keep her intubated until cardiac catheterization tomorrow. Meanwhile we'll continue with current medical therapy Objective - Vital Signs Vital signs: Vital Signs Temp 98.2 F 08/25/18 00:00 Pulse 65 08/25/18 07:43 Resp 16 08/25/18 06:00 BP 93/62 08/25/18 06:00 Pulse Ox 100 08/25/18 06:00 Intake & Output 08/24/18 08/25/18 08/25/18 18:59 06:59 18:59 Intake Total 5325.996 2838 Output Total 1595 1550 Balance 57.025 340 Weight 49.1 kg Intake: IV 1300 1100 Sodium Chloride 0.9% 1, 1300 1100 000 ml @ 100 mls/hr IV . Q10H [facility] Rx#:[id number] Intake, IV Titration 222.025 100 Amount Levofloxacin 500Mg-D5w 100 Pmx 500 mg In Dextrose/ Water 1 100ml.bag @ 100 mls/hr IVPB Q24H [facility] Rx#: [id number] Propofol 1,000 mg In 122.025 100 Empty Bag 1 bag @ Titrate IV .Q0M [facility] Rx#: [id number] Tube Feeding 130 600 Other 90 Output: Urine 1595 1550 Other: Voiding Method Indwelling Catheter Indwelling Catheter - Exam GENERAL EXAM: Patient is intubated and sedated HEENT: Normocephalic. Normal reaction of pupils, equal size, normal range of extraocular motion. No erythema or exudates in the throat. NECK: No masses, no nuchal rigidity. CHEST: No chest wall deformity. LUNGS: Diminished air exchange HEART: S1 and S2 normal with no audible mumurs ABDOMEN: No hepatosplenomegaly, normal bowel sounds, no guarding or rigidity. SKIN: No rashes CENTRAL NERVOUS SYSTEM: No focal deficits. EXTREMITIES: No cyanosis, clubbing or edema. - Labs CBC & Chem 7: 08/25/18 03:47 08/25/18 03:47 Labs: Abnormal Lab Results - Last 24 Hours (Table) 08/24/18 08/24/18 08/24/18 Range/Units 07:34 11:55 17:21 ABG pCO2 (35-45) mmHg ABG pO2 (83-108) mmHg ABG HCO3 (21-25) mmol/L ABG Total CO2 (19-24) mmol/L ABG O2 Saturation (94-97) % Chloride 111 H (98-107) mmol/L Carbon Dioxide 31 H (22-30) mmol/L BUN 40 H (7-17) mg/dL Glucose 145 H (74-99) mg/dL POC Glucose (mg/dL) 133 H 132 H (75-99) mg/dL AST 126 H (14-36) U/L ALT 427 H (9-52) U/L Total Protein 5.3 L (6.3-8.2) g/dL Albumin 3.1 L (3.5-5.0) g/dL 08/25/18 08/25/18 08/25/18 Range/Units 00:03 03:47 04:30 ABG pCO2 51 H (35-45) mmHg ABG pO2 110 H (83-108) mmHg ABG HCO3 34 H (21-25) mmol/L ABG Total CO2 36 H (19-24) mmol/L ABG O2 Saturation 97.8 H (94-97) % Chloride 108 H (98-107) mmol/L Carbon Dioxide (22-30) mmol/L BUN 39 H (7-17) mg/dL Glucose 124 H (74-99) mg/dL POC Glucose (mg/dL) 140 H (75-99) mg/dL AST (14-36) U/L ALT (9-52) U/L Total Protein (6.3-8.2) g/dL Albumin (3.5-5.0) g/dL 08/25/18 Range/Units 06:47 ABG pCO2 (35-45) mmHg ABG pO2 (83-108) mmHg ABG HCO3 (21-25) mmol/L ABG Total CO2 (19-24) mmol/L ABG O2 Saturation (94-97) % Chloride (98-107) mmol/L Carbon Dioxide (22-30) mmol/L BUN (7-17) mg/dL Glucose (74-99) mg/dL POC Glucose (mg/dL) 144 H (75-99) mg/dL AST (14-36) U/L ALT (9-52) U/L Total Protein (6.3-8.2) g/dL Albumin (3.5-5.0) g/dL Microbiology - Last 24 Hours (Table) 08/20/18 13:00 Blood Culture - Preliminary Blood No Growth after 96 hours 08/21/18 21:00 Gram Stain - Final Sputum Sputum Culture - Final Assessment and Plan (1) Elevated troponin Current Visit: Yes Status: Acute Code(s): R74.8 - ABNORMAL LEVELS OF OTHER SERUM ENZYMES SNOMED Code(s): 428374641 (2) COPD exacerbation Current Visit: Yes Status: Acute Code(s): J44.1 - CHRONIC OBSTRUCTIVE PULMONARY DISEASE W (ACUTE) EXACERBATION SNOMED Code(s): 811169141 (3) Pneumonia Current Visit: Yes Status: Acute Code(s): J18.9 - PNEUMONIA, UNSPECIFIED ORGANISM SNOMED Code(s): 564980538 (4) Respiratory failure Current Visit: No Status: Acute Code(s): J96.90 - RESPIRATORY FAILURE, UNSP, UNSP W HYPOXIA OR HYPERCAPNIA SNOMED Code(s): 526030749 Plan: Critical status is stable. No arrhythmias and no evidence of any congestive heart failure. We'll continue with current medical therapy. We'll schedule her for cardiac catheterization to be done tomorrow by Dr. Peck.
[2018-08-25] MEDS: PANTOPRAZOLE 40 MG/10 ML VIAL IV SCH (09:45)
[2018-08-25] MEDS: SODIUM CHLORIDE 0.9% 1,000 ML IV SCH ×2 (09:46→12:09)
[2018-08-25] MEDS: FUROSEMIDE 10 MG/ML 2 ML VIAL IV SCH ×2 (09:47→20:07)
[2018-08-25] MEDS: HEPARIN SODIUM,PORCINE 5,000 UNIT/ML 1 ML VIAL SQ SCH ×2 (09:47→20:07)
[2018-08-25] MEDS: CARVEDILOL 3.125 MG TAB PO SCH ×2 (09:47→17:17)
[2018-08-25] MEDS: SPIRONOLACTONE 25 MG TAB PO SCH (09:47)
[2018-08-25] MEDS: CHLORHEXIDINE GLUCONATE 15 ML CUP MUCOUS MEM SCH ×2 (09:47→20:08)
[2018-08-25] MEDS: DIGOXIN 125 MCG TAB PO SCH (09:48)
[2018-08-25] MEDS: GABAPENTIN 300 MG CAP PO SCH ×3 (09:48→20:08)
[2018-08-25] MEDS: TROSPIUM CHLORIDE 20 MG TABLET PO SCH ×2 (09:48→20:08)
--- NOTE | 2018-08-25 10:57 | P.PN ---
Subjective Progress Note Date: 08/25/18 Principal diagnosis: acute on chronic hypoxic and hypercapnic respiratory failure. patient was seen today on 08/25/2018, I am seeing her actually for Dr. Kilpatrick, I'm covering him today for ICU rounds. Patient remains on mechanical ventilation, her ventilator settings are FiO2 of 35%, tidal volume is 420 assist-control is 16 and PEEP is 5. Remains on propofol at 50 mcg/kg/m. However the patient is arousable, follows simple instructions, and I have given the patient a sedation interruption, and assessed her for weaning. However shortly after she went on pressure support of 8 and CPAP, she became extremely tachypneic and tachycardic, and I decided to keep her back on assist control mode of mechanical ventilation. And back on propofol. Patient is clearly not ready to be weaned. As a matter of fact I believe the patient may actually require eventually tracheostomy and PEG tube placement. She failed weaning and extubation in the past, and this will be the third time going through the process. At this point I believe arranging eventually for tracheostomy and PEG tube placement is the best option. Updated her at bedside regarding her condition.ABG this morning showed a pO2 of 110 pCO2 of 51 pH of 7.44 and this was on FiO2 of 40% hence the FiO2 was decreased down to 35%. Her other labs including basic metabolic profile renal profile CBC were noted to be relatively normal.chest x-ray showed no evidence of infiltrate, but there is clearly evidence of emphysema. Objective - Vital Signs Vital signs: Vital Signs Temp 98.2 F 08/25/18 08:00 Pulse 75 08/25/18 10:00 Resp 17 08/25/18 10:00 BP 113/69 08/25/18 10:00 Pulse Ox 97 08/25/18 10:00 Intake & Output 08/24/18 08/25/18 08/25/18 18:59 06:59 18:59 Intake Total 3058.857 7997 603.699 Output Total 1595 1550 230 Balance 57.025 340 373.699 Weight 49.1 kg Intake: IV 1300 1100 400 Sodium Chloride 0.9% 1, 1300 1100 400 000 ml @ 100 mls/hr IV . Q10H [facility] Rx#:[id number] Intake, IV Titration 222.025 100 43.699 Amount Levofloxacin 500Mg-D5w 100 Pmx 500 mg In Dextrose/ Water 1 100ml.bag @ 100 mls/hr IVPB Q24H [facility] Rx#: [id number] Propofol 1,000 mg In 122.025 100 43.699 Empty Bag 1 bag @ Titrate IV .Q0M [facility] Rx#: [id number] Tube Feeding 130 600 160 Other 90 Output: Urine 1595 1550 230 Other: Voiding Method Indwelling Catheter Indwelling Catheter Indwelling Catheter - Exam Physical Exam: Revealed a 62-year-old female, on mechanical ventilation, sedated but arousable and follows simple instructions. Head: Atraumatic, normocephalic. HEENT:[Neck is supple.] [No neck masses.] [No thyromegaly.] [No JVD.]PERRLA, EOMI, no icterus, endotracheal tube and orogastric tube are intact. Chest: [extremely diminished breath sound bilaterally no crackles or rhonchi or wheezes. Symmetrical chest expansion noted chest wall tenderness..] Cardiac Exam: [Normal S1 and S2, no S3 gallop, no murmur.] Abdomen: [Soft, nontender, no megaly, no rebound, no guarding, normal bowel sounds.] Extremities: [No clubbing, no edema, no cyanosis.] Neurological Exam: [No focal neurologic deficit.]patient seems to be alert, arousable, and oriented 3. Lymphatics: No lymphadenopathy. Psychiatric: Normal mood, affect, and normal mental status examination. - Labs CBC & Chem 7: 08/25/18 03:47 08/25/18 03:47 Labs: Abnormal Lab Results - Last 24 Hours (Table) 08/24/18 08/24/18 08/24/18 Range/Units 07:34 11:55 17:21 ABG pCO2 (35-45) mmHg ABG pO2 (83-108) mmHg ABG HCO3 (21-25) mmol/L ABG Total CO2 (19-24) mmol/L ABG O2 Saturation (94-97) % Chloride 111 H (98-107) mmol/L Carbon Dioxide 31 H (22-30) mmol/L BUN 40 H (7-17) mg/dL Glucose 145 H (74-99) mg/dL POC Glucose (mg/dL) 133 H 132 H (75-99) mg/dL AST 126 H (14-36) U/L ALT 427 H (9-52) U/L Total Protein 5.3 L (6.3-8.2) g/dL Albumin 3.1 L (3.5-5.0) g/dL 08/25/18 08/25/18 08/25/18 Range/Units 00:03 03:47 04:30 ABG pCO2 51 H (35-45) mmHg ABG pO2 110 H (83-108) mmHg ABG HCO3 34 H (21-25) mmol/L ABG Total CO2 36 H (19-24) mmol/L ABG O2 Saturation 97.8 H (94-97) % Chloride 108 H (98-107) mmol/L Carbon Dioxide (22-30) mmol/L BUN 39 H (7-17) mg/dL Glucose 124 H (74-99) mg/dL POC Glucose (mg/dL) 140 H (75-99) mg/dL AST (14-36) U/L ALT (9-52) U/L Total Protein (6.3-8.2) g/dL Albumin (3.5-5.0) g/dL 08/25/18 Range/Units 06:47 ABG pCO2 (35-45) mmHg ABG pO2 (83-108) mmHg ABG HCO3 (21-25) mmol/L ABG Total CO2 (19-24) mmol/L ABG O2 Saturation (94-97) % Chloride (98-107) mmol/L Carbon Dioxide (22-30) mmol/L BUN (7-17) mg/dL Glucose (74-99) mg/dL POC Glucose (mg/dL) 144 H (75-99) mg/dL AST (14-36) U/L ALT (9-52) U/L Total Protein (6.3-8.2) g/dL Albumin (3.5-5.0) g/dL Microbiology - Last 24 Hours (Table) 08/20/18 13:00 Blood Culture - Preliminary Blood No Growth after 96 hours 08/21/18 21:00 Gram Stain - Final Sputum Sputum Culture - Final Assessment and Plan Assessment: impression: 1acute on chronic hypoxic and hypercapnic respiratory failure secondary to acute exacerbation of COPD. 2 history of end-stage COPD 3 acute systolic heart failure however her chest x-ray showed no evidence of interstitial edema. 4 status post respiratory arrest and intubation secondary to worsening COPD and hypercapnia as well as hypoxia. 5 possible non-ST segment elevation myocardial infarction 6severe LV dysfunction as noted on the echocardiogram, patient is being considered for cardiac catheterization. This will likely be done tomorrow. 7 right lower lobe pneumonia resolved based on the chest x-ray today. Most likely community-acquired. Recommendation: Continue present ventilatory support, nutritional support, hemodynamic support if necessary, continue antibiotics, bronchodilators, steroids, patient was given a trial of weaning earlier this morning, however she failed, and after reviewing the clinical history, patient will likely fail again if extubated and required reintubation, hence at this point I will strongly recommend evaluation by general surgery for tracheostomy and PEG tube placement. In the meantime continue propofol for sedation, her ventilatory settings were adjusted accordingly, continue deep vein thrombosis prophylaxis and upper GI bleeding prophylaxis. Discussed her condition with at bedside. Crit ical care time is 40 minutes.
[2018-08-25] MEDS: IPRATROPIUM-ALBUTEROL 3 ML NEB INHALATION PRN ×2 (11:01→18:47)
--- NOTE | 2018-08-25 11:53 | P.PN ---
Subjective Progress Note Date: 08/25/18 This is a 62-year-old female admitted with acute COPD exacerbation, worsening dyspnea ,failed outpatient treatment, hypoxic respiratory failure, requiring intubation, mechanical ventilation, acute non-STEMI and multiple other medical issues. Maintained on vent support with FiO2 decreased to 35%/+5 of PEEP. Spontaneous weaning trial attempted with diprovan weaned off and pressure support removed, unable to tolerate became tachycardic, tachypneic. Chest x-ray reporting no evidence of infiltrate, pleural effusion or pneumothorax, positive emphysema.Tracheostomy and PEG placement being discussed. Sinus rhythm, no arrhythmias. Echo reported severely impaired LV function, EF 20-25%, takotsubo syndrome, mild pulmonary hypertension. Scheduled for cardiac catheterization tomorrow. Maintained on nebulized bronchodilators, steroids, antibiotics. Blood sugars controlled. Afebrile, normal WBC, urine,sputum, blood cultures negative. Objective - Vital Signs Vital signs: Vital Signs Temp 98.2 F 08/25/18 00:00 Pulse 65 08/25/18 07:43 Resp 16 08/25/18 06:00 BP 93/62 08/25/18 06:00 Pulse Ox 100 08/25/18 06:00 Intake & Output 08/24/18 08/25/18 08/25/18 18:59 06:59 18:59 Intake Total 6932.398 8302 Output Total 1595 1550 Balance 57.025 340 Weight 49.1 kg Intake: IV 1300 1100 Sodium Chloride 0.9% 1, 1300 1100 000 ml @ 100 mls/hr IV . Q10H [facility] Rx#:[id number] Intake, IV Titration 222.025 100 Amount Levofloxacin 500Mg-D5w 100 Pmx 500 mg In Dextrose/ Water 1 100ml.bag @ 100 mls/hr IVPB Q24H [facility]BALDO Rx#: [id number] Propofol 1,000 mg In 122.025 100 Empty Bag 1 bag @ Titrate IV .Q0M OSBALDO Rx#: [id number] Tube Feeding 130 600 Other 90 Output: Urine 1595 1550 Other: Voiding Method Indwelling Catheter Indwelling Catheter - Exam PHYSICAL EXAM: VITAL SIGNS: As above GENERAL: Sitting up in bed, no acute distress ,sedated, intubated- on mechanical ventilation, HEENT: Conjunctivae normal. eyes normal. NECK: No JVD. No thyroid enlargement. No LNs CARDIOVASCULAR: S1, S2 regular.. No murmur RESPIRATION: Breath sounds diminished in the bases. No rhonchi or crackles. Occasional fine expiratory wheeze ABDOMEN: Soft, nontender . No guarding. no masses palpable.Bowel sounds heard. LEGS: No edema. no swelling PSYCHIATRY/NERVOUS SYSTEM: Unable to fully evaluate as patient sedated,intubated. Skin: no lesions, no rash Lymphatic system. No LN neck axilla or groin. - Labs CBC & Chem 7: 08/25/18 03:47 08/25/18 03:47 Labs: Abnormal Lab Results - Last 24 Hours (Table) 08/24/18 08/24/18 08/24/18 Range/Units 07:34 11:55 17:21 ABG pCO2 (35-45) mmHg ABG pO2 (83-108) mmHg ABG HCO3 (21-25) mmol/L ABG Total CO2 (19-24) mmol/L ABG O2 Saturation (94-97) % Chloride 111 H (98-107) mmol/L Carbon Dioxide 31 H (22-30) mmol/L BUN 40 H (7-17) mg/dL Glucose 145 H (74-99) mg/dL POC Glucose (mg/dL) 133 H 132 H (75-99) mg/dL AST 126 H (14-36) U/L ALT 427 H (9-52) U/L Total Protein 5.3 L (6.3-8.2) g/dL Albumin 3.1 L (3.5-5.0) g/dL 08/25/18 08/25/18 08/25/18 Range/Units 00:03 03:47 04:30 ABG pCO2 51 H (35-45) mmHg ABG pO2 110 H (83-108) mmHg ABG HCO3 34 H (21-25) mmol/L ABG Total CO2 36 H (19-24) mmol/L ABG O2 Saturation 97.8 H (94-97) % Chloride 108 H (98-107) mmol/L Carbon Dioxide (22-30) mmol/L BUN 39 H (7-17) mg/dL Glucose 124 H (74-99) mg/dL POC Glucose (mg/dL) 140 H (75-99) mg/dL AST (14-36) U/L ALT (9-52) U/L Total Protein (6.3-8.2) g/dL Albumin (3.5-5.0) g/dL 08/25/18 Range/Units 06:47 ABG pCO2 (35-45) mmHg ABG pO2 (83-108) mmHg ABG HCO3 (21-25) mmol/L ABG Total CO2 (19-24) mmol/L ABG O2 Saturation (94-97) % Chloride (98-107) mmol/L Carbon Dioxide (22-30) mmol/L BUN (7-17) mg/dL Glucose (74-99) mg/dL POC Glucose (mg/dL) 144 H (75-99) mg/dL AST (14-36) U/L ALT (9-52) U/L Total Protein (6.3-8.2) g/dL Albumin (3.5-5.0) g/dL Microbiology - Last 24 Hours (Table) 08/20/18 13:00 Blood Culture - Preliminary Blood No Growth after 96 hours 08/21/18 21:00 Gram Stain - Final Sputum Sputum Culture - Final Assessment and Plan Assessment: -Acute non-STEMI, EF 20-25%, possibly Takotsubo Syndrome -Acute COPD exacerbation -Respiratory arrest secondary to worsening COPD, hypercapnia requiring intubation -Acute on chronic hypoxic hypoxic hypercapnic, respiratory failure secondary to the above, mechanical ventilator-dependent. -Acute CHF exacerbation, systolic dysfunction, no interstitial edema per x-ray -Right lower lobe Pneumonia, suspect community-acquired, resolved Plan: Continue on current medication regime ,monitoring and symptomatic treatment. maintained on nebulized bronchodilators, steroids, antibiotics .tracheostomy and PEG placement being discussed by a pulmonary/morning babysitter .Scheduled for cardiac catheterization tomorrow. GI and DVT prophylaxis in place . Prognosis guarded Multiple complex medical issues. Further recommendations to follow. The impression and plan of care has been dictated as directed. : I performed a history and examination of this patient, discussed the same with the dictator. I agree with the dictator's note ,documented as a scribe. Any additional findings or plans will be noted.
[2018-08-25 12:00] LABS: Glucose,Whole Blood 141 mg/dL (75-99)
[2018-08-25] MEDS: LEVOFLOXACIN 500MG-D5W PMX 500 MG in DEXTROSE/WATER 1 100ML.BAG IVPB SCH (17:24)
[2018-08-25 17:53] LABS: Glucose,Whole Blood 140 mg/dL (75-99)
[2018-08-25] MEDS: LISINOPRIL 2.5 MG TAB PO SCH (20:07)
[2018-08-25] MEDS: LURASIDONE 40 MG TAB PO SCH (20:07)
[2018-08-25] MEDS: ASPIRIN 81 MG PO SCH (20:08)
[2018-08-25] MEDS: MONTELUKAST 10 MG TAB PO SCH (20:08)
[2018-08-25 23:56] LABS: Glucose,Whole Blood 130 mg/dL (75-99)
[2018-08-26] MEDS: INSULIN ASPART (NovoLOG) 100 UNIT/ML VIAL SQ SCH ×4 (00:24→16:58)
[2018-08-26] MEDS: SODIUM CHLORIDE 0.9% 1,000 ML IV SCH ×3 (00:31→21:21)
[2018-08-26] MEDS: methylPREDNISolone SOD SUCCI 125 MG/2 ML VIAL IV SCH ×4 (00:31→17:35)
[2018-08-26] MEDS: PROPOFOL 1,000 MG in EMPTY BAG 1 BAG IV SCH ×4 (02:25→17:35)
[2018-08-26 05:54] LABS: HCT 36.8 % (34.0-46.0); HGB 11.7 gm/dL (11.4-16.0); MCH 29.8 pg (25.0-35.0); MCHC 31.8 g/dL (31.0-37.0); MCV 93.7 fL (80.0-100.0); Mean Platelet Volume 7.5; Platelet Count 206 k/uL (150-450); RBC 3.93 m/uL (3.80-5.40); WBC 8.7 k/uL (3.8-10.6)
[2018-08-26 06:14] LABS: African American GFR (CKD) >90 (>60 ml/min/1.73 sqM); Anion Gap 2 mmol/L; Blood Urea Nitrogen 37 mg/dL (7-17); Carbon Dioxide 36 mmol/L (22-30); Chloride 104 mmol/L (98-107); Glucose 125 mg/dL (74-99); Magnesium 1.9 mg/dL (1.6-2.3); Potassium 3.8 mmol/L (3.5-5.1); Sodium 142 mmol/L (137-145)
[2018-08-26 06:53] LABS: ABG Base Excess 14.1 mmol/L; ABG HCO3 38 mmol/L (21-25); ABG Oxygen Saturation 94.9 % (94-97); ABG PCO2 53 mmHg (35-45); ABG PH 7.46 (7.35-7.45); ABG PO2 78 mmHg (83-108); ABG TCO2 40 mmol/L (19-24); Allen Test Performed? Yes
[2018-08-26] MEDS: IPRATROPIUM-ALBUTEROL 3 ML NEB INHALATION PRN ×2 (06:59→15:19)
[2018-08-26] MEDS: BUDESONIDE 0.5 MG/2 ML NEBU INHALATION SCH ×2 (06:59→19:07)
[2018-08-26] MEDS: IPRATROPIUM 0.5 MG/2.5 ML NEBU INHALATION SCH ×4 (07:00→19:07)
--- NOTE | 2018-08-26 07:20 | P.PN ---
Subjective Progress Note Date: 08/26/18 Principal diagnosis: Acute hypoxic and hypercapnic respiratory failure, elevated troponin, bilateral pneumonia, COPD severe category, non-ST segment elevated FL due to demand and rosales pply mismatch, leukocytosis, acute systolic heart failure 08/26/2018, patient seen and evaluated examined in the rounds she is sedated with propofol drip about 60 mics, she does wake up intermittently, to feed is going well currently is on hold due to anticipated angiogram, labs reviewed medications reviewed, patient remains on full ventilator support currently she is on the assist control of 16 breathing 16. Peak airway pressure is 40-44 tidal volume is 430 and PEEP of 5 FiO2 is 35 % she is saturating 95%, her chest x-ray from this morning suggestive of COPD-like changes with the hyperinflated lung small bilateral pleural effusion cannot be excluded, heart is small size labs reviewed ABG is pH is 7.46, pCO2 is 53, pO2 is 78 on 35% oxygen, CO2 is slightly elevated 37 BUN is 37, critical care time spent 35 minutes 08/24/2018, patient seen eval reexamined during the rounds, she is slightly awake but she is on propofol drip about 15 mics, she is comfortable she is breathing comfortably her ventilator setting has been stable radiographic studies and ABG have been reviewed labs reviewed patient is on tube feed tolerating very well, he is on assist control rate of 16 reading about 20 tidal volume of 500+5 of PEEP, arterial blood gases reviewed and they're stable chest x-ray reviewed there is stable, patient is gently being diuresed for the congestive heart failure and fluid overload 08/23/2018, patient seen eval reexamined during the rounds events from yesterday noted, patient posted with extubation did not do well after 10-12 hours of off of respirator require ventilatory support again she was extremely restless and agitated and tachypneic tachycardic not having a good air exchange was placed back on ventilator propofol is currently on 30 mics, she is on 16 of assist-con trol breathing about 20 tidal volume is 450, +5 PEEP, oxygen is 40% arterial blood gas from today's reviewed improvement in blood gases are noted with improvement in respiratory acidosis and metabolic acidosis, chest x-ray from today reviewed the infiltrate that was seen previously have resolved more appearance of the COPD, labs from today reviewed patient is up to 4.2 BUN/creatinine 30 and 0.7, care plan discussed with the staff at length will start the tube feed patient will be kept on respirator for another 48-72 hours, echocardiogram results revealed ejection fraction is about 20%, critical care time spent 35 minutes 08/22/2018, patient seen eval reexamined during the rounds she is the more awake propofol is being tapered down to 30 mics plan is to DC the propofol and put on CPAP and pressure support instructions were given patient is nothing by mouth currently chest x-ray reviewed, significant improvement in infiltrate are noted T-tube in stable condition finding on chest x-ray is hyperinflated lung consistent with severe COPD, critical care time 35 minutes 08/21/2018, patient seen and evaluated examined during the rounds she is on the 50 mics of propofol to feed his not initiated yet, patient is afebrile labs reviewed radiographic studies reviewed urine from yesterday reviewed and will titrate the propofol down x-ray showing bilateral pneumonia white cell count is up compared to yesterday arterial blood gas fairly normal, mild hyperkalemia is noted, 2 minute troponin continue to go up recommendation from cardiovascular services noted critical care time spent 35 minutes Patient was admitted into the hospital with acute COPD exacerbation, presents emergency department today for evaluation complaints of difficulty in breathing and cough for the past 3 days. Patient believes she is having a COPD exacerbation and was calling her primary care doctor today for oral steroid prescription. She presented difficulty breathing became more severe. She called EMS this morning was given breathing treatments and states her symptoms have improved after this breathing treatment. She is maintained on nebulizers at home.. Patient states that she's had a slightly productive cough. Denies any specific fevers or chills. She denies any stationary chest pain at this time. In the emergency department patient having worsening of shortness of breath and wheezing and using necessary muscles consult was requested due to severe respiratory distress and altered mental status patient was intubated postintubation ABG revealed evidence of hypercapnia and respiratory acidosis with stable oxygenation some metabolic acidosis was noted likely related to poor perfusion, patient was seen evaluated examined in the ICU post-intubation Objective - Vital Signs Vital signs: Vital Signs Temp 98.3 F 08/26/18 04:00 Pulse 63 08/26/18 07:01 Resp 16 08/26/18 07:00 BP 119/72 08/26/18 07:00 Pulse Ox 96 08/26/18 07:00 Intake & Output 08/25/18 08/26/18 08/26/18 18:59 06:59 18:59 Intake Total 9702.934 2348.037 100 Output Total 2795 1285 40 Balance -890.915 169.037 60 Weight 49.9 kg Intake: IV 1300 1100 100 Sodium Chloride 0.9% 1, 1300 1100 100 000 ml @ 100 mls/hr IV . Q10H [facility] Rx#:[id number] Intake, IV Titration 124.085 94.037 Amount Propofol 1,000 mg In 124.085 94.037 Empty Bag 1 bag @ Titrate IV .Q0M [facility]BAL[facility] Rx#: [id number] Tube Feeding 480 200 Other 60 Output: Urine 2795 1285 40 Other: Voiding Method Indwelling Catheter Indwelling Catheter - Exam - Constitutional General appearance: average body habitus, disheveled, mild distress, thin, intubated on vent - EENT Eyes: PERRLA, poor dentition ENT: normal oropharynx Ears: bilateral: normal - Neck Carotids: bilateral: upstroke normal, bruit absent Thyroid: bilateral: normal size - Respiratory Respiratory: bilateral: diminished, wheezing (Bilateral expiratory) - Cardiovascular Rhythm: regular Heart sounds: normal: S1, S2 - Gastrointestinal General gastrointestinal: decreased bowel sounds, scaphoid, soft - Integumentary Integumentary: decreased turgor - Neurologic Neurologic: Sedated with propofol - Musculoskeletal Musculoskeletal: Sedated with propofol - Psychiatric Psychiatric: Sedated with propofol - Labs CBC & Chem 7: 08/26/18 04:28 08/26/18 04:28 Labs: Abnormal Lab Results - Last 24 Hours (Table) 08/25/18 08/25/18 08/25/18 Range/Units 06:47 11:57 17:49 ABG pH (7.35-7.45) ABG pCO2 (35-45) mmHg ABG pO2 (83-108) mmHg ABG HCO3 (21-25) mmol/L ABG Total CO2 (19-24) mmol/L Carbon Dioxide (22-30) mmol/L BUN (7-17) mg/dL Glucose (74-99) mg/dL POC Glucose (mg/dL) 144 H 141 H 140 H (75-99) mg/dL 08/25/18 08/26/18 08/26/18 Range/Units 23:54 04:28 06:51 ABG pH 7.46 H (7.35-7.45) ABG pCO2 53 H (35-45) mmHg ABG pO2 78 L (83-108) mmHg ABG HCO3 38 H (21-25) mmol/L ABG Total CO2 40 H (19-24) mmol/L Carbon Dioxide 36 H (22-30) mmol/L BUN 37 H (7-17) mg/dL Glucose 125 H (74-99) mg/dL POC Glucose (mg/dL) 130 H (75-99) mg/dL Microbiology - Last 24 Hours (Table) 08/20/18 13:00 Blood Culture - Preliminary Blood No Growth after 120 hours Assessment and Plan Assessment: Acute on chronic hypoxic and hypercapnic respiratory failure End-stage COPD Acute systolic heart failure ejection fraction of 20% Coronary artery disease likely Right lower lobe pneumonia, improvement in noted on infiltrate Acute hypoxic and hypercapnic respiratory failure Status post respiratory arrest and intubation Demand supply mismatch non-ST segment elevated FL COPD severe category with acute exacerbation Elevated troponin due to above Plan: Cardiac cath and angiogram Ventilator support adjustment of ventilator as needed Propofol for sedation was titrated down as tolerated Broad-spectrum antibiotic Breathing treatments IV steroids DVT and peptic ulcers disease prophylaxis Echocardiogram results reviewed Further recommendations pending plan of care as per clinical response of the patient Consult cardiology for elevated troponin suspected to be demand supply mismatch non-ST segment elevated FL Leukocytosis likely related to steroids, have normalized now Time with Patient: Greater than 30
--- NOTE | 2018-08-26 07:23 | P.PN ---
Progress Note - Text Progress Note Date: 08/26/18 This is a pleasant 62-year-old female patient with known severe chronic obstructive pulmonary disease and chronic hypoxic respiratory failure who was admitted to the hospital with acute exacerbation of COPD as well as acute on chronic respiratory failure requiring intubation and mechanical ventilation. She ruled in for acute non-ST patient myocardial infarction was mildly abnormal enzymes. Beside that she underwent an echocardiogram which revealed severe cardiomyopathy was EF around 20-25%. That was significant drop in the ejection fraction from previous echocardiogram in the past. Also the patient was admitted about a year ago with COPD exacerbation and at that point the cardiac enzymes were slightly elevated which we felt related to hypoxemia and type II myocardial infarction. At that point the patient was treated medically. On follow-up with her today, she still intubated on mechanical ventilation. Hemodynamically she still is stable. The patient is scheduled to undergo a heart catheterization later on today. Currently she is on aspirin, calcium channel batool, as well as a statin and we'll continue that.
[2018-08-26 07:46] LABS: ABG PCO2 71 mmHg (35-45); ABG PH 7.19 (7.35-7.45)
[2018-08-26] MEDS: CHLORHEXIDINE GLUCONATE 15 ML CUP MUCOUS MEM SCH ×2 (08:32→21:20)
[2018-08-26] MEDS: GABAPENTIN 300 MG CAP PO SCH ×3 (08:32→21:20)
[2018-08-26] MEDS: SPIRONOLACTONE 25 MG TAB PO SCH (08:32)
[2018-08-26] MEDS: DIGOXIN 125 MCG TAB PO SCH (08:32)
[2018-08-26] MEDS: CARVEDILOL 3.125 MG TAB PO SCH ×2 (08:32→16:34)
[2018-08-26] MEDS: TROSPIUM CHLORIDE 20 MG TABLET PO SCH ×2 (08:32→21:19)
[2018-08-26] MEDS: FUROSEMIDE 10 MG/ML 2 ML VIAL IV SCH ×2 (08:33→21:20)
[2018-08-26] MEDS: PANTOPRAZOLE 40 MG/10 ML VIAL IV SCH (08:33)
[2018-08-26] MEDS: HEPARIN SODIUM,PORCINE 5,000 UNIT/ML 1 ML VIAL SQ SCH ×2 (08:33→21:20)
--- NOTE | 2018-08-26 08:46 | XR ---
EXAMINATION TYPE: XR chest 1V portable DATE OF EXAM: 08/26/2018 COMPARISON: 08/25/2018 HISTORY: Shortness of breath TECHNIQUE: Single frontal view of the chest is obtained. FINDINGS: Bilateral lower lobe consolidation and small effusion. Diffuse emphysematous changes. ET a nd NG tube noted. No sizable pneumothorax. IMPRESSION: 1. Bilateral lower lobe infiltrate and small effusion. Mild central venous congestion superimposed on a background COPD in the differential diagnosis.
[2018-08-26] MEDS: MAGNESIUM SULFATE-D5W PMX 1 GM in DEXTROSE/WATER 1 100ML.BAG IVPB SCH ×2 (08:48→11:39)
[2018-08-26 09:00] LABS: INR 1.1 (<1.2); Prothrombin Time 11.2 sec (9.0-12.0)
[2018-08-26] MEDS ORDERED: POTASSIUM BICARBONATE/CIT AC 20 MEQ TABLET.EFF NG-TUBE SCH (09:00)
--- NOTE | 2018-08-26 11:14 | P.PN ---
Subjective Progress Note Date: 08/26/18 This is a 62-year-old female admitted with acute COPD exacerbation, worsening dyspnea ,failed outpatient treatment, hypoxic respiratory failure, requiring intubation, mechanical ventilation, acute non-STEMI and multiple other medical issues. Maintained on vent support with FiO2 decreased to 35%/+5 of PEEP. Spontaneous weaning trial attempted with diprovan weaned off and pressure support removed, unable to tolerate became tachycardic, tachypneic. Chest x-ray reporting no evidence of infiltrate, pleural effusion or pneumothorax, positive emphysema.Tracheostomy and PEG placement being discussed. Sinus rhythm, no arrhythmias. Echo reported severely impaired LV function, EF 20-25%, takotsubo syndrome, mild pulmonary hypertension. Scheduled for cardiac catheterization tomorrow. Maintained on nebulized bronchodilators, steroids, antibiotics. Blood sugars controlled. Afebrile, normal WBC, urine,sputum, blood cultures negative. 08/26/2018 maintained on calcium channel batool, aspirin, statin. Telemetry sinus rhythm. Maintain on mechanical ventilation, FiO2 35%/+5 of PEEP. ABGs noted. Continues on Diprovan, arousable, follows simple commands. Tube Feeds on hold- Cardiac catheterization scheduled for this afternoon.VSS. Chest x-ray reporting bilateral lower lobe infiltrate and small effusion, mild central venous congestion with underlying COPD. Afebrile, normal WBC. Objective - Vital Signs Vital signs: Vital Signs Temp 98.5 F 08/26/18 08:00 Pulse 62 08/26/18 08:00 Resp 16 08/26/18 08:00 BP 111/74 08/26/18 08:00 Pulse Ox 96 08/26/18 08:00 Intake & Output 08/25/18 08/26/18 08/26/18 18:59 06:59 18:59 Intake Total 1155.846 1423.037 100 Output Total 2795 1285 40 Balance -890.915 169.037 60 Weight 49.9 kg Intake: IV 1300 1100 100 Sodium Chloride 0.9% 1, 1300 1100 100 000 ml @ 100 mls/hr IV . Q10H [facility] Rx#:[id number] Intake, IV Titration 124.085 94.037 Amount Propofol 1,000 mg In 124.085 94.037 Empty Bag 1 bag @ Titrate IV .Q0M [facility] Rx#: [id number] Tube Feeding 480 200 0 Other 60 Output: Urine 2795 1285 40 Other: Voiding Method Indwelling Catheter Indwelling Catheter - Exam PHYSICAL EXAM: VITAL SIGNS: As above GENERAL: Sitting up in bed, no acute distress ,sedated, intubated- on mechanical ventilation, HEENT: Conjunctivae normal. eyes normal. NECK: No JVD. No thyroid enlargement. No LNs CARDIOVASCULAR: S1, S2 regular. No murmur RESPIRATION: Breath sounds diminished in the bases. No rhonchi or crackles. Fine bilateral expiratory wheezing. ABDOMEN: Soft, nontender . No guarding. no masses palpable.Bowel sounds heard. LEGS: No edema. no swelling. PSYCHIATRY/NERVOUS SYSTEM: Unable to fully evaluate as patient,intubated, no focal deficits. Skin: no lesions, no rash - Labs CBC & Chem 7: 08/26/18 04:28 08/26/18 04:28 Labs: Abnormal Lab Results - Last 24 Hours (Table) 08/22/18 08/25/18 08/25/18 Range/Units 23:02 11:57 17:49 ABG pH 7.19 L* (7.35-7.45) ABG pCO2 71 H* (35-45) mmHg ABG pO2 (83-108) mmHg ABG HCO3 (21-25) mmol/L ABG Total CO2 (19-24) mmol/L Carbon Dioxide (22-30) mmol/L BUN (7-17) mg/dL Glucose (74-99) mg/dL POC Glucose (mg/dL) 141 H 140 H (75-99) mg/dL 08/25/18 08/26/18 08/26/18 Range/Units 23:54 04:28 06:51 ABG pH 7.46 H (7.35-7.45) ABG pCO2 53 H (35-45) mmHg ABG pO2 78 L (83-108) mmHg ABG HCO3 38 H (21-25) mmol/L ABG Total CO2 40 H (19-24) mmol/L Carbon Dioxide 36 H (22-30) mmol/L BUN 37 H (7-17) mg/dL Glucose 125 H (74-99) mg/dL POC Glucose (mg/dL) 130 H (75-99) mg/dL Microbiology - Last 24 Hours (Table) 08/20/18 13:00 Blood Culture - Preliminary Blood No Growth after 120 hours Assessment and Plan Assessment: -Acute non-STEMI, EF 20-25%, possibly Takotsubo Syndrome -Acute COPD exacerbation in a patient with severe COPD -Respiratory arrest secondary to worsening COPD,hypoxia, hypercapnia requiring intubation -Acute on chronic hypoxic , hypercapnic, respiratory failure secondary to the above, mechanical ventilator-dependent. -Acute CHF exacerbation, systolic dysfunction, no interstitial edema per x-ray -Right lower lobe Pneumonia, suspect community-acquired, improving Plan: Continue on current medication regime , aspirin, statin, calcium channel batool, monitoring and symptomatic treatment. Tube feeds on hold-Cardiac catheterization scheduled for this afternoon. Further recommendations to follow. The impression and plan of care has been dictated as directed. : I performed a history and examination of this patient, discussed the same with the dictator. I agree with the dictator's note ,documented as a scribe. Any additional findings or plans will be noted.
[2018-08-26 11:50] LABS: Glucose,Whole Blood 126 mg/dL (75-99)
[2018-08-26] MEDS: LEVOFLOXACIN 500MG-D5W PMX 500 MG in DEXTROSE/WATER 1 100ML.BAG IVPB SCH (16:34)
[2018-08-26 16:59] LABS: Glucose,Whole Blood 122 mg/dL (75-99)
[2018-08-26 18:17] LABS: Glucose,Whole Blood 162 mg/dL (75-99)
[2018-08-26] MEDS: LISINOPRIL 2.5 MG TAB PO SCH (21:19)
[2018-08-26] MEDS: MONTELUKAST 10 MG TAB PO SCH (21:19)
[2018-08-26] MEDS: ASPIRIN 81 MG PO SCH (21:20)
[2018-08-26] MEDS: LURASIDONE 40 MG TAB PO SCH (21:20)
[2018-08-26 23:47] LABS: Glucose,Whole Blood 179 mg/dL (75-99)
[2018-08-27] MEDS: INSULIN ASPART (NovoLOG) 100 UNIT/ML VIAL SQ SCH ×4 (00:05→17:04)
[2018-08-27] MEDS: methylPREDNISolone SOD SUCCI 125 MG/2 ML VIAL IV SCH ×4 (00:06→17:07)
[2018-08-27] MEDS: PROPOFOL 1,000 MG in EMPTY BAG 1 BAG IV SCH ×4 (00:35→21:03)
[2018-08-27 04:42] LABS: ABG Base Excess 14.2 mmol/L; ABG HCO3 38 mmol/L (21-25); ABG Oxygen Saturation 94.2 % (94-97); ABG PCO2 53 mmHg (35-45); ABG PH 7.46 (7.35-7.45); ABG PO2 74 mmHg (83-108); ABG TCO2 40 mmol/L (19-24); Allen Test Performed? Yes
[2018-08-27 05:01] LABS: Basophils % (A) 0 %; Eosinophils # (A) 0.1 k/uL (0-0.7); Eosinophils % (A) 1 %; HCT 40.7 % (34.0-46.0); HGB 12.9 gm/dL (11.4-16.0); Lymphocytes # (A) 0.6 k/uL (1.0-4.8); Lymphocytes % (A) 6 %; MCH 29.1 pg (25.0-35.0); MCHC 31.6 g/dL (31.0-37.0); MCV 92.3 fL (80.0-100.0); Mean Platelet Volume 7.5; Monocytes # (A) 0.4 k/uL (0-1.0); Monocytes % (A) 4 %; Neutrophils # (A) 7.8 k/uL (1.3-7.7); Neutrophils % (A) 88 %; Platelet Count 199 k/uL (150-450); RBC 4.42 m/uL (3.80-5.40); RDW 14.2 % (11.5-15.5); WBC 8.9 k/uL (3.8-10.6)
[2018-08-27 05:09] LABS: African American GFR (CKD) >90 (>60 ml/min/1.73 sqM); Anion Gap 3 mmol/L; Blood Urea Nitrogen 36 mg/dL (7-17); Calcium 9.2 mg/dL (8.4-10.2); Carbon Dioxide 38 mmol/L (22-30); Chloride 100 mmol/L (98-107); Glucose 113 mg/dL (74-99); Magnesium 2.3 mg/dL (1.6-2.3); Potassium 4.1 mmol/L (3.5-5.1); Sodium 141 mmol/L (137-145)
[2018-08-27] MEDS: SODIUM CHLORIDE 0.9% 1,000 ML IV SCH ×2 (05:41→17:04)
[2018-08-27] MEDS: CARVEDILOL 3.125 MG TAB PO SCH ×2 (06:43→17:00)
[2018-08-27] MEDS: BUDESONIDE 0.5 MG/2 ML NEBU INHALATION SCH ×2 (07:39→19:09)
[2018-08-27] MEDS: IPRATROPIUM 0.5 MG/2.5 ML NEBU INHALATION SCH ×2 (07:40→12:17)
--- NOTE | 2018-08-27 07:53 | XR ---
EXAMINATION TYPE: XR chest 1V portable DATE OF EXAM: 08/27/2018 COMPARISON: Prior chest x-ray 08/26/2018 HISTORY: Intubated TECHNIQUE: Single frontal view of the chest is obtained. FINDINGS: Endotracheal tube, gastric tube are overlying appropriate positions. Distal tip of the gas tric tube not included on exam. Patient is rotated and there are overlying cardiac leads. Skin fold a rtifact seen over the upper right chest. No evident pneumothorax. Heart size is stable. Aorta is dens e. Patchy bibasilar increased density is suspected. Hyperinflation may cause the blunting of the cost ophrenic angles. IMPRESSION: Possible lower lobe atelectasis, correlate to exclude pneumonia. Follow-up chest x-ray r ecommended for better evaluation. Additional findings above.
[2018-08-27] MEDS ORDERED: IV FLUID CONTINUATION 1,000 ML IV ONE (08:50)
[2018-08-27] MEDS ORDERED: LIDOCAINE 1% INJ 10MG/ML (20 ML MDV) SQ ONE (08:55)
[2018-08-27] MEDS ORDERED: IOPAMIDOL-370 125ML BTL INJ ONE (09:15)
[2018-08-27] MEDS ORDERED: RX INFO: IV CONTRAST WAS GIVEN 1 EACH MISC MISCELLANE PRN (09:21)
[2018-08-27] MEDS ORDERED: SODIUM CHLORIDE 0.9% 1,000 ML IV SCH (09:30)
[2018-08-27] MEDS: HEPARIN SODIUM,PORCINE 5,000 UNIT/ML 1 ML VIAL SQ SCH ×2 (10:02→20:57)
[2018-08-27] MEDS: FUROSEMIDE 10 MG/ML 2 ML VIAL IV SCH ×2 (10:03→20:58)
[2018-08-27] MEDS: PANTOPRAZOLE 40 MG/10 ML VIAL IV SCH (10:03)
[2018-08-27] MEDS: TROSPIUM CHLORIDE 20 MG TABLET PO SCH ×2 (10:04→21:09)
[2018-08-27] MEDS: GABAPENTIN 300 MG CAP PO SCH ×3 (10:04→21:02)
[2018-08-27] MEDS: DIGOXIN 125 MCG TAB PO SCH (10:04)
[2018-08-27] MEDS: SPIRONOLACTONE 25 MG TAB PO SCH (10:04)
[2018-08-27] MEDS: CHLORHEXIDINE GLUCONATE 15 ML CUP MUCOUS MEM SCH ×2 (10:29→20:56)
--- NOTE | 2018-08-27 11:28 | CC ---
CARDIAC CATHETERIZATION REPORT DATE OF SERVICE: August 27, 2018 PERFORMING PHYSICIAN: Helio Lugo MD, rn lactation consultant. PROCEDURE PERFORMED: 1. Selective right and left coronary angiogram. 2. Left heart catheterization. INDICATION: This is 62-year-old female patient with known chronic obstructive pulmonary disease and chronic hypoxic respiratory failure, was admitted to the hospital with acute hypoxic respiratory failure secondary to COPD exacerbation and the patient required intubation and mechanical ventilation. She was ruled in for acute non ST elevation myocardial infarction with mildly abnormal cardiac enzymes. Also the echo revealed severe cardiomyopathy with EF between 20% to 25%. Because of that, a heart catheterization was advised. APPROACH: Right common femoral artery. COMPLICATION: None. LEVEL OF SEDATION: Moderate with sedation length of 20 minutes. PROCEDURE DESCRIPTION: After obtaining informed consent, the patient was brought to the cardiac director of cardiac cath lab. The right common femoral artery was cannulated using micropuncture technique, the micropuncture wire passed easily then I placed a 6-Georgian sheath in the right common femoral artery. After that, I did selective right and left coronary angiogram using JR4 and JL4 catheters. 1. Right coronary artery is a large caliber vessel and is a dominant vessel. The RCA in the proximal portion appeared to be angiographically normal. In the midportion it has a tubular lesion appeared to be in the range of 60% to 70%. The RCA distally bifurcates into PDA and PLV branches, both appeared to be angiographically normal. 2. The left main is long left main but is angiographically normal. It bifurcates into left circumflex, ramus intermedius, and left anterior descending artery. 3. The left circumflex is a medium caliber vessel and is a nondominant vessel. The left circumflex is angiographically normal and in the midportion gives rise into an OM branch which seems to be normal. 4. The ramus intermedius appeared to be angiographically normal. 5. The LAD: The proximal LAD appeared to be normal. It gives rise into the first diagonal branch and second diagonal branch and both appeared to be angiographically normal. The mid and distal LAD appeared to be angiographically normal. HEMODYNAMICS: The left ventricular end-diastolic pressure was about 12 to 16 mmHg without significant gradient across the aortic valve. CONCLUSION: Intermediate to severe disease involving the mid right coronary artery appeared to be in the range of 60% to 70%. POSTPROCEDURE MANAGEMENT: 1. I would advise maximized medical treatment at this point. 2. Aggressive cholesterol control. 3. Follow up with the patient. MMODL / IJN: [id number] /
--- NOTE | 2018-08-27 11:34 | LTR ---
August 27, 2018 Re: Nahomy Wei Dear Dr. Knox: Ms. Nahomy Wei underwent today a heart catheterization which did not reveal any evidence of high grade stenosis. She was found to have intermediate to severe disease involving the mid right coronary artery. I want to thank you for allowing us to participate in her care and please do not hesitate to call if you have any question or concern. Sincerely, MD BEKAH Christian / REGGIEN: [id number] /
[2018-08-27 11:39] LABS: Glucose,Whole Blood 113 mg/dL (75-99)
[2018-08-27] MEDS ORDERED: IPRATROPIUM-ALBUTEROL 3 ML NEB INHALATION PRN (14:15)
[2018-08-27] MEDS: IPRATROPIUM-ALBUTEROL 3 ML NEB INHALATION SCH ×2 (15:26→19:09)
--- NOTE | 2018-08-27 15:39 | P.PN ---
Subjective Progress Note Date: 08/27/18 This is a 62-year-old female admitted with acute COPD exacerbation, worsening dyspnea ,failed outpatient treatment, hypoxic respiratory failure, requiring intubation, mechanical ventilation, acute non-STEMI and multiple other medical issues. Maintained on vent support with FiO2 decreased to 35%/+5 of PEEP. Spontaneous weaning trial attempted with diprovan weaned off and pressure support removed, unable to tolerate became tachycardic, tachypneic. Chest x-ray reporting no evidence of infiltrate, pleural effusion or pneumothorax, positive emphysema.Tracheostomy and PEG placement being discussed. Sinus rhythm, no arrhythmias. Echo reported severely impaired LV function, EF 20-25%, takotsubo syndrome, mild pulmonary hypertension. Scheduled for cardiac catheterization tomorrow. Maintained on nebulized bronchodilators, steroids, antibiotics. Blood sugars controlled. Afebrile, normal WBC, urine,sputum, blood cultures negative. 08/26/2018 maintained on calcium channel batool, aspirin, statin. Telemetry sinus rhythm. Maintain on mechanical ventilation, FiO2 35%/+5 of PEEP. ABGs noted. Continues on Diprovan, arousable, follows simple commands. Tube Feeds on hold- Cardiac catheterization scheduled for this afternoon.VSS. Chest x-ray reporting bilateral lower lobe infiltrate and small effusion, mild central venous congestion with underlying COPD. Afebrile, normal WBC. 08/27/2018 remains vent dependent, FiO2 35% +5 of PEEP.VSS. Cardiac catheterization this morning, pending.VSS. Chest x-ray reporting possible bilateral atelectasis, possible pneumonia. Objective - Vital Signs Vital signs: Vital Signs Temp 98.4 F 08/27/18 04:00 Pulse 63 08/27/18 07:00 Resp 16 08/27/18 07:00 BP 117/72 08/27/18 07:00 Pulse Ox 94 L 08/27/18 07:00 Intake & Output 08/26/18 08/27/18 08/27/18 18:59 06:59 18:59 Intake Total 1904.617 0517.916 Output Total 1540 1540 Balance 257.964 121.916 Weight 51.3 kg Intake: IV 1300 1200 Sodium Chloride 0.9% 1, 1300 1200 000 ml @ 100 mls/hr IV . Q10H [facility] Rx#:[id number] Intake, IV Titration 417.964 191.916 Amount Magnesium Sulfate-D5w Pmx 200 1 gm In Dextrose/Water 1 100ml.bag @ 100 mls/hr IVPB Q1H [facility] Rx#: [id number] Propofol 1,000 mg In 217.964 191.916 Empty Bag 1 bag @ Titrate IV .Q0M OSBALDO Rx#: [id number] Tube Feeding 80 240 Other 30 Output: Urine 1540 1540 Other: Voiding Method Indwelling Catheter Indwelling Catheter - Exam PHYSICAL EXAM: VITAL SIGNS: As above GENERAL: Sitting up in bed, no acute distress ,sedated, intubated- on mechanical ventilation, HEENT: Conjunctivae normal. eyes normal. NECK: No JVD. No thyroid enlargement. No LNs CARDIOVASCULAR: S1, S2 regular. No murmur RESPIRATION: Breath sounds diminished in the bases. No rhonchi or crackles. Fine bilateral expiratory wheezing. ABDOMEN: Soft, nontender . No guarding. no masses palpable.Bowel sounds heard. LEGS: No edema. no swelling. PSYCHIATRY/NERVOUS SYSTEM: Unable to fully evaluate as patient,intubated, no focal deficits. Skin: no lesions, no rash - Labs CBC & Chem 7: 08/27/18 04:20 08/27/18 04:20 Labs: Abnormal Lab Results - Last 24 Hours (Table) 08/26/18 08/26/18 08/26/18 Range/Units 11:46 16:57 18:03 Neutrophils # (1.3-7.7) k/uL Lymphocytes # (1.0-4.8) k/uL ABG pH (7.35-7.45) ABG pCO2 (35-45) mmHg ABG pO2 (83-108) mmHg ABG HCO3 (21-25) mmol/L ABG Total CO2 (19-24) mmol/L Carbon Dioxide (22-30) mmol/L BUN (7-17) mg/dL Glucose (74-99) mg/dL POC Glucose (mg/dL) 126 H 122 H 162 H (75-99) mg/dL 08/26/18 08/27/18 08/27/18 Range/Units 23:43 04:20 04:20 Neutrophils # 7.8 H (1.3-7.7) k/uL Lymphocytes # 0.6 L (1.0-4.8) k/uL ABG pH (7.35-7.45) ABG pCO2 (35-45) mmHg ABG pO2 (83-108) mmHg ABG HCO3 (21-25) mmol/L ABG Total CO2 (19-24) mmol/L Carbon Dioxide 38 H (22-30) mmol/L BUN 36 H (7-17) mg/dL Glucose 113 H (74-99) mg/dL POC Glucose (mg/dL) 179 H (75-99) mg/dL 08/27/18 Range/Units 04:37 Neutrophils # (1.3-7.7) k/uL Lymphocytes # (1.0-4.8) k/uL ABG pH 7.46 H (7.35-7.45) ABG pCO2 53 H (35-45) mmHg ABG pO2 74 L (83-108) mmHg ABG HCO3 38 H (21-25) mmol/L ABG Total CO2 40 H (19-24) mmol/L Carbon Dioxide (22-30) mmol/L BUN (7-17) mg/dL Glucose (74-99) mg/dL POC Glucose (mg/dL) (75-99) mg/dL Microbiology - Last 24 Hours (Table) 08/20/18 13:00 Blood Culture - Final Blood No Growth after 144 hours Assessment and Plan Assessment: -Acute non-STEMI, EF 20-25%, possibly Takotsubo Syndrome -Acute COPD exacerbation in a patient with severe COPD -Respiratory arrest secondary to worsening COPD,hypoxia, hypercapnia requiring intubation -Acute on chronic hypoxic , hypercapnic, respiratory failure secondary to the above, mechanical ventilator-dependent. -Acute CHF exacerbation, systolic dysfunction, no interstitial edema per x-ray -Right lower lobe Pneumonia, suspect community-acquired, improving Plan: Continue on current medication regime , aspirin, statin, calcium channel batool, monitoring and symptomatic treatment. Cardiac catheterization pending. Follow closely with both cardiology and pulmonary. Further recommendations to follow. The impression and plan of care has been dictated as directed. : I performed a history and examination of this patient, discussed the same with the dictator. I agree with the dictator's note ,documented as a scribe. Any additional findings or plans will be noted.
[2018-08-27] MEDS: LEVOFLOXACIN 500MG-D5W PMX 500 MG in DEXTROSE/WATER 1 100ML.BAG IVPB SCH (17:00)
[2018-08-27 17:06] LABS: Glucose,Whole Blood 119 mg/dL (75-99)
--- NOTE | 2018-08-27 18:50 | P.PN ---
Subjective Progress Note Date: 08/27/18 (Critical care time 35 minutes) Principal diagnosis: Acute hypoxic and hypercapnic respiratory failure, elevated troponin, bilateral pneumonia, COPD severe category, non-ST segment elevated CT due to demand and supply mismatch, leukocytosis, acute systolic heart failure, coronary artery disease 04/29/2018, patient seen eval examined during the rounds she is sedated with propofol drip about 50 mics she is arousable intermittently does follow commands she underwent cardiac cath angiogram today mild disease in RCA about 70% was noted recommendation is maximal medical therapy, ejection fraction remains very poor 20-25%, labs reviewed medications reviewed arterial blood gases to hypercapnia, current vent setting includes assist control rate of 16 breathing about 16 tidal volume of 430, PEEP of 5, oxygen is 35% peak airway pressure R improved today about 30-35 him a chest x-ray performed today reveals some subtle subsegmental atelectasis of the right lower lobe Ammann patchy bilateral atelectatic changes are noted, care plan discussed with the staff patient will get CPAP and pressure support of 5 and 15 trial tomorrow with a gas 08/26/2018, patient seen and evaluated examined in the rounds she is sedated with propofol drip about 60 mics, she does wake up intermittently, to feed is going well currently is on hold due to anticipated angiogram, labs reviewed medications reviewed, patient remains on full ventilator support currently she is on the assist control of 16 breathing 16. Peak airway pressure is 40-44 tidal volume is 430 and PEEP of 5 FiO2 is 35 % she is saturating 95%, her chest x-ray from this morning suggestive of COPD-like changes with the hyperinflated lung small bilateral pleural effusion cannot be excluded, heart is small size labs reviewed ABG is pH is 7.46, pCO2 is 53, pO2 is 78 on 35% oxygen, CO2 is slightly elevated 37 BUN is 37, critical care time spent 35 minutes 08/24/2018, patient seen eval reexamined during the rounds, she is slightly awake but she is on propofol drip about 15 mics, she is comfortable she is breathing comfortably her ventilator setting has been stable radiographic studies and ABG have been reviewed labs reviewed patient is on tube feed tolerating very well, he is on assist control rate of 16 reading about 20 tidal volume of 500+5 of PEEP, arterial blood gases reviewed and they're stable chest x-ray reviewed there is stable, patient is gently being diuresed for the congestive heart failure and fluid overload 08/23/2018, patient seen eval reexamined during the rounds events from yesterday noted, patient posted with extubation did not do well after 10-12 hours of off of respirator require ventilatory support again she was extremely restless and agitated and tachypneic tachycardic not having a good air exchange was placed back on ventilator propofol is currently on 30 mics, she is on 16 of assist- control breathing about 20 tidal volume is 450, +5 PEEP, oxygen is 40% arterial blood gas from today's reviewed improvement in blood gases are noted with improvement in respiratory acidosis and metabolic acidosis, chest x-ray from today reviewed the infiltrate that was seen previously have resolved more appearance of the COPD, labs from today reviewed patient is up to 4.2 BUN/creatinine 30 and 0.7, care plan discussed with the staff at length will start the tube feed patient will be kept on respirator for another 48-72 hours, echocardiogram results revealed ejection fraction is about 20%, critical care time spent 35 minutes 08/22/2018, patient seen eval reexamined during the rounds she is the more awake propofol is being tapered down to 30 mics plan is to DC the propofol and put on CPAP and pressure support instructions were given patient is nothing by mouth currently chest x-ray reviewed, significant improvement in infiltrate are noted T-tube in stable condition finding on chest x-ray is hyperinflated lung consistent with severe COPD, critical care time 35 minutes 08/21/2018, patient seen and evaluated examined during the rounds she is on the 50 mics of propofol to feed his not initiated yet, patient is afebrile labs reviewed radiographic studies reviewed urine from yesterday reviewed and will titrate the propofol down x-ray showing bilateral pneumonia white cell count is up compared to yesterday arterial blood gas fairly normal, mild hyperkalemia is noted, 2 minute troponin continue to go up recommendation from cardiovascular services noted critical care time spent 35 minutes Patient was admitted into the hospital with acute COPD exacerbation, presents emergency department today for evaluation complaints of difficulty in breathing and cough for the past 3 days. Patient believes she is having a COPD exacerbation and was calling her primary care doctor today for oral steroid prescription. She presented difficulty breathing became more severe. She called EMS this morning was given breathing treatments and states her symptoms have improved after this breathing treatment. She is maintained on nebulizers at home.. Patient states that she's had a slightly productive cough. Denies any specific fevers or chills. She denies any stationary chest pain at this time. In the emergency department patient having worsening of shortness of breath and wheezing and using necessary muscles consult was requested due to severe respiratory distress and altered mental status patient was intubated postintubation ABG revealed evidence of hypercapnia and respiratory acidosis with stable oxygenation some metabolic acidosis was noted likely related to poor perfusion, patient was seen evaluated examined in the ICU post-intubation Objective - Vital Signs Vital signs: Vital Signs Temp 98.6 F 08/27/18 16:00 Pulse 73 08/27/18 18:00 Resp 17 08/27/18 18:00 BP 111/69 08/27/18 18:00 Pulse Ox 96 08/27/18 18:00 Intake & Output 08/26/18 08/27/18 08/27/18 18:59 06:59 18:59 Intake Total 7446.774 8432.916 1315.336 Output Total 1540 1540 1630 Balance 257.964 121.916 -314.664 Weight 51.3 kg 50.5 kg Intake: IV 1300 1200 1075 Sodium Chloride 0.9% 1, 1300 1200 1000 000 ml @ 100 mls/hr IV . Q10H [facility] Rx#:[id number] Intake, IV Titration 417.964 191.916 80.336 Amount Magnesium Sulfate-D5w Pmx 200 1 gm In Dextrose/Water 1 100ml.bag @ 100 mls/hr IVPB Q1H [facility] Rx#: [id number] Propofol 1,000 mg In 217.964 191.916 80.336 Empty Bag 1 bag @ Titrate IV .Q0M [facility] Rx#: [id number] Tube Feeding 80 240 160 Other 30 Output: Urine 1540 1540 1630 Other: Voiding Method Indwelling Catheter Indwelling Catheter Indwelling Catheter - Exam - Constitutional General appearance: average body habitus, disheveled, mild distress, thin, intubated on vent - EENT Eyes: PERRLA, poor dentition ENT: normal oropharynx Ears: bilateral: normal - Neck Carotids: bilateral: upstroke normal, bruit absent Thyroid: bilateral: normal size - Respiratory Respiratory: bilateral: diminished, wheezing (Bilateral expiratory) - Cardiovascular Rhythm: regular Heart sounds: normal: S1, S2 - Gastrointestinal General gastrointestinal: decreased bowel sounds, scaphoid, soft - Integumentary Integumentary: decreased turgor - Neurologic Neurologic: Sedated with propofol - Musculoskeletal Musculoskeletal: Sedated with propofol - Psychiatric Psychiatric: Sedated with propofol - Labs CBC & Chem 7: 08/27/18 04:20 08/27/18 04:20 Labs: Abnormal Lab Results - Last 24 Hours (Table) 08/26/18 08/27/18 08/27/18 Range/Units 23:43 04:20 04:20 Neutrophils # 7.8 H (1.3-7.7) k/uL Lymphocytes # 0.6 L (1.0-4.8) k/uL ABG pH (7.35-7.45) ABG pCO2 (35-45) mmHg ABG pO2 (83-108) mmHg ABG HCO3 (21-25) mmol/L ABG Total CO2 (19-24) mmol/L Carbon Dioxide 38 H (22-30) mmol/L BUN 36 H (7-17) mg/dL Glucose 113 H (74-99) mg/dL POC Glucose (mg/dL) 179 H (75-99) mg/dL 08/27/18 08/27/18 08/27/18 Range/Units 04:37 11:35 17:03 Neutrophils # (1.3-7.7) k/uL Lymphocytes # (1.0-4.8) k/uL ABG pH 7.46 H (7.35-7.45) ABG pCO2 53 H (35-45) mmHg ABG pO2 74 L (83-108) mmHg ABG HCO3 38 H (21-25) mmol/L ABG Total CO2 40 H (19-24) mmol/L Carbon Dioxide (22-30) mmol/L BUN (7-17) mg/dL Glucose (74-99) mg/dL POC Glucose (mg/dL) 113 H 119 H (75-99) mg/dL Microbiology - Last 24 Hours (Table) 08/20/18 13:00 Blood Culture - Final Blood No Growth after 144 hours Assessment and Plan Assessment: Acute on chronic hypoxic and hypercapnic respiratory failure End-stage COPD Acute systolic heart failure ejection fraction of 20% Coronary artery disease, mild not requiring a stent RCA 70% Right lower lobe pneumonia, improvement in noted on infiltrate Acute hypoxic and hypercapnic respiratory failure Status post respiratory arrest and intubation Demand supply mismatch non-ST segment elevated CT COPD severe category with acute exacerbation Elevated troponin due to above Plan: Cardiac cath and angiogram results reviewed Ventilator support adjustment of ventilator as needed Propofol for sedation was titrated down as tolerated We'll do weaning trials tomorrow the CPAP pressure support Broad-spectrum antibiotic Breathing treatments IV steroids DVT and peptic ulcers disease prophylaxis Echocardiogram results reviewed Further recommendations pending plan of care as per clinical response of the patient Consult cardiology for elevated troponin suspected to be demand supply mismatch non-ST segment elevated CT Leukocytosis likely related to steroids, have normalized now Time with Patient: Greater than 30
[2018-08-27] MEDS: ASPIRIN 81 MG PO SCH (20:55)
[2018-08-27] MEDS: MONTELUKAST 10 MG TAB PO SCH (20:55)
[2018-08-27] MEDS: LISINOPRIL 2.5 MG TAB PO SCH (20:57)
[2018-08-27] MEDS: LURASIDONE 40 MG TAB PO SCH (21:09)
[2018-08-28] MEDS: methylPREDNISolone SOD SUCCI 125 MG/2 ML VIAL IV SCH ×4 (00:55→19:08)
[2018-08-28] MEDS: INSULIN ASPART (NovoLOG) 100 UNIT/ML VIAL SQ SCH ×4 (00:58→19:05)
[2018-08-28] MEDS: SODIUM CHLORIDE 0.9% 1,000 ML IV SCH ×3 (00:59→21:29)
[2018-08-28 01:01] LABS: Glucose,Whole Blood 131 mg/dL (75-99)
[2018-08-28] MEDS: PROPOFOL 1,000 MG in EMPTY BAG 1 BAG IV SCH ×2 (04:03→09:34)
[2018-08-28 05:32] LABS: HCT 35.4 % (34.0-46.0); HGB 11.3 gm/dL (11.4-16.0); MCH 29.2 pg (25.0-35.0); MCV 91.1 fL (80.0-100.0); Mean Platelet Volume 7.4; Platelet Count 194 k/uL (150-450); RBC 3.89 m/uL (3.80-5.40); RDW 14.1 % (11.5-15.5); WBC 9.1 k/uL (3.8-10.6)
[2018-08-28 05:49] LABS: African American GFR (CKD) >90 (>60 ml/min/1.73 sqM); Anion Gap 1 mmol/L; Blood Urea Nitrogen 35 mg/dL (7-17); Calcium 8.9 mg/dL (8.4-10.2); Carbon Dioxide 35 mmol/L (22-30); Chloride 101 mmol/L (98-107); Glucose 145 mg/dL (74-99); Potassium 4.1 mmol/L (3.5-5.1); Sodium 137 mmol/L (137-145)
[2018-08-28 06:16] LABS: Glucose,Whole Blood 139 mg/dL (75-99)
[2018-08-28] MEDS: CARVEDILOL 3.125 MG TAB PO SCH ×2 (06:42→19:08)
[2018-08-28] MEDS: BUDESONIDE 0.5 MG/2 ML NEBU INHALATION SCH ×2 (06:56→20:10)
[2018-08-28] MEDS: IPRATROPIUM-ALBUTEROL 3 ML NEB INHALATION SCH ×4 (06:56→20:10)
[2018-08-28] MEDS: CHLORHEXIDINE GLUCONATE 15 ML CUP MUCOUS MEM SCH ×2 (08:32→20:37)
[2018-08-28] MEDS: HEPARIN SODIUM,PORCINE 5,000 UNIT/ML 1 ML VIAL SQ SCH ×2 (08:32→21:26)
[2018-08-28] MEDS: DIGOXIN 125 MCG TAB PO SCH (08:33)
[2018-08-28] MEDS: SPIRONOLACTONE 25 MG TAB PO SCH (08:33)
[2018-08-28] MEDS: GABAPENTIN 300 MG CAP PO SCH ×2 (08:33→19:07)
[2018-08-28] MEDS: FUROSEMIDE 10 MG/ML 2 ML VIAL IV SCH ×2 (08:33→21:09)
[2018-08-28] MEDS: PANTOPRAZOLE 40 MG/10 ML VIAL IV SCH (08:33)
[2018-08-28] MEDS: TROSPIUM CHLORIDE 20 MG TABLET PO SCH ×2 (08:34→21:06)
--- NOTE | 2018-08-28 09:14 | P.PN ---
Subjective Progress Note Date: 08/28/18 This is a 62-year-old female was admitted to the hospital with respiratory failure secondary to COPD exacerbation and possible pneumonia. We are consulted because of abnormal troponin values which are consistent with non-ST elevation AL. This could be secondary to supply demand mismatch. Underlying ischemic heart disease cannot be completely excluded. Patient is still intubated but symptoms are being made to wean her off the respirator. Would waiting for the echocardiogram. Chest x-ray doesn't show any significant CHF. Continue current medical therapy. If echo Cardigan shows any segmental wall motion defects, patient may need are catheterization for definitive diagnosis. 08/23/2018: This 62-year-old female is admitted to the hospital with respiratory failure requiring intubation and respiratory support. Patient was extubated briefly but needed to be reintubated because of respiratory failure. Patient is related. 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 Underlying ischemic heart disease cannot be excluded. Discussed findings with the patient's . May consider cardiac catheterization for definitive diagnosis. Meanwhile we'll continue current medical therapy with Coreg, lisinopril, Lasix and Aldactone . 08/24/2018: Patient is still intubated and sedated. Running low blood pressu res. Heart rate is in 100s. I'm going to start her on Lanoxin 0.125 mg 2 today followed by 0.125 mg once daily from tomorrow. We'll repeat the echo Cardigan Saturday. Continue the rest of the medication. We'll discuss with Dr. Kilpatrick. May proceed with cardiac catheterization next week. Spoke with already 08/25/2018: This is 62-year-old female with history of severe COPD, was admitted with respiratory failure requiring intubation and mechanical support. Patient is still intubated. Her echo Cardigan showed severely impaired LV function, consistent with stress. Initial cardiac myopathy. Patient has been in sinus rhythm. Chest x-ray did not show any evidence of CHF. However because of abnormal enzymes and significant risk factors, a cardiac catheterization is recommended for further evaluation. I spoke to Dr. Peck and the procedure is being scheduled for tomorrow. We'll also communicate with Dr. Kilpatrick and may keep her intubated until cardiac catheterization tomorrow. Meanwhile we'll continue with current medical therapy. 08/28/2018: This patient is admitted to the hospital with the exacerbation of COPD and respiratory failure. She was also found to have severely impaired LV function consistent with apical ballooning syndrome. Patient had abnormal troponins. Patient had a cardiac catheterization yesterday. She was found to have mild to moderate disease in the mid RCA which he doesn't explain her presentation. 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 We'll continue current medical therapy. Attempts are being made to wean her off the respirator. We'll repeat the echocardiogram tomorrow. Continue current management. Objective - Vital Signs Vital signs: Vital Signs Temp 98.2 F 08/28/18 08:00 Pulse 70 08/28/18 08:00 Resp 16 08/28/18 08:00 BP 120/76 08/28/18 08:00 Pulse Ox 93 L 08/28/18 08:00 Intake & Output 08/27/18 08/28/18 08/28/18 18:59 06:59 18:59 Intake Total 0452.842 7664.000 200 Output Total 1705 1225 140 Balance -89.664 645.000 60 Weight 50.5 kg 49.4 kg Intake: IV 1175 1200 200 Sodium Chloride 0.9% 1, 1100 1200 200 000 ml @ 100 mls/hr IV . Q10H [facility] Rx#:[id number] Intake, IV Titration 280.336 100.000 Amount Levofloxacin 500Mg-D5w 100 Pmx 500 mg In Dextrose/ Water 1 100ml.bag @ 100 mls/hr IVPB Q24H [facility] Rx#: [id number] Propofol 1,000 mg In 180.336 100.000 Empty Bag 1 bag @ Titrate IV .Q0M [facility] Rx#: [id number] Tube Feeding 160 480 Other 90 Output: Urine 1705 1225 140 Other: Voiding Method Indwelling Catheter Indwelling Catheter - Exam GENERAL EXAM: Patient is intubated and sedated HEENT: Normocephalic. Normal reaction of pupils, equal size, normal range of extraocular motion. No erythema or exudates in the throat. NECK: No masses, no nuchal rigidity. CHEST: No chest wall deformity. LUNGS: Diminished air exchange HEART: S1 and S2 normal with no audible mumurs ABDOMEN: No hepatosplenomegaly, normal bowel sounds, no guarding or rigidity. SKIN: No rashes CENTRAL NERVOUS SYSTEM: No focal deficits. EXTREMITIES: No cyanosis, clubbing or edema. - Labs CBC & Chem 7: 08/28/18 04:25 08/28/18 04:25 Labs: Abnormal Lab Results - Last 24 Hours (Table) 08/27/18 08/27/18 08/28/18 Range/Units 11:35 17:03 00:57 Hgb (11.4-16.0) gm/dL Carbon Dioxide (22-30) mmol/L BUN (7-17) mg/dL Glucose (74-99) mg/dL POC Glucose (mg/dL) 113 H 119 H 131 H (75-99) mg/dL 08/28/18 08/28/18 08/28/18 Range/Units 04:25 04:25 06:00 Hgb 11.3 L (11.4-16.0) gm/dL Carbon Dioxide 35 H (22-30) mmol/L BUN 35 H (7-17) mg/dL Glucose 145 H (74-99) mg/dL POC Glucose (mg/dL) 139 H (75-99) mg/dL Assessment and Plan (1) Elevated troponin Current Visit: Yes Status: Acute Code(s): R74.8 - ABNORMAL LEVELS OF OTHER SERUM ENZYMES SNOMED Code(s): 386866020 (2) COPD exacerbation Current Visit: Yes Status: Acute Code(s): J44.1 - CHRONIC OBSTRUCTIVE PULMONARY DISEASE W (ACUTE) EXACERBATION SNOMED Code(s): 902330703 (3) Pneumonia Current Visit: Yes Status: Acute Code(s): J18.9 - PNEUMONIA, UNSPECIFIED ORGANISM SNOMED Code(s): 953069470 (4) Respiratory failure Current Visit: No Status: Acute Code(s): J96.90 - RESPIRATORY FAILURE, UNSP, UNSP W HYPOXIA OR HYPERCAPNIA SNOMED Code(s): 581854763 Plan: Patient had mild to moderate coronary artery disease but nothing critical. The picture is consistent with apical ballooning syndrome. We'll repeat the echocardiogram. Continue current medical therapy.
--- NOTE | 2018-08-28 09:19 | P.PN ---
Subjective Progress Note Date: 08/28/18 Principal diagnosis: Acute hypoxic and hypercapnic respiratory failure, elevated troponin, bilateral pneumonia, COPD severe category, non-ST segment elevated NE due to demand and rosales pply mismatch, leukocytosis, acute systolic heart failure, coronary artery disease 08/28/2018, patient seen eval reexamined during the rounds patient has been weaned down from propofol currently she is down to 40 mics which have been discontinued she is arousable opens eyes follow simple commands but somewhat weak patient will plays on CPAP. 5 and pressure support of 15 and arterial blood gas will be obtained, no obvious cough is present labs reviewed radiographic studies reviewed mild prerenal azotemia is present which could be related to high dose IV steroids are mild dehydration, medications reviewed, chest x-ray from today reviewed there is improvement in pleural effusion is seen the cardio angle and costophrenic angles are much sharper, been setting remains on assist control 16, tidal volume is 4:30, PEEP of 5, a FiO2 is 35%, the peak airway pressure is 30-35 critical care time spent 35 minutes 08/27/2018, patient seen eval examined during the rounds she is sedated with propofol drip about 50 mics she is arousable intermittently does follow commands she underwent cardiac cath angiogram today mild disease in RCA about 70% was noted recommendation is maximal medical therapy, ejection fraction remains very poor 20-25%, labs reviewed medications reviewed arterial blood gases to hypercapnia, current vent setting includes assist control rate of 16 breathing about 16 tidal volume of 430, PEEP of 5, oxygen is 35% peak airway pressure R improved today about 30-35 him a chest x-ray performed today reveals some subtle subsegmental atelectasis of the right lower lobe Ammann patchy bilateral atelectatic changes are noted, care plan discussed with the staff patient will get CPAP and pressure support of 5 and 15 trial tomorrow with a gas 08/26/2018, patient seen and evaluated examined in the rounds she is sedated with propofol drip about 60 mics, she does wake up intermittently, to feed is going well currently is on hold due to anticipated angiogram, labs reviewed medications reviewed, patient remains on full ventilator support currently she is on the assist control of 16 breathing 16. Peak airway pressure is 40-44 tidal volume is 430 and PEEP of 5 FiO2 is 35 % she is saturating 95%, her chest x-ray from this morning suggestive of COPD-like changes with the hyperinflated lung small bilateral pleural effusion cannot be excluded, heart is small size labs reviewed ABG is pH is 7.46, pCO2 is 53, pO2 is 78 on 35% oxygen, CO2 is slightly elevated 37 BUN is 37, critical care time spent 35 minutes 08/24/2018, patient seen eval reexamined during the rounds, she is slightly awake but she is on propofol drip about 15 mics, she is comfortable she is breathing comfortably her ventilator setting has been stable radiographic studies and ABG have been reviewed labs reviewed patient is on tube feed tolerating very well, he is on assist control rate of 16 reading about 20 tidal volume of 500+5 of PEEP, arterial blood gases reviewed and they're stable chest x-ray reviewed there is stable, patient is gently being diuresed for the congestive heart failure and fluid overload 08/23/2018, patient seen eval reexamined during the rounds events from yesterday noted, patient posted with extubation did not do well after 10-12 hours of off of respirator require ventilatory support again she was extremely restless and agitated and tachypneic tachycardic not having a good air exchange was placed back on ventilator propofol is currently on 30 mics, she is on 16 of assist- control breathing about 20 tidal volume is 450, +5 PEEP, oxygen is 40% arterial blood gas from today's reviewed improvement in blood gases are noted with improvement in respiratory acidosis and metabolic acidosis, chest x-ray from today reviewed the infiltrate that was seen previously have resolved more appearance of the COPD, labs from today reviewed patient is up to 4.2 BUN/creatinine 30 and 0.7, care plan discussed with the staff at length will start the tube feed patient will be kept on respirator for another 48-72 hours, echocardiogram results revealed ejection fraction is about 20%, critical care time spent 35 minutes 08/22/2018, patient seen eval reexamined during the rounds she is the more awake propofol is being tapered down to 30 mics plan is to DC the propofol and put on CPAP and pressure support instructions were given patient is nothing by mouth currently chest x-ray reviewed, significant improvement in infiltrate are noted T-tube in stable condition finding on chest x-ray is hyperinflated lung consistent with severe COPD, critical care time 35 minutes 08/21/2018, patient seen and evaluated examined during the rounds she is on the 50 mics of propofol to feed his not initiated yet, patient is afebrile labs reviewed radiographic studies reviewed urine from yesterday reviewed and will titrate the propofol down x-ray showing bilateral pneumonia white cell count is up compared to yesterday arterial blood gas fairly normal, mild hyperkalemia is noted, 2 minute troponin continue to go up recommendation from cardiovascular services noted critical care time spent 35 minutes Patient was admitted into the hospital with acute COPD exacerbation, presents emergency department today for evaluation complaints of difficulty in breathing and cough for the past 3 days. Patient believes she is having a COPD exacerbation and was calling her primary care doctor today for oral steroid prescription. She presented difficulty breathing became more severe. She called EMS this morning was given breathing treatments and states her symptoms have improved after this breathing treatment. She is maintained on nebulizers at home.. Patient states that she's had a slightly productive cough. Denies any specific fevers or chills. She denies any stationary chest pain at this time. In the emergency department patient having worsening of shortness of breath and wheezing and using necessary muscles consult was requested due to severe respiratory distress and altered mental status patient was intubated postintubation ABG revealed evidence of hypercapnia and respiratory acidosis with stable oxygenation some metabolic acidosis was noted likely related to poor perfusion, patient was seen evaluated examined in the ICU post-intubation Objective - Vital Signs Vital signs: Vital Signs Temp 98.2 F 08/28/18 08:00 Pulse 70 08/28/18 08:00 Resp 16 08/28/18 08:00 BP 120/76 08/28/18 08:00 Pulse Ox 93 L 08/28/18 08:00 Intake & Output 08/27/18 08/28/18 08/28/18 18:59 06:59 18:59 Intake Total 9635.082 2117.000 200 Output Total 1705 1225 140 Balance -89.664 645.000 60 Weight 50.5 kg 49.4 kg Intake: IV 1175 1200 200 Sodium Chloride 0.9% 1, 1100 1200 200 000 ml @ 100 mls/hr IV . Q10H [facility] Rx#:[id number] Intake, IV Titration 280.336 100.000 Amount Levofloxacin 500Mg-D5w 100 Pmx 500 mg In Dextrose/ Water 1 100ml.bag @ 100 mls/hr IVPB Q24H [facility] Rx#: [id number] Propofol 1,000 mg In 180.336 100.000 Empty Bag 1 bag @ Titrate IV .Q0M [facility] Rx#: [id number] Tube Feeding 160 480 Other 90 Output: Urine 1705 1225 140 Other: Voiding Method Indwelling Catheter Indwelling Catheter - Exam - Constitutional General appearance: average body habitus, disheveled, mild distress, thin, intubated on vent - EENT Eyes: PERRLA, poor dentition ENT: normal oropharynx Ears: bilateral: normal - Neck Carotids: bilateral: upstroke normal, bruit absent Thyroid: bilateral: normal size - Respiratory Respiratory: bilateral: diminished, wheezing (Bilateral expiratory) - Cardiovascular Rhythm: regular Heart sounds: normal: S1, S2 - Gastrointestinal General gastrointestinal: decreased bowel sounds, scaphoid, soft - Integumentary Integumentary: decreased turgor - Neurologic Neurologic: Sedated with propofol - Musculoskeletal Musculoskeletal: Sedated with propofol - Psychiatric Psychiatric: Sedated with propofol - Labs CBC & Chem 7: 08/28/18 04:25 08/28/18 04:25 Labs: Abnormal Lab Results - Last 24 Hours (Table) 08/27/18 08/27/18 08/28/18 Range/Units 11:35 17:03 00:57 Hgb (11.4-16.0) gm/dL Carbon Dioxide (22-30) mmol/L BUN (7-17) mg/dL Glucose (74-99) mg/dL POC Glucose (mg/dL) 113 H 119 H 131 H (75-99) mg/dL 08/28/18 08/28/18 08/28/18 Range/Units 04:25 04:25 06:00 Hgb 11.3 L (11.4-16.0) gm/dL Carbon Dioxide 35 H (22-30) mmol/L BUN 35 H (7-17) mg/dL Glucose 145 H (74-99) mg/dL POC Glucose (mg/dL) 139 H (75-99) mg/dL Assessment and Plan Assessment: Acute on chronic hypoxic and hypercapnic respiratory failure End-stage COPD Acute systolic heart failure ejection fraction of 20% Coronary artery disease, mild not requiring a stent RCA 70% Right lower lobe pneumonia, improvement in noted on infiltrate Acute hypoxic and hypercapnic respiratory failure Status post respiratory arrest and intubation Demand supply mismatch non-ST segment elevated NE COPD severe category with acute exacerbation Elevated troponin due to above Plan: Cardiac cath and angiogram results reviewed Ventilator support adjustment of ventilator as needed Propofol for sedation has been off We'll proceed with CPAP pressure support and weaning Broad-spectrum antibiotic Breathing treatments IV steroids DVT and peptic ulcers disease prophylaxis Echocardiogram results reviewed Further recommendations pending plan of care as per clinical response of the patient Consult cardiology for elevated troponin suspected to be demand supply mismatch non-ST segment elevated NE Leukocytosis likely related to steroids, have normalized now Time with Patient: Greater than 30
[2018-08-28 09:46] LABS: ABG Base Excess 13.5 mmol/L; ABG HCO3 37 mmol/L (21-25); ABG Oxygen Saturation 96.4 % (94-97); ABG PCO2 47 mmHg (35-45); ABG PO2 100 mmHg (83-108); ABG TCO2 38 mmol/L (19-24); Allen Test Performed? Yes
--- NOTE | 2018-08-28 10:56 | XR ---
EXAMINATION TYPE: XR chest 1V portable DATE OF EXAM: 08/28/2018 COMPARISON: Prior chest x-ray 08/27/2018 HISTORY: Intubated TECHNIQUE: Single frontal view of the chest is obtained. FINDINGS: Endotracheal tube, orogastric tube are overlying appropriate positions. There is no eviden t airspace disease, pneumothorax, or pleural effusion. Hyperinflation is noted compatible with underl van COPD and likely the etiology of blunting the costophrenic angles. Cardiac mediastinal silhouette , pulmonary vascularity and tiburcio within normal limits. Aorta is dense. IMPRESSION: No acute process.
[2018-08-28 11:50] LABS: Glucose,Whole Blood 110 mg/dL (75-99)
--- NOTE | 2018-08-28 12:39 | P.PN ---
Subjective Progress Note Date: 08/28/18 This is a 62-year-old female admitted with acute COPD exacerbation, worsening dyspnea ,failed outpatient treatment, hypoxic respiratory failure, requiring intubation, mechanical ventilation, acute non-STEMI and multiple other medical issues. Maintained on vent support with FiO2 decreased to 35%/+5 of PEEP. Spontaneous weaning trial attempted with diprovan weaned off and pressure support removed, unable to tolerate became tachycardic, tachypneic. Chest x-ray reporting no evidence of infiltrate, pleural effusion or pneumothorax, positive emphysema.Tracheostomy and PEG placement being discussed. Sinus rhythm, no arrhythmias. Echo reported severely impaired LV function, EF 20-25%, takotsubo syndrome, mild pulmonary hypertension. Scheduled for cardiac catheterization tomorrow. Maintained on nebulized bronchodilators, steroids, antibiotics. Blood sugars controlled. Afebrile, normal WBC, urine,sputum, blood cultures negative. 08/26/2018 maintained on calcium channel batool, aspirin, statin. Telemetry sinus rhythm. Maintain on mechanical ventilation, FiO2 35%/+5 of PEEP. ABGs noted. Continues on Diprovan, arousable, follows simple commands. Tube Feeds on hold- Cardiac catheterization scheduled for this afternoon.VSS. Chest x-ray reporting bilateral lower lobe infiltrate and small effusion, mild central venous congestion with underlying COPD. Afebrile, normal WBC. 08/27/2018 remains vent dependent, FiO2 35% +5 of PEEP.VSS. Cardiac catheterization this morning, pending.VSS. Chest x-ray reporting possible bilateral atelectasis, possible pneumonia. 08/28/2018 Underwent cardiac catheterization yesterday, reporting intermediate to severe disease involving mid right coronary artery 60-70%; recommending maximizing medical treatment. Tolerated procedure well. 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 Repeat echo ordered by cardiology. Chest x-ray nonacute. Past weaning trials, extubation pending. Objective - Vital Signs Vital signs: Vital Signs Temp 98.4 F 08/28/18 04:00 Pulse 78 08/28/18 07:11 Resp 16 08/28/18 07:00 BP 117/73 08/28/18 07:00 Pulse Ox 97 08/28/18 07:00 Intake & Output 08/27/18 08/28/18 08/28/18 18:59 06:59 18:59 Intake Total 1650.060 1814.000 100 Output Total 1705 1225 40 Balance -89.664 645.000 60 Weight 50.5 kg 49.4 kg Intake: IV 1175 1200 100 Sodium Chloride 0.9% 1, 1100 1200 100 000 ml @ 100 mls/hr IV . Q10H [facility] Rx#:[id number] Intake, IV Titration 280.336 100.000 Amount Levofloxacin 500Mg-D5w 100 Pmx 500 mg In Dextrose/ Water 1 100ml.bag @ 100 mls/hr IVPB Q24H [facility] Rx#: [id number] Propofol 1,000 mg In 180.336 100.000 Empty Bag 1 bag @ Titrate IV .Q0M [facility] Rx#: [id number] Tube Feeding 160 480 Other 90 Output: Urine 1705 1225 40 Other: Voiding Method Indwelling Catheter Indwelling Catheter - Exam PHYSICAL EXAM: VITAL SIGNS: As above GENERAL: Sitting up in bed, no acute distress, extubation pending HEENT: Conjunctivae normal. eyes normal. NECK: No JVD. No thyroid enlargement. No LNs CARDIOVASCULAR: S1, S2 regular. No murmur RESPIRATION: Breath sounds diminished in the bases. No rhonchi or crackles. Occasional Fine bilateral expiratory wheezing. ABDOMEN: Soft, nontender . No guarding. no masses palpable.Bowel sounds heard. LEGS: No edema. no swelling. PSYCHIATRY/NERVOUS SYSTEM: Appears alert and oriented, following simple commands, no focal deficits. Skin: no lesions, no rash - Labs CBC & Chem 7: 08/28/18 04:25 08/28/18 04:25 Labs: Abnormal Lab Results - Last 24 Hours (Table) 08/27/18 08/27/18 08/28/18 Range/Units 11:35 17:03 00:57 Hgb (11.4-16.0) gm/dL Carbon Dioxide (22-30) mmol/L BUN (7-17) mg/dL Glucose (74-99) mg/dL POC Glucose (mg/dL) 113 H 119 H 131 H (75-99) mg/dL 08/28/18 08/28/18 08/28/18 Range/Units 04:25 04:25 06:00 Hgb 11.3 L (11.4-16.0) gm/dL Carbon Dioxide 35 H (22-30) mmol/L BUN 35 H (7-17) mg/dL Glucose 145 H (74-99) mg/dL POC Glucose (mg/dL) 139 H (75-99) mg/dL Assessment and Plan Assessment: -Acute non-STEMI, EF 20-25%, possibly Takotsubo Syndrome; S/P cardiac catheterization reporting intermediate to severe RCA occlusion 60-70%-repeat echo pending. -Acute COPD exacerbation in a patient with severe COPD -Respiratory arrest secondary to worsening COPD,hypoxia, hypercapnia requiring intubation -Acute on chronic hypoxic , hypercapnic, respiratory failure secondary to the above, mechanical ventilator-dependent. -Acute CHF exacerbation, systolic dysfunction, no interstitial edema per x-ray -Right lower lobe Pneumonia, suspect community-acquired, improving Plan: Continue on current medication regime , aspirin, statin, calcium channel batool, monitoring and symptomatic treatment. Repeat echo pending. As mentioned above, extubation pending. Follow closely with both cardiology and pulmonary. Further recommendations to follow. The impression and plan of care has been dictated as directed. : I performed a history and examination of this patient, discussed the same with the dictator. I agree with the dictator's note ,documented as a scribe. Any a dditional findings or plans will be noted.
[2018-08-28] MEDS: MONTELUKAST 10 MG TAB PO SCH (21:06)
[2018-08-28] MEDS: ASPIRIN 81 MG PO SCH (21:06)
[2018-08-28] MEDS: LURASIDONE 40 MG TAB PO SCH (21:06)
[2018-08-28] MEDS: LISINOPRIL 2.5 MG TAB PO SCH (21:06)
[2018-08-29] MEDS: GABAPENTIN 300 MG CAP PO SCH ×4 (00:56→20:47)
[2018-08-29] MEDS: INSULIN ASPART (NovoLOG) 100 UNIT/ML VIAL SQ SCH ×6 (01:14→20:49)
[2018-08-29] MEDS: methylPREDNISolone SOD SUCCI 125 MG/2 ML VIAL IV SCH ×3 (01:15→15:10)
[2018-08-29 01:16] LABS: Glucose,Whole Blood 111 mg/dL (75-99)
[2018-08-29] MEDS: IPRATROPIUM-ALBUTEROL 3 ML NEB INHALATION SCH ×4 (06:05→19:14)
[2018-08-29] MEDS: BUDESONIDE 0.5 MG/2 ML NEBU INHALATION SCH ×2 (06:05→19:14)
[2018-08-29 06:12] LABS: HCT 40.4 % (34.0-46.0); MCHC 32.3 g/dL (31.0-37.0); MCV 89.9 fL (80.0-100.0); Mean Platelet Volume 7.6; Platelet Count 246 k/uL (150-450); RBC 4.49 m/uL (3.80-5.40); RDW 13.6 % (11.5-15.5); WBC 11.6 k/uL (3.8-10.6)
[2018-08-29 06:19] LABS: African American GFR (CKD) >90 (>60 ml/min/1.73 sqM); Anion Gap 4 mmol/L; Blood Urea Nitrogen 28 mg/dL (7-17); Calcium 9.3 mg/dL (8.4-10.2); Carbon Dioxide 36 mmol/L (22-30); Chloride 100 mmol/L (98-107); Glucose 122 mg/dL (74-99); Potassium 4.3 mmol/L (3.5-5.1); Sodium 140 mmol/L (137-145)
--- NOTE | 2018-08-29 09:05 | XR ---
EXAMINATION TYPE: XR chest 1V portable DATE OF EXAM: 08/29/2018 COMPARISON: 08/28/2018 HISTORY: SOB TECHNIQUE: Single frontal view of the chest is obtained. FINDINGS: There is left lower lobe infiltrate. Hyperinflation suggests COPD and there is a coarsened interstitium. IMPRESSION: A left lower lobe infiltrates with COPD. Bronchovascular markings are more prominent on today's exam which could related to vascular crowding. Mild venous congestion superimposed not exclud ed.
[2018-08-29] MEDS: CARVEDILOL 3.125 MG TAB PO SCH ×2 (09:18→17:02)
[2018-08-29] MEDS: DIGOXIN 125 MCG TAB PO SCH (09:18)
[2018-08-29] MEDS: FUROSEMIDE 10 MG/ML 2 ML VIAL IV SCH ×2 (09:19→20:47)
[2018-08-29] MEDS: PANTOPRAZOLE 40 MG/10 ML VIAL IV SCH (09:19)
[2018-08-29] MEDS: SPIRONOLACTONE 25 MG TAB PO SCH (09:19)
[2018-08-29] MEDS: HEPARIN SODIUM,PORCINE 5,000 UNIT/ML 1 ML VIAL SQ SCH ×2 (09:19→20:48)
[2018-08-29] MEDS: TROSPIUM CHLORIDE 20 MG TABLET PO SCH ×2 (09:20→20:48)
[2018-08-29 12:35] LABS: Glucose,Whole Blood 111 mg/dL (75-99)
--- NOTE | 2018-08-29 13:37 | ECHOF ---
Referral Reason:elevated troponin MEASUREMENTS -------- HEIGHT: 157.5 cm WEIGHT: 49.0 kg BP: IVSd: 1.4 cm (0.6 - 1.1) LVIDd: 1.9 cm (3.9 - 5.3) LVPWd: 1.3 cm (0.6 - 1.1) IVSs: 1.1 cm LVIDs: 1.4 cm LVPWs: 1.4 cm Ao Diam: 2.8 cm (2.0 - 3.7) AV Cusp: 1.2 cm (1.5 - 2.6) LA Diam: 1.9 cm (2.7 - 3.8) MV EXCURSION: 13.970 mm (> 18.000) MV EF SLOPE: 47 mm/s (70 - 150) EPSS: 1.3 cm MV E Nolan: 0.59 m/s MV DecT: 306 ms MV A Nolan: 0.88 m/s MV E/A Ratio: 0.68 AR PHT: 113 ms RAP: 5.00 mmHg RVSP: 37.47 mmHg FINDINGS -------- Sinus rhythm. This was a technically adequate study. The left ventricular size is normal. There is moderate concentric left ventricular hypertrophy. O verall left ventricular systolic function is normal with, an EF between 55 - 60 %. The right ventricle is normal in size. The left atrial size is normal. The right atrial size is normal. Interatrial and interventricular septum intact. The aortic valve is trileaflet and appears structurally normal. Trace amount of aortic regurgitatio n. The mitral valve is normal. Mild mitral regurgitation is present. Moderate tricuspid regurgitation present. There is mild pulmonary hypertension. The right ventric ular systolic pressure, as measured by Doppler, is 37.47mmHg. There is no pulmonic regurgitation present. The aortic root size is normal. Normal inferior vena cava with normal inspiratory collapse consistent with estimated right atrial pre ssure of 5 mmHg. There is no pericardial effusion. CONCLUSIONS -------- 1. Sinus rhythm. 2. This was a technically adequate study. 3. The left ventricular size is normal. 4. There is moderate concentric left ventricular hypertrophy. 5. Overall left ventricular systolic function is normal with, an EF between 55 - 60 %. 6. The left atrial size is normal. 7. The aortic valve is trileaflet and appears structurally normal. 8. Trace amount of aortic regurgitation. 9. The mitral valve is normal. 10. Mild mitral regurgitation is present. 11. Moderate tricuspid regurgitation present. 12. There is mild pulmonary hypertension. 13. There is no pulmonic regurgitation present. 14. The aortic root size is normal. 15. Normal inferior vena cava with normal inspiratory collapse consistent with estimated right atrial pressure of 5 mmHg. 16. There is no pericardial effusion. LEAD EMBEDDED SOFTWARE ENGINEER: Tresa Suero RDCS
--- NOTE | 2018-08-29 14:25 | P.PN ---
Subjective Progress Note Date: 08/29/18 This is a 62-year-old female admitted with acute COPD exacerbation, worsening dyspnea ,failed outpatient treatment, hypoxic respiratory failure, requiring intubation, mechanical ventilation, acute non-STEMI and multiple other medical issues. Maintained on vent support with FiO2 decreased to 35%/+5 of PEEP. Spontaneous weaning trial attempted with diprovan weaned off and pressure support removed, unable to tolerate became tachycardic, tachypneic. Chest x-ray reporting no evidence of infiltrate, pleural effusion or pneumothorax, positive emphysema.Tracheostomy and PEG placement being discussed. Sinus rhythm, no arrhythmias. Echo reported severely impaired LV function, EF 20-25%, takotsubo syndrome, mild pulmonary hypertension. Scheduled for cardiac catheterization tomorrow. Maintained on nebulized bronchodilators, steroids, antibiotics. Blood sugars controlled. Afebrile, normal WBC, urine,sputum, blood cultures negative. 08/26/2018 maintained on calcium channel batool, aspirin, statin. Telemetry sinus rhythm. Maintain on mechanical ventilation, FiO2 35%/+5 of PEEP. ABGs noted. Continues on Diprovan, arousable, follows simple commands. Tube Feeds on hold- Cardiac catheterization scheduled for this afternoon.VSS. Chest x-ray reporting bilateral lower lobe infiltrate and small effusion, mild central venous congestion with underlying COPD. Afebrile, normal WBC. 08/27/2018 remains vent dependent, FiO2 35% +5 of PEEP.VSS. Cardiac catheterization this morning, pending.VSS. Chest x-ray reporting possible bilateral atelectasis, possible pneumonia. 08/28/2018 Underwent cardiac catheterization yesterday, reporting intermediate to severe disease involving mid right coronary artery 60-70%; recommending maximizing medical treatment. Tolerated procedure well. 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 Repeat echo ordered by cardiology. Chest x-ray nonacute. Past weaning trials, extubation pending. 08/29/2018 Echo performed this morning, results pending. Sitting up in chair, significant clinical improvement. Extubated yesterday. Maintaining O2 sats in the mid 90s on 2 L nasal cannula. Afebrile. Objective - Vital Signs Vital signs: Vital Signs Temp 98.2 F 08/29/18 04:00 Pulse 69 08/29/18 07:00 Resp 11 L 08/29/18 07:00 BP 124/78 08/29/18 07:00 Pulse Ox 94 L 08/29/18 07:00 Intake & Output 08/28/18 08/29/18 08/29/18 18:59 06:59 18:59 Intake Total 4748.907 1755 100 Output Total 2064 2024 50 Balance -465.919 -325 50 Weight 49.4 kg 49.3 kg Intake: IV 1100 1200 100 Sodium Chloride 0.9% 1, 1100 1200 100 000 ml @ 100 mls/hr IV . Q10H [facility] Rx#:[id number] Intake, IV Titration 99.081 Amount Propofol 1,000 mg In 99.081 Empty Bag 1 bag @ Titrate IV .Q0M [facility] Rx#: [id number] Oral 400 500 Output: Urine 2064 2024 50 Other: Voiding Method Indwelling Catheter Indwelling Catheter - Exam PHYSICAL EXAM: VITAL SIGNS: As above GENERAL: Sitting up in chair, no acute distress HEENT: Conjunctivae normal. eyes normal. Oral mucosa moist NECK: No JVD. No thyroid enlargement. No LNs CARDIOVASCULAR: S1, S2 regular. No murmur RESPIRATION: Breath sounds diminished in the bases. No rhonchi or crackles. Occasional scattered Fine bilateral expiratory wheezing. ABDOMEN: Soft, nontender . No guarding. no masses palpable.Bowel sounds heard. LEGS: No edema. no swelling. PSYCHIATRY/NERVOUS SYSTEM: alert and oriented X3, no focal deficits. Skin: no lesions, no rash - Labs CBC & Chem 7: 08/29/18 05:29 08/29/18 05:29 Labs: Abnormal Lab Results - Last 24 Hours (Table) 08/28/18 08/28/18 08/29/18 Range/Units 09:42 11:47 01:13 WBC (3.8-10.6) k/uL ABG pH 7.50 H (7.35-7.45) ABG pCO2 47 H (35-45) mmHg ABG HCO3 37 H (21-25) mmol/L ABG Total CO2 38 H (19-24) mmol/L Carbon Dioxide (22-30) mmol/L BUN (7-17) mg/dL Glucose (74-99) mg/dL POC Glucose (mg/dL) 110 H 111 H (75-99) mg/dL 08/29/18 08/29/18 Range/Units 05:29 05:29 WBC 11.6 H (3.8-10.6) k/uL ABG pH (7.35-7.45) ABG pCO2 (35-45) mmHg ABG HCO3 (21-25) mmol/L ABG Total CO2 (19-24) mmol/L Carbon Dioxide 36 H (22-30) mmol/L BUN 28 H (7-17) mg/dL Glucose 122 H (74-99) mg/dL POC Glucose (mg/dL) (75-99) mg/dL Assessment and Plan Assessment: -Acute non-STEMI, EF 20-25%, possibly Takotsubo Syndrome suspect viral induced as patient had been previously sick.; S/P cardiac catheterization reporting intermediate to severe RCA occlusion 60-70%-repeat echo pending. -Acute COPD exacerbation in a patient with severe COPD -Respiratory arrest secondary to worsening COPD,hypoxia, hypercapnia requiring intubation -Acute on chronic hypoxic , hypercapnic, respiratory failure secondary to the above, mechanical ventilator-dependent. -Acute CHF exacerbation, systolic dysfunction, no interstitial edema per x-ray -Right lower lobe Pneumonia, suspect community-acquired, improving Plan: Continue on current medication regime , aspirin, statin, calcium channel batool, monitoring and symptomatic treatment. PT/OT. Patient will require a rolling walker at discharge secondary to generalized weakness, gait dysfunction; home versus subacute rehab as per physical therapy evaluation. Discharge planning in progress potentially for this weekend, pending pulmonary and cardiology clearance. Further recommendations to follow. The impression and plan of care has been dictated as directed. : I performed a history and examination of this patient, discussed the same with the dictator. I agree with the dictator's note ,documented as a scribe. Any additional findings or plans will be noted.
--- NOTE | 2018-08-29 15:19 | P.PN ---
Subjective Progress Note Date: 08/29/18 This is a 62-year-old female was admitted to the hospital with respiratory failure secondary to COPD exacerbation and possible pneumonia. We are consulted because of abnormal troponin values which are consistent with non-ST elevation CT. This could be secondary to supply demand mismatch. Underlying ischemic heart disease cannot be completely excluded. Patient is still intubated but symptoms are being made to wean her off the respirator. Would waiting for the echocardiogram. Chest x-ray doesn't show any significant CHF. Continue current medical therapy. If echo Cardigan shows any segmental wall motion defects, patient may need are catheterization for definitive diagnosis. 08/23/2018: This 62-year-old female is admitted to the hospital with respiratory failure requiring intubation and respiratory support. Patient was extubated briefly but needed to be reintubated because of respiratory failure. Patient is related. 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 Underlying ischemic heart disease cannot be excluded. Discussed findings with the patient's . May consider cardiac catheterization for definitive diagnosis. Meanwhile we'll continue current medical therapy with Coreg, lisinopril, Lasix and Aldactone . 08/24/2018: Patient is still intubated and sedated. Running low blood pressu res. Heart rate is in 100s. I'm going to start her on Lanoxin 0.125 mg 2 today followed by 0.125 mg once daily from tomorrow. We'll repeat the echo Cardigan Saturday. Continue the rest of the medication. We'll discuss with Dr. Kilpatrick. May proceed with cardiac catheterization next week. Spoke with already 08/25/2018: This is 62-year-old female with history of severe COPD, was admitted with respiratory failure requiring intubation and mechanical support. Patient is still intubated. Her echo Cardigan showed severely impaired LV function, consistent with stress. Initial cardiac myopathy. Patient has been in sinus rhythm. Chest x-ray did not show any evidence of CHF. However because of abnormal enzymes and significant risk factors, a cardiac catheterization is recommended for further evaluation. I spoke to Dr. Peck and the procedure is being scheduled for tomorrow. We'll also communicate with Dr. Kilpatrick and may keep her intubated until cardiac catheterization tomorrow. Meanwhile we'll continue with current medical therapy. 08/28/2018: This patient is admitted to the hospital with the exacerbation of COPD and respiratory failure. She was also found to have severely impaired LV function consistent with apical ballooning syndrome. Patient had abnormal troponins. Patient had a cardiac catheterization yesterday. She was found to have mild to moderate disease in the mid RCA which he doesn't explain her presentation. 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 We'll continue current medical therapy. Attempts are being made to wean her off the respirator. We'll repeat the echocardiogram tomorrow. Continue current management. 08/29/2018: This patient is admitted with acute respiratory failure requiring mechanical support. Patient had picture of apical ballooning syndrome. Cardiac cath showed mild to moderate disease in the right coronary artery without any critical lesions. Repeat echo Cardigan showed improved LV function. I will discontinue Lanoxin and continue rest of the medications. The rest of the management as per Dr. Kilpatrick. We'll follow Objective - Vital Signs Vital signs: Vital Signs Temp 97.4 F L 08/29/18 12:00 Pulse 74 08/29/18 15:00 Resp 12 08/29/18 15:00 BP 141/83 08/29/18 14:00 Pulse Ox 93 L 08/29/18 15:00 Intake & Output 08/28/18 08/29/18 08/29/18 18:59 06:59 18:59 Intake Total 7732.305 7086 1120 Output Total 2064 2024 1065 Balance -465.919 -325 55 Weight 49.4 kg 49.3 kg Intake: IV 1100 1200 900 Sodium Chloride 0.9% 1, 1100 1200 900 000 ml @ 100 mls/hr IV . Q10H [facility] Rx#:[id number] Intake, IV Titration 99.081 Amount Propofol 1,000 mg In 99.081 Empty Bag 1 bag @ Titrate IV .Q0M [facility] Rx#: [id number] Oral 400 500 220 Output: Urine 2064 2024 106 Other: Voiding Method Indwelling Catheter Indwelling Catheter Indwelling Catheter - Exam GENERAL EXAM: Patient is extubated HEENT: Normocephalic. Normal reaction of pupils, equal size, normal range of extraocular motion. No erythema or exudates in the throat. NECK: No masses, no nuchal rigidity. CHEST: No chest wall deformity. LUNGS: Diminished air exchange HEART: S1 and S2 normal with no audible mumurs ABDOMEN: No hepatosplenomegaly, normal bowel sounds, no guarding or rigidity. SKIN: No rashes CENTRAL NERVOUS SYSTEM: No focal deficits. EXTREMITIES: No cyanosis, clubbing or edema. - Labs CBC & Chem 7: 08/29/18 05:29 08/29/18 05:29 Labs: Abnormal Lab Results - Last 24 Hours (Table) 08/29/18 08/29/18 08/29/18 Range/Units 01:13 05:29 05:29 WBC 11.6 H (3.8-10.6) k/uL Carbon Dioxide 36 H (22-30) mmol/L BUN 28 H (7-17) mg/dL Glucose 122 H (74-99) mg/dL POC Glucose (mg/dL) 111 H (75-99) mg/dL 08/29/18 Range/Units 12:32 WBC (3.8-10.6) k/uL Carbon Dioxide (22-30) mmol/L BUN (7-17) mg/dL Glucose (74-99) mg/dL POC Glucose (mg/dL) 111 H (75-99) mg/dL Assessment and Plan (1) Elevated troponin Current Visit: Yes Status: Acute Code(s): R74.8 - ABNORMAL LEVELS OF OTHER SERUM ENZYMES SNOMED Code(s): 473043929 (2) COPD exacerbation Current Visit: Yes Status: Acute Code(s): J44.1 - CHRONIC OBSTRUCTIVE PULMONARY DISEASE W (ACUTE) EXACERBATION SNOMED Code(s): 461418315 (3) Pneumonia Current Visit: Yes Status: Acute Code(s): J18.9 - PNEUMONIA, UNSPECIFIED ORGANISM SNOMED Code(s): 205758126 (4) Respiratory failure Current Visit: No Status: Acute Code(s): J96.90 - RESPIRATORY FAILURE, UNSP, UNSP W HYPOXIA OR HYPERCAPNIA SNOMED Code(s): 880410494 Plan: Patient is extubated. Maintaining sinus rhythm. Repeat echo showed improved LV function, which is actually normalized. I'm going to discontinue Lanoxin. Continue rest of the medications
--- NOTE | 2018-08-29 15:27 | P.PN ---
Subjective Progress Note Date: 08/29/18 Principal diagnosis: Acute hypoxic and hypercapnic respiratory failure, elevated troponin, bilateral pneumonia, COPD severe category, non-ST segment elevated [place] due to demand and rosales pply mismatch, leukocytosis, acute systolic heart failure, coronary artery disease 08/29/2018, patient seen eval reexamined during the rounds patient is doing well sitting upright on the chair she is on 2 L oxygen awake alert oriented 3 some cough and congestion is present but improved significantly patient has been getting breathing treatments labs reviewed x-ray reviewed her plan discussed wit h the primary team and nursing staff chest x-ray showed left lower lobe pneumonia, mild leukocytosis present in labs 08/28/2018, patient seen eval reexamined during the rounds patient has been weaned down from propofol currently she is down to 40 mics which have been discontinued she is arousable opens eyes follow simple commands but somewhat weak patient will plays on CPAP. 5 and pressure support of 15 and arterial blood gas will be obtained, no obvious cough is present labs reviewed radiogra phic studies reviewed mild prerenal azotemia is present which could be related to high dose IV steroids are mild dehydration, medications reviewed, chest x-ray from today reviewed there is improvement in pleural effusion is seen the cardio angle and costophrenic angles are much sharper, been setting remains on assist control 16, tidal volume is 4:30, PEEP of 5, a FiO2 is 35%, the peak airway pressure is 30-35 critical care time spent 35 minutes 08/27/2018, patient seen eval examined during the rounds she is sedated with propofol drip about 50 mics she is arousable intermittently does follow commands she underwent cardiac cath angiogram today mild disease in RCA about 70% was noted recommendation is maximal medical therapy, ejection fraction remains very poor 20-25%, labs reviewed medications reviewed arterial blood gases to hypercapnia, current vent setting includes assist control rate of 16 breathing about 16 tidal volume of 430, PEEP of 5, oxygen is 35% peak airway pressure R improved today about 30-35 him a chest x-ray performed today reveals some subtle subsegmental atelectasis of the right lower lobe Ammann patchy bilateral atelectatic changes are noted, care plan discussed with the staff patient will get CPAP and pressure support of 5 and 15 trial tomorrow with a gas 08/26/2018, patient seen and evaluated examined in the rounds she is sedated with propofol drip about 60 mics, she does wake up intermittently, to feed is going well currently is on hold due to anticipated angiogram, labs reviewed medications reviewed, patient remains on full ventilator support currently she is on the assist control of 16 breathing 16. Peak airway pressure is 40-44 tidal volume is 430 and PEEP of 5 FiO2 is 35 % she is saturating 95%, her chest x-ray from this morning suggestive of COPD-like changes with the hyperinflated lung small bilateral pleural effusion cannot be excluded, heart is small size labs reviewed ABG is pH is 7.46, pCO2 is 53, pO2 is 78 on 35% oxygen, CO2 is slightly elevated 37 BUN is 37, critical care time spent 35 minutes 08/24/2018, patient seen eval reexamined during the rounds, she is slightly awake but she is on propofol drip about 15 mics, she is comfortable she is breathing comfortably her ventilator setting has been stable radiographic studies and ABG have been reviewed labs reviewed patient is on tube feed tolerating very well, he is on assist control rate of 16 reading about 20 tidal volume of 500+5 of PEEP, arterial blood gases reviewed and they're stable chest x-ray reviewed there is stable, patient is gently being diuresed for the yisel estive heart failure and fluid overload 08/23/2018, patient seen eval reexamined during the rounds events from yesterday noted, patient posted with extubation did not do well after 10-12 hours of off of respirator require ventilatory support again she was extremely restless and agitated and tachypneic tachycardic not having a good air exchange was placed back on ventilator propofol is currently on 30 mics, she is on 16 of assist- control breathing about 20 tidal volume is 450, +5 PEEP, oxygen is 40% arterial blood gas from today's reviewed improvement in blood gases are noted with improvement in respiratory acidosis and metabolic acidosis, chest x-ray from today reviewed the infiltrate that was seen previously have resolved more appearance of the COPD, labs from today reviewed patient is up to 4.2 BUN/creatinine 30 and 0.7, care plan discussed with the staff at length will start the tube feed patient will be kept on respirator for another 48-72 hours, echocardiogram results revealed ejection fraction is about 20%, critical care time spent 35 minutes 08/22/2018, patient seen eval reexamined during the rounds she is the more awake propofol is being tapered down to 30 mics plan is to DC the propofol and put on CPAP and pressure support instructions were given patient is nothing by mouth currently chest x-ray reviewed, significant improvement in infiltrate are noted T-tube in stable condition finding on chest x-ray is hyperinflated lung consistent with severe COPD, critical care time 35 minutes 08/21/2018, patient seen and evaluated examined during the rounds she is on the 50 mics of propofol to feed his not initiated yet, patient is afebrile labs reviewed radiographic studies reviewed urine from yesterday reviewed and will titrate the propofol down x-ray showing bilateral pneumonia white cell count is up compared to yesterday arterial blood gas fairly normal, mild hyperkalemia is noted, 2 minute troponin continue to go up recommendation from cardiovascular services noted critical care time spent 35 minutes Patient was admitted into the hospital with acute COPD exacerbation, presents emergency department today for evaluation complaints of difficulty in breathing and cough for the past 3 days. Patient believes she is having a COPD ex acerbation and was calling her primary care doctor today for oral steroid prescription. She presented difficulty breathing became more severe. She called EMS this morning was given breathing treatments and states her symptoms have improved after this breathing treatment. She is maintained on nebulizers at home.. Patient states that she's had a slightly productive cough. Denies any specific fevers or chills. She denies any stationary chest pain at this time. In the emergency department patient having worsening of shortness of breath and wheezing and using necessary muscles consult was requested due to severe respiratory distress and altered mental status patient was intubated postintubation ABG revealed evidence of hypercapnia and respiratory acidosis with stable oxygenation some metabolic acidosis was noted likely related to poor perfusion, patient was seen evaluated examined in the ICU post-intubation Objective - Vital Signs Vital signs: Vital Signs Temp 97.4 F L 08/29/18 12:00 Pulse 74 08/29/18 15:00 Resp 12 08/29/18 15:00 BP 141/83 08/29/18 14:00 Pulse Ox 93 L 08/29/18 15:00 Intake & Output 08/28/18 08/29/18 08/29/18 18:59 06:59 18:59 Intake Total 0512.932 7675 1120 Output Total 2064 2024 1065 Balance -465.919 -325 55 Weight 49.4 kg 49.3 kg Intake: IV 1100 1200 900 Sodium Chloride 0.9% 1, 1100 1200 900 000 ml @ 100 mls/hr IV . Q10H [facility] Rx#:[id number] Intake, IV Titration 99.081 Amount Propofol 1,000 mg In 99.081 Empty Bag 1 bag @ Titrate IV .Q0M REPLACED BY [facility] Rx#: [id number] Oral 400 500 220 Output: Urine 2064 2024 1064 Other: Voiding Method Indwelling Catheter Indwelling Catheter Indwelling Catheter - Exam - Constitutional General appearance: average body habitus, disheveled, mild distress, thin, on on 2 L oxygen is spontaneously breathing- EENT Eyes: PERRLA, poor dentition ENT: normal oropharynx Ears: bilateral: normal - Neck Carotids: bilateral: upstroke normal, bruit absent Thyroid: bilateral: normal size - Respiratory Respiratory: bilateral: diminished, wheezing (Bilateral expiratory) - Cardiovascular Rhythm: regular Heart sounds: normal: S1, S2 - Gastrointestinal General gastrointestinal: decreased bowel sounds, scaphoid, soft - Integumentary Integumentary: decreased turgor - Neurologic Neurologic: Sedated with propofol - Musculoskeletal Musculoskeletal: Normal exam ol - Psychiatric Psychiatric: Alert and oriented 3 - Labs CBC & Chem 7: 08/29/18 05:29 08/29/18 05:29 Labs: Abnormal Lab Results - Last 24 Hours (Table) 08/29/18 08/29/18 08/29/18 Range/Units 01:13 05:29 05:29 WBC 11.6 H (3.8-10.6) k/uL Carbon Dioxide 36 H (22-30) mmol/L BUN 28 H (7-17) mg/dL Glucose 122 H (74-99) mg/dL POC Glucose (mg/dL) 111 H (75-99) mg/dL 08/29/18 Range/Units 12:32 WBC (3.8-10.6) k/uL Carbon Dioxide (22-30) mmol/L BUN (7-17) mg/dL Glucose (74-99) mg/dL POC Glucose (mg/dL) 111 H (75-99) mg/dL Assessment and Plan Assessment: Acute on chronic hypoxic and hypercapnic respiratory failure Left lower lobe pneumonia/atelectasis End-stage COPD Acute systolic heart failure ejection fraction of 20% Coronary artery disease, mild not requiring a stent RCA 70% Acute hypoxic and hypercapnic respiratory failure Status post respiratory arrest and intubation Demand supply mismatch non-ST segment elevated [place] COPD severe category with acute exacerbation Elevated troponin due to above Plan: Cardiac cath and angiogram results reviewed Continue 2 L oxygen Broad-spectrum antibiotic Breathing treatments IV steroids, we will start tapering it down DVT and peptic ulcers disease prophylaxis Echocardiogram results reviewed Further recommendations pending plan of care as per clinical response of the patient Consult cardiology for elevated troponin suspected to be demand supply mismatch non-ST segment elevated [place] Leukocytosis likely related to steroids, have normalized now Time with Patient: Greater than 30
[2018-08-29 16:48] LABS: Glucose,Whole Blood 101 mg/dL (75-99)
[2018-08-29 20:33] LABS: Glucose,Whole Blood 97 mg/dL (75-99)
[2018-08-29] MEDS: ASPIRIN 81 MG PO SCH (20:44)
[2018-08-29] MEDS: MONTELUKAST 10 MG TAB PO SCH (20:44)
[2018-08-29] MEDS: LISINOPRIL 5 MG TAB PO SCH (20:45)
[2018-08-29] MEDS: methylPREDNISolone SOD SUCCI 40 MG/ML 1 ML VIAL IV SCH (20:48)
[2018-08-29] MEDS: LURASIDONE 40 MG TAB PO SCH (20:49)
[2018-08-29] MEDS: SODIUM CHLORIDE 0.9% 1,000 ML IV SCH ×2 (20:57→20:59)
[2018-08-30] MEDS: NON-FORMULARY DRUG (Dextroamphetamine/Amphetamine [Adderall] 20 MG) PO SCH (01:26)
[2018-08-30] MEDS: SODIUM CHLORIDE 0.9% 1,000 ML IV SCH ×3 (04:27→15:53)
[2018-08-30] MEDS: INSULIN ASPART (NovoLOG) 100 UNIT/ML VIAL SQ SCH ×4 (06:23→20:34)
[2018-08-30] MEDS: CARVEDILOL 3.125 MG TAB PO SCH ×2 (06:23→18:14)
[2018-08-30 06:34] LABS: Glucose,Whole Blood 87 mg/dL (75-99)
[2018-08-30] MEDS: HEPARIN SODIUM,PORCINE 5,000 UNIT/ML 1 ML VIAL SQ SCH ×2 (08:12→20:31)
[2018-08-30] MEDS: FUROSEMIDE 10 MG/ML 2 ML VIAL IV SCH (08:12)
[2018-08-30] MEDS: methylPREDNISolone SOD SUCCI 40 MG/ML 1 ML VIAL IV SCH ×2 (08:12→20:30)
[2018-08-30] MEDS: GABAPENTIN 300 MG CAP PO SCH ×3 (08:12→21:37)
[2018-08-30] MEDS: PANTOPRAZOLE 40 MG/10 ML VIAL IV SCH (08:13)
[2018-08-30] MEDS: SPIRONOLACTONE 25 MG TAB PO SCH (08:13)
[2018-08-30] MEDS: TROSPIUM CHLORIDE 20 MG TABLET PO SCH ×2 (08:13→20:28)
[2018-08-30] MEDS: BUDESONIDE 0.5 MG/2 ML NEBU INHALATION SCH ×2 (09:19→19:21)
[2018-08-30] MEDS: IPRATROPIUM-ALBUTEROL 3 ML NEB INHALATION SCH ×4 (09:19→19:21)
--- NOTE | 2018-08-30 09:36 | PN ---
PROGRESS NOTE Mrs. Wei was admitted with pneumonia and respiratory failure. She presented with what seemed to be like a LV dysfunction, possibly a Takotsubo type picture. However, repeat echo from yesterday reveals that her LV function has normalized. She is clinically doing very well at this time. Her breathing is easier. She is resting comfortably without symptoms. The patient's vital signs are normal. She is breathing very well. Echo shows remarkable improvement. Blood pressure is 130/70, pulse rate is 70 per minute, sinus. There is no JVD of significance. S1, S2 heard normally. No significant murmurs. Lungs reveal fair air entry. No significant rhonchi. Abdomen is soft, nontender. Lower extremities reveal diminished pulses. Central nervous system is normal. IMPRESSION: 1. Cardiac cath revealed no significant obstructive coronary artery disease. There is a moderate RCA lesion. 2. Patient had a takotsubo type picture, but she has improved remarkably and her LV function has normalized. 3. Patient is on beta blockers and lisinopril. RECOMMENDATIONS: I would recommend that we continue current medical therapy. Increase activity and moderate RCA disease does not require intervention at this time. She can see Dr. Lugo upon discharge in 2 weeks. Her groin is clean and dry with a good pulse. MMODL / IJN: [id number] /
[2018-08-30 11:59] LABS: Glucose,Whole Blood 99 mg/dL (75-99)
--- NOTE | 2018-08-30 12:24 | P.PN ---
Subjective Progress Note Date: 08/30/18 Principal diagnosis: Acute hypoxic and hypercapnic respiratory failure, elevated troponin, bilateral pneumonia, COPD severe category, non-ST segment elevated ND due to demand and rosales pply mismatch, leukocytosis, acute systolic heart failure, coronary artery disease August 30 2018, patient seen and evaluated examined during the rounds, on 2 L oxygen sitting upright denies any chest pain or shortness of breath, some hoarseness is present due to endotracheal tube presence she is been followed over PTOT plans are being made for PT OT at home, labs reviewed medications reviewed plan of care discussed with the nursing staff, Watkins catheter can be discontinued 08/29/2018, patient seen eval reexamined during the rounds patient is doing well sitting upright on the chair she is on 2 L oxygen awake alert oriented 3 some cough and congestion is present but improved significantly patient has been getting breathing treatments labs reviewed x-ray reviewed her plan discussed with the primary team and nursing staff chest x-ray showed left lower lobe pneumonia, mild leukocytosis present in labs 08/28/2018, patient seen eval reexamined during the rounds patient has been weaned down from propofol currently she is down to 40 mics which have been discontinued she is arousable opens eyes follow simple commands but somewhat weak patient will plays on CPAP. 5 and pressure support of 15 and arterial blood gas will be obtained, no obvious cough is present labs reviewed radiographic studies reviewed mild prerenal azotemia is present which could be related to high dose IV steroids are mild dehydration, medications reviewed, chest x-ray from today reviewed there is improvement in pleural effusion is seen the cardio angle and costophrenic angles are much sharper, been setting remains on assist control 16, tidal volume is 4:30, PEEP of 5, a FiO2 is 35%, the peak airway pressure is 30-35 critical care time spent 35 minutes 08/27/2018, patient seen eval examined during the rounds she is sedated with propofol drip about 50 mics she is arousable intermittently does follow commands she underwent cardiac cath angiogram today mild disease in RCA about 70% was noted recommendation is maximal medical therapy, ejection fraction remains very poor 20-25%, labs reviewed medications reviewed arterial blood gases to hypercapnia, current vent setting includes assist control rate of 16 breathing about 16 tidal volume of 430, PEEP of 5, oxygen is 35% peak airway pressure R improved today about 30-35 him a chest x-ray performed today reveals some subtle subsegmental atelectasis of the right lower lobe Ammann patchy bilateral atelectatic changes are noted, care plan discussed with the staff patient will get CPAP and pressure support of 5 and 15 trial tomorrow with a gas 08/26/2018, patient seen and evaluated examined in the rounds she is sedated with propofol drip about 60 mics, she does wake up intermittently, to feed is going well currently is on hold due to anticipated angiogram, labs reviewed medications reviewed, patient remains on full ventilator support currently she is on the assist control of 16 breathing 16. Peak airway pressure is 40-44 tidal volume is 430 and PEEP of 5 FiO2 is 35 % she is saturating 95%, her chest x-ray from this morning suggestive of COPD-like changes with the hyperinflated lung small bilateral pleural effusion cannot be excluded, heart is small size labs reviewed ABG is pH is 7.46, pCO2 is 53, pO2 is 78 on 35% oxygen, CO2 is slightly elevated 37 BUN is 37, critical care time spent 35 minutes 08/24/2018, patient seen eval reexamined during the rounds, she is slightly awake but she is on propofol drip about 15 mics, she is comfortable she is breathing comfortably her ventilator setting has been stable radiographic studies and ABG have been reviewed labs reviewed patient is on tube feed tolerating very well, he is on assist control rate of 16 reading about 20 tidal volume of 500+5 of PEEP, arterial blood gases reviewed and they're stable chest x-ray reviewed there is stable, patient is gently being diuresed for the congest gabriela heart failure and fluid overload 08/23/2018, patient seen eval reexamined during the rounds events from yesterday noted, patient posted with extubation did not do well after 10-12 hours of off of respirator require ventilatory support again she was extremely restless and agitated and tachypneic tachycardic not having a good air exchange was placed back on ventilator propofol is currently on 30 mics, she is on 16 of assist- control breathing about 20 tidal volume is 450, +5 PEEP, oxygen is 40% arterial blood gas from today's reviewed improvement in blood gases are noted with improvement in respiratory acidosis and metabolic acidosis, chest x-ray from today reviewed the infiltrate that was seen previously have resolved more appearance of the COPD, labs from today reviewed patient is up to 4.2 BUN/creatinine 30 and 0.7, care plan discussed with the staff at length will start the tube feed patient will be kept on respirator for another 48-72 hours, echocardiogram results revealed ejection fraction is about 20%, critical care time spent 35 minutes 08/22/2018, patient seen eval reexamined during the rounds she is the more awake propofol is being tapered down to 30 mics plan is to DC the propofol and put on CPAP and pressure support instructions were given patient is nothing by mouth currently chest x-ray reviewed, significant improvement in infiltrate are noted T-tube in stable condition finding on chest x-ray is hyperinflated lung consistent with severe COPD, critical care time 35 minutes 08/21/2018, patient seen and evaluated examined during the rounds she is on the 50 mics of propofol to feed his not initiated yet, patient is afebrile labs reviewed radiographic studies reviewed urine from yesterday reviewed and will titrate the propofol down x-ray showing bilateral pneumonia white cell count is up compared to yesterday arterial blood gas fairly normal, mild hyperkalemia is noted, 2 minute troponin continue to go up recommendation from cardiovascular services noted critical care time spent 35 minutes Patient was admitted into the hospital with acute COPD exacerbation, presents emergency department today for evaluation complaints of difficulty in breathing and cough for the past 3 days. Patient believes she is having a COPD exace rbation and was calling her primary care doctor today for oral steroid prescription. She presented difficulty breathing became more severe. She called EMS this morning was given breathing treatments and states her symptoms have improved after this breathing treatment. She is maintained on nebulizers at home.. Patient states that she's had a slightly productive cough. Denies any specific fevers or chills. She denies any stationary chest pain at this time. In the emergency department patient having worsening of shortness of breath and wheezing and using necessary muscles consult was requested due to severe respiratory distress and altered mental status patient was intubated postintubation ABG revealed evidence of hypercapnia and respiratory acidosis with stable oxygenation some metabolic acidosis was noted likely related to poor perfusion, patient was seen evaluated examined in the ICU post-intubation Objective - Vital Signs Vital signs: Vital Signs Temp 97.9 F 08/30/18 08:00 Pulse 79 08/30/18 12:21 Resp 16 08/30/18 08:00 BP 133/98 08/30/18 08:00 Pulse Ox 95 08/30/18 08:00 Intake & Output 08/29/18 08/30/18 08/30/18 18:59 06:59 18:59 Intake Total 1520 1240 1020 Output Total 1350 2775 1850 Balance 170 -1535 -830 Weight 49 kg Intake: IV 1300 1240 620 Invasive Line 4 30 Invasive Line 6 10 20 Sodium Chloride 0.9% 1, 1300 1200 600 000 ml @ 100 mls/hr IV . Q10H OSBALDO Rx#:[id number] Oral 220 400 Output: Urine 1350 2775 1850 Uretheral (Watkins) 1900 Other: Voiding Method Indwelling Catheter Indwelling Catheter Indwelling Catheter # Voids 1 - Exam - Constitutional General appearance: average body habitus, disheveled, mild distress, thin, on on 2 L oxygen is spontaneously breathing- EENT Eyes: PERRLA, poor dentition ENT: normal oropharynx Ears: bilateral: normal - Neck Carotids: bilateral: upstroke normal, bruit absent Thyroid: bilateral: normal size - Respiratory Respiratory: bilateral: diminished, wheezing (Bilateral expiratory) - Cardiovascular Rhythm: regular Heart sounds: normal: S1, S2 - Gastrointestinal General gastrointestinal: decreased bowel sounds, scaphoid, soft - Integumentary Integumentary: decreased turgor - Neurologic Neurologic: Sedated with propofol - Musculoskeletal Musculoskeletal: Normal exam ol - Psychiatric Psychiatric: Alert and oriented 3 - Labs CBC & Chem 7: 08/29/18 05:29 08/29/18 05:29 Labs: Abnormal Lab Results - Last 24 Hours (Table) 08/29/18 08/29/18 Range/Units 12:32 16:46 POC Glucose (mg/dL) 111 H 101 H (75-99) mg/dL Assessment and Plan Assessment: Acute on chronic hypoxic and hypercapnic respiratory failure Left lower lobe pneumonia/atelectasis End-stage COPD Acute systolic heart failure ejection fraction of 20% Coronary artery disease, mild not requiring a stent RCA 70% Acute hypoxic and hypercapnic respiratory failure Status post respiratory arrest and intubation Demand supply mismatch non-ST segment elevated ND COPD severe category with acute exacerbation Elevated troponin due to above Plan: Increase activity as tolerated DC Watkins's catheter Can be moved to a [employer] with remote telemetry Cardiac cath and angiogram results reviewed Continue 2 L oxygen Broad-spectrum antibiotic Breathing treatments IV steroids, we will start tapering it down DVT and peptic ulcers disease prophylaxis Echocardiogram results reviewed Further recommendations pending plan of care as per clinical response of the patient Consult cardiology for elevated troponin suspected to be demand supply mismatch non-ST segment elevated ND Leukocytosis likely related to steroids, have normalized now Time with Patient: Greater than 30
[2018-08-30 17:02] LABS: Glucose,Whole Blood 92 mg/dL (75-99)
[2018-08-30] MEDS: ASPIRIN 81 MG PO SCH (20:29)
[2018-08-30] MEDS: MONTELUKAST 10 MG TAB PO SCH (20:30)
[2018-08-30] MEDS: SODIUM CHLORIDE 0.9% 500 ML 500 ML IV SCH (20:38)
[2018-08-30 20:52] LABS: Glucose,Whole Blood 96 mg/dL (75-99)
[2018-08-30] MEDS: LISINOPRIL 5 MG TAB PO SCH (21:37)
--- NOTE | 2018-08-31 00:27 | PN ---
PROGRESS NOTE 62-year-old white female in ICU. She is being weaned down on her oxygen from 4 L to 2 L. Her echocardiogram shows ejection fraction back into the normal range from 20-25 percent to over 55%. She is breathing better. She is improving from medical standpoint. Vital signs reviewed. ICU notes reviewed. Consults reviewed lungs are decreased breath sounds. CARDIOVASCULAR: S1, S2. Abdomen is soft. ASSESSMENT: 1. Pneumonia. 2. Chronic obstructive pulmonary disease. 3. Takotsubo syndrome. 4. Coronary artery disease. Continue current cardiac medications as she has 50-70 percent blockage in the RCA. Continue to wean oxygen at home a couple days when her breathing improves. MMODL / IJN: [id number] /
[2018-08-31] MEDS: IPRATROPIUM-ALBUTEROL 3 ML NEB INHALATION SCH ×4 (06:44→20:10)
[2018-08-31] MEDS: BUDESONIDE 0.5 MG/2 ML NEBU INHALATION SCH ×2 (06:44→20:10)
[2018-08-31 06:46] LABS: Glucose,Whole Blood 90 mg/dL (75-99)
[2018-08-31] MEDS: INSULIN ASPART (NovoLOG) 100 UNIT/ML VIAL SQ SCH ×4 (07:34→21:14)
[2018-08-31] MEDS: GABAPENTIN 300 MG CAP PO SCH ×3 (09:31→20:59)
[2018-08-31] MEDS: FUROSEMIDE 40 MG TAB PO SCH (09:31)
[2018-08-31] MEDS: TROSPIUM CHLORIDE 20 MG TABLET PO SCH ×2 (09:31→21:06)
[2018-08-31] MEDS: HEPARIN SODIUM,PORCINE 5,000 UNIT/ML 1 ML VIAL SQ SCH ×2 (09:31→20:59)
[2018-08-31] MEDS: SPIRONOLACTONE 25 MG TAB PO SCH (09:31)
[2018-08-31] MEDS: methylPREDNISolone SOD SUCCI 40 MG/ML 1 ML VIAL IV SCH ×2 (09:31→20:59)
[2018-08-31] MEDS: PANTOPRAZOLE 40 MG TABLET PO SCH (09:31)
[2018-08-31] MEDS: CARVEDILOL 3.125 MG TAB PO SCH ×2 (09:31→16:47)
[2018-08-31 12:13] LABS: Glucose,Whole Blood 93 mg/dL (75-99)
[2018-08-31 13:43] VITALS: BMI 19.8
[2018-08-31 17:05] LABS: Glucose,Whole Blood 131 mg/dL (75-99)
[2018-08-31 20:00] LABS: Glucose,Whole Blood 108 mg/dL (75-99)
[2018-08-31] MEDS: LISINOPRIL 5 MG TAB PO SCH (20:59)
[2018-08-31] MEDS: MONTELUKAST 10 MG TAB PO SCH (20:59)
[2018-08-31] MEDS: ASPIRIN 81 MG PO SCH (20:59)
--- NOTE | 2018-08-31 21:42 | PN ---
PROGRESS NOTE DATE OF SERVICE: 08/31/2018. She has been hemodynamically stable and was in the ICU with plans of transfer out later today. On physical examination, respiratory rate is 12, pulse rate of 72, temperature 98.2, O2 saturation on room air is 93%. She does become tachypneic on exertion and somewhat diaphoretic as well. HEENT reveals pupils equal. Chest with decreased breath sounds. No clear wheeze. There is prolonged exhalation. CARDIOVASCULAR system reveals an S1, S2. Abdomen is soft. There is no edema. IMPRESSION: At this time: 1. Pneumonia. 2. Takotsubo syndrome with congestive heart failure. 3. Coronary artery disease. 4. Chronic obstructive pulmonary disease. Continue supplemental oxygen, montelukast, Mucinex DM. Adderall, budesonide, bronchodilators, and Tudorza. Continue oral steroids. We will start to taper. MMODL / IJN: [id number] /
[2018-08-31] MEDS: SODIUM CHLORIDE 0.9% 500 ML 500 ML IV SCH (21:49)
[2018-08-31] MEDS: LURASIDONE 40 MG TAB PO SCH (21:55)
[2018-09-01 06:54] LABS: Glucose,Whole Blood 94 mg/dL (75-99)
[2018-09-01] MEDS: INSULIN ASPART (NovoLOG) 100 UNIT/ML VIAL SQ SCH ×2 (07:14→12:26)
[2018-09-01] MEDS: IPRATROPIUM-ALBUTEROL 3 ML NEB INHALATION SCH ×3 (08:43→15:55)
[2018-09-01] MEDS: BUDESONIDE 0.5 MG/2 ML NEBU INHALATION SCH (08:43)
[2018-09-01] MEDS: GABAPENTIN 300 MG CAP PO SCH ×2 (08:55→15:19)
[2018-09-01] MEDS: methylPREDNISolone SOD SUCCI 40 MG/ML 1 ML VIAL IV SCH (08:55)
[2018-09-01] MEDS: PANTOPRAZOLE 40 MG TABLET PO SCH (08:55)
[2018-09-01] MEDS: HEPARIN SODIUM,PORCINE 5,000 UNIT/ML 1 ML VIAL SQ SCH (08:56)
[2018-09-01] MEDS: TROSPIUM CHLORIDE 20 MG TABLET PO SCH (09:06)
[2018-09-01 11:42] LABS: Glucose,Whole Blood 125 mg/dL (75-99)
[2018-09-01 12:06] VITALS: PULSE 86
[2018-09-01 12:30] VITALS: BP 112/76; RESP 18; TEMP 97.9
[2018-09-01] MEDS: SPIRONOLACTONE 25 MG TAB PO SCH (12:36)
[2018-09-01] MEDS: FUROSEMIDE 40 MG TAB PO SCH (12:36)
[2018-09-01] MEDS: CARVEDILOL 3.125 MG TAB PO SCH (12:36)
--- NOTE | 2018-09-01 14:22 | P.PN ---
Subjective Progress Note Date: 08/31/18 Principal diagnosis: Acute hypoxic and hypercapnic respiratory failure, elevated troponin, bilateral pneumonia, COPD severe category, non-ST segment elevated ME due to demand and rosales pply mismatch, leukocytosis, acute systolic heart failure, coronary artery disease 08/31/18 vision seen and evaluated examined during rounds cuff shortness of breath and difficulty in breathing has improved, patient is being ambulated labs reviewed medications reviewed she is not using oxygen most of time, her room air oxygen saturation is 96% August 30 2018, patient seen and evaluated examined during the rounds, on 2 L oxygen sitting upright denies any chest pain or shortness of breath, some h oarseness is present due to endotracheal tube presence she is been followed over PTOT plans are being made for PT OT at home, labs reviewed medications reviewed plan of care discussed with the nursing staff, Watkins catheter can be discontinued 08/29/2018, patient seen eval reexamined during the rounds patient is doing well sitting upright on the chair she is on 2 L oxygen awake alert oriented 3 some cough and congestion is present but improved significantly patient has been getting breathing treatments labs reviewed x-ray reviewed her plan discussed with the primary team and nursing staff chest x-ray showed left lower lobe pneumonia, mild leukocytosis present in labs 08/28/2018, patient seen eval reexamined during the rounds patient has been weaned down from propofol currently she is down to 40 mics which have been discontinued she is arousable opens eyes follow simple commands but somewhat weak patient will plays on CPAP. 5 and pressure support of 15 and arterial blood gas will be obtained, no obvious cough is present labs reviewed radiographic studies reviewed mild prerenal azotemia is present which could be related to high dose IV steroids are mild dehydration, medications reviewed, chest x-ray from today reviewed there is improvement in pleural effusion is seen the cardio angle and costophrenic angles are much sharper, been setting remains on assist control 16, tidal volume is 4:30, PEEP of 5, a FiO2 is 35%, the peak airway pressure is 30-35 critical care time spent 35 minutes 08/27/2018, patient seen eval examined during the rounds she is sedated with propofol drip about 50 mics she is arousable intermittently does follow commands she underwent cardiac cath angiogram today mild disease in RCA about 70% was noted recommendation is maximal medical therapy, ejection fraction remains very poor 20-25%, labs reviewed medications reviewed arterial blood gases to hyp ercapnia, current vent setting includes assist control rate of 16 breathing about 16 tidal volume of 430, PEEP of 5, oxygen is 35% peak airway pressure R improved today about 30-35 him a chest x-ray performed today reveals some subtle subsegmental atelectasis of the right lower lobe Ammann patchy bilateral atelectatic changes are noted, care plan discussed with the staff patient will get CPAP and pressure support of 5 and 15 trial tomorrow with a gas 08/26/2018, patient seen and evaluated examined in the rounds she is sedated with propofol drip about 60 mics, she does wake up intermittently, to feed is going well currently is on hold due to anticipated angiogram, labs reviewed medications reviewed, patient remains on full ventilator support currently she is on the assist control of 16 breathing 16. Peak airway pressure is 40-44 tidal volume is 430 and PEEP of 5 FiO2 is 35 % she is saturating 95%, her chest x-ray from this morning suggestive of COPD-like changes with the hyperinflated lung small bilateral pleural effusion cannot be excluded, heart is small size labs reviewed ABG is pH is 7.46, pCO2 is 53, pO2 is 78 on 35% oxygen, CO2 is slightly elevated 37 BUN is 37, critical care time spent 35 minutes 08/24/2018, patient seen eval reexamined during the rounds, she is slightly awake but she is on propofol drip about 15 mics, she is comfortable she is breathing comfortably her ventilator setting has been stable radiographic studies and ABG have been reviewed labs reviewed patient is on tube feed tolerating very well, he is on assist control rate of 16 reading about 20 tidal volume of 500+5 of PEEP, arterial blood gases reviewed and they're stable chest x-ray reviewed there is stable, patient is gently being diuresed for the congestive heart failure and fluid overload 08/23/2018, patient seen eval reexamined during the rounds events from yesterday noted, patient posted with extubation did not do well after 10-12 hours of off of respirator require ventilatory support again she was extremely restless and agitated and tachypneic tachycardic not having a good air exchange was placed back on ventilator propofol is currently on 30 mics, she is on 16 of assist-control breathing about 20 tidal volume is 450, +5 PEEP, oxygen is 40% arterial blood gas from today's reviewed improvement in blood gases are noted with improvement in respiratory acidosis and metabolic acidosis, chest x-ray from today reviewed the infiltrate that was seen previously have resolved more a ppearance of the COPD, labs from today reviewed patient is up to 4.2 BUN/creatinine 30 and 0.7, care plan discussed with the staff at length will start the tube feed patient will be kept on respirator for another 48-72 hours, echocardiogram results revealed ejection fraction is about 20%, critical care time spent 35 minutes 08/22/2018, patient seen eval reexamined during the rounds she is the more awake propofol is being tapered down to 30 mics plan is to DC the propofol and put on CPAP and pressure support instructions were given patient is nothing by mouth currently chest x-ray reviewed, significant improvement in infiltrate are noted T-tube in stable condition finding on chest x-ray is hyperinflated lung consistent with severe COPD, critical care time 35 minutes 08/21/2018, patient seen and evaluated examined during the rounds she is on the 50 mics of propofol to feed his not initiated yet, patient is afebrile labs reviewed radiographic studies reviewed urine from yesterday reviewed and will titrate the propofol down x-ray showing bilateral pneumonia white cell count is up compared to yesterday arterial blood gas fairly normal, mild hyperkalemia is noted, 2 minute troponin continue to go up recommendation from cardiovascular services noted critical care time spent 35 minutes Patient was admitted into the hospital with acute COPD exacerbation, presents emergency department today for evaluation complaints of difficulty in breathing and cough for the past 3 days. Patient believes she is having a COPD exacerbation and was calling her primary care doctor today for oral steroid prescription. She presented difficulty breathing became more severe. She called EMS this morning was given breathing treatments and states her symptoms have improved after this breathing treatment. She is maintained on nebulizers at home.. Patient states that she's had a slightly productive cough. Denies any specific fevers or chills. She denies any stationary chest pain at this time. In the emergency department patient having worsening of shortness of br eath and wheezing and using necessary muscles consult was requested due to severe respiratory distress and altered mental status patient was intubated postintubation ABG revealed evidence of hypercapnia and respiratory acidosis with stable oxygenation some metabolic acidosis was noted likely related to poor perfusion, patient was seen evaluated examined in the ICU post-intubation Objective - Vital Signs Vital signs: Vital Signs Temp 98.3 F 08/31/18 22:04 Pulse 89 08/31/18 22:04 Resp 16 08/31/18 22:04 BP 103/69 08/31/18 22:04 Pulse Ox 94 L 08/31/18 22:04 Intake & Output 08/31/18 08/31/18 09/01/18 06:59 18:59 06:59 Intake Total 1160 2440 240 Output Total 0 0 Balance 1160 2440 240 Weight 49 kg Intake: IV 560 160 Sodium Chloride 0.9% 1, 560 160 000 ml @ 100 mls/hr IV . Q10H OSBALDO Rx#:[id number] Intake, IV Titration 120 Amount Sodium Chloride 0.9% 500 120 ml 500 ml @ 20 mls/hr IV .Q24H OSBALDO Rx#:[id number] Oral 600 2160 240 Output: Urine 0 0 Other: Voiding Method Indwelling Catheter Toilet # Voids 0 3 1 - Exam - Constitutional General appearance: average body habitus, disheveled, mild distress, thin, on on 2 L oxygen is spontaneously breathing- EENT Eyes: PERRLA, poor dentition ENT: normal oropharynx Ears: bilateral: normal - Neck Carotids: bilateral: upstroke normal, bruit absent Thyroid: bilateral: normal size - Respiratory Respiratory: bilateral: diminished, wheezing (Bilateral expiratory), significantly improved compared to yesterday exam - Cardiovascular Rhythm: regular Heart sounds: normal: S1, S2 - Gastrointestinal General gastrointestinal: decreased bowel sounds, scaphoid, soft - Integumentary Integumentary: decreased turgor - Neurologic Neurologic: Sedated with propofol - Musculoskeletal Musculoskeletal: Normal exam ol - Psychiatric Psychiatric: Alert and oriented 3 - Labs CBC & Chem 7: 08/29/18 05:29 08/29/18 05:29 Labs: Abnormal Lab Results - Last 24 Hours (Table) 08/31/18 08/31/18 Range/Units 17:03 19:59 POC Glucose (mg/dL) 131 H 108 H (75-99) mg/dL Assessment and Plan Assessment: Acute on chronic hypoxic and hypercapnic respiratory failure Left lower lobe pneumonia/atelectasis End-stage COPD Acute systolic heart failure ejection fraction of 20%, repeat echo however revealed improved and normal ejection fraction of 55% Coronary artery disease, mild not requiring a stent RCA 70% Acute hypoxic and hypercapnic respiratory failure Status post respiratory arrest and intubation Demand supply mismatch non-ST segment elevated ME COPD severe category with acute exacerbation Elevated troponin due to above Plan: Increase activity as tolerated Broad-spectrum antibiotic Breathing treatments IV steroids, we will start tapering it down, change it to by mouth DVT and peptic ulcers disease prophylaxis Echocardiogram results reviewed, repeat results reviewed as well Further recommendations pending plan of care as per clinical response of the patient Leukocytosis likely related to steroids, have normalized now Time with Patient: Greater than 30
--- NOTE | 2018-09-01 14:24 | P.PN ---
Subjective Progress Note Date: 09/01/18 Principal diagnosis: Acute hypoxic and hypercapnic respiratory failure, elevated troponin, bilateral pneumonia, COPD severe category, non-ST segment elevated [place] due to demand and rosales pply mismatch, leukocytosis, acute systolic heart failure, coronary artery disease 09/01/2018, patient seen eval examined during the rounds her cough congestion and symptoms of shortness breath is improved she is sitting upright in the bed able to ambulate in the hallway oxygen saturation on ambulation remains stable patient was not requiring oxygen during activity and exertion however she does h ave oxygen at home which she uses sometimes at night, labs reviewed medications reviewed chain Solu-Medrol to oral prednisone at the time of discharge and to DC it in next 5-7 days 08/31/18 vision seen and evaluated examined during rounds cuff shortness of breath and difficulty in breathing has improved, patient is being ambulated labs reviewed medications reviewed she is not using oxygen most of time, her room air oxygen saturation is 96% August 30 2018, patient seen and evaluated examined during the rounds, on 2 L oxygen sitting upright denies any chest pain or shortness of breath, some mane rseness is present due to endotracheal tube presence she is been followed over PTOT plans are being made for PT OT at home, labs reviewed medications reviewed plan of care discussed with the nursing staff, [place] catheter can be discontinued 08/29/2018, patient seen eval reexamined during the rounds patient is doing well sitting upright on the chair she is on 2 L oxygen awake alert oriented 3 some cough and congestion is present but improved significantly patient has been getting breathing treatments labs reviewed x-ray reviewed her plan discussed with the primary team and nursing staff chest x-ray showed left lower lobe pneumonia, mild leukocytosis present in labs 08/28/2018, patient seen eval reexamined during the rounds patient has been weaned down from propofol currently she is down to 40 mics which have been discontinued she is arousable opens eyes follow simple commands but somewhat weak patient will plays on CPAP. 5 and pressure support of 15 and arterial blood gas will be obtained, no obvious cough is present labs reviewed radiographic studies reviewed mild prerenal azotemia is present which could be related to high dose IV steroids are mild dehydration, medications reviewed, chest x-ray from today reviewed there is improvement in pleural effusion is seen the cardio angle and costophrenic angles are much sharper, been setting remains on assist control 16, tidal volume is 4:30, PEEP of 5, a FiO2 is 35%, the peak airway pressure is 30-35 critical care time spent 35 minutes 08/27/2018, patient seen eval examined during the rounds she is sedated with propofol drip about 50 mics she is arousable intermittently does follow commands she underwent cardiac cath angiogram today mild disease in RCA about 70% was noted recommendation is maximal medical therapy, ejection fraction remains very poor 20-25%, labs reviewed medications reviewed arterial blood gases to hyper capnia, current vent setting includes assist control rate of 16 breathing about 16 tidal volume of 430, PEEP of 5, oxygen is 35% peak airway pressure R improved today about 30-35 him a chest x-ray performed today reveals some subtle subsegmental atelectasis of the right lower lobe Ammann patchy bilateral atelectatic changes are noted, care plan discussed with the staff patient will get CPAP and pressure support of 5 and 15 trial tomorrow with a gas 08/26/2018, patient seen and evaluated examined in the rounds she is sedated with propofol drip about 60 mics, she does wake up intermittently, to feed is going well currently is on hold due to anticipated angiogram, labs reviewed medications reviewed, patient remains on full ventilator support currently she is on the assist control of 16 breathing 16. Peak airway pressure is 40-44 tidal volume is 430 and PEEP of 5 FiO2 is 35 % she is saturating 95%, her chest x-ray from this morning suggestive of COPD-like changes with the hyperinflated l marely small bilateral pleural effusion cannot be excluded, heart is small size labs reviewed ABG is pH is 7.46, pCO2 is 53, pO2 is 78 on 35% oxygen, CO2 is slightly elevated 37 BUN is 37, critical care time spent 35 minutes 08/24/2018, patient seen eval reexamined during the rounds, she is slightly a wake but she is on propofol drip about 15 mics, she is comfortable she is breathing comfortably her ventilator setting has been stable radiographic studies and ABG have been reviewed labs reviewed patient is on tube feed tolerating very well, he is on assist control rate of 16 reading about 20 tidal volume of 500+5 of PEEP, arterial blood gases reviewed and they're stable chest x-ray reviewed there is stable, patient is gently being diuresed for the congestive heart failure and fluid overload 08/23/2018, patient seen eval reexamined during the rounds events from yesterday noted, patient posted with extubation did not do well after 10-12 hours of off of respirator require ventilatory support again she was extremely restless and agitated and tachypneic tachycardic not having a good air exchange was placed back on ventilator propofol is currently on 30 mics, she is on 16 of assist- control breathing about 20 tidal volume is 450, +5 PEEP, oxygen is 40% arterial blood gas from today's reviewed improvement in blood gases are noted with improvement in respiratory acidosis and metabolic acidosis, chest x-ray from today reviewed the infiltrate that was seen previously have resolved more caden earance of the COPD, labs from today reviewed patient is up to 4.2 BUN/creatinine 30 and 0.7, care plan discussed with the staff at length will start the tube feed patient will be kept on respirator for another 48-72 hours, echocardiogram results revealed ejection fraction is about 20%, critical care time spent 35 minutes 08/22/2018, patient seen eval reexamined during the rounds she is the more awake propofol is being tapered down to 30 mics plan is to DC the propofol and put on CPAP and pressure support instructions were given patient is nothing by mouth currently chest x-ray reviewed, significant improvement in infiltrate are noted T-tube in stable condition finding on chest x-ray is hyperinflated lung consistent with severe COPD, critical care time 35 minutes 08/21/2018, patient seen and evaluated examined during the rounds she is on the 50 mics of propofol to feed his not initiated yet, patient is afebrile labs reviewed radiographic studies reviewed urine from yesterday reviewed and will titrate the propofol down x-ray showing bilateral pneumonia white cell count is up compared to yesterday arterial blood gas fairly normal, mild hyperkalemia is noted, 2 minute troponin continue to go up recommendation from cardiovascular services noted critical care time spent 35 minutes Patient was admitted into the hospital with acute COPD exacerbation, presents emergency department today for evaluation complaints of difficulty in breathing and cough for the past 3 days. Patient believes she is having a COPD exacerbation and was calling her primary care doctor today for oral steroid prescription. She presented difficulty breathing became more severe. She called EMS this morning was given breathing treatments and states her symptoms have improved after this breathing treatment. She is maintained on nebulizers at home.. Patient states that she's had a slightly productive cough. Denies any specific fevers or chills. She denies any stationary chest pain at this time. In the emergency department patient having worsening of shortness of thomas th and wheezing and using necessary muscles consult was requested due to severe respiratory distress and altered mental status patient was intubated postintubation ABG revealed evidence of hypercapnia and respiratory acidosis with stable oxygenation some metabolic acidosis was noted likely related to poor perfusion, patient was seen evaluated examined in the ICU post-intubation Objective - Vital Signs Vital signs: Vital Signs Temp 97.9 F 09/01/18 12:10 Pulse 86 09/01/18 12:10 Resp 18 09/01/18 12:10 BP 112/76 09/01/18 12:10 Pulse Ox 92 L 09/01/18 12:10 Intake & Output 08/31/18 09/01/18 09/01/18 18:59 06:59 18:59 Intake Total 2440 240 Output Total 0 Balance 2440 240 Weight 49 kg 41.5 kg Intake: IV 160 Sodium Chloride 0.9% 1, 160 000 ml @ 100 mls/hr IV . Q10H OSBALDO Rx#:[id number] Intake, IV Titration 120 Amount Sodium Chloride 0.9% 500 120 ml 500 ml @ 20 mls/hr IV .Q24H OSBALDO Rx#:[id number] Oral 2160 240 Output: Urine 0 Other: Voiding Method Indwelling Catheter Toilet # Voids 3 2 2 - Exam - Constitutional General appearance: average body habitus, disheveled, mild distress, thin, on on 2 L oxygen is spontaneously breathing- EENT Eyes: PERRLA, poor dentition ENT: normal oropharynx Ears: bilateral: normal - Neck Carotids: bilateral: upstroke normal, bruit absent Thyroid: bilateral: normal size - Respiratory Respiratory: bilateral: diminished, wheezing (Bilateral expiratory), significantly improved compared to yesterday exam - Cardiovascular Rhythm: regular Heart sounds: normal: S1, S2 - Gastrointestinal General gastrointestinal: decreased bowel sounds, scaphoid, soft - Integumentary Integumentary: decreased turgor - Neurologic Neurologic: Sedated with propofol - Musculoskeletal Musculoskeletal: Normal exam ol - Psychiatric Psychiatric: Alert and oriented 3 - Labs CBC & Chem 7: 08/29/18 05:29 08/29/18 05:29 Labs: Abnormal Lab Results - Last 24 Hours (Table) 08/31/18 08/31/18 09/01/18 Range/Units 17:03 19:59 11:39 POC Glucose (mg/dL) 131 H 108 H 125 H (75-99) mg/dL Assessment and Plan Assessment: Acute on chronic hypoxic and hypercapnic respiratory failure Left lower lobe pneumonia/atelectasis End-stage COPD Acute systolic heart failure ejection fraction of 20%, repeat echo however revealed improved and normal ejection fraction of 55% Coronary artery disease, mild not requiring a stent RCA 70% Acute hypoxic and hypercapnic respiratory failure Status post respiratory arrest and intubation Demand supply mismatch non-ST segment elevated [place] COPD severe category with acute exacerbation Elevated troponin due to above Plan: Increase activity as tolerated Broad-spectrum antibiotic Breathing treatments IV steroids, we will start tapering it down, change it to by mouth at the time of discharge DVT and peptic ulcers disease prophylaxis Echocardiogram results reviewed, repeat results reviewed as well Further recommendations pending plan of care as per clinical response of the patient Leukocytosis likely related to steroids, have normalized now Time with Patient: Greater than 30
--- NOTE | 2018-09-01 15:46 | P.DS ---
Providers Date of admission: 08/21/18 05:46 Expected date of discharge: 09/01/18 Attending physician: Allen Knox Consults: 08/20/18 13:04 Consult Physician Urgent Consulting Provider: Ayden Kilpatrick Consult Reason/Comments: dyspnea Do you want consulting provider notified?: Yes 08/20/18 20:06 Consult Physician Urgent Consulting Provider: Velma Ruiz Consult Reason/Comments: elevated troponin Do you want consulting provider notified?: Yes Primary care physician: [facility] [place] Hospital Course: Final Diagnoses: -Acute non-STEMI, EF 20-25%, possibly Takotsubo Syndrome suspect viral induced as patient had been previously sick.; S/P cardiac catheterization reporting intermediate to severe RCA occlusion 60-70%,repeat echo EF 55-60% -Acute COPD exacerbation in a patient with severe COPD -Respiratory arrest secondary to worsening COPD,hypoxia, hypercapnia S/P intubation, mechanical ventilation. -Acute on chronic hypoxic , hypercapnic, respiratory failure secondary to the above -Acute CHF exacerbation, systolic dysfunction, no interstitial edema per x-ray -Right lower lobe Pneumonia, suspect community-acquired, improving Hospital course:This is a 62-year-old female admitted with acute COPD exacerbation, worsening dyspnea ,failed outpatient treatment, hypoxic respiratory failure, requiring intubation, mechanical ventilation, acute non- STEMI and multiple other medical issues. Maintained on vent support with FiO2 decreased to 35%/+5 of PEEP. Spontaneous weaning trial attempted with diprovan weaned off and pressure support removed, unable to tolerate became tachycardic, tachypneic. Chest x-ray reporting no evidence of infiltrate, pleural effusion or pneumothorax, positive emphysema.Tracheostomy and PEG placement being discussed. Sinus rhythm, no arrhythmias. Echo reported severely impaired LV function, EF 20-25%, takotsubo syndrome, mild pulmonary hypertension. Scheduled for cardiac catheterization tomorrow. Maintained on nebulized bronchodilators, steroids, antibiotics. Blood sugars controlled. Afebrile, normal WBC, urine,sputum, blood cultures negative. 08/26/2018 maintained on calcium channel batool, aspirin, statin. Telemetry sinus rhythm. Maintain on mechanical ventilation, FiO2 35%/+5 of PEEP. ABGs noted. Continues on Diprovan, arousable, follows simple commands. Tube Feeds on hold- Cardiac catheterization scheduled for this afternoon.VSS. Chest x-ray reporting bilateral lower lobe infiltrate and small effusion, mild central venous congestion with underlying COPD. Afebrile, normal WBC. 08/27/2018 remains vent dependent, FiO2 35% +5 of PEEP.VSS. Cardiac catheterization this morning, pending.VSS. Chest x-ray reporting possible bilateral atelectasis, possible pneumonia. 08/28/2018 Underwent cardiac catheterization yesterday, reporting intermediate to severe disease involving mid right coronary artery 60-70%; recommending maximizing medical treatment. Tolerated procedure well. 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 Repeat echo ordered by cardiology. Chest x-ray nonacute. Past weaning trials, extubation pending. 08/29/2018 Echo performed this morning, results pending. Sitting up in chair, significant clinical improvement. Extubated yesterday. Maintaining O2 sats in the mid 90s on 2 L nasal cannula. Afebrile. Repeat echo reporting LV function has normalized ,EF 55-60%. Breathing better. Ambulating in [place], tolerating exertion well. Significant clinical improvement. Patient has been cleared by all consults for discharge. Patient is being discharged home in a stable condition with guarded prognosis. Patient will require a rolling walker at discharge secondary to generalized weakness, gait dysfunction as recommended per PT/OT. EXAM:GENERAL: Sitting up in chair, no acute distress CARDIOVASCULAR: S1, S2 regular. No murmur RESPIRATION: Breath sounds diminished in the bases. No rhonchi or crackles. ABDOMEN: Soft, nontender . No guarding. no masses palpable.Bowel sounds heard. NERVOUS SYSTEM: alert and oriented X3, no focal deficits. The impression and plan of care has been dictated as directed. : I performed a history and examination of this patient, discussed the same with the dictator. I agree with the dictator's note ,documented as a scribe. Any additional findings or plans will be noted. Time taken: 35 minutes Patient Condition at Discharge: Stable Plan - Discharge Summary Discharge Rx Participant: Yes New Discharge Prescriptions: New Ipratropium-Albuterol Nebulize [Duoneb 0.5 mg-3 mg/3 ml Soln] 3 ml INHALATION QID #30 neb Levofloxacin [Levaquin] 750 mg PO DAILY #5 tab predniSONE 50 mg PO DAILY #5 tablet Spironolactone [Aldactone] 25 mg PO DAILY #30 tab Carvedilol [Coreg] 3.125 mg PO BID-W/MEALS #60 tab Furosemide [Lasix] 40 mg PO DAILY #30 tab Nitroglycerin Sl Tabs [Nitrostat] 0.4 mg SUBLINGUAL Q5M PRN #100 tab PRN Reason: Chest Pain Pantoprazole [Protonix] 40 mg PO AC-BRKFST #30 tablet. Lisinopril [Zestril] 2.5 mg PO HS #30 tab Aspirin EC [Ecotrin Low Dose] 81 mg PO DAILY #30 tablet. predniSONE 10 mg PO DIRECTED #30 tab Continue Gabapentin [Neurontin] 600 mg PO TID Fesoterodine Fumarate [Toviaz] 8 mg PO DAILY Albuterol Inhaler [Ventolin Hfa Inhaler] 1 - 2 puff INHALATION RT-Q6H PRN PRN Reason: Dyspnea Dextroamphetamine/Amphetamine [Adderall] 20 mg PO TID Aclidinium [place] [Tudorza Pressair] 1 puff INHALATION RT-BID Albuterol Nebulized [Ventolin Nebulized] 2.5 mg INHALATION RT-BID PRN PRN Reason: Dyspnea Budesonide [Pulmicort] 0.5 mg INHALATION RT-BID Diazepam 1 mg PO DAILY PRN PRN Reason: Anxiety Lurasidone [Latuda] 40 mg PO HS Montelukast [Singulair] 10 mg PO HS Guaifenesin/Dextromethorphan [Mucinex Dm ER 1,200-60 mg Tab] 1 tab PO BID PRN PRN Reason: Congestion/Dyspnea Discharge Medication List Aclidinium [place] [Tudorza Pressair] 1 puff INHALATION RT-BID 08/06/14 [History] Albuterol Inhaler [Ventolin Hfa Inhaler] 1 - 2 puff INHALATION RT-Q6H PRN 08/06/14 [History] Dextroamphetamine/Amphetamine [Adderall] 20 mg PO TID 08/06/14 [History] Fesoterodine Fumarate [Toviaz] 8 mg PO DAILY 08/06/14 [History] Gabapentin [Neurontin] 600 mg PO TID 08/06/14 [History] Albuterol Nebulized [Ventolin Nebulized] 2.5 mg INHALATION RT-BID PRN 10/01/14 [History] Budesonide [Pulmicort] 0.5 mg INHALATION RT-BID 09/24/17 [History] Diazepam 1 mg PO DAILY PRN 12/02/16 [History] Guaifenesin/Dextromethorphan [Mucinex Dm ER 1,200-60 mg Tab] 1 tab PO BID PRN 12/02/16 [History] Lurasidone [Latuda] 40 mg PO HS 12/02/16 [History] Montelukast [Singulair] 10 mg PO HS 12/02/16 [History] Ipratropium-Albuterol Nebulize [Duoneb 0.5 mg-3 mg/3 ml Soln] 3 ml INHALATION QID #30 neb 08/20/18 [Rx] Levofloxacin [Levaquin] 750 mg PO DAILY #5 tab 08/20/18 [Rx] predniSONE 50 mg PO DAILY #5 tablet 08/20/18 [Rx] Aspirin EC [Ecotrin Low Dose] 81 mg PO DAILY #30 tablet. 09/01/18 [Rx] Carvedilol [Coreg] 3.125 mg PO BID-W/MEALS #60 tab 09/01/18 [Rx] Furosemide [Lasix] 40 mg PO DAILY #30 tab 09/01/18 [Rx] Lisinopril [Zestril] 2.5 mg PO HS #30 tab 09/01/18 [Rx] Nitroglycerin Sl Tabs [Nitrostat] 0.4 mg SUBLINGUAL Q5M PRN #100 tab 09/01/18 [Rx] Pantoprazole [Protonix] 40 mg PO AC-BRKFST #30 tablet. 09/01/18 [Rx] Spironolactone [Aldactone] 25 mg PO DAILY #30 tab 09/01/18 [Rx] predniSONE 10 mg PO DIRECTED #30 tab 09/01/18 [Rx] Follow up Appointment(s)/Referral(s): Helio Lugo MD [STAFF PHYSICIAN] - 09/15/18 4:30 pm (Per Dr. Dash) Allen Knox MD [Primary Care Provider] - 09/02/18 9:45 am (If you would like to change your appointment you can call.) Ayden Kilpatrick MD [STAFF PHYSICIAN] - 1 Week (Office answering service said the office was closed please call and make appointment.) Ambulatory/Diagnostic Orders: Complete Blood Count w/diff [LAB.AMB] Time Frame: 3 Days, Location: None Selected Patient Instructions/Handouts: Community Acquired Pneumonia (ED) Activity/Diet/Wound Care/Special Instructions: No further Antibiotics as per pulmonary.Patient advised of close follow-up with primary care doctor. Patient should take medications as prescribed. If the difficulty breathing cough anything worsens please return for evaluation and possible admission. Patient should use your inhalers and breathing treatments as prescribed.
== END 2018-09-01 16:35 | disposition home health service (06) | DRG 208 ==
LOC: EC 08:54 → 3NMEDONC 13:11 → 2SICU 19:03 → OBSVTOIN 08-21 05:46 → 3NMEDONC 08-31 13:28
PROVIDERS: ADMIT Family Medicine; ATTEND Family Medicine
PROC: 5A1945Z Respiratory Ventilation, 24-96 Consecutive Hours (ICD-10-PCS; principal; 2018-08-20)
PROC: 0BH17EZ Insertion of Endotracheal Airway into Trachea, Via Natural or Artificial Opening (ICD-10-PCS; 2018-08-20)
PROC: 4A023N7 Measurement of Cardiac Sampling and Pressure, Left Heart, Percutaneous Approach (ICD-10-PCS; 2018-08-27)
PROC: B2111ZZ Fluoroscopy of Multiple Coronary Arteries using Low Osmolar Contrast (ICD-10-PCS; 2018-08-27)
PROC: B2151ZZ Fluoroscopy of Left Heart using Low Osmolar Contrast (ICD-10-PCS; 2018-08-27)
DX: J96.22 Acute and chronic respiratory failure with hypercapnia (principal); I50.23 Acute on chronic systolic (congestive) heart failure; J18.9 Pneumonia, unspecified organism; I21.4 Non-ST elevation (NSTEMI) myocardial infarction; E87.4 Mixed disorder of acid-base balance; I42.9 Cardiomyopathy, unspecified; J44.0 Chronic obstructive pulmonary disease with (acute) lower respiratory infection; J44.1 Chronic obstructive pulmonary disease with (acute) exacerbation; J98.11 Atelectasis; Z99.11 Dependence on respirator [ventilator] status; I51.81 Takotsubo syndrome; J96.21 Acute and chronic respiratory failure with hypoxia; Z87.891 Personal history of nicotine dependence; E87.5 Hyperkalemia; F90.9 Attention-deficit hyperactivity disorder, unspecified type; I25.10 Atherosclerotic heart disease of native coronary artery without angina pectoris; I25.2 Old myocardial infarction; I27.20 Pulmonary hypertension, unspecified; Z79.52 Long term (current) use of systemic steroids; Z79.82 Long term (current) use of aspirin; Z79.899 Other long term (current) drug therapy; Z82.49 Family history of ischemic heart disease and other diseases of the circulatory system; B02.9 Zoster without complications; Z90.710 Acquired absence of both cervix and uterus; Z99.81 Dependence on supplemental oxygen; R26.9 Unspecified abnormalities of gait and mobility; Z90.49 Acquired absence of other specified parts of digestive tract; Z82.61 Family history of arthritis; M19.90 Unspecified osteoarthritis, unspecified site; F32.9 Major depressive disorder, single episode, unspecified; F41.9 Anxiety disorder, unspecified
CPT/HCPCS: 36415; 36600; 71045; 71046; 80048; 80053; 81001; 82805; 83735; 84100; 84484; 85025; 85027; 85610; 85730; 87040; 87070; 87086; 87205; 87502; 93005; 93306; 93458; 94002; 94003; 94640; 94660; 96361; 96365; 96366; 96375; 99285

== ENCOUNTER → 2018-11-05 | Outpatient (CLI) | payer MEDICARE, OTHER ==
--- NOTE | 2018-11-05 10:09 | XR ---
EXAMINATION TYPE: XR chest 2V DATE OF EXAM: 11/05/2018 COMPARISON: 08/29/2018 TECHNIQUE: PA and lateral views submitted. HISTORY: Pneumonia FINDINGS: Diffuse hyperinflation compatible COPD. Subsegmental changes at both lung bases appear to be improved . Degenerative change of the spine. No overt failure. No pneumothorax. IMPRESSION: 1. Diffuse COPD with basilar atelectasis favored over infiltrate. Correlate clinically.
== END | disposition home or self-care (01) ==
LOC: RADXRMAIN 09:01
PROVIDERS: ATTEND Internal Medicine Sleep Medicine
DX: J18.9 Pneumonia, unspecified organism (principal)
CPT/HCPCS: 71046

== ENCOUNTER 2019-08-05 11:35 | Inpatient (IN) | payer MEDICARE, OTHER ==
[2019-08-05] MEDS ORDERED: SODIUM CHLORIDE 0.9% 1,000 ML IV STA (11:38)
[2019-08-05] MEDS ORDERED: IPRATROPIUM 0.5 MG/2.5 ML NEBU INHALATION STA (11:38)
[2019-08-05] MEDS ORDERED: ALBUTEROL NEBULIZED 2.5 MG/3 ML INHALATION STA (11:38)
[2019-08-05] MEDS ORDERED: methylPREDNISolone SOD SUCCI 125 MG/2 ML VIAL IV STA (11:38)
--- NOTE | 2019-08-05 11:47 | ED ---
General Adult HPI - General Stated complaint: KENNEDY Time Seen by Provider: 08/05/19 11:36 Source: patient, RN notes reviewed, old records reviewed Mode of arrival: ambulatory Limitations: no limitations - History of Present Illness Initial comments: 63-year-old female history COPD presents in severe respiratory distress. History is somewhat limited given the degree of distress. She has been taking albuterol treatments at home without relief. She called 911 earlier in the day and had declined transport at that time. Upon EMS arrival she was in moderate to severe respiratory distress. Tachycardic and hypoxic. She was placed on a nonrebreather and transported to the emergency department. Patient denying chest pain. Denies any preceding fever. She states that she typically has similar reactions when the weather is changing. - Related Data Home Medications Medication Instructions Recorded Confirmed Aclidinium [place] [Tudorza 1 puff INHALATION RT-BID 08/06/14 08/20/18 Pressair] Albuterol Inhaler (Mhu) [Ventolin 1 - 2 puff INHALATION RT-Q6H PRN 08/06/14 08/20/18 Hfa Inhaler (Mhu)] Dextroamphetamine/Amphetamine 20 mg PO TID 08/06/14 08/20/18 [Adderall] Fesoterodine Fumarate [Toviaz] 8 mg PO DAILY 08/06/14 08/20/18 Gabapentin [Neurontin] 600 mg PO TID 08/06/14 08/20/18 Albuterol Nebulized [Ventolin 2.5 mg INHALATION RT-BID PRN 10/01/14 08/20/18 Nebulized] Budesonide [Pulmicort] 0.5 mg INHALATION RT-BID 12/02/16 08/20/18 Diazepam 1 mg PO DAILY PRN 12/02/16 08/20/18 Guaifenesin/Dextromethorphan 1 tab PO BID PRN 12/02/16 08/20/18 [Mucinex Dm ER 1,200-60 mg Tab] Lurasidone [Latuda] 40 mg PO HS 12/02/16 08/20/18 Montelukast [Singulair] 10 mg PO HS 12/02/16 08/20/18 Previous Rx's Medication Instructions Recorded Ipratropium-Albuterol Nebulize 3 ml INHALATION QID #30 neb 08/20/18 [Duoneb 0.5 mg-3 mg/3 ml Soln] Aspirin EC [Ecotrin Low Dose] 81 mg PO DAILY #30 tablet. 09/01/18 Carvedilol [Coreg] 3.125 mg PO BID-W/MEALS #60 tab 09/01/18 Furosemide [Lasix] 40 mg PO DAILY #30 tab 09/01/18 Lisinopril [Zestril] 2.5 mg PO HS #30 tab 09/01/18 Nitroglycerin Sl Tabs [Nitrostat] 0.4 mg SUBLINGUAL Q5M PRN #100 tab 09/01/18 Pantoprazole [Protonix] 40 mg PO AC-BRKFST #30 tablet. 09/01/18 Spironolactone [Aldactone] 25 mg PO DAILY #30 tab 09/01/18 predniSONE 10 mg PO DIRECTED #30 tab 09/01/18 Allergies Allergy/AdvReac Type Severity Reaction Status Date / Time Penicillins Allergy Anaphylaxis Verified 08/20/18 09:36 Review of Systems ROS Statement: Those systems with pertinent positive or pertinent negative responses have been documented in the HPI. ROS Other: All systems not noted in ROS Statement are negative. Past Medical History Past Medical History: Asthma, COPD, Osteoarthritis (OA) Additional Past Medical History / Comment(s): Other HX: cervical arthiritis, 2 bulging discs in neck, emphysema, HX OF SHINGLES, TAKES NEURONTIN FOR SHINGLES PAIN, BLADDER INCONTINENCE, History of Any Multi-Drug Resistant Organisms: None Reported Past Surgical History: Adenoidectomy, Appendectomy, Cholecystectomy, Hysterectomy, Orthopedic Surgery, Tonsillectomy, Tubal Ligation Additional Past Surgical History / Comment(s): RT rotator cuff repair 2009 Past Anesthesia/Blood Transfusion Reactions: No Reported Reaction Additional Past Anesthesia/Blood Transfusion Reaction / Comment(s): Pt has never had blood transfusion. Past Psychological History: ADD/ADHD, Anxiety, Depression Smoking Status: Former smoker - Past Family History Father Family Medical History: Congestive Heart Failure (CHF) Additional Family Medical History / Comment(s): Father of a heart attack at age 42 yrs. Mother Family Medical History: Rheumatoid Arthritis (RA), Thyroid Disorder Additional Family Medical History / Comment(s): . General Exam Limitations: no limitations General appearance: alert, in distress Head exam: Present: atraumatic, normocephalic Eye exam: Present: normal appearance, PERRL ENT exam: Present: normal exam Neck exam: Present: normal inspection. Absent: tenderness, meningismus Respiratory exam: Present: respiratory distress, wheezes, accessory muscle use, decreased breath sounds Cardiovascular Exam: Present: normal rhythm, tachycardia GI/Abdominal exam: Present: soft. Absent: distended, tenderness, guarding, rebound Extremities exam: Present: normal inspection, normal capillary refill. Absent: pedal edema, calf tenderness Neurological exam: Present: alert, CN II-XII intact. Absent: motor sensory deficit Psychiatric exam: Present: anxious Skin exam: Present: warm, intact, diaphoretic Course Vital Signs 08/05/19 08/05/19 08/05/19 11:40 11:53 12:22 Temperature Pulse Rate 140 H 130 H 122 H Respiratory 42 H 24 Rate Blood Pressure 142/116 O2 Sat by Pulse 100 Oximetry 08/05/19 08/05/19 08/05/19 15:45 16:08 16:10 Temperature Pulse Rate 83 80 45 L Respiratory 18 16 14 Rate Blood Pressure 64/25 104/89 80/45 O2 Sat by Pulse 100 100 Oximetry 08/05/19 08/05/19 08/05/19 17:15 17:30 17:45 Temperature 90 F L Pulse Rate 88 74 71 Respiratory 16 14 14 Rate Blood Pressure 94/39 80/64 98/54 O2 Sat by Pulse 96 Oximetry 08/05/19 08/05/19 08/05/19 18:00 18:15 18:30 Temperature 90.1 F L Pulse Rate 73 73 71 Respiratory 14 14 14 Rate Blood Pressure 119/92 127/106 57/36 O2 Sat by Pulse 96 97 97 Oximetry 08/05/19 08/05/19 08/05/19 18:45 19:00 19:15 Temperature 90.8 F L Pulse Rate 70 69 69 Respiratory 14 14 14 Rate Blood Pressure 74/24 75/55 66/25 O2 Sat by Pulse 97 96 98 Oximetry 08/05/19 08/05/19 19:30 19:45 Temperature Pulse Rate 64 67 Respiratory 14 14 Rate Blood Pressure 78/34 77/43 O2 Sat by Pulse 96 97 Oximetry - Reevaluation(s) Reevaluation #1: 08/05/19 14:20 Patient develops abdominal pain. There is concern for vascular pathology, initially CT angiography of the chest abdomen ordered for pulmonary embolism however given the new onset of abdominal pain there is concern for aortic pathology. There is a faint left femoral pulse, no palpable femoral pulse on the right. Patient is taken immediately to angiography for thoracic aortic study. Reevaluation #2: 08/05/19 15:32 Patient continues to decompensate, worsening acidosis, patient has cardiopulmonary arrest, V. fib arrest 08/05/19 15:33 EKG Findings - EKG Comments: EKG Findings:: EKG: Sinus tachycardia, low voltage, rate of 120, KS interval 158, QRS duration 74, QTC 426, no ST segment elevation. Post resuscitated EKG, sinus rhythm with a first-degree AV block, left axis, low voltage, no ST segment elevation, rate of 86, KS interval 224, QRS duration 88, QTC 447 Procedures - Central Line Placement Right SC Consent Obtained: emergent situation Patient Placed on Monitor/Pulse Ox: Yes MD Prep: mask, gloves Central Line Prep: Chlorhexidine scrub Central Line Lumen Inserted: triple Bloods Obtained for Lab: Yes Central Line Position: good blood return, all ports aspirated, flushed, capped, sutured in place with nylon Dressing Applied: Tegaderm Post Procedure X-Ray: tip of catheter in good position Patient Tolerated Procedure: well Complications: none - Chest Tube Insertion Consent Obtained: emergent situation Side of Procedure: left Indication: Pneumothorax Site Prep: Chloroprep Insertion Site: 5th Intercostal Space, Midaxillary Scalpel: #11 Open into Pleural Space Using: Trocar Tube Size (Lithuanian): Other (24) Returns: Other (Serosanguineous fluid.) Type of Suture: Nylon Dressing Applied: Petroleum Gauze Attached to Suction: Yes Type of Suction: Pleuravac Patient Tolerated Procedure: well Complications: Other (Placed during CPR) - Intubation Sedative: Versed Mg Given: 2 Laryngoscope: Disha Size: 3 ET Tube Size: 7.5 ET Tube Uncuffed: No Tube Secured Depth (cm): 24 Tube Secured Location: lips Tube Placement Confirmation: visualized tube passing through cords, equal breath sounds bilaterally, no breath sounds over epigastrium, confirmation by capnometry Patient Tolerated Procedure: well Intubation Complications: none Medical Decision Making - Medical Decision Making 63-year-old female presenting in severe respiratory distress with minimal air entry. Placed on BiPAP for respiratory support. She has a chest x-ray which is negative for focal pneumonia, no pneumothorax. She has significant laboratory abnormalities on arrival. She has a CO2 of 12 with profound lactic acidosis of 9.2. She has elevated blood sugar 282 and had received steroids by EMS just prior to arrival. Patient has mild leukocytosis, stable hemoglobin. Her troponin is elevated which has been elevated in the past. This in the setting of an elevated d-dimer does cause concern for pulmonary embolism. CT angiography of the chest is ordered, however while in the emergency department at approximately 1430 she develops abdominal pain. Has a decreased pulse exam in her lower extremities. Therefore CT angiography of the chest and pelvis has been ordered. Blood pressure is stable, heart rate has improved from the 140s to the 80s. Repeat laboratory testing is pending. She has been evaluated by the admitting physician Dr. De La Torre, case has been discussed with the maintenance department technician Dr. Kilpatrick. There was concern for left apical pneumothorax on chest x-ray postintubation, a right subclavian catheter was placed, there was no skin puncture on the left, repeat chest x-ray will be obtained, persistent concern for atypical pneumothorax on the left. Shortly after this x-rays obtained, patient has a second cardiac arrest, this is PEA arrest. Chest tube is placed during CPR. Patient has been evaluated by Dr. Kilpatrick in the emergency room, will resume patient's care. CT angiography showing occluded right femoral artery, case discussed with Dr. Washington felt to be chronic in nature, no need for heparin. Patient had not complained of extremity pain, detailed history about preceding pain complaints is not possible. Diagnosis: COPD exacerbation, severe metabolic acidosis, lactic acidosis, V. fib arrest, PEA arrest, occluded right femoral artery, pneumothorax, respiratory failure requiring intubation. - Lab Data Result diagrams: 08/06/19 05:25 08/06/19 05:25 Lab Results 08/05/19 08/05/19 08/05/19 Range/Units 12:49 12:49 12:49 WBC 12.6 H (3.8-10.6) k/uL RBC 4.93 (3.80-5.40) m/uL Hgb 15.3 (11.4-16.0) gm/dL Hct 49.1 H (34.0-46.0) % MCV 99.5 (80.0-100.0) fL MCH 31.0 (25.0-35.0) pg MCHC 31.2 (31.0-37.0) g/dL RDW 12.6 (11.5-15.5) % Plt Count 227 (150-450) k/uL Neutrophils % 56 % Lymphocytes % 39 % Monocytes % 3 % Eosinophils % 1 % Basophils % 1 % Neutrophils # 7.0 (1.3-7.7) k/uL Lymphocytes # 4.9 H (1.0-4.8) k/uL Monocytes # 0.3 (0-1.0) k/uL Eosinophils # 0.2 (0-0.7) k/uL Basophils # 0.1 (0-0.2) k/uL Hypochromasia Marked PT 10.7 (9.0-12.0) sec INR 1.0 (<1.2) APTT 24.1 (22.0-30.0) sec D-Dimer 4.79 H (<0.60) mg/L FEU Sodium 142 (137-145) mmol/L Potassium 4.7 (3.5-5.1) mmol/L Chloride 110 H (98-107) mmol/L Carbon Dioxide 12 L (22-30) mmol/L Anion Gap 20 mmol/L BUN 13 (7-17) mg/dL Creatinine 1.00 (0.52-1.04) mg/dL Est GFR (CKD-EPI)AfAm 71 (>60 ml/min/1.73 sqM) Est GFR (CKD-EPI)NonAf 61 (>60 ml/min/1.73 sqM) Glucose 282 H (74-99) mg/dL Lactic Ac Sepsis Rflx Plasma Lactic Acid Fredy (0.7-2.0) mmol/L Calcium 10.3 H (8.4-10.2) mg/dL Magnesium 2.9 H (1.6-2.3) mg/dL Total Bilirubin 0.6 (0.2-1.3) mg/dL AST 370 H (14-36) U/L ALT 152 H (4-34) U/L Alkaline Phosphatase 128 H (38-126) U/L Troponin I (0.000-0.034) ng/mL Total Protein 6.7 (6.3-8.2) g/dL Albumin 4.3 (3.5-5.0) g/dL Urine Color Urine Appearance (Clear) Urine pH (5.0-8.0) Ur Specific [place] (1.001-1.035) Urine Protein (Negative) Urine Glucose (UA) (Negative) Urine Ketones (Negative) Urine Blood (Negative) Urine Nitrite (Negative) Urine Bilirubin (Negative) Urine Urobilinogen (<2.0) mg/dL Ur Leukocyte Esterase (Negative) Urine RBC (0-5) /hpf Urine WBC (0-5) /hpf Ur Squamous Epith Cells (0-4) /hpf Urine Bacteria (None) /hpf Urine Mucus (None) /hpf 08/05/19 08/05/19 08/05/19 Range/Units 12:49 12:49 13:20 WBC (3.8-10.6) k/uL RBC (3.80-5.40) m/uL Hgb (11.4-16.0) gm/dL Hct (34.0-46.0) % MCV (80.0-100.0) fL MCH (25.0-35.0) pg MCHC (31.0-37.0) g/dL RDW (11.5-15.5) % Plt Count (150-450) k/uL Neutrophils % % Lymphocytes % % Monocytes % % Eosinophils % % Basophils % % Neutrophils # (1.3-7.7) k/uL Lymphocytes # (1.0-4.8) k/uL Monocytes # (0-1.0) k/uL Eosinophils # (0-0.7) k/uL Basophils # (0-0.2) k/uL Hypochromasia PT (9.0-12.0) sec INR (<1.2) APTT (22.0-30.0) sec D-Dimer (<0.60) mg/L FEU Sodium (137-145) mmol/L Potassium (3.5-5.1) mmol/L Chloride (98-107) mmol/L Carbon Dioxide (22-30) mmol/L Anion Gap mmol/L BUN (7-17) mg/dL Creatinine (0.52-1.04) mg/dL Est GFR (CKD-EPI)AfAm (>60 ml/min/1.73 sqM) Est GFR (CKD-EPI)NonAf (>60 ml/min/1.73 sqM) Glucose (74-99) mg/dL Lactic Ac Sepsis Rflx Y Plasma Lactic Acid Fredy 9.2 H* (0.7-2.0) mmol/L Calcium (8.4-10.2) mg/dL Magnesium (1.6-2.3) mg/dL Total Bilirubin (0.2-1.3) mg/dL AST (14-36) U/L ALT (4-34) U/L Alkaline Phosphatase (38-126) U/L Troponin I 0.576 H* (0.000-0.034) ng/mL Total Protein (6.3-8.2) g/dL Albumin (3.5-5.0) g/dL Urine Color Urine Appearance (Clear) Urine pH (5.0-8.0) Ur Specific [place] (1.001-1.035) Urine Protein (Negative) Urine Glucose (UA) (Negative) Urine Ketones (Negative) Urine Blood (Negative) Urine Nitrite (Negative) Urine Bilirubin (Negative) Urine Urobilinogen (<2.0) mg/dL Ur Leukocyte Esterase (Negative) Urine RBC (0-5) /hpf Urine WBC (0-5) /hpf Ur Squamous Epith Cells (0-4) /hpf Urine Bacteria (None) /hpf Urine Mucus (None) /hpf 08/05/19 Range/Units 13:48 WBC (3.8-10.6) k/uL RBC (3.80-5.40) m/uL Hgb (11.4-16.0) gm/dL Hct (34.0-46.0) % MCV (80.0-100.0) fL MCH (25.0-35.0) pg MCHC (31.0-37.0) g/dL RDW (11.5-15.5) % Plt Count (150-450) k/uL Neutrophils % % Lymphocytes % % Monocytes % % Eosinophils % % Basophils % % Neutrophils # (1.3-7.7) k/uL Lymphocytes # (1.0-4.8) k/uL Monocytes # (0-1.0) k/uL Eosinophils # (0-0.7) k/uL Basophils # (0-0.2) k/uL Hypochromasia PT (9.0-12.0) sec INR (<1.2) APTT (22.0-30.0) sec D-Dimer (<0.60) mg/L FEU Sodium (137-145) mmol/L Potassium (3.5-5.1) mmol/L Chloride (98-107) mmol/L Carbon Dioxide (22-30) mmol/L Anion Gap mmol/L BUN (7-17) mg/dL Creatinine (0.52-1.04) mg/dL Est GFR (CKD-EPI)AfAm (>60 ml/min/1.73 sqM) Est GFR (CKD-EPI)NonAf (>60 ml/min/1.73 sqM) Glucose (74-99) mg/dL Lactic Ac Sepsis Rflx Plasma Lactic Acid Fredy (0.7-2.0) mmol/L Calcium (8.4-10.2) mg/dL Magnesium (1.6-2.3) mg/dL Total Bilirubin (0.2-1.3) mg/dL AST (14-36) U/L ALT (4-34) U/L Alkaline Phosphatase (38-126) U/L Troponin I (0.000-0.034) ng/mL Total Protein (6.3-8.2) g/dL Albumin (3.5-5.0) g/dL Urine Color Yellow Urine Appearance Cloudy H (Clear) Urine pH 6.0 (5.0-8.0) Ur Specific [place] 1.025 (1.001-1.035) Urine Protein 3+ H (Negative) Urine Glucose (UA) Negative (Negative) Urine Ketones Negative (Negative) Urine Blood Small H (Negative) Urine Nitrite Negative (Negative) Urine Bilirubin Negative (Negative) Urine Urobilinogen <2.0 (<2.0) mg/dL Ur Leukocyte Esterase Negative (Negative) Urine RBC 11 H (0-5) /hpf Urine WBC 2 (0-5) /hpf Ur Squamous Epith Cells 2 (0-4) /hpf Urine Bacteria Rare H (None) /hpf Urine Mucus Moderate H (None) /hpf Critical Care Time Critical Care Time: Yes Total Critical Care Time: 95 Disposition Clinical Impression: Acute exacerbation of chronic obstructive airways disease, Hyperglycemia, Elevated troponin, Lactic acidosis, Respiratory failure, Congestive heart failure, Femoral artery occlusion, right Disposition: ADMITTED IP TO THIS HOSP Condition: Critical Is patient prescribed a controlled substance at d/c from ED?: No Decision to Admit Reason: Admit from EC Decision Date: 08/05/19 Decision Time: 14:00
--- NOTE | 2019-08-05 11:53 | XR ---
EXAMINATION TYPE: XR chest 1V portable DATE OF EXAM: 08/05/2019 COMPARISON: Chest x-ray November 05, 2018 and older studies chest CT July 03, 2012. HISTORY: Difficulty in breathing. TECHNIQUE: Single frontal view of the chest is obtained. FINDINGS: There is Chronic emphysematous and parenchymal fibrotic changes in the bases redemonstrated without definitive suspicious new focal air space opacity, pleural effusion, or pneumothorax seen bilaterally. The car diac silhouette size remains upper limits of normal with atherosclerotic aorta. The osseous structu res are demineralized. Cholecystectomy clips are redemonstrated. IMPRESSION: Chronic changes without new suspicious acute pulmonary process.
[2019-08-05] MEDS: MAGNESIUM SULFATE-D5W PMX 1 GM in DEXTROSE/WATER 1 100ML.BAG IVPB SCH ×2 (11:56→13:33)
[2019-08-05 13:12] LABS: Albumin 4.3 g/dL (3.5-5.0); Calcium 10.3 mg/dL (8.4-10.2); Magnesium 2.9 mg/dL (1.6-2.3); Potassium 4.7 mmol/L (3.5-5.1); Total Bilirubin 0.6 mg/dL (0.2-1.3); Total Protein 6.7 g/dL (6.3-8.2)
[2019-08-05] MEDS ORDERED: SODIUM CHLORIDE 0.9% 1,000 ML IV ONE ×3 (13:13→18:35)
[2019-08-05 13:22] LABS: Partial Thromboplastin Time 24.1 sec (22.0-30.0); Prothrombin Time 10.7 sec (9.0-12.0)
[2019-08-05] MEDS ORDERED: SODIUM CHLORIDE 0.9% 500 ML 500 ML IV ONE (13:22)
[2019-08-05] MEDS ORDERED: SODIUM CHLORIDE 0.9% 1,000 ML IV SCH (13:30)
[2019-08-05 13:36] LABS: D-Dimer 4.79 mg/L FEU (<0.60)
[2019-08-05 13:40] LABS: Basophils # (A) 0.1 k/uL (0-0.2); Basophils % (A) 1 %; Eosinophils # (A) 0.2 k/uL (0-0.7); Eosinophils % (A) 1 %; HCT 49.1 % (34.0-46.0); HGB 15.3 gm/dL (11.4-16.0); Hypochromasia Marked; Lymphocytes # (A) 4.9 k/uL (1.0-4.8); Lymphocytes % (A) 39 %; MCHC 31.2 g/dL (31.0-37.0); MCV 99.5 fL (80.0-100.0); Mean Platelet Volume 9.2; Monocytes # (A) 0.3 k/uL (0-1.0); Monocytes % (A) 3 %; Neutrophils % (A) 56 %; Platelet Count 227 k/uL (150-450); RBC 4.93 m/uL (3.80-5.40); RDW 12.6 % (11.5-15.5); WBC 12.6 k/uL (3.8-10.6)
[2019-08-05] MEDS ORDERED: NALOXONE 0.4 MG/ML 1 ML VIAL IV PRN (14:05)
[2019-08-05] MEDS ORDERED: IPRATROPIUM-ALBUTEROL 3 ML NEB INHALATION PRN (14:05)
[2019-08-05] MEDS ORDERED: ALBUTEROL NEBULIZED 2.5 MG/3 ML INHALATION PRN (14:10)
[2019-08-05 14:21] LABS: Appearance,Urine Cloudy (Clear); Bacteria,Urine Rare /hpf; Bilirubin,Urine Negative (Negative); Blood,Urine Small (Negative); Color,Urine Yellow; Glucose,Urine (UA) Negative (Negative); Ketones,Urine Negative (Negative); Leukocyte Esterase,Urine Negative (Negative); Mucus,Urine Moderate /hpf; Nitrite,Urine Negative (Negative); Protein,Urine 3+ (Negative); RBC,Urine 11 /hpf (0-5); Specific Gravity,Urine 1.025 (1.001-1.035); Squamous Epithelial Cell,Urine 2 /hpf (0-4); Urobilinogen,Urine <2.0 mg/dL (<2.0); WBC,Urine 2 /hpf (0-5)
[2019-08-05] MEDS ORDERED: LEVOFLOXACIN 500MG-D5W PMX 500 MG in DEXTROSE/WATER 1 100ML.BAG IVPB STA (14:38)
[2019-08-05 14:41] LABS: VBG PH 7.07 (7.31-7.41)
--- NOTE | 2019-08-05 14:43 | P.HPIM ---
History of Present Illness Patient is a 72-year-old female with history of COPD quit smoking in 2012 doesn't use any oxygen at home came in complaining that complaints of fever or shortness of breath wasn't respiratory distress presently on BiPAP. Patient is severely acidotic ABG is being obtained at this time patient has lactic acid of around 9.1 although there is no clear source of infection that was evident chest x-ray did not show pneumonia patient denied any abdominal pain UA is bit abnormal with some leukocyte esterase and mild white blood cell counts patient doesn't have any symptoms of UTI not completely impressive for urinary tract infection either patient does have mildly elevated troponin, patient had some ST-T wave changes CPS to be nonspecific. Patient had a d-dimer because of which CT angios the thorax is being obtained along with the abdomen is being obtained because of high lactic acidosis although patient doesn't have any abdominal pain. Patient respiratory rate was very high patient was started on BiPAP is high respiratory rate can be secondary to lactic acidosis patient does have elevated liver enzymes as well as Review of Systems Rest of the review of systems is negative except those mentioned above unable to obtain much of the review of systems because of her clinical condition and being on BiPAP Past Medical History Past Medical History: Asthma, COPD, Osteoarthritis (OA) Additional Past Medical History / Comment(s): Other HX: cervical arthiritis, 2 bulging discs in neck, emphysema, HX OF SHINGLES, TAKES NEURONTIN FOR SHINGLES PAIN, BLADDER INCONTINENCE, History of Any Multi-Drug Resistant Organisms: None Reported Past Surgical History: Adenoidectomy, Appendectomy, Cholecystectomy, Hysterectomy, Orthopedic Surgery, Tonsillectomy, Tubal Ligation Additional Past Surgical History / Comment(s): RT rotator cuff repair 2008 Past Anesthesia/Blood Transfusion Reactions: No Reported Reaction Additional Past Anesthesia/Blood Transfusion Reaction / Comment(s): Pt has never had blood transfusion. Past Psychological History: ADD/ADHD, Anxiety, Depression Smoking Status: Former smoker - Past Family History Father Family Medical History: Congestive Heart Failure (CHF) Additional Family Medical History / Comment(s): Father of a heart attack at age 42 yrs. Mother Family Medical History: Rheumatoid Arthritis (RA), Thyroid Disorder Additional Family Medical History / Comment(s): . Medications and Allergies Home Medications Medication Instructions Recorded Confirmed Type Aclidinium Poth [Tudorza 1 puff INHALATION RT-BID 08/06/14 08/20/18 History Pressair] Albuterol Inhaler (Mhu) [Ventolin 1 - 2 puff INHALATION RT-Q6H PRN 08/06/14 08/20/18 History Hfa Inhaler (Mhu)] Dextroamphetamine/Amphetamine 20 mg PO TID 08/06/14 08/20/18 History [Adderall] Fesoterodine Fumarate [Toviaz] 8 mg PO DAILY 08/06/14 08/20/18 History Gabapentin [Neurontin] 600 mg PO TID 08/06/14 08/20/18 History Albuterol Nebulized [Ventolin 2.5 mg INHALATION RT-BID PRN 10/01/14 08/20/18 History Nebulized] Budesonide [Pulmicort] 0.5 mg INHALATION RT-BID 12/02/16 08/20/18 History Diazepam 1 mg PO DAILY PRN 12/02/16 08/20/18 History Guaifenesin/Dextromethorphan 1 tab PO BID PRN 12/02/16 08/20/18 History [Mucinex Dm ER 1,200-60 mg Tab] Lurasidone [Latuda] 40 mg PO HS 12/02/16 08/20/18 History Montelukast [Singulair] 10 mg PO HS 12/02/16 08/20/18 History Ipratropium-Albuterol Nebulize 3 ml INHALATION QID #30 neb 08/20/18 Rx [Duoneb 0.5 mg-3 mg/3 ml Soln] Aspirin EC [Ecotrin Low Dose] 81 mg PO DAILY #30 tablet. 09/01/18 Rx Carvedilol [Coreg] 3.125 mg PO BID-W/MEALS #60 tab 09/01/18 Rx Furosemide [Lasix] 40 mg PO DAILY #30 tab 09/01/18 Rx Lisinopril [Zestril] 2.5 mg PO HS #30 tab 09/01/18 Rx Nitroglycerin Sl Tabs [Nitrostat] 0.4 mg SUBLINGUAL Q5M PRN #100 tab 09/01/18 Rx Pantoprazole [Protonix] 40 mg PO AC-BRKFST #30 tablet. 09/01/18 Rx Spironolactone [Aldactone] 25 mg PO DAILY #30 tab 09/01/18 Rx predniSONE 10 mg PO DIRECTED #30 tab 09/01/18 Rx Allergies Allergy/AdvReac Type Severity Reaction Status Date / Time Penicillins Allergy Anaphylaxis Verified 08/20/18 09:36 Physical Exam Vitals: Vital Signs Pulse Resp BP Pulse Ox 08/05/19 12:22 122 H 24 08/05/19 11:53 130 H 08/05/19 11:40 140 H 42 H 142/116 100 Intake and Output 08/04/19 08/05/19 08/05/19 22:59 06:59 14:59 Other: Weight 47.627 kg PHYSICAL EXAMINATION: GENERAL: The patient is alert and oriented x3, and respiratory distress on BiPAP feels better bit better now HEENT: Pupils are round and equally reacting to light. EOMI. No scleral icterus. No conjunctival pallor. Normocephalic, atraumatic. No pharyngeal erythema. No thyromegaly. CARDIOVASCULAR: S1 and S2 present. No murmurs, rubs, or gallops. Patient is tachycardic to PULMONARY: Silent chest without any air movement no wheezing or crackles ABDOMEN: Soft, nontender, nondistended, normoactive bowel sounds. No palpable organomegaly. MUSCULOSKELETAL: No joint swelling or deformity. EXTREMITIES: No cyanosis, clubbing, or pedal edema. NEUROLOGICAL: Gross neurological examination did not reveal any focal deficits. SKIN: No rashes. Results CBC & Chem 7: 08/05/19 12:49 08/05/19 12:49 Labs: Abnormal Lab Results - Last 24 Hours (Table) 08/05/19 08/05/19 08/05/19 Range/Units 12:49 12:49 12:49 WBC 12.6 H (3.8-10.6) k/uL Hct 49.1 H (34.0-46.0) % Lymphocytes # 4.9 H (1.0-4.8) k/uL D-Dimer 4.79 H (<0.60) mg/L FEU Chloride 110 H (98-107) mmol/L Carbon Dioxide 12 L (22-30) mmol/L Glucose 282 H (74-99) mg/dL Plasma Lactic Acid Fredy (0.7-2.0) mmol/L Calcium 10.3 H (8.4-10.2) mg/dL Magnesium 2.9 H (1.6-2.3) mg/dL AST 370 H (14-36) U/L ALT 152 H (4-34) U/L Alkaline Phosphatase 128 H (38-126) U/L Troponin I (0.000-0.034) ng/mL Urine Appearance (Clear) Urine Protein (Negative) Urine Blood (Negative) Urine RBC (0-5) /hpf Urine Bacteria (None) /hpf Urine Mucus (None) /hpf 08/05/19 08/05/19 08/05/19 Range/Units 12:49 12:49 13:48 WBC (3.8-10.6) k/uL Hct (34.0-46.0) % Lymphocytes # (1.0-4.8) k/uL D-Dimer (<0.60) mg/L FEU Chloride (98-107) mmol/L Carbon Dioxide (22-30) mmol/L Glucose (74-99) mg/dL Plasma Lactic Acid Fredy 9.2 H* (0.7-2.0) mmol/L Calcium (8.4-10.2) mg/dL Magnesium (1.6-2.3) mg/dL AST (14-36) U/L ALT (4-34) U/L Alkaline Phosphatase (38-126) U/L Troponin I 0.576 H* (0.000-0.034) ng/mL Urine Appearance Cloudy H (Clear) Urine Protein 3+ H (Negative) Urine Blood Small H (Negative) Urine RBC 11 H (0-5) /hpf Urine Bacteria Rare H (None) /hpf Urine Mucus Moderate H (None) /hpf Assessment and Plan Plan: Acute hypoxic and hypercapnic respiratory failure secondary to COPD exacerbation patient was started on systemic steroids continue with inhalational treatments. Patient will also be started on levofloxacin patient has ALLERGIC to penicillins which is an anaphylactic reaction. Continue with BiPAP wean off as tolerated will obtain ABG. Patient will be admitted to ICU -Respiratory acidosis along with metabolic acidosis: Respiratory acidosis secondary to COPD exacerbation metabolic acidosis etiology is not clear probably secondary to intravascular and patient cannot completely rule out sepsis patient was started on levofloxacin as mentioned above -Tachycardia reflux tachycardia from withdrawal from beta batool along with hypoxemia and intravascular depletion or sepsis. Continue with IV fluids -Lactic acidosis possibly of sepsis at not be completely ruled out, patient was started on exam levofloxacin empirically as patient is ALLERGIC to penicillins, blood cultures will be obtained CT angios the chest and abdomen are being obtained the CT angios the abdomen is will help us rule out any ischemic bowel. From the elevated d-dimer can be secondary to sepsis rule out pulmonary embolism CT angios the chest is being obtained -Leukocytosis: Due to assessment #1 -Troponin elevation with some nonspecific ST-T wave changes probably secondary t o hypoxemia or sepsis repeat troponins will be obtained -Elevated liver enzymes can be seconded to sepsis we'll obtain ultrasound of the gallbladder, hepatitis panel will be obtained as well patient to denied alcohol abuse history -Depression. DVT prophylaxis with subcutaneous heparin and GI prophylaxis with metastatic
[2019-08-05 15:05] LABS: Calcium 8.5 mg/dL (8.4-10.2)
[2019-08-05] MEDS ORDERED: CALCIUM CHLORIDE 100 MG/ML 10 ML SYRINGE ONE (15:10)
[2019-08-05] MEDS ORDERED: EPINEPHrine 10 ML SYRINGE (0.1 MG/ML) ONE (15:10)
--- NOTE | 2019-08-05 15:23 | CT ---
EXAMINATION TYPE: CT angio tho/abd W Run Off DATE OF EXAM: 08/05/2019 COMPARISON: None HISTORY: [facility] CT DLP: 1906.8 mGycm CONTRAST: CTA thoracic and abdominal aorta with 3-D reconstruction is performed and with IV Contrast, patient i njected with 100 mL of Isovue 370. Contrast CTA of the abdominal aorta with runoff of the lower extremity arterial system was performed from the lung bases through the ankles and feet. 3-D reconstruction imaging obtained at a separate wo rkstation. ABDOMINAL AORTA: Severe atheromatous change noted without evidence for occlusion. No dissection seen. No para-aortic hemorrhage. Branch vessels are patent although atheromatous changes noted. Iliac vessels: Extensive atheromatous change of the common iliac arteries bilaterally. Greater than 7 0% stenosis suggested of the right common iliac artery. 50% stenosis suggested left common iliac jeannie ry. Diminutive right external iliac artery. Patent right internal iliac artery. Scattered atheromatou s change left internal and external iliac arteries both are patent. Femoral arteries: There is occlusion noted at the right femoral artery/proximal right SFA junction wi thout distal reconstitution noted. SFA is not visualized nor is the popliteal artery, trifurcation or calf arteries. Scattered atheromatous change left SFA without evidence for stenosis of greater than 50%. Popliteal arteries: Patent on the left. Nonvisualization on the right. Below the knee arteries: Trifurcation is not visualized on the right. Trifurcation patent on the left . Left-sided Peroneal, anterior and posterior tibial arteries demonstrate mild calcific disease witho ut evidence for hemodynamically significant stenosis. Right-sided peroneal, anterior and posterior ti bial arteries are nonvisualized. LIVER/GB- No significant abnormality is seen. PANCREAS- No significant abnormality is seen. SPLEEN- No significant abnormality is seen. ADRENALS- No significant abnormality is seen. KIDNEYS/BLADDER- No significant abnormality is seen. BOWEL- No Significant abnormality GENITAL ORGANS: No gross abnormality seen. LYMPH NODES- No greater than 1cm abdominal or pelvic lymph nodes are appreciated. OSSEOUS STRUCTURES- No significant abnormality is seen. OTHER- No significant abnormality is seen. IMPRESSION- 1. There is occlusion noted at the right femoral artery/proximal right SFA junction without distal re constitution noted. SFA is not visualized nor is the popliteal artery, trifurcation or calf arteries. 2. Greater than 70% stenosis right common iliac artery.
[2019-08-05 15:25] LABS: Basophils # (A) 0.1 k/uL (0-0.2); Basophils % (A) 1 %; Eosinophils # (A) 0.1 k/uL (0-0.7); Eosinophils % (A) 1 %; HCT 42.5 % (34.0-46.0); HGB 13.2 gm/dL (11.4-16.0); Hypochromasia Marked; Lymphocytes # (A) 4.5 k/uL (1.0-4.8); Lymphocytes % (A) 31 %; MCHC 31.1 g/dL (31.0-37.0); Macrocytosis Slight; Mean Platelet Volume 7.1; Monocytes # (A) 0.4 k/uL (0-1.0); Monocytes % (A) 3 %; Neutrophils # (A) 9.4 k/uL (1.3-7.7); Neutrophils % (A) 64 %; Platelet Count 161 k/uL (150-450); RBC 4.13 m/uL (3.80-5.40); RDW 12.6 % (11.5-15.5); WBC 14.6 k/uL (3.8-10.6)
[2019-08-05] MEDS ORDERED: MIDAZOLAM 2 MG/2 ML VIAL IVP STA (15:27)
[2019-08-05] MEDS ORDERED: MIDAZOLAM HCL 50 MG in SODIUM CHLORIDE 0.9% 40 ML IV SCH (15:30)
[2019-08-05 15:39] LABS: Potassium 7.2 mmol/L (3.5-5.1)
[2019-08-05] MEDS ORDERED: ALBUTEROL NEB (CONC) 2.5 MG/0.5 ML INHALATION ONE (15:39)
[2019-08-05] MEDS ORDERED: DEXTROSE 50% SYRINGE 50 ML IVP ONE (15:39)
[2019-08-05] MEDS ORDERED: SODIUM POLYSTYRENE SULFONATE 15 GM/60 ML BOTTLE PO ONE (15:39)
[2019-08-05 15:48] LABS: Hepatitis A Antibody IgM NEGATIVE
--- NOTE | 2019-08-05 15:53 | XR ---
EXAMINATION TYPE: XR chest 1V portable DATE OF EXAM: 08/05/2019 COMPARISON: 08/05/2019 HISTORY: Postintubation TECHNIQUE: Single frontal view of the chest is obtained. FINDINGS: ET tube with tip approximately 3.5 cm above the davy. Cardiomegaly and underlying COPD n oted. There is a right-sided central line. Diffuse interstitial pattern seen. Small bilateral effusio ns and basilar infiltrate. There is a lucency involving the left lung apex. IMPRESSION: 1. Correlate for CHF superimposed on a background of COPD. 2. A possible small left apical pneumothorax measuring 5-10%.
[2019-08-05] MEDS ORDERED: INSULIN REGULAR 100 UNIT/ML VIAL IV ONE ×2 (16:00→20:45)
[2019-08-05] MEDS ORDERED: HEPARIN SODIUM,PORCINE 5,000 UNIT/ML 1 ML VIAL SQ SCH (16:00)
[2019-08-05] MEDS ORDERED: DEXTROSE 5% IN WATER 100 ML with AMIODARONE 150 MG IV ONE (16:00)
[2019-08-05] MEDS ORDERED: CALCIUM GLUCONATE 1 GM in SODIUM CHLORIDE 0.9% 100 ML IVPB ONE (16:00)
[2019-08-05] MEDS ORDERED: AMIODARONE 360 MG in DEXTROSE 5% IN WATER 200 ML IV ONE ×2 (16:15)
--- NOTE | 2019-08-05 16:21 | XR ---
EXAMINATION TYPE: XR chest 1V portable DATE OF EXAM: 08/05/2019 HISTORY: Shortness of breath. COMPARISON: 08/05/2019 TECHNIQUE: Single view of the chest is submitted. FINDINGS: Demonstrated are scattered senescent parenchymal change. Endotracheal tube is apparently position. Central venous line in place. Patchy perihilar and basilar infiltrates are unchanged. The heart is stable. Hilar and mediastinal structures are within normal limits. Degenerative changes are seen of the dorsal spine. IMPRESSION: 1. Essentially stable chest.
[2019-08-05] MEDS: IPRATROPIUM-ALBUTEROL 3 ML NEB INHALATION SCH ×2 (16:37→20:10)
--- NOTE | 2019-08-05 16:52 | XR ---
EXAMINATION TYPE: XR chest 1V portable DATE OF EXAM: 08/05/2019 HISTORY: Shortness of breath. COMPARISON: 08/05/2019 from earlier in the day. TECHNIQUE: Single view of the chest is submitted. FINDINGS: Left-sided chest tube is noted with its distal tip in the medial left upper lobe. No evidence for siz able pneumothorax is time. Increasing perihilar and basilar infiltrates are noted which are nonspecif ic. Endotracheal tube and right-sided subclavian central venous line. Hyperinflation with COPD. The heart is stable. Hilar and mediastinal structures are within normal limits. Degenerative changes are seen of the dorsal spine. IMPRESSION: 1. Left-sided chest tube is noted with its distal tip in the medial left upper lobe. No evidence for sizable pneumothorax is time. Increasing perihilar and basilar infiltrates are noted which are nonsp ecific. Endotracheal tube and right-sided subclavian central venous line. Hyperinflation with COPD.
[2019-08-05] MEDS: DEXTROSE 5% IN WATER 1,000 ML with SODIUM BICARB (1 MEQ/ML) 150 ML IV SCH (17:04)
[2019-08-05 17:05] LABS: Glucose,Whole Blood 108 mg/dL (75-99)
--- NOTE | 2019-08-05 17:12 | P.CNPUL ---
History of Present Illness Consult date: 08/05/19 (Critical care time spent 60 minutes in coordinating care) Reason for consult: dyspnea, cough, COPD, hypoxemia Chief complaint: Progressive shortness of breath History of present illness: This is a 63-year-old female with end-stage COPD as well as extensive history of smoking and nicotine abuse, patient has one day of increasing respiratory distress for which EMS were called patient was transferred to emergency depar tment at [facility], due to respiratory distress she was placed on BiPAP machine with nebulizer treatment, patient also noted to have episode of abdominal pain found to have 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 fib cardiac arrest which was short-lived required shock converted back to sinus rhythm and intubated at the same time, followed by another cardiac arrest small pneumothorax was seen on the left side chest tube on the left side has been inserted, patient noted to have severe lactic acidosis and potential of 7.4, initial x-ray was COPD-like changes but however subsequent latest x-ray shows bilateral pulmonary edema versus aspiration pneumonia type picture more so on the right side compared to left side, patient is stable left-sided chest tube with the well expanded lung, hemodynamically very unstable require pressors to build up the proper pressure as well as IV fluid boluses, patient leg appeared to be mottled Review of Systems All systems: negative Past Medical History Past Medical History: Asthma, COPD, Osteoarthritis (OA) Additional Past Medical History / Comment(s): Other HX: cervical arthiritis, 2 bulging discs in neck, emphysema, HX OF SHINGLES, TAKES NEURONTIN FOR SHINGLES PAIN, BLADDER INCONTINENCE, History of Any Multi-Drug Resistant Organisms: None Reported Past Surgical History: Adenoidectomy, Appendectomy, Cholecystectomy, Hysterectom y, Orthopedic Surgery, Tonsillectomy, Tubal Ligation Additional Past Surgical History / Comment(s): RT rotator cuff repair 2008 Past Anesthesia/Blood Transfusion Reactions: No Reported Reaction Additional Past Anesthesia/Blood Transfusion Reaction / Comment(s): Pt has never had blood transfusion. Past Psychological History: ADD/ADHD, Anxiety, Depression Smoking Status: Former smoker - Past Family History Father Family Medical History: Congestive Heart Failure (CHF) Additional Family Medical History / Comment(s): Father of a heart attack at age 42 yrs. Mother Family Medical History: Rheumatoid Arthritis (RA), Thyroid Disorder Additional Family Medical History / Comment(s): . Medications and Allergies Home Medications Medication Instructions Recorded Confirmed Type Aclidinium Omar [Tudorza 1 puff INHALATION RT-BID 08/06/14 08/20/18 History Pressair] Albuterol Inhaler (Mhu) [Ventolin 1 - 2 puff INHALATION RT-Q6H PRN 08/06/14 08/20/18 History Hfa Inhaler (Mhu)] Dextroamphetamine/Amphetamine 20 mg PO TID 08/06/14 08/20/18 History [Adderall] Fesoterodine Fumarate [Toviaz] 8 mg PO DAILY 08/06/14 08/20/18 History Gabapentin [Neurontin] 600 mg PO TID 08/06/14 08/20/18 History Albuterol Nebulized [Ventolin 2.5 mg INHALATION RT-BID PRN 10/01/14 08/20/18 History Nebulized] Budesonide [Pulmicort] 0.5 mg INHALATION RT-BID 12/02/16 08/20/18 History Diazepam 1 mg PO DAILY PRN 12/02/16 08/20/18 History Guaifenesin/Dextromethorphan 1 tab PO BID PRN 12/02/16 08/20/18 History [Mucinex Dm ER 1,200-60 mg Tab] Lurasidone [Latuda] 40 mg PO HS 12/02/16 08/20/18 History Montelukast [Singulair] 10 mg PO HS 12/02/16 08/20/18 History Ipratropium-Albuterol Nebulize 3 ml INHALATION QID #30 neb 08/20/18 Rx [Duoneb 0.5 mg-3 mg/3 ml Soln] Aspirin EC [Ecotrin Low Dose] 81 mg PO DAILY #30 tablet. 09/01/18 Rx Carvedilol [Coreg] 3.125 mg PO BID-W/MEALS #60 tab 09/01/18 Rx Furosemide [Lasix] 40 mg PO DAILY #30 tab 09/01/18 Rx Lisinopril [Zestril] 2.5 mg PO HS #30 tab 09/01/18 Rx Nitroglycerin Sl Tabs [Nitrostat] 0.4 mg SUBLINGUAL Q5M PRN #100 tab 09/01/18 Rx Pantoprazole [Protonix] 40 mg PO AC-BRKFST #30 tablet. 09/01/18 Rx Spironolactone [Aldactone] 25 mg PO DAILY #30 tab 09/01/18 Rx predniSONE 10 mg PO DIRECTED #30 tab 09/01/18 Rx Allergies Allergy/AdvReac Type Severity Reaction Status Date / Time Penicillins Allergy Anaphylaxis Verified 08/20/18 09:36 Physical Exam Vitals: Vital Signs Pulse Resp BP Pulse Ox 08/05/19 16:08 80 16 104/89 100 08/05/19 15:45 83 18 64/25 08/05/19 12:22 122 H 24 08/05/19 11:53 130 H 08/05/19 11:40 140 H 42 H 142/116 100 Intake and Output 08/05/19 08/05/19 08/05/19 06:59 14:59 22:59 Other: Weight 47.627 kg - Constitutional Sedated on ventilator General appearance: disheveled - EENT Eyes: EOMI, PERRLA Ears: bilateral: normal - Neck Neck: normal ROM Carotids: bilateral: upstroke normal Thyroid: bilateral: normal size - Respiratory Respiratory: bilateral: diminished - Cardiovascular Rhythm: regular Heart sounds: normal: S1, S2 - Gastrointestinal General gastrointestinal: decreased bowel sounds, soft - Integumentary Integumentary: normal turgor Intubated on full ventilator support Results - Laboratory Findings CBC and BMP: 08/05/19 14:35 08/05/19 14:35 PT/INR, D-dimer PT 10.7 sec (9.0-12.0) 08/05/19 12:49 INR 1.0 (<1.2) 08/05/19 12:49 D-Dimer 4.79 mg/L FEU (<0.60) H 08/05/19 12:49 Abnormal lab findings: Abnormal Labs 08/05/19 08/05/19 08/05/19 12:49 12:49 12:49 WBC 12.6 H Hct 49.1 H MCV Neutrophils # Lymphocytes # 4.9 H D-Dimer 4.79 H VBG pH VBG pCO2 VBG HCO3 Potassium Chloride 110 H Carbon Dioxide 12 L Creatinine Glucose 282 H Plasma Lactic Acid Fredy Calcium 10.3 H Magnesium 2.9 H AST 370 H ALT 152 H Alkaline Phosphatase 128 H Troponin I Urine Appearance Urine Protein Urine Blood Urine RBC Urine Bacteria Urine Mucus 08/05/19 08/05/19 08/05/19 12:49 12:49 13:48 WBC Hct MCV Neutrophils # Lymphocytes # D-Dimer VBG pH VBG pCO2 VBG HCO3 Potassium Chloride Carbon Dioxide Creatinine Glucose Plasma Lactic Acid Fredy 9.2 H* Calcium Magnesium AST ALT Alkaline Phosphatase Troponin I 0.576 H* Urine Appearance Cloudy H Urine Protein 3+ H Urine Blood Small H Urine RBC 11 H Urine Bacteria Rare H Urine Mucus Moderate H 08/05/19 08/05/19 08/05/19 14:30 14:35 14:35 WBC 14.6 H Hct MCV 103.0 H Neutrophils # 9.4 H Lymphocytes # D-Dimer VBG pH 7.07 L* VBG pCO2 30 L VBG HCO3 8 L* Potassium Chloride Carbon Dioxide Creatinine Glucose Plasma Lactic Acid Fredy Calcium Magnesium AST ALT Alkaline Phosphatase Troponin I 1.090 H* Urine Appearance Urine Protein Urine Blood Urine RBC Urine Bacteria Urine Mucus 08/05/19 08/05/19 14:35 14:35 WBC Hct MCV Neutrophils # Lymphocytes # D-Dimer VBG pH VBG pCO2 VBG HCO3 Potassium 7.2 H* Chloride 112 H Carbon Dioxide 14 L Creatinine 1.45 H Glucose 178 H Plasma Lactic Acid Fredy 7.6 H* Calcium Magnesium AST ALT Alkaline Phosphatase Troponin I Urine Appearance Urine Protein Urine Blood Urine RBC Urine Bacteria Urine Mucus - Diagnostic Findings Chest x-ray: report reviewed, image reviewed CT scan - chest: report reviewed, image reviewed Assessment and Plan Assessment: Acute hypoxic and hypercapnic respiratory failure due to COPD exacerbation Lactic acidosis due to poor perfusion Thrombosis of right iliac vessel acute versus chronic V. fib cardiac arrest Aspiration pneumonia Left small pneumothorax status post left-sided chest tube Hyperkalemia status post Kayexalate plus hyperkalemia cocktail Severe sepsis and developing septic shock Plan: Repeat labs as patient will arrive in ICU Consult vascular surgery patient will benefit from heparin drip Broad-spectrum IV antibiotics Ventilator support Aggressive IV hydration Arterial line Echocardiogram Consult cardiology Vasopressors as needed Continue vent support with his adjustment as per blood gas finding and is as per hemodynamics Further recommendations pending plan of care as per clinical response of patient Prognosis overall guarded
[2019-08-05 17:24] LABS: Glucose,Whole Blood 203 mg/dL (75-99)
[2019-08-05] MEDS ORDERED: HEPARIN SOD,PORK IN 0.45% NACL 25,000 UNIT in 0.45% NACL 1 250ML.BAG IV SCH (17:30)
[2019-08-05] MEDS: NOREPINEPHRINE 32 MG in SODIUM CHLORIDE 0.9% 218 ML IV ONE (17:37)
[2019-08-05 17:41] LABS: Glucose,Whole Blood 167 mg/dL (75-99)
[2019-08-05 18:38] LABS: HCT 38.7 % (34.0-46.0); HGB 11.9 gm/dL (11.4-16.0); Hypochromasia Marked; MCH 32.3 pg (25.0-35.0); MCHC 30.7 g/dL (31.0-37.0); MCV 105.1 fL (80.0-100.0); Macrocytosis Slight; Mean Platelet Volume 8.1; RBC 3.68 m/uL (3.80-5.40); RDW 12.5 % (11.5-15.5); WBC 13.9 k/uL (3.8-10.6)
[2019-08-05 18:45] LABS: Albumin 1.9 g/dL (3.5-5.0); Calcium 8.5 mg/dL (8.4-10.2); Magnesium 3.3 mg/dL (1.6-2.3); Total Bilirubin 1.1 mg/dL (0.2-1.3); Total Protein 3.8 g/dL (6.3-8.2)
[2019-08-05 18:55] LABS: Potassium 7.5 mmol/L (3.5-5.1)
[2019-08-05 18:56] LABS: Phosphorus 11.4 mg/dL (2.5-4.5)
[2019-08-05 19:11] LABS: Partial Thromboplastin Time 70.9 sec (22.0-30.0); Prothrombin Time 19.5 sec (9.0-12.0)
[2019-08-05 19:21] LABS: Troponin I 1.9 ng/mL (0.000-0.034)
[2019-08-05 19:30] LABS: Ionized Calcium 5.8 mg/dL (4.5-5.3)
[2019-08-05 19:47] LABS: Platelet Count 50 k/uL (150-450)
[2019-08-05] MEDS: BUDESONIDE 0.5 MG/2 ML NEBU INHALATION SCH (20:10)
[2019-08-05] MEDS: GABAPENTIN 300 MG CAP PO SCH (20:15)
[2019-08-05] MEDS: CARVEDILOL 3.125 MG TAB PO SCH (20:15)
[2019-08-05] MEDS ORDERED: HEPARIN SODIUM,PORCINE 5,000 UNIT/ML 1 ML VIAL IV PRN (20:18)
[2019-08-05] MEDS ORDERED: SODIUM BICARB 8.4% 50 ML SYR (1 MEQ/ML) IV STA (20:19)
[2019-08-05] MEDS ORDERED: DEXTROSE 50% SYRINGE 50 ML IVP STA (20:20)
[2019-08-05] MEDS ORDERED: CALCIUM GLUCONATE 2 GM in SODIUM CHLORIDE 0.9% 100 ML IVPB ONE (20:45)
[2019-08-05] MEDS: methylPREDNISolone SOD SUCCI 125 MG/2 ML VIAL IV SCH (20:47)
[2019-08-05] MEDS ORDERED: LURASIDONE 40 MG TAB PO SCH (21:00)
[2019-08-05] MEDS: CHLORHEXIDINE GLUCONATE 15 ML CUP MUCOUS MEM SCH (21:07)
[2019-08-05 21:30] LABS: ABG PCO2 63 mmHg (35-45); ABG PO2 139 mmHg (83-108); Allen Test Performed? Yes
[2019-08-05 21:31] LABS: ABG Base Excess -23.6 mmol/L; ABG HCO3 10 mmol/L (21-25); ABG TCO2 12 mmol/L (19-24)
[2019-08-05] MEDS: PROPOFOL 100 ML IV ONE (22:00)
[2019-08-05] MEDS ORDERED: PROPOFOL 1,000 MG in EMPTY BAG 1 BAG IV SCH (22:00)
--- NOTE | 2019-08-05 22:22 | XR ---
EXAMINATION TYPE: XR chest 1V portable DATE OF EXAM: 08/05/2019 COMPARISON: Today HISTORY: NG tube TECHNIQUE: Single view FINDINGS: There is nasogastric tube in the tip is below the diaphragm in the stomach. There is pulmon michelle interstitial and airspace edema. There is left-sided chest tube over the left upper lung field. T here is an approximate 10% left apical pneumothorax. There is right central venous catheter with tip in the superior vena cava. Endotracheal tube is 5 cm from the davy. There is mild blunting of the c ostophrenic angles. IMPRESSION: Pleural fluid and pulmonary edema unchanged. Left apical pneumothorax probably not change d. NG tube appears to be in good position in the stomach.
[2019-08-05 22:46] LABS: HCT 37.8 % (34.0-46.0); HGB 11.3 gm/dL (11.4-16.0); Hypochromasia Marked; MCH 30.6 pg (25.0-35.0); MCHC 29.8 g/dL (31.0-37.0); MCV 102.4 fL (80.0-100.0); Macrocytosis Slight; Mean Platelet Volume 8.6; RBC 3.69 m/uL (3.80-5.40); RDW 12.7 % (11.5-15.5); WBC 10.5 k/uL (3.8-10.6)
[2019-08-05 23:15] LABS: INR 3.4 (<1.2); Prothrombin Time 33.1 sec (9.0-12.0)
[2019-08-05] MEDS: IPRATROPIUM-ALBUTEROL 3 ML NEB INHALATION PRN (23:29)
[2019-08-05 23:51] LABS: Partial Thromboplastin Time >200.0 sec (22.0-30.0)
[2019-08-05 23:53] LABS: Albumin 1.8 g/dL (3.5-5.0); Calcium 8.9 mg/dL (8.4-10.2); Magnesium 3.1 mg/dL (1.6-2.3); Total Bilirubin 0.8 mg/dL (0.2-1.3); Total Protein 3.5 g/dL (6.3-8.2)
[2019-08-06 00:02] LABS: Hepatitis B Core IgM Non-Reactive (Non-Reactive); Hepatitis C IgG Antibody Non-Reactive (Non-Reactive)
[2019-08-06 00:03] LABS: Hepatitis B Surface Antigen Non-Reactive (Non-Reactive)
[2019-08-06 00:03] LABS: Potassium 6.6 mmol/L (3.5-5.1)
[2019-08-06] MEDS ORDERED: SODIUM BICARB 8.4% 50 ML SYR (1 MEQ/ML) IV STA ×2 (00:24→06:11)
[2019-08-06] MEDS ORDERED: DEXTROSE 50% SYRINGE 50 ML IVP STA ×2 (00:24→05:29)
[2019-08-06] MEDS ORDERED: INSULIN REGULAR 100 UNIT/ML VIAL IV ONE (00:30)
[2019-08-06] MEDS ORDERED: CALCIUM GLUCONATE 1 GM in SODIUM CHLORIDE 0.9% 100 ML IVPB ONE (00:45)
[2019-08-06 00:49] LABS: Band Neutrophils % 24 %; Lymphocytes # (M) 2.52 k/uL (1.0-4.8); Neutrophils % (M) 52 %; Nucleated Red Blood Cells 0 /100 WBC (0-0); Total Cells Counted 200
[2019-08-06 00:51] LABS: Platelet Count 20 k/uL (150-450)
[2019-08-06] MEDS: methylPREDNISolone SOD SUCCI 125 MG/2 ML VIAL IV SCH ×2 (00:57→06:21)
[2019-08-06] MEDS: AMIODARONE 300 MG in DEXTROSE 5% IN WATER 250 ML IV SCH ×4 (00:57→10:02)
[2019-08-06] MEDS: GABAPENTIN 300 MG CAP PO SCH ×2 (01:28→10:05)
[2019-08-06] MEDS: PROPOFOL 100 ML IV ONE (02:12)
[2019-08-06] MEDS ORDERED: PROPOFOL 1,000 MG in EMPTY BAG 1 BAG IV SCH (02:30)
[2019-08-06] MEDS: NOREPINEPHRINE 32 MG in SODIUM CHLORIDE 0.9% 218 ML IV ONE (02:31)
[2019-08-06] MEDS: IPRATROPIUM-ALBUTEROL 3 ML NEB INHALATION PRN (03:08)
[2019-08-06] MEDS: DEXTROSE 5% IN WATER 1,000 ML with SODIUM BICARB (1 MEQ/ML) 150 ML IV SCH (05:17)
[2019-08-06 05:30] LABS: Glucose,Whole Blood 55 mg/dL (75-99)
[2019-08-06 05:49] LABS: ABG Base Excess -7.8 mmol/L; ABG HCO3 23 mmol/L (21-25); ABG Oxygen Saturation 93.4 % (94-97); ABG PO2 82 mmHg (83-108); ABG TCO2 25 mmol/L (19-24); Allen Test Performed? Yes
[2019-08-06 05:53] LABS: ABG PCO2 84 mmHg (35-45); ABG PH 7.04 (7.35-7.45)
[2019-08-06 06:06] LABS: Glucose,Whole Blood 158 mg/dL (75-99)
[2019-08-06 06:36] LABS: Appearance,Urine Cloudy (Clear); Bacteria,Urine Occasional /hpf; Bilirubin,Urine Negative (Negative); Blood,Urine Moderate (Negative); Color,Urine Yellow; Glucose,Urine (UA) 2+ (Negative); Granular Casts,Urine 8 /lpf (0); Ketones,Urine Negative (Negative); Leukocyte Esterase,Urine Negative (Negative); Mucus,Urine Rare /hpf; Nitrite,Urine Negative (Negative); Protein,Urine 3+ (Negative); RBC,Urine 55 /hpf (0-5); Squamous Epithelial Cell,Urine 2 /hpf (0-4); Urobilinogen,Urine <2.0 mg/dL (<2.0); WBC,Urine 20 /hpf (0-5)
[2019-08-06 06:39] LABS: Specific Gravity,Urine 1.048 (1.001-1.035)
[2019-08-06 06:46] LABS: Basophils # (A) 0.1 k/uL (0-0.2); Basophils % (A) 1 %; Eosinophils # (A) 0.1 k/uL (0-0.7); Eosinophils % (A) 1 %; HCT 38.4 % (34.0-46.0); HGB 12.4 gm/dL (11.4-16.0); Hypochromasia Marked; Lymphocytes # (A) 2.8 k/uL (1.0-4.8); Lymphocytes % (A) 16 %; MCH 31.8 pg (25.0-35.0); MCHC 32.3 g/dL (31.0-37.0); MCV 98.4 fL (80.0-100.0); Mean Platelet Volume 9.4; Monocytes # (A) 0.6 k/uL (0-1.0); Monocytes % (A) 4 %; Neutrophils # (A) 13.6 k/uL (1.3-7.7); Neutrophils % (A) 78 %; RDW 12.8 % (11.5-15.5); WBC 17.5 k/uL (3.8-10.6)
[2019-08-06 06:53] LABS: Platelet Count 49 k/uL (150-450)
[2019-08-06 07:06] VITALS: RESP 20; TEMP 99.3
[2019-08-06] MEDS: IPRATROPIUM-ALBUTEROL 3 ML NEB INHALATION SCH (07:18)
[2019-08-06] MEDS: BUDESONIDE 0.5 MG/2 ML NEBU INHALATION SCH (07:18)
[2019-08-06 07:21] LABS: Albumin 2.1 g/dL (3.5-5.0); Calcium 8.2 mg/dL (8.4-10.2); Magnesium 2.7 mg/dL (1.6-2.3); Phosphorus 8.6 mg/dL (2.5-4.5); Potassium 5.1 mmol/L (3.5-5.1); Total Protein 4.1 g/dL (6.3-8.2)
[2019-08-06] MEDS ORDERED: PANTOPRAZOLE 40 MG TABLET PO SCH (07:30)
[2019-08-06] MEDS ORDERED: ATROPINE SULFATE 0.1 MG/ML 10ML SYRINGE ONE (07:56)
[2019-08-06] MEDS ORDERED: CALCIUM CHLORIDE 100 MG/ML 10 ML SYRINGE ONE (07:56)
[2019-08-06] MEDS ORDERED: EPINEPHrine 10 ML SYRINGE (0.1 MG/ML) ONE (07:56)
[2019-08-06] MEDS ORDERED: DEXTROSE 50% SYRINGE 50 ML IVP ONE (07:56)
[2019-08-06] MEDS ORDERED: SODIUM BICARB 8.4% 50 ML SYR (1 MEQ/ML) ONE ×6 (07:56→08:53)
[2019-08-06 08:00] LABS: Glucose,Whole Blood 44 mg/dL (75-99)
[2019-08-06 08:13] LABS: Glucose,Whole Blood 86 mg/dL (75-99)
--- NOTE | 2019-08-06 08:50 | XR ---
EXAMINATION TYPE: XR chest 1V portable DATE OF EXAM: 08/06/2019 Comparison: 08/05/2019 Clinical History: 63-year-old female Tube placement Findings: ET tube is satisfactory. NG tube courses below the diaphragm beyond the [id number]. Right subclavi an CVC tip in the upper right atrium. Left-sided chest tube is present redemonstrated small left pneu mothorax which extends from the apex down to the base along the lateral aspect of the chest measuring 8 mm superiorly and 1.5 cm inferiorly. Superiorly, this previously measured up to 1.3 cm. The inferi or component may be slightly larger. Hyperinflation. Continued consolidation mid and lower lungs. Impression: 1. Left-sided chest tube with small left-sided pneumothorax which extends from the apex down to the b ase. Superiorly measuring 8 mm (versus 1.3 cm, previously) and inferiorly measuring up to 1.5 cm (not well seen, previously). 2. COPD with continued extensive mid and lower lung consolidation.
[2019-08-06] MEDS ORDERED: ASPIRIN 81 MG PO SCH (09:00)
[2019-08-06] MEDS ORDERED: PANTOPRAZOLE 40 MG/10 ML VIAL IV SCH (09:00)
--- NOTE | 2019-08-06 09:03 | P.EN ---
JIHAN DANIELS NOTE: Background information: Patient admitted and had come into the hospital with a Latic acid 9.2, calcium 10.3, CO2 12 with an anion gap of 20. She had a V. fib episode in the ER requiring defibrillation. Her first ABG revealed a pH of 7.07. Her potassium had elevated within a 2 hour period to 7.2. She was noted to have an occlusion of the right femoral artery without distal reconstruction, she was found to have left-sided pneumothorax chest tube was placed. She was admitted to the ICU. This AM blood work reviewed during the CODE WBC 17.5, Plt 49, ptt 77.5, pH 7.04, Co2 84, O2 82, Potassium 5.1, Cr 1.79, Lactic acid 7.9, AST 5784, ALT 2885, Alk phos 187. Jihan daniels called over head Arrived to unit and CPR in progress. Patient had already been given 1 amp of EPI. On first pulse check PEA was on the monitor. The patient remained in PEA for 15 minutes. She received 6 rounds of epi and 5 amps of bicarb. I spoke with her and informed him that we had done everything we could and suggested stopping CPR he found this acceptable. She did have a brief moment of Sinus ally with a faint thready pulse she was given atropine and then developed V fib. She was shocked X 1. CPR was resumed for 2 minutes. She was pronounced at 0815. Of note patient had an echo prior to code which was kindly reviewed by Dr. Lugo during the code and her EF was less than 10%. was at the hospital. Dr. Gfafney notified of passing by myself. Dr. Kilpatrick notified by nursing staff.
[2019-08-06] MEDS: CARVEDILOL 3.125 MG TAB PO SCH (10:01)
[2019-08-06] MEDS: CHLORHEXIDINE GLUCONATE 15 ML CUP MUCOUS MEM SCH (10:05)
[2019-08-06 10:08] VITALS: BP 71/39; PULSE 70
--- NOTE | 2019-08-06 15:08 | P.DS ---
Providers Date of admission: 08/05/19 14:05 Attending physician: Nikole De La Torre Consults: 08/05/19 14:05 Consult Physician Stat Consulting Provider: Ayden Kilpatrick Consult Reason/Comments: COPD exacerbation, hypoxic respiratory failure, metabolic acidosis Do you want consulting provider notified?: Already Contacted 08/05/19 15:38 Consult Physician Routine Consulting Provider: Helio Lugo Consult Reason/Comments: v-fib arrest Do you want consulting provider notified?: Yes Consult Physician Urgent Consulting Provider: Israel Washington Consult Reason/Comments: Occluded right femoral artery Do you want consulting provider notified?: Already Contacted 08/05/19 20:21 Consult Physician Stat Consulting Provider: Veronica Valente Consult Reason/Comments: Elctrolytes Do you want consulting provider notified?: Yes Primary care physician: [facility] Course: Patient the corded twice yesterday patient is later found to have significant occlusion of the superficial femoral artery. Multiple consultants were consulted patient later went into septic shock requiring Levophed. Earlier today morning patient has multiorgan dysfunction and coded again patient earlier today please refer to the documentation from the physician who ran the code for further details Plan - Discharge Summary Discharge Rx Participant: Yes New Discharge Prescriptions: No Action Gabapentin [Neurontin] 600 mg PO TID Fesoterodine Fumarate [Toviaz] 8 mg PO DAILY Albuterol Inhaler (Mhu) [Ventolin Hfa Inhaler (Mhu)] 1 - 2 puff INHALATION RT-Q6H PRN PRN Reason: Dyspnea Dextroamphetamine/Amphetamine [Adderall] 20 mg PO TID Aclidinium [place] [Tudorza Pressair] 1 puff INHALATION RT-BID Albuterol Nebulized [Ventolin Nebulized] 2.5 mg INHALATION RT-BID PRN PRN Reason: Dyspnea Budesonide [Pulmicort] 0.5 mg INHALATION RT-BID Diazepam 1 mg PO DAILY PRN PRN Reason: Anxiety Lurasidone [Latuda] 40 mg PO HS Montelukast [Singulair] 10 mg PO HS Guaifenesin/Dextromethorphan [Mucinex Dm ER 1,200-60 mg Tab] 1 tab PO BID PRN PRN Reason: Congestion/Dyspnea Ipratropium-Albuterol Nebulize [Duoneb 0.5 mg-3 mg/3 ml Soln] 3 ml INHALATION QID #30 neb Spironolactone [Aldactone] 25 mg PO DAILY #30 tab Carvedilol [Coreg] 3.125 mg PO BID-W/MEALS #60 tab Furosemide [Lasix] 40 mg PO DAILY #30 tab Nitroglycerin Sl Tabs [Nitrostat] 0.4 mg SUBLINGUAL Q5M PRN #100 tab PRN Reason: Chest Pain Pantoprazole [Protonix] 40 mg PO AC-BRKFST #30 tablet. Lisinopril [Zestril] 2.5 mg PO HS #30 tab Aspirin EC [Ecotrin Low Dose] 81 mg PO DAILY #30 tablet. predniSONE 10 mg PO DIRECTED #30 tab Discharge Medication List Aclidinium [place] [Tudorza Pressair] 1 puff INHALATION RT-BID 08/06/14 [History] Albuterol Inhaler (Mhu) [Ventolin Hfa Inhaler (Mhu)] 1 - 2 puff INHALATION RT- Q6H PRN 08/06/14 [History] Dextroamphetamine/Amphetamine [Adderall] 20 mg PO TID 08/06/14 [History] Fesoterodine Fumarate [Toviaz] 8 mg PO DAILY 08/06/14 [History] Gabapentin [Neurontin] 600 mg PO TID 08/06/14 [History] Albuterol Nebulized [Ventolin Nebulized] 2.5 mg INHALATION RT-BID PRN 10/01/14 [History] Budesonide [Pulmicort] 0.5 mg INHALATION RT-BID 12/02/16 [History] Diazepam 1 mg PO DAILY PRN 12/02/16 [History] Guaifenesin/Dextromethorphan [Mucinex Dm ER 1,200-60 mg Tab] 1 tab PO BID PRN 12/02/16 [History] Lurasidone [Latuda] 40 mg PO HS 12/02/16 [History] Montelukast [Singulair] 10 mg PO HS 12/02/16 [History] Ipratropium-Albuterol Nebulize [Duoneb 0.5 mg-3 mg/3 ml Soln] 3 ml INHALATION QID #30 neb 08/20/18 [Rx] Aspirin EC [Ecotrin Low Dose] 81 mg PO DAILY #30 tablet. 09/01/18 [Rx] Carvedilol [Coreg] 3.125 mg PO BID-W/MEALS #60 tab 09/01/18 [Rx] Furosemide [Lasix] 40 mg PO DAILY #30 tab 09/01/18 [Rx] Lisinopril [Zestril] 2.5 mg PO HS #30 tab 09/01/18 [Rx] Nitroglycerin Sl Tabs [Nitrostat] 0.4 mg SUBLINGUAL Q5M PRN #100 tab 09/01/18 [Rx] Pantoprazole [Protonix] 40 mg PO AC-BRKFST #30 tablet. 09/01/18 [Rx] Spironolactone [Aldactone] 25 mg PO DAILY #30 tab 09/01/18 [Rx] predniSONE 10 mg PO DIRECTED #30 tab 09/01/18 [Rx] Follow up Appointment(s)/Referral(s): Allen Knox MD [Primary Care Provider] - 1-2 days Discharge Disposition: - Preliminary Cause of Preliminary Cause of : Septic shock from possible limb ischemia along with COPD with acute exacerb
--- NOTE | 2019-08-06 18:33 | ECHOF ---
Referral Reason:CPR x 2 MEASUREMENTS -------- HEIGHT: 157.5 cm WEIGHT: 47.6 kg BP: 93/59 IVSd: 1.2 cm (0.6 - 1.1) LVIDd: 3.1 cm (3.9 - 5.3) LVPWd: 1.3 cm (0.6 - 1.1) IVSs: 1.6 cm LVIDs: 2.8 cm LVPWs: 1.1 cm RVIDd: 3.5 cm (< 3.3) MV E Nolan: 0.60 m/s MV DecT: 103 ms MV A Nolan: 0.66 m/s MV E/A Ratio: 0.91 RAP: 5.00 mmHg RVSP: 21.84 mmHg FINDINGS -------- Sinus rhythm. This was a technically difficult study with suboptimal views. Pt. on a vent. Images taken from subc oastals. The left ventricular size is normal. There is mild concentric left ventricular hypertrophy. There is severe global hypokinesis of LV . Overall left ventricular systolic function is severely impair ed with, an EF < 20%. The right ventricle is mildly enlarged. The left atrial size is normal. The right atrial size is normal. Interatrial and interventricular septum intact. The aortic valve was not well visualized. The mitral valve is normal. The mitral valve leaflets are mildly thickened. There is trace mitral regurgitation. The tricuspid valve appears structurally normal. Mild tricuspid regurgitation present. The pulmonic valve was not well visualized. Normal inferior vena cava with normal inspiratory collapse consistent with estimated right atrial pre ssure of 5 mmHg. There is a trivial pericardial effusion present. CONCLUSIONS -------- 1. Sinus rhythm. 2. This was a technically difficult study with suboptimal views. 3. Pt. on a vent. Images taken from subcoastals. 4. The left ventricular size is normal. 5. There is mild concentric left ventricular hypertrophy. 6. There is severe global hypokinesis of LV . 7. Overall left ventricular systolic function is severely impaired with, an EF < 20%. 8. The right ventricle is mildly enlarged. 9. The left atrial size is normal. 10. The right atrial size is normal. 11. Interatrial and interventricular septum intact. 12. The aortic valve was not well visualized. 13. The mitral valve is normal. 14. The mitral valve leaflets are mildly thickened. 15. There is trace mitral regurgitation. 16. The tricuspid valve appears structurally normal. 17. Mild tricuspid regurgitation present. 18. The pulmonic valve was not well visualized. 19. Normal inferior vena cava with normal inspiratory collapse consistent with estimated right atrial pressure of 5 mmHg. 20. There is a trivial pericardial effusion present. COMMUNITY ORGANIZER: Tresa Suero RDCS
[2019-08-09 14:03] LABS: ABG PH 6.83 (7.35-7.45)
--- NOTE | 2019-08-10 12:24 | CDI ---
Documentation Clarification Form Date: 08/10/19 From: Breana Gross Phone: If you have a question about this query, please contact Radha Sher, [employer] Registrar at [phone] between 8am and 5pm. Admit Date: 08/05/19 Discharge Date:08/06/19 Patient Name: Nahomy Wei Visit Number: [id number] ATTENTION: The Clinical Documentation Specialists (CDI) and [facility] Coding Staff appreciate your assistance in clarifying documentation. Please respond to the clarification below the line at the bottom and electronically sign. The CDI & [facility] Coding staff will review the response and follow-up if needed. Please note: Queries are made part of the Legal Health Record. If you have any questions, please contact the author of this message via ITS. Dear Dr. De La Torre Congestive heart failure is documented in the clinical impression of the ED note. History/Risk Factors: COPD exacerbation, acute hypoxic and hypercapnic respiratory failure, v-fib cardiac arrest, sepsis Clinical Indicators: Impaired ejection fraction VS/Pulse OX: T. 90, P. 150, R. 42, Bp 142/116, Pulse ox. 100% on non-rebreather BNP: Not tested Echocardiogram Results: Overall left ventricular systolic function is severely impaired with, an EF <20% Chest X Ray: Chronic changes without new suspicious acute pulmonary process. Treatment: No treatment In your professional opinion, can you please clarify the acuity and type of CHF if known? Systolic Heart Failure: Acute Chronic Acute on Chronic Diastolic Heart Failure: Acute Chronic Acute on Chronic Systolic & Diastolic Heart Failure: Acute Chronic Acute on Chronic Heart Failure Unable to Determine Other, please specify Acute on Chronic systolic heart failure. MTDD
--- NOTE | 2019-08-13 08:14 | CDI ---
Documentation Clarification Form Date: 08/13/2019 07:56:08 AM From: Candida Jiménez CCS, CCDS Admit Date: 08/05/2019 02:05:00 PM Patient Name: Nahomy Wei Visit Number: [id number] Discharge Date: 08/06/2019 12:45:00 PM ATTENTION: The Clinical Documentation Specialists (CDI) and [facility] Coding Staff appreciate your assistance in clarifying documentation. Please respond to the clarification below the line at the bottom and electronically sign. The CDI & [facility] Coding staff will review the response and follow-up if needed. Please note: Queries are made part of the Legal Health Record. If you have any questions, please contact the author of this message via ITS. Dr. Nikole De La Torre: Coding guidelines do not allow coding professionals to code based on laboratory results; therefore, your input is requested. The COVID-19 test obtained on 08/05/2019 was reported as Negative on 08/05/2019. Per case summary: 63 yo fem, presented to the ED on 08/04 in severe respiratory distress with history of end stage COPD. Developed abdominal pain in ER, decreased pulses in lower extremities, worsening acidosis, CP arrest, V fib arrest & was intubated. The patient coded twice in ICU, found to have a significant occlusion of superficial femoral artery, acute on chronic systolic heart failure and went into septic shock requiring Levophed. Developed multiorgan dysfunction & coded again, on 08/05. PCD: Septic shock from possible limb ischemia w/COPD acute exacerbation. Patient history/risk factors: End stage COPD, Emphysema, Asthma, Osteoarthritis, Cervical arthritis, Shingles, Bladder Incontinence, Former smoker. Clinical Indicators 08/04: VS: T 90*, P 140-122^, R 42^-24^ (SOB, tachypnea), BP 142/116^, PO 100 on 15% nrb-vent LAB: WBC 14.6^, Neut 9.4^. ABG: pH 6.83, HCO3 10, K 7.2^^, Lactic acid 7.6^. CXR: Chronic changes without new suspicious acute pulmonary process. Repeat CXR: ET tube, correlate for CHF on COPD, possible small left apical pneumothorax 5- 10%. Treatment: Intubated in ED, Central Line, Left chest tube, INH Albuterol, INH Atrovent, IV fluid 1,000 mls @ 999/hr x3, IV Mag Sulfate, IV fluid 1,000 mls @ 150/hr, IV Levaquin, IV Dextrose/Water w/NaBicarb, IV Versed, IV Midazolam/NaCl, IV Calcium Gluconate. IV Insulin, IV Amiodarone, IV Norepinephrine Bitartrate, IV Heparin, IV Solumedrol. In order to capture the severity of condition, please clarify the COVID-19 status: COVID-19 ruled out False negative, treating for COVID-19 o based on these clinical indicators: Other, please specify: (Last Form Revision: May 2019) MTDD
== END 2019-08-06 12:45 | disposition expired | DRG 871 ==
LOC: EC 11:35 → 2SICU 14:05
PROVIDERS: ADMIT Internal Medicine; ATTEND Internal Medicine
DX: A41.9 Sepsis, unspecified organism (principal); J69.0 Pneumonitis due to inhalation of food and vomit; J96.01 Acute respiratory failure with hypoxia; J96.02 Acute respiratory failure with hypercapnia; R65.21 Severe sepsis with septic shock; I50.23 Acute on chronic systolic (congestive) heart failure; E87.4 Mixed disorder of acid-base balance; J93.9 Pneumothorax, unspecified; I74.5 Embolism and thrombosis of iliac artery; I46.2 Cardiac arrest due to underlying cardiac condition; I49.01 Ventricular fibrillation; J43.9 Emphysema, unspecified; I70.201 Unspecified atherosclerosis of native arteries of extremities, right leg; E87.5 Hyperkalemia; F32.9 Major depressive disorder, single episode, unspecified; F41.9 Anxiety disorder, unspecified; F90.9 Attention-deficit hyperactivity disorder, unspecified type; I99.8 Other disorder of circulatory system; K21.9 Gastro-esophageal reflux disease without esophagitis; Z20.828 Contact with and (suspected) exposure to other viral communicable diseases; M19.90 Unspecified osteoarthritis, unspecified site; R32 Unspecified urinary incontinence; R73.9 Hyperglycemia, unspecified; R79.89 Other specified abnormal findings of blood chemistry; B02.9 Zoster without complications; M47.812 Spondylosis without myelopathy or radiculopathy, cervical region; M50.30 Other cervical disc degeneration, unspecified cervical region; Z79.82 Long term (current) use of aspirin; Z79.899 Other long term (current) drug therapy; Z79.52 Long term (current) use of systemic steroids; Z90.710 Acquired absence of both cervix and uterus; Z87.891 Personal history of nicotine dependence; Z88.0 Allergy status to penicillin; Z90.49 Acquired absence of other specified parts of digestive tract; Z98.51 Tubal ligation status; Z82.49 Family history of ischemic heart disease and other diseases of the circulatory system; Z82.61 Family history of arthritis; Z83.49 Family history of other endocrine, nutritional and metabolic diseases
CPT/HCPCS: 31500; 32551; 36415; 36556; 36600; 71045; 71275; 75635; 80048; 80053; 80074; 81001; 82330; 82550; 82553; 82803; 82805; 83605; 83735; 84100; 84484; 85025; 85027; 85379; 85610; 85730; 87040; 87086; 92950; 93005; 93306; 94002; 94003; 94640; 94660; 96361; 96365; 96366; 96367; 96368; 96375; 96376; 99291; 99292